=== PATIENT | male | born 1960 | race Caucasian/White ===

== ENCOUNTER → 2016-10-23 | Outpatient (CLI) | payer MEDICARE ==
[2016-10-23 16:04] LABS: EKG EKG PERFORMED
[2016-10-23 16:54] LABS: Basophils % (A) 0 %; CH 28.4; CHCM 33.3; Eosinophils # (A) 0.2 k/uL (0-0.7); Eosinophils % (A) 3 %; HDW 3.42; HGB 10.3 gm/dL (13.0-17.5); Luc % (Auto) 2; Lymphocytes # (A) 0.5 k/uL (1.0-4.8); Lymphocytes % (A) 8 %; MCH 27.5 pg (25.0-35.0); MCHC 32.2 g/dL (31.0-37.0); MCV 85.3 fL (80.0-100.0); Mean Platelet Volume 7.7; Monocytes # (A) 0.6 k/uL (0-1.0); Monocytes % (A) 9 %; Neutrophils # (A) 5.1 k/uL (1.3-7.7); Neutrophils % (A) 78 %; Poikilocytosis Slight; RBC 3.75 m/uL (4.30-5.90); RDW 15.7 % (11.5-15.5); WBC 6.5 k/uL (3.8-10.6); WBC (Perox) 7.18
[2016-10-23 17:06] LABS: Anion Gap 14 mmol/L; Blood Urea Nitrogen 31 mg/dL (9-20); Carbon Dioxide 27 mmol/L (22-30); Chloride 96 mmol/L (98-107); Glucose 277 mg/dL (74-99); Sodium 137 mmol/L (137-145)
--- NOTE | 2016-10-23 17:11 | XR ---
EXAMINATION TYPE: XR chest 2V DATE OF EXAM: 10/23/2016 4:48 PM COMPARISON: 04/29/2016 HISTORY: Short of breath TECHNIQUE: Frontal and lateral views of the chest are obtained. FINDINGS: Heart and mediastinum are normal. Lungs are clear. There is a dual-lumen right central jack ous catheter with the tip in the superior vena cava. There are sternal wires. There is no pleural eff usion. IMPRESSION: No active cardiopulmonary disease. No adverse change compared to old exam.
[2016-10-23 17:15] LABS: Non-African American GFR(MDRD) 13 (>60 ml/min/1.73 sqM)
== END | disposition home or self-care (01) ==
LOC: LABPAT 15:39
PROVIDERS: ATTEND Thoracic Surgery (Cardiothoracic Vascular Surgery)
DX: R06.02 Shortness of breath (principal); Z01.812 Encounter for preprocedural laboratory examination; Z01.811 Encounter for preprocedural respiratory examination; Z01.810 Encounter for preprocedural cardiovascular examination; I10 Essential (primary) hypertension; I73.9 Peripheral vascular disease, unspecified
CPT/HCPCS: 71020; 80051; 82565; 82947; 84520; 85025; 87086; 93005

== ENCOUNTER 2016-10-24 09:08 | Inpatient (IN) | payer MEDICARE ==
[2016-10-23 13:19] VITALS: BMI 25.1
[~2016-10-24 09:08] MED LIST: DEXAMETHASONE SOD PHOSPHATE 10 MG/ML 1 ML VIAL IV ONE; LACTATED RINGERS 1,000 ML IV SCH; LIDOCAINE 1% 20 ML VIAL (10MG/ML) FOR IV START INTRADERMA PRN; ONDANSETRON 4 MG/2 ML VIAL IVP ONE; SCOPOLAMINE 1.5MG/72HR PATCH TRANSDERM ONE; ceFAZolin 2 GM in SODIUM CHLORIDE 0.9% 100 ML IVPB ONE
[2016-10-24 10:20] LABS: Glucose,Whole Blood 228 mg/dL (75-99)
[2016-10-24 10:29] LABS: INR 1.1 (<1.1); Partial Thromboplastin Time 23.2 sec (22.0-30.0); Prothrombin Time 10.7 sec (9.0-12.0)
[2016-10-24] MEDS: INSULIN LISPRO (humaLOG) 300 UNIT/3 ML VIAL SQ ONE ×2 (10:30→14:05)
[2016-10-24] MEDS ORDERED: HYDROmorphone (PF) 1 MG/ML ONE (10:36)
[2016-10-24] MEDS ORDERED: MIDAZOLAM 2 MG/2 ML VIAL ONE (10:36)
[2016-10-24] MEDS ORDERED: PROPOFOL 10 MG/ML 20 ML VIAL IV ONE (10:36)
[2016-10-24] MEDS ORDERED: fentaNYL (PF) 50 MCG/ML 2 ML AMP ONE (10:36)
[2016-10-24] MEDS ORDERED: SUCCINYLCHOLINE CHLORIDE 100 MG/5 ML SYR IV ONE (10:36)
[2016-10-24] MEDS ORDERED: LIDOCAINE 1% INJ 10MG/ML (20 ML MDV) ONE (10:36)
[2016-10-24] MEDS ORDERED: NALOXONE 0.4 MG/ML 1 ML VIAL IV PRN (12:25)
[2016-10-24] MEDS ORDERED: CALCIUM CARBONATE 500 MG CHEWABLE PO PRN (12:38)
[2016-10-24] MEDS: HYDROmorphone 1 MG/ML 1 ML SYRINGE IVP PRN ×4 (12:50→13:50)
[2016-10-24 14:01] LABS: Glucose,Whole Blood 235 mg/dL (75-99)
[2016-10-24] MEDS: HYDROcodone/APAP 5-325MG 1 EACH TAB PO PRN ×2 (15:07→21:46)
[2016-10-24] MEDS: ceFAZolin 1,000 MG in DEXTROSE/WATER 1 50ML.BAG IVPB SCH ×2 (16:18→23:07)
[2016-10-24] MEDS: hydrALAZINE HCL 50 MG TAB PO SCH ×2 (16:18→21:47)
[2016-10-24] MEDS: MORPHINE SULFATE 4 MG/ML SYRINGE IV PRN (16:29)
[2016-10-24 17:29] LABS: Glucose,Whole Blood 246 mg/dL (75-99)
[2016-10-24] MEDS ORDERED: PANTOPRAZOLE 40 MG TABLET PO SCH (17:30)
[2016-10-24] MEDS: PANTOPRAZOLE 40 MG TABLET PO SCH (17:52)
[2016-10-24 20:49] LABS: Glucose,Whole Blood 358 mg/dL (75-99)
[2016-10-24] MEDS: METOPROLOL TARTRATE 50 MG TAB PO SCH (21:47)
[2016-10-24] MEDS: INSULIN LISPRO (humaLOG) 300 UNIT/3 ML VIAL SQ SCH (21:48)
--- NOTE | 2016-10-24 23:03 | CONS ---
REASON FOR CONSULTATION: Recommendations regarding diabetic medications, antihypertensive medications. Patient is admitted for elective left ( ). Patient is doing well. Patient denied any fever or chills. Patient denied any nausea, vomiting. Patient does have multiple other medical problems and patient denied any abdominal pain, nausea, vomiting. Patient is admitted basically for pain control. Patient's pain is under control at this point of time and is being managed by Primary Service and patient's antiplatelet therapy and DVT prophylaxis is being managed by Primary Service as well. REVIEW OF SYSTEMS: CONSTITUTIONAL: No fever, no malaise, no fatigue. HEENT: No recent visual problems or hearing problems. Denied any sore throat. CARDIOVASCULAR: No chest pain, orthopnea, PND, no palpitations, no syncope. PULMONARY: No shortness of breath, no cough, no hemoptysis. GASTROINTESTINAL: No diarrhea, no nausea, no vomiting, no abdominal pain. Normoactive bowel sounds. NEUROLOGICAL: No headaches, no weakness, no numbness. HEMATOLOGICAL: Denies any bleeding or petechiae. GENITOURINARY: Denies any burning micturition, frequency, or urgency. MUSCULOSKELETAL/RHEUMATOLOGICAL: Denies any joint pain, swelling, or any muscle pain. ENDOCRINE: Denies any polyuria or polydipsia. The rest of the 14 point review of systems is negative. PAST MEDICAL HISTORY: Significant for coronary artery disease, diabetes mellitus type 2, gastroesophageal reflux disease, hyperlipidemia, hearing problems, hypertension, osteoarthritis. Patient apparently appears to have had CKD and end-stage renal disease and history of peritoneal dialysis and now hemodialysis Saturday, Saturday, Saturday and diabetic peripheral neuropathy and presently left below-knee amputation, osteomyelitis with MRSA infection as well as diabetic gastroparesis. PAST SURGICAL HISTORY: Cardiac valve replacement surgery, cholecystectomy, hernia repair, orthopedic surgery and anxiety, depression. PAST FAMILY HISTORY: Significant for diabetes mellitus, osteoarthritis. SOCIAL HISTORY: Denied any present smoking, alcohol abuse. Patient occasional uses marijuana. Patient quit smoking. PHYSICAL EXAMINATION: VITAL SIGNS: Temperature 96.6, pulse of 62, respiratory rate of 20, blood pressure is 166/79, saturating at 100% on room air. GENERAL: The patient is alert and oriented x3, not in any acute distress. Well developed, well nourished. HEENT: Pupils are round and equally reacting to light. EOMI. No scleral icterus. No conjunctival pallor. Normocephalic, atraumatic. No pharyngeal erythema. No thyromegaly. CARDIOVASCULAR: S1 and S2 present. No murmurs, rubs, or gallops. PULMONARY: Chest is clear to auscultation, no wheezing or crackles. ABDOMEN: Soft, nontender, nondistended, normoactive bowel sounds. No palpable organomegaly. MUSCULOSKELETAL: No joint swelling or deformity. EXTREMITIES: No cyanosis, clubbing, or pedal edema. Left below-knee amputation. NEUROLOGICAL: Gross neurological examination did not reveal any focal deficits. SKIN: No rashes. LABORATORY DATA: Potassium is essentially within normal limits. No other lab data is available. FINAL DIAGNOSES: 1. Diabetes mellitus. Patient is on sliding scale insulin at home which will be continued here. 2. Hypertension. Patient ( ). Patient's blood pressure is elevated and his antihypertensives can be continued. 3. End-stage renal disease. The patient will continue his regular scheduled hemodialysis. 4. Gastroesophageal reflux disease. 5. Left below-knee amputation. Pain medication as per Primary Services. 6. Osteoarthritis. 7. Diabetic peripheral neuropathy. 8. Diabetic nephropathy. I did do the medication reconciliation. I did review the medication reconciliation. Continue with present medications and leave the addition of antiplatelet therapy to Primary Service. It can be started whenever they believe is appropriate. Will continue to follow the patient as long as patient is in the hospital. Thank you for letting me participate in this patient's care. Patient's primary care physician ( ).
[2016-10-25] MEDS: HYDROcodone/APAP 5-325MG 1 EACH TAB PO PRN ×3 (02:17→17:58)
[2016-10-25 07:38] LABS: Glucose,Whole Blood 344 mg/dL (75-99)
[2016-10-25] MEDS: SERTRALINE 100 MG TAB PO SCH (08:07)
[2016-10-25] MEDS: PANTOPRAZOLE 40 MG TABLET PO SCH ×2 (08:07→18:00)
[2016-10-25] MEDS: INSULIN LISPRO (humaLOG) 300 UNIT/3 ML VIAL SQ SCH ×6 (08:13→21:05)
[2016-10-25] MEDS: INSULIN GLARGINE 100 UNIT/ML 10 ML VIAL SQ SCH (08:16)
[2016-10-25] MEDS ORDERED: MAGNESIUM OXIDE 400 MG TAB PO SCH (09:00)
[2016-10-25] MEDS ORDERED: SERTRALINE 100 MG TAB PO SCH (09:00)
--- NOTE | 2016-10-25 09:17 | P.PN ---
Subjective Principal diagnosis: Vascular occlusive disease, POD #1 left below the knee amputation. Currently sitting up in the bed in no apparent distress, eating breakfast, at bedside, no new complaints. Objective - Vital Signs Vital signs: Vital Signs Temp 97.5 F L 10/25/16 07:00 Pulse 65 10/25/16 08:00 Resp 16 10/25/16 08:00 BP 142/77 10/25/16 07:00 Pulse Ox 96 10/25/16 07:00 Intake & Output 10/24/16 10/25/16 10/25/16 18:59 06:59 18:59 Intake Total 700 322 Output Total 100 Balance 600 322 Weight 77.111 kg 77.111 kg Intake: IV 700 Oral 322 Output: Estimated Blood Loss 100 - Constitutional General appearance: Present: cooperative, no acute distress - Respiratory Details: Lung sounds clear bilaterally, respirations even and unlabored, remains in room air. Able to achieve 2100 mL on incentive spirometry. - Cardiovascular Details: S1, S2 present. Regular rate and rhythm. No edema present. - Gastrointestinal Gastrointestinal Comment(s): Abdomen soft, nontender, nondistended. Active bowel sounds 4 quadrants. Tolerating diet. - Genitourinary Genitourinary Comment(s): Chronic hemodialysis patient. - Integumentary Integumentary Comment(s): Skin warm, dry. Left BKA dressing intact, no drainage present. - Psychiatric Psychiatric: Present: A&O x's 3 - Allied health notes Allied health notes reviewed: nursing - Labs CBC & Chem 7: 10/24/16 10:05 Labs: Abnormal Lab Results - Last 24 Hours (Table) 10/24/16 10/24/16 10/24/16 Range/Units 10:04 14:00 17:27 POC Glucose (mg/dL) 228 H 235 H 246 H (75-99) mg/dL 10/24/16 10/25/16 Range/Units 20:47 07:26 POC Glucose (mg/dL) 358 H 344 H (75-99) mg/dL Assessment and Plan (1) Diabetic ulcer of left foot associated with type 2 diabetes mellitus Status: Acute Plan: 1. Monitor left lower extremity dressing for drainage. 2. Monitor patient's signs and symptoms, including pain of left lower extremity. 3. Pain control. 4. PT/OT to work with patient. 5. Medical management per primary service for chronic medical conditions. 6. We'll discharge patient to rehab soon for therapy. Time with Patient: Greater than 30
[2016-10-25 09:51] LABS: Basophils % (A) 0 %; CHCM 32.3; Eosinophils # (A) 0.1 k/uL (0-0.7); Eosinophils % (A) 2 %; HCT 27.9 % (39.0-53.0); HDW 3.34; HGB 8.9 gm/dL (13.0-17.5); Hypochromasia Slight; Luc # (Auto) 0.09; Luc % (Auto) 1; Lymphocytes # (A) 0.8 k/uL (1.0-4.8); Lymphocytes % (A) 11 %; MCH 27.6 pg (25.0-35.0); MCHC 31.8 g/dL (31.0-37.0); MCV 86.8 fL (80.0-100.0); Mean Platelet Volume 7.9; Monocytes # (A) 0.6 k/uL (0-1.0); Monocytes % (A) 9 %; Neutrophils # (A) 5.5 k/uL (1.3-7.7); Neutrophils % (A) 77 %; RBC 3.22 m/uL (4.30-5.90); RDW 15.9 % (11.5-15.5); WBC 7.1 k/uL (3.8-10.6); WBC (Perox) 7.55
[2016-10-25 10:29] LABS: Calcium 8.8 mg/dL (8.4-10.2); Phosphorous 5.2 mg/dL (2.5-4.5); Potassium 5.1 mmol/L (3.5-5.1); Total Bilirubin 0.4 mg/dL (0.2-1.3); Total Protein 5.8 g/dL (6.3-8.2)
--- NOTE | 2016-10-25 10:44 | PN ---
The patient is admitted for elective left below knee amputation for peripheral vascular disease. Patient is clinically doing well. I believe patient is admitted for pain management. Patient is pain free today when I evaluated the patient. REVIEW OF SYSTEMS: CARDIOVASCULAR: No chest pain, no orthopnea, no PND, no palpitations. PULMONARY: Denied any shortness of breath. No cough or hemoptysis. GASTROINTESTINAL: No diarrhea, nausea or vomiting. No abdominal pain. Normoactive bowel sounds. NEUROLOGIC: No headaches, no weakness, no numbness. Medications were reviewed. PHYSICAL EXAMINATION: VITAL SIGNS: Temperature 97.5, pulse of 65, respiratory rate 16, blood pressure 142/77, saturating at 96% on room air. GENERAL: The patient is alert and oriented x3, not in any acute distress. Well developed, well nourished. HEENT: Pupils are round and equally reacting to light. EOMI. No scleral icterus. No conjunctival pallor. Normocephalic, atraumatic. No pharyngeal erythema. No thyromegaly. CARDIOVASCULAR: S1 and S2 present. No murmurs, rubs, or gallops. PULMONARY: Chest is clear to auscultation, no wheezing or crackles. ABDOMEN: Soft, nontender, nondistended, normoactive bowel sounds. No palpable organomegaly. MUSCULOSKELETAL: No joint swelling or deformity. EXTREMITIES: No significant change compared to yesterday. NEUROLOGICAL: Gross neurological examination did not reveal any focal deficits. SKIN: No rashes. LABORATORY DATA: None available from today. ASSESSMENT AND PLAN: 1. Diabetes mellitus. Patient's blood sugars appear to be a bit elevated and patient was given Lantus today morning. Will see how his blood sugars are. Depending on that, if patient is ( ) here otherwise I recommend to send him on 8 units of t.i.d. a.c. insulin along with his coverage scale. 2. Hypertension. Blood pressure is fairly controlled. Continue with present medication regimen. 3. End-stage renal disease, hemodialysis dependent. Patient will continue his hemodialysis as scheduled. 4. Gastroesophageal reflux disease. 5. Diabetic peripheral neuropathy. 6. Diabetic nephropathy. 7. Below-knee amputation and peripheral vascular disease. 8. Antiplatelet management as per primary services. Thank you for letting me participate in this patient's care. If patient is staying here, I will continue to follow to manage the blood sugars or else patient can be discharged on 8 units of premeal insulin along with his home regimen.
[2016-10-25 12:11] LABS: Glucose,Whole Blood 277 mg/dL (75-99)
--- NOTE | 2016-10-25 13:19 | P.PN ---
Subjective Patient is seen in follow-up for end-stage renal disease. He is maintained on hemodialysis on a Saturday schedule. Patient underwent a left [id number] amputation this admission. Currently doing well. Pain is well controlled. Vital signs are stable. General: The patient appeared well nourished and normally developed. HEENT: Head exam is unremarkable. Neck is without jugular venous distension. LUNGS: Lungs are clear to auscultation and percussion. Breath sounds decreased. HEART: Rate and Rhythm are regular. First and second heart sounds normal. No murmurs, rubs or gallops. ABDOMEN: Abdominal exam reveals normal bowel sounds. Non-tender and non- distended. No evidence of peritonitis. EXTREMITITES: No clubbing, cyanosis, or edema. Wound dressing clean and dry. Amputation noted. Objective - Vital Signs Vital signs: Vital Signs Temp 97.5 F L 10/25/16 07:00 Pulse 65 10/25/16 08:00 Resp 16 10/25/16 08:00 BP 142/77 10/25/16 07:00 Pulse Ox 96 10/25/16 07:00 Intake & Output 10/24/16 10/25/16 10/25/16 18:59 06:59 18:59 Intake Total 700 322 Output Total 100 Balance 600 322 Weight 77.111 kg 77.111 kg Intake: IV 700 Oral 322 Output: Estimated Blood Loss 100 - Labs CBC & Chem 7: 10/25/16 08:45 10/25/16 08:45 Labs: Abnormal Lab Results - Last 24 Hours (Table) 10/24/16 10/24/16 10/24/16 Range/Units 14:00 17:27 20:47 RBC (4.30-5.90) m/uL Hgb (13.0-17.5) gm/dL Hct (39.0-53.0) % RDW (11.5-15.5) % Lymphocytes # (1.0-4.8) k/uL BUN (9-20) mg/dL Creatinine (0.66-1.25) mg/dL Glucose (74-99) mg/dL POC Glucose (mg/dL) 235 H 246 H 358 H (75-99) mg/dL Phosphorus (2.5-4.5) mg/dL Alkaline Phosphatase (38-126) U/L Total Protein (6.3-8.2) g/dL Albumin (3.5-5.0) g/dL 10/25/16 10/25/16 10/25/16 Range/Units 07:26 08:45 08:45 RBC 3.22 L (4.30-5.90) m/uL Hgb 8.9 L (13.0-17.5) gm/dL Hct 27.9 L (39.0-53.0) % RDW 15.9 H (11.5-15.5) % Lymphocytes # 0.8 L (1.0-4.8) k/uL BUN 46 H (9-20) mg/dL Creatinine 6.08 H* (0.66-1.25) mg/dL Glucose 329 H (74-99) mg/dL POC Glucose (mg/dL) 344 H (75-99) mg/dL Phosphorus 5.2 H (2.5-4.5) mg/dL Alkaline Phosphatase 134 H (38-126) U/L Total Protein 5.8 L (6.3-8.2) g/dL Albumin 2.9 L (3.5-5.0) g/dL 10/25/16 Range/Units 12:09 RBC (4.30-5.90) m/uL Hgb (13.0-17.5) gm/dL Hct (39.0-53.0) % RDW (11.5-15.5) % Lymphocytes # (1.0-4.8) k/uL BUN (9-20) mg/dL Creatinine (0.66-1.25) mg/dL Glucose (74-99) mg/dL POC Glucose (mg/dL) 277 H (75-99) mg/dL Phosphorus (2.5-4.5) mg/dL Alkaline Phosphatase (38-126) U/L Total Protein (6.3-8.2) g/dL Albumin (3.5-5.0) g/dL Assessment and Plan Plan: Assessment: #1. End-stage renal disease maintained on hemodialysis on a Saturday schedule. #2. Status post left [id number] amputation. #3. Insulin-dependent diabetes mellitus. #4. Anemia of chronic kidney disease. #5. Chronic kidney disease mineral bone disease. Plan: Hemodialysis today and again tomorrow with goal 1 L ultrafiltration. Patient missed yesterday's treatment due to surgery. Stable to discharge to ECF from nephrology standpoint after dialysis today.
[2016-10-25] MEDS: hydrALAZINE HCL 50 MG TAB PO SCH ×3 (15:57→23:34)
[2016-10-25 17:32] LABS: Glucose,Whole Blood 82 mg/dL (75-99)
[2016-10-25] MEDS: CLOPIDOGREL 75 MG TAB PO SCH (17:59)
[2016-10-25] MEDS: ATORVASTATIN 10 MG TAB PO SCH (17:59)
[2016-10-25] MEDS: FOLIC ACID 1 MG TAB PO SCH (17:59)
[2016-10-25] MEDS: MAGNESIUM OXIDE 400 MG TAB PO SCH (17:59)
[2016-10-25] MEDS: METOPROLOL TARTRATE 50 MG TAB PO SCH ×2 (17:59→21:10)
[2016-10-25] MEDS ORDERED: HEPARIN SODIUM,PORCINE 5,000 UNIT/ML 1 ML VIAL ONE (18:00)
[2016-10-25] MEDS: MORPHINE SULFATE 4 MG/ML SYRINGE IV PRN (21:02)
[2016-10-25 21:40] LABS: Glucose,Whole Blood 119 mg/dL (75-99)
[2016-10-26 07:24] LABS: Glucose,Whole Blood 177 mg/dL (75-99)
[2016-10-26] MEDS: INSULIN LISPRO (humaLOG) 300 UNIT/3 ML VIAL SQ SCH ×7 (08:02→22:00)
--- NOTE | 2016-10-26 08:02 | P.PN ---
<Samra Junior - Last Filed: 10/26/16 07:57> Subjective Principal diagnosis: Vascular occlusive disease, POD #2 left below the knee amputation. Currently sitting up in the bed in no apparent distress, no new complaints. States he's been told he is awaiting final placement at rehab. Objective - Vital Signs Vital signs: Vital Signs Temp 98.4 F 10/25/16 22:59 Pulse 64 10/25/16 22:59 Resp 18 10/25/16 22:59 BP 145/75 10/25/16 23:50 Pulse Ox 96 10/25/16 22:59 Intake & Output 10/25/16 10/26/16 10/26/16 18:59 06:59 18:59 Intake Total 200 350 Balance 200 350 Weight 77.111 kg Intake: Oral 200 350 - Constitutional General appearance: Present: cooperative, no acute distress - Respiratory Details: Lung sounds clear to auscultation, respirations even and unlabored, remains on room air. Able to achieve 1750 mL on incentive spirometry. - Cardiovascular Details: S1, S2 present. Regular rate and rhythm. No edema present. - Gastrointestinal Gastrointestinal Comment(s): Abdomen soft, nontender, nondistended. Active bowel sounds 4 quadrants. Tolerating diet. - Genitourinary Genitourinary Comment(s): Voiding minimally per urinal. Chronic hemodialysis patient. - Integumentary Integumentary Comment(s): Right anterior chest wall Syed cath present. Left forearm AV fistula, positive bruit, positive thrill. Dressing on the left lower extremity BKA dry and intact. - Psychiatric Psychiatric: Present: A&O x's 3, appropriate affect, intact judgment & insight - Allied health notes Allied health notes reviewed: case management - Labs CBC & Chem 7: 10/25/16 08:45 10/25/16 08:45 Labs: Abnormal Lab Results - Last 24 Hours (Table) 10/25/16 10/25/16 10/25/16 Range/Units 08:45 08:45 12:09 RBC 3.22 L (4.30-5.90) m/uL Hgb 8.9 L (13.0-17.5) gm/dL Hct 27.9 L (39.0-53.0) % RDW 15.9 H (11.5-15.5) % Lymphocytes # 0.8 L (1.0-4.8) k/uL BUN 46 H (9-20) mg/dL Creatinine 6.08 H* (0.66-1.25) mg/dL Glucose 329 H (74-99) mg/dL POC Glucose (mg/dL) 277 H (75-99) mg/dL Phosphorus 5.2 H (2.5-4.5) mg/dL Alkaline Phosphatase 134 H (38-126) U/L Total Protein 5.8 L (6.3-8.2) g/dL Albumin 2.9 L (3.5-5.0) g/dL 10/25/16 10/26/16 Range/Units 21:04 07:22 RBC (4.30-5.90) m/uL Hgb (13.0-17.5) gm/dL Hct (39.0-53.0) % RDW (11.5-15.5) % Lymphocytes # (1.0-4.8) k/uL BUN (9-20) mg/dL Creatinine (0.66-1.25) mg/dL Glucose (74-99) mg/dL POC Glucose (mg/dL) 119 H 177 H (75-99) mg/dL Phosphorus (2.5-4.5) mg/dL Alkaline Phosphatase (38-126) U/L Total Protein (6.3-8.2) g/dL Albumin (3.5-5.0) g/dL Assessment and Plan (1) Diabetic ulcer of left foot associated with type 2 diabetes mellitus Status: Acute Plan: 1. Monitor left lower extremity dressing for drainage. 2. Monitor patient's signs and symptoms, including pain of left lower extremity. 3. Pain control. 4. PT/OT to work with patient. 5. Medical management per primary service for chronic medical conditions. 6. Awaiting placement for discharge to rehab. Time with Patient: Greater than 30 <Marcelo Wells - Last Filed: 10/26/16 11:24> Objective - Vital Signs Vital signs: Vital Signs Temp 97.8 F 10/26/16 07:00 Pulse 64 10/26/16 07:00 Resp 18 10/26/16 07:00 BP 154/82 10/26/16 07:00 Pulse Ox 96 10/26/16 07:00 Intake & Output 10/25/16 10/26/16 10/26/16 18:59 06:59 18:59 Intake Total 200 350 Balance 200 350 Weight 77.111 kg Intake: Oral 200 350 - Labs CBC & Chem 7: 10/25/16 08:45 10/25/16 08:45 Labs: Abnormal Lab Results - Last 24 Hours (Table) 10/25/16 10/25/16 10/26/16 Range/Units 12:09 21:04 07:22 POC Glucose (mg/dL) 277 H 119 H 177 H (75-99) mg/dL 10/26/16 Range/Units 11:03 POC Glucose (mg/dL) 244 H (75-99) mg/dL Assessment and Plan Plan: [employer] note reviewed and accepted. Good progress post left below-knee amputation. Work on rehab with physical therapy and discharge planning with ECF placement.
[2016-10-26] MEDS: PANTOPRAZOLE 40 MG TABLET PO SCH ×2 (08:03→18:04)
[2016-10-26] MEDS: CLOPIDOGREL 75 MG TAB PO SCH (08:05)
[2016-10-26] MEDS: ATORVASTATIN 10 MG TAB PO SCH (08:05)
[2016-10-26] MEDS: SERTRALINE 100 MG TAB PO SCH (08:05)
[2016-10-26] MEDS: METOPROLOL TARTRATE 50 MG TAB PO SCH ×2 (08:06→22:01)
[2016-10-26] MEDS: hydrALAZINE HCL 50 MG TAB PO SCH ×3 (08:06→22:01)
[2016-10-26] MEDS: INSULIN GLARGINE 100 UNIT/ML 10 ML VIAL SQ SCH (08:13)
[2016-10-26] MEDS: HYDROcodone/APAP 5-325MG 1 EACH TAB PO PRN ×3 (09:35→22:12)
[2016-10-26 11:05] LABS: Glucose,Whole Blood 244 mg/dL (75-99)
[2016-10-26] MEDS: FOLIC ACID 1 MG TAB PO SCH (11:46)
[2016-10-26] MEDS: MAGNESIUM OXIDE 400 MG TAB PO SCH (11:46)
[2016-10-26] MEDS ORDERED: DARBEPOETIN ALFA 40 MCG/0.4 ML SYRINGE SQ SCH (14:45)
--- NOTE | 2016-10-26 14:57 | PN ---
Patient is seen for followup for end-stage renal disease. He was admitted to the hospital for a diabetic ulcer of the left foot. He is currently status post left below-knee amputation, postoperative day number 2. He is normally maintained on a Saturday, Saturday, Saturday schedule for hemodialysis, and he is on the schedule for hemodialysis today. On examination, blood pressure is 154/82, heart rate 64 per minute. He is afebrile. EXAMINATION OF THE HEART: S1 and S2. EXAMINATION OF THE LUNGS: Bilateral breath sounds are heard. ABDOMEN: Soft, nontender. Examination of lower extremities shows left BKA dressing intact. Labs show sodium 138, potassium 5.1. Hemoglobin 8.9 g/dL. ASSESSMENT: 1. End-stage renal disease, on hemodialysis on a Saturday, Saturday, Saturday schedule via IJ Perm-A-Cath. Patient also has an AV fistula in his left arm which appears to be ready. 2. Status post left below-knee amputation. 3. Type 2 diabetes. 4. Generalized debility. 5. History of volume overload, currently improved. 6. Anemia of chronic disease. Will maintain patient on Aranesp. PLAN: Hemodialysis today. Start Aranesp, as hemoglobin was 8.9 yesterday. Repeat CBC in a.m.
[2016-10-26 17:04] LABS: Glucose,Whole Blood 105 mg/dL (75-99)
[2016-10-26 20:32] LABS: Glucose,Whole Blood 142 mg/dL (75-99)
[2016-10-27 07:13] LABS: Glucose,Whole Blood 138 mg/dL (75-99)
[2016-10-27] MEDS: METOPROLOL TARTRATE 50 MG TAB PO SCH ×2 (08:25→22:32)
[2016-10-27] MEDS: SERTRALINE 100 MG TAB PO SCH (08:25)
[2016-10-27] MEDS: ATORVASTATIN 10 MG TAB PO SCH (08:25)
[2016-10-27] MEDS: CLOPIDOGREL 75 MG TAB PO SCH (08:25)
[2016-10-27] MEDS: hydrALAZINE HCL 50 MG TAB PO SCH ×3 (08:25→22:32)
[2016-10-27] MEDS: PANTOPRAZOLE 40 MG TABLET PO SCH ×2 (08:25→18:02)
[2016-10-27] MEDS: INSULIN LISPRO (humaLOG) 300 UNIT/3 ML VIAL SQ SCH ×7 (08:26→22:34)
--- NOTE | 2016-10-27 08:48 | P.PN ---
Progress Note - Text Subjective: Patient has fairly minimal discomfort. He feels that he still a bit weak in his activities. Objective: He is afebrile. Dressings are stable and dry. Assessment: Stable progress post left below-knee amputation. Plan: We'll continue to progress strength training. Continue to work on discharge planning, probably for Saturday.
--- NOTE | 2016-10-27 08:56 | P.PN ---
Subjective doing well. Had HD on .. He is MWF, surgery was on Sat. Objective - Vital Signs Vital signs: Vital Signs Temp 97.8 F 10/27/16 07:00 Pulse 67 10/27/16 07:00 Resp 16 10/27/16 07:00 BP 155/83 10/27/16 07:00 Pulse Ox 95 10/27/16 07:00 Intake & Output 10/26/16 10/27/16 10/27/16 18:59 06:59 18:59 Intake Total 600 680 Output Total 300 600 Balance 300 80 Weight 77.111 kg Intake: Oral 600 680 Output: Urine 300 600 - Constitutional General appearance: Present: cooperative, no acute distress - Respiratory Respiratory: bilateral: CTA - Cardiovascular Rhythm: regular Heart sounds: normal: S1, S2 - Gastrointestinal General gastrointestinal: Present: normal bowel sounds, soft - Labs CBC & Chem 7: 10/25/16 08:45 10/25/16 08:45 Labs: Abnormal Lab Results - Last 24 Hours (Table) 10/26/16 10/26/16 10/26/16 Range/Units 11:03 17:02 20:23 POC Glucose (mg/dL) 244 H 105 H 142 H (75-99) mg/dL 10/27/16 Range/Units 07:10 POC Glucose (mg/dL) 138 H (75-99) mg/dL Assessment and Plan Plan: Assessment/Plan 1. ESRD MWF as an outpatient, last HD was on . --Will dialyze today for 2 hours and resume usual schedule on Saturday. 2. POD#2 L BKA --Pain controlled. 3. Anemia of ESRD --On aranesp 4. CKD-MBD- stable. 5. HTN- Controlled.
[2016-10-27] MEDS: INSULIN GLARGINE 100 UNIT/ML 10 ML VIAL SQ SCH (09:16)
[2016-10-27 12:19] LABS: Glucose,Whole Blood 109 mg/dL (75-99)
[2016-10-27] MEDS ORDERED: HEPARIN SODIUM,PORCINE 5,000 UNIT/ML 1 ML VIAL ONE (14:20)
[2016-10-27 17:32] LABS: Glucose,Whole Blood 122 mg/dL (75-99)
[2016-10-27] MEDS: FOLIC ACID 1 MG TAB PO SCH (18:02)
[2016-10-27] MEDS: MAGNESIUM OXIDE 400 MG TAB PO SCH (18:02)
[2016-10-27] MEDS: HYDROcodone/APAP 5-325MG 1 EACH TAB PO PRN (19:28)
[2016-10-27 20:27] LABS: Glucose,Whole Blood 129 mg/dL (75-99)
[2016-10-28 07:19] LABS: Glucose,Whole Blood 106 mg/dL (75-99)
[2016-10-28] MEDS: PANTOPRAZOLE 40 MG TABLET PO SCH ×2 (07:54→17:28)
[2016-10-28] MEDS: ATORVASTATIN 10 MG TAB PO SCH (07:54)
[2016-10-28] MEDS: CLOPIDOGREL 75 MG TAB PO SCH (07:54)
[2016-10-28] MEDS: hydrALAZINE HCL 50 MG TAB PO SCH ×3 (07:55→21:38)
[2016-10-28] MEDS: SERTRALINE 100 MG TAB PO SCH (07:55)
[2016-10-28] MEDS: INSULIN GLARGINE 100 UNIT/ML 10 ML VIAL SQ SCH (07:57)
[2016-10-28] MEDS: INSULIN LISPRO (humaLOG) 300 UNIT/3 ML VIAL SQ SCH ×7 (07:57→21:39)
[2016-10-28 09:14] LABS: Hepatitis B Surface Ag Index 0.05
[2016-10-28 09:33] LABS: Hepatitis B Surface Antibody POSITIVE (Negative)
[2016-10-28] MEDS: METOPROLOL TARTRATE 50 MG TAB PO SCH (09:53)
--- NOTE | 2016-10-28 10:16 | P.PN ---
Subjective No complaints. No cp/sob. Objective - Vital Signs Vital signs: Vital Signs Temp 97.7 F 10/28/16 07:00 Pulse 42 L 10/28/16 08:00 Resp 16 10/28/16 07:00 BP 172/77 10/28/16 07:00 Pulse Ox 97 10/28/16 07:00 Intake & Output 10/27/16 10/28/16 10/28/16 18:59 06:59 18:59 Intake Total 240 440 Output Total 200 Balance 240 240 Intake: Oral 240 440 Output: Urine 200 Other: # Voids 0 - Constitutional General appearance: Present: cooperative, no acute distress - Respiratory Respiratory: bilateral: CTA - Cardiovascular Rhythm: regular Heart sounds: normal: S1, S2 - Peripheral edema leg Peripheral Edema: right: None - Gastrointestinal General gastrointestinal: Present: normal bowel sounds, soft - Labs CBC & Chem 7: 10/25/16 08:45 10/25/16 08:45 Labs: Abnormal Lab Results - Last 24 Hours (Table) 10/27/16 10/27/16 10/27/16 Range/Units 12:17 17:31 20:19 POC Glucose (mg/dL) 109 H 122 H 129 H (75-99) mg/dL 10/28/16 Range/Units 07:15 POC Glucose (mg/dL) 106 H (75-99) mg/dL Assessment and Plan Plan: Assessment/Plan 1. ESRD MWF: --will have dialysis tomorrow. 2. POD#3 L BKA --Pain controlled. 3. Anemia of ESRD --On aranesp 4. CKD-MBD- stable. 5. HTN- Controlled.
--- NOTE | 2016-10-28 10:19 | P.PN ---
Progress Note - Text Subjective: Patient has no complaints. Pain is well-controlled. Objective: Afebrile. Vital signs stable. Some bradycardia with sleeping. Assessment: Doing well post-left below-knee amputation. Significant bradycardia. Plan: Bradyarrhythmia is being attended to by internal medicine. Tentative transferred to [facility] tomorrow. Office follow-up for stump management in a week.
[2016-10-28] MEDS: HYDROcodone/APAP 5-325MG 1 EACH TAB PO PRN (10:33)
[2016-10-28 11:43] LABS: Glucose,Whole Blood 115 mg/dL (75-99)
--- NOTE | 2016-10-28 12:40 | PN ---
Patient is admitted with elective left below-knee amputation and I was asked to see the patient again because of bradycardia. Patient has sinus bradycardia. Patient is on metoprolol and significant bradycardia happens when he is sleeping which is not abnormal, anyways patient is on 50 b.i.d. of metoprolol. I will cut it down to 37.5. REVIEW OF SYSTEMS: CARDIOVASCULAR: No chest pain, no orthopnea, no PND, no palpitations. PULMONARY: Denied any shortness of breath. No cough or hemoptysis. GASTROINTESTINAL: No diarrhea, nausea or vomiting. No abdominal pain. Normoactive bowel sounds. NEUROLOGIC: No headaches, no weakness, no numbness. Medications are reviewed. On physical examination, temperature 97.5, pulse of 42, respiratory rate of 16, blood pressure is 170/77, saturating at 97% on room air. PHYSICAL EXAMINATION: GENERAL: The patient is alert and oriented x3, not in any acute distress. Well developed, well nourished. HEENT: Pupils are round and equally reacting to light. EOMI. No scleral icterus. No conjunctival pallor. Normocephalic, atraumatic. No pharyngeal erythema. No thyromegaly. CARDIOVASCULAR: S1 and S2 present. No murmurs, rubs, or gallops. PULMONARY: Chest is clear to auscultation, no wheezing or crackles. ABDOMEN: Soft, nontender, nondistended, normoactive bowel sounds. No palpable organomegaly. EXTREMITIES: No cyanosis, clubbing, or pedal edema. NEUROLOGICAL: Gross neurological examination did not reveal any focal deficits. SKIN: No rashes. MUSCULOSKELETAL: No significant change compared to 2 to 3 days ago when I saw the patient. LABORATORY DATA: None available from today. ASSESSMENT AND PLAN: 1. Type 2 diabetes mellitus, patient's blood sugars are fairly doing well and continue with the same regimen. 2. Mild sinus bradycardia, which is not abnormal, not expected of when patient is sleeping although his metoprolol dose will be decreased to 37.5. 3. Endstage renal disease on hemodialysis. 4. Gastroesophageal reflux disease. 5. Diabetic peripheral neuropathy. 6. Diabetic nephropathy. 7. Below knee amputation and peripheral vascular disease. PLAN: Continue with present medications and medication changes as mentioned above. Will continue to follow the patient only on as-needed basis.
[2016-10-28] MEDS: MAGNESIUM OXIDE 400 MG TAB PO SCH (12:57)
[2016-10-28] MEDS: FOLIC ACID 1 MG TAB PO SCH (12:57)
[2016-10-28 16:58] LABS: Glucose,Whole Blood 149 mg/dL (75-99)
[2016-10-28 20:27] LABS: Glucose,Whole Blood 177 mg/dL (75-99)
[2016-10-28] MEDS: METOPROLOL TARTRATE 12.5 MG TAB PO SCH (21:38)
[2016-10-29 07:16] LABS: Glucose,Whole Blood 132 mg/dL (75-99)
[2016-10-29] MEDS: INSULIN LISPRO (humaLOG) 300 UNIT/3 ML VIAL SQ SCH ×7 (07:48→20:32)
[2016-10-29] MEDS: METOPROLOL TARTRATE 12.5 MG TAB PO SCH ×2 (07:53→20:31)
[2016-10-29] MEDS: CLOPIDOGREL 75 MG TAB PO SCH (07:54)
[2016-10-29] MEDS: SERTRALINE 100 MG TAB PO SCH (07:55)
[2016-10-29] MEDS: hydrALAZINE HCL 50 MG TAB PO SCH ×3 (07:55→20:31)
[2016-10-29] MEDS: PANTOPRAZOLE 40 MG TABLET PO SCH ×2 (07:55→18:39)
[2016-10-29] MEDS: ATORVASTATIN 10 MG TAB PO SCH (07:55)
[2016-10-29] MEDS: INSULIN GLARGINE 100 UNIT/ML 10 ML VIAL SQ SCH (08:01)
[2016-10-29 12:03] LABS: Glucose,Whole Blood 98 mg/dL (75-99)
[2016-10-29] MEDS: MAGNESIUM OXIDE 400 MG TAB PO SCH (12:31)
[2016-10-29] MEDS: FOLIC ACID 1 MG TAB PO SCH (12:32)
[2016-10-29] MEDS: HYDROcodone/APAP 5-325MG 1 EACH TAB PO PRN (14:53)
[2016-10-29 17:12] LABS: Glucose,Whole Blood 78 mg/dL (75-99)
[2016-10-29 17:26] LABS: Anisocytosis Slight; Basophils % (A) 1 %; CH 28.1; CHCM 33.1; Eosinophils # (A) 0.2 k/uL (0-0.7); Eosinophils % (A) 5 %; HCT 25.7 % (39.0-53.0); HDW 3.73; HGB 8.6 gm/dL (13.0-17.5); Hypochromasia Slight; Luc # (Auto) 0.11; Luc % (Auto) 3; Lymphocytes # (A) 0.6 k/uL (1.0-4.8); Lymphocytes % (A) 16 %; MCH 28.4 pg (25.0-35.0); MCHC 33.4 g/dL (31.0-37.0); MCV 85.2 fL (80.0-100.0); Mean Platelet Volume 7.1; Monocytes # (A) 0.3 k/uL (0-1.0); Monocytes % (A) 8 %; Neutrophils # (A) 2.7 k/uL (1.3-7.7); Neutrophils % (A) 67 %; Poikilocytosis Slight; RBC 3.02 m/uL (4.30-5.90); RDW 16.7 % (11.5-15.5); WBC 4.1 k/uL (3.8-10.6); WBC (Perox) 4.44
[2016-10-29 18:38] LABS: Calcium 8.5 mg/dL (8.4-10.2); Potassium 4.1 mmol/L (3.5-5.1)
[2016-10-29] MEDS ORDERED: HEPARIN SODIUM,PORCINE 5,000 UNIT/ML 1 ML VIAL ONE (20:00)
[2016-10-29 20:19] LABS: Glucose,Whole Blood 166 mg/dL (75-99)
[2016-10-30 07:22] LABS: Glucose,Whole Blood 140 mg/dL (75-99)
[2016-10-30 07:40] VITALS: BP 137/75; PULSE 64; RESP 16; TEMP 97.4
[2016-10-30] MEDS: INSULIN LISPRO (humaLOG) 300 UNIT/3 ML VIAL SQ SCH ×2 (08:19→08:20)
[2016-10-30] MEDS: METOPROLOL TARTRATE 12.5 MG TAB PO SCH (08:23)
[2016-10-30] MEDS: ATORVASTATIN 10 MG TAB PO SCH (08:24)
[2016-10-30] MEDS: CLOPIDOGREL 75 MG TAB PO SCH (08:24)
[2016-10-30] MEDS: hydrALAZINE HCL 50 MG TAB PO SCH (08:24)
[2016-10-30] MEDS: PANTOPRAZOLE 40 MG TABLET PO SCH (08:24)
[2016-10-30] MEDS: SERTRALINE 100 MG TAB PO SCH (08:24)
[2016-10-30] MEDS: INSULIN GLARGINE 100 UNIT/ML 10 ML VIAL SQ SCH (08:39)
--- NOTE | 2016-10-30 10:19 | P.DS ---
Providers Date of admission: 10/24/16 09:08 Attending physician: Palmer Cintron Consults: 10/24/16 12:28 Consult Physician Routine Consulting Provider: Genny Otero Consult Reason/Comments: medical management Do you want consulting provider notified?: Yes 10/24/16 12:29 Consult Physician Routine Consulting Provider: Kati Gomez Consult Reason/Comments: nephrology/dialysis Do you want consulting provider notified?: Yes Primary care physician: Shagufta Robin - Discharge Diagnosis(es) (1) Diabetic ulcer of left foot associated with type 2 diabetes mellitus Current Visit: No Status: Acute Hospital Course: FINAL DIAGNOSIS: 1.[Peripheral vascular disease] 2.[Gangrenous left foot] 3.[Chronic kidney disease with hemodialysis] PRINCIPAL PROCEDURE: [] 1.[Left below the knee amputation] HISTORY OF PRESENT ILLNESS: [This 56-year-old gentleman has been followed for peripheral vascular disease in the wound care clinic. He had developed an ulcerative wound on his left foot, and had continued to be seen in the wound care clinic to try and treat medically. However, the left foot ulcer became gangrenous, and amputation was discussed with the patient and his . All risks, benefits were explained, and patient consented to a below the knee amputation.] HOSPITAL COURSE:[This gentleman was brought in from an outpatient setting and taken to the pre-op area. He was prepared and brought to the operating room where he underwent below the knee amputation of his left extremity. Please see operative note for specifics. Following surgery he was admitted to the postanesthesia care unit, was recovered, and was admitted to the floor for postop care. He did receive dialysis while in the hospital, and had no complications post surgery. Caterina did change the patient's left stump dressing October 29. The patient is to be transferred to [facility] today for further amputation care and physical therapy. He will receive dialysis while there.] COMPLICATIONS: [None] CONSULTATIONS: 1.[Dr. Otero for medical management] 2.[Dr. Gomez for nephrology] DISCHARGE INSTRUCTIONS: 1. Geovani to change stump dressing or Saturday. Rigid dressing to come off only while working with PT. 2. PT to continue to work with patient. 3. Dialysis -- per patient's home schedule. 4. Continue pain control per as needed orders. 5. Continue with incentive spirometry until otherwise directed by the physician. Plan - Discharge Summary New Discharge Prescriptions: HYDROcodone/APAP 5-325MG [[place] 5-325] 1 - 2 tab PO Q4H PRN 30 Days PRN Reason: Pain Discharge Medication List Metoprolol Tartrate [Lopressor] 50 mg PO BID #60 tab 05/05/14 [Rx] Atorvastatin [Lipitor] 10 mg PO DAILY 08/10/15 [History] Magnesium Oxide [Mag-Ox] 400 mg PO DAILY 08/10/15 [History] Calcium Carbonate [Tums] 1,000 mg PO TID PRN 11/03/15 [History] Folic Acid 1 mg PO DAILY 11/03/15 [History] Clopidogrel [Plavix] 75 mg PO DAILY #90 tab 03/27/16 [Rx] Potassium Chloride ER [K-Dur 10] 10 meq PO DAILY 04/11/16 [History] Sertraline [Zoloft] 100 mg PO QAM 04/11/16 [History] Loperamide [Imodium] 2 mg PO TID PRN #20 cap 04/13/16 [Rx] Insulin Glargine [Lantus] 40 unit SQ QAM 05/09/16 [History] INSULIN LISPRO (humaLOG) [humaLOG (formulary)] See Protocol SQ AC-TID 10/23/16 [ History] Pantoprazole [Protonix] 20 mg PO AC-BID 10/23/16 [History] Pro Renal (Supplement) 1 tab PO BID 10/23/16 [History] hydrALAZINE HCL [Apresoline] 50 mg PO TID 10/23/16 [History] Darbepoetin Kenneth [Aranesp] 40 mcg SQ Q7D syringe 10/30/16 [Rx] HYDROcodone/APAP 5-325MG [[place] 5-325] 1 - 2 tab PO Q4H PRN 30 Days 10/30/16 [Rx ] Follow up Appointment(s)/Referral(s): Marcelo Wells DO [Doctor of Osteopathic Medicine] - 11/01/16 (.) Discharge Disposition: TRANSFER TO SNF/ECF
--- NOTE | 2016-10-30 15:42 | P.PN ---
Subjective Date of service 10/30/2016. Progress note being dictated for Dr. Cameron. Interval history: This a 56-year-old gentleman admitted with gangrenous left foot, peripheral vascular disease,status post left BKA , chronic kidney disease on hemodialysis and multiple other medical issues. Continues to do well. Pain controlled. Good diet intake with no nausea vomiting or diarrhea. Positive bowel movement. Scheduled for hemodialysis tomorrow. Blood sugars controlled. Yesterday bradycardic while sleeping, beta vicente dose decreased,VSS. Afebrile. Awaiting discharge to [facility] rehab. Objective - Vital Signs Vital signs: Vital Signs Temp 97.4 F L 10/30/16 07:00 Pulse 64 10/30/16 07:00 Resp 16 10/30/16 08:00 BP 137/75 10/30/16 07:00 Pulse Ox 97 10/30/16 07:00 Intake & Output 10/29/16 10/30/16 10/30/16 18:59 06:59 18:59 Intake Total 620 580 Output Total 800 Balance -180 580 Weight 77.111 kg 77.111 kg Intake: Oral 620 580 Output: Urine 800 Other: Voiding Method Urinal Urinal Urinal # Voids 0 - Exam PHYSICAL EXAM: VITAL SIGNS: [As above] GENERAL: [Sitting up in bed, no acute distress] HEENT: [Pupils equal conjunctiva normal.] NECK: [Supple, no JVD] RESPIRATORY EFFORT:[Normal] LUNGS: [Clear to auscultation, no wheezing crackles or rhonchi] CARDIOVASCULAR[regular S1 and S2, no edema] GI: [Abdomen soft, nontender, positive bowel sounds.] PSYCH: [Alert and oriented -3, mood and affect normal.] SKIN: Left BKA dressing clean dry and intact NEURO: Gross neurological examination did not reveal any focal deficits - Labs CBC & Chem 7: 10/29/16 17:15 10/29/16 17:33 Labs: Abnormal Lab Results - Last 24 Hours (Table) 10/29/16 10/29/16 10/29/16 Range/Units 17:15 17:33 20:17 RBC 3.02 L (4.30-5.90) m/uL Hgb 8.6 L (13.0-17.5) gm/dL Hct 25.7 L (39.0-53.0) % RDW 16.7 H (11.5-15.5) % Lymphocytes # 0.6 L (1.0-4.8) k/uL BUN 40 H (9-20) mg/dL Creatinine 4.85 H (0.66-1.25) mg/dL Glucose 112 H (74-99) mg/dL POC Glucose (mg/dL) 166 H (75-99) mg/dL 10/30/16 Range/Units 07:19 RBC (4.30-5.90) m/uL Hgb (13.0-17.5) gm/dL Hct (39.0-53.0) % RDW (11.5-15.5) % Lymphocytes # (1.0-4.8) k/uL BUN (9-20) mg/dL Creatinine (0.66-1.25) mg/dL Glucose (74-99) mg/dL POC Glucose (mg/dL) 140 H (75-99) mg/dL Assessment and Plan Plan: 1. Gangrenous left foot ulcer, peripheral vascular disease, status post left BKA 2. Diabetes mellitus type 2 3. Mild bradycardia during sleep, beta vicente dose decreased, bradycardia resolved.VSS 4. End-stage kidney disease on hemodialysis 5. Gastroesophageal reflux disease 6. Diabetic peripheral neuropathy 7. Diabetic nephropathy Plan: Continue on current medication regime ,monitoring and symptomatic treatment. Aggressive pulmonary toileting with incentive spirometer reinforced. Patient is being discharged as per vascular surgery to ECF rehab. Hemodialysis as per nephrology. Pain management/Wound Care as per surgery. The impression and plan of care has been dictated as directed. : I performed a H&P examination of this patient and discussed the same with the dictator. I agree with the dictator's note. Any additional findings/opinions/ etc. will be noted.
--- NOTE | 2016-11-02 07:44 | OP ---
DATE OF SERVICE: 10/24/2016 SURGEON: FORREST YOUNG MD DOVETAILER: PREOPERATIVE DIAGNOSIS: Gangrene and ulceration of the left foot. POSTOPERATIVE DIAGNOSIS: Gangrene and ulceration of the left foot OPERATION: Below the knee amputation. ANESTHESIA: ESTIMATED BLOOD LOSS: SPECIMENS REMOVED: COMPLICATIONS: OPERATIVE FINDINGS: DESCRIPTION OF PROCEDURE: The patient after informed consent was brought to the operating room, prepped and draped in usual sterile Betadine fashion. Timeout was obtained. We verified site location and operated and created an incision below the knee 15 cm below the tibial tuberosity and we created a posterior flap. We incised with a Gigli saw the tibial bone and then the fibula was incised with a power saw; approximately 1 inch shorted than the tibia. We fashioned the tibial bone anteriorly so that it would be beveled and smoothed and we washed the BK amputation site after the specimen was removed. All bleeding sites were doubly ligated with 0 Vicryl sutures. The vasculature ligated with 2-0 Prolene suture. The posterior flap was fashioned and it appropriately closed over the tibia. The fascia was closed all with Vicryl sutures and we fashioned the stump and the closure of the posterior flap so that it had no redundant tissue. Closure eventually was with skin closure and then a rigid dressing was applied by Rashid.
== END 2016-10-30 11:40 | DRG 239 ==
LOC: 2ORWHC 09:08 → EDSTATUS 10:30 → 5MS5E 12:32
PROVIDERS: ADMIT Thoracic Surgery (Cardiothoracic Vascular Surgery); ATTEND Thoracic Surgery (Cardiothoracic Vascular Surgery)
PROC: 5A1D60Z (ICD-10-PCS; principal; 2016-10-23)
PROC: 0Y6J0Z2 Detachment at Left Lower Leg, Mid, Open Approach (ICD-10-PCS; 2016-10-24)
DX: E11.52 Type 2 diabetes mellitus with diabetic peripheral angiopathy with gangrene (principal); N18.6 End stage renal disease; E11.21 Type 2 diabetes mellitus with diabetic nephropathy; I12.0 Hypertensive chronic kidney disease with stage 5 chronic kidney disease or end stage renal disease; K31.84 Gastroparesis; L97.529 Non-pressure chronic ulcer of other part of left foot with unspecified severity; E11.42 Type 2 diabetes mellitus with diabetic polyneuropathy; E11.43 Type 2 diabetes mellitus with diabetic autonomic (poly)neuropathy; E11.621 Type 2 diabetes mellitus with foot ulcer; E11.22 Type 2 diabetes mellitus with diabetic chronic kidney disease; Z95.2 Presence of prosthetic heart valve; I25.10 Atherosclerotic heart disease of native coronary artery without angina pectoris; K21.9 Gastro-esophageal reflux disease without esophagitis; E78.5 Hyperlipidemia, unspecified; M19.90 Unspecified osteoarthritis, unspecified site; F32.9 Major depressive disorder, single episode, unspecified; D63.1 Anemia in chronic kidney disease; I73.9 Peripheral vascular disease, unspecified; F12.90 Cannabis use, unspecified, uncomplicated; Z99.2 Dependence on renal dialysis; Z89.512 Acquired absence of left leg below knee; Z90.49 Acquired absence of other specified parts of digestive tract; Z79.4 Long term (current) use of insulin; Z86.14 Personal history of Methicillin resistant Staphylococcus aureus infection; Z87.891 Personal history of nicotine dependence; Z83.3 Family history of diabetes mellitus; Z79.02 Long term (current) use of antithrombotics/antiplatelets; Z79.899 Other long term (current) drug therapy
CPT/HCPCS: 71020; 80048; 80051; 80053; 82565; 82947; 83735; 84100; 84132; 84520; 85025; 85610; 85730; 86704; 86706; 86850; 86900; 86901; 87086; 87340; 88307; 88311; 90935; 93005

== ENCOUNTER 2017-02-20 06:57 | Inpatient (IN) | payer MEDICARE ==
[2017-02-20] MEDS ORDERED: NITROGLYCERIN OINT 1 INCH/GM PACKET TOPICAL STA (07:04)
--- NOTE | 2017-02-20 07:21 | ED ---
Chest Pain HPI - General Chief Complaint: Chest Pain Stated Complaint: chest pain Time Seen by Provider: 02/20/17 07:00 Source: patient, EMS, RN notes reviewed Mode of arrival: EMS Limitations: no limitations - History of Present Illness Initial Comments: This is a 57-year-old male with a history of renal failure who is been on dialysis for over a year also history diabetes and aortic valve replacement states he had the onset 2 days ago of intermittent episodes of left-sided chest pain. This morning he had more pain is somewhat EMS. He was given 324 mg of aspirin and a nitro the pain was low-grade he states it did help somewhat is down to about a 1/10 that started 2-11/23. Also he's had a cough mostly a dry cough no fevers chills or sweats. He is not behind and dialysis. He denies any other symptoms at this time the just dialysis on Saturday and Saturday. MD Complaint: chest pain - Related Data Home Medications Medication Instructions Recorded Confirmed Atorvastatin [Lipitor] 10 mg PO DAILY 08/10/15 02/20/17 Magnesium Oxide [Mag-Ox] 400 mg PO DAILY 08/10/15 02/20/17 Calcium Carbonate [Tums] 1,000 mg PO TID PRN 11/03/15 02/20/17 Folic Acid 1 mg PO DAILY 11/03/15 02/20/17 Potassium Chloride ER [K-Dur 10] 10 meq PO DAILY 04/11/16 02/20/17 Sertraline [Zoloft] 100 mg PO QAM 04/11/16 02/20/17 Insulin Glargine [Lantus] 40 unit SQ QAM 05/09/16 02/20/17 INSULIN LISPRO (humaLOG) [humaLOG See Protocol SQ AC-TID 10/23/16 02/20/17 (formulary)] Pantoprazole [Protonix] 20 mg PO AC-BID 10/23/16 02/20/17 Pro Renal (Supplement) 1 tab PO BID 10/23/16 02/20/17 hydrALAZINE HCL [Apresoline] 50 mg PO TID 10/23/16 02/20/17 Previous Rx's Medication Instructions Recorded Metoprolol Tartrate [Lopressor] 50 mg PO BID #60 tab 05/05/14 Clopidogrel [Plavix] 75 mg PO DAILY #90 tab 03/27/16 Loperamide [Imodium] 2 mg PO TID PRN #20 cap 04/13/16 HYDROcodone/APAP 5-325MG [[place] 1 - 2 tab PO Q4H PRN 30 Days 10/30/16 5-325] Allergies Allergy/AdvReac Type Severity Reaction Status Date / Time Iodinated Contrast Media - AdvReac shut down Verified 02/20/17 08:01 Oral and kidneys [Iodinated Contrast Media - IV Dye] Review of Systems ROS Statement: Those systems with pertinent positive or pertinent negative responses have been documented in the HPI. ROS Other: All systems not noted in ROS Statement are negative. EKG Findings - EKG Results: EKG: interpreted by ERMD, sinus rhythm (Sinus rhythm rate is 66. Interval 182 QRS of 140 daily since QTC of 470/501 right bundle-branch block no acute ST-T wave changes.) Past Medical History Past Medical History: Coronary Artery Disease (CAD), Diabetes Mellitus, Eye Disorder, GERD/Reflux, Hearing Disorder / Deafness, Hyperlipidemia, Hypertension , Hypertension, Osteoarthritis (OA), Renal Disease, Renal Disease, Skin Disorder , Vascular Disorder Additional Past Medical History / Comment(s): Aortic valve replacement - BOVINE ; Gout, end-stage renal disease. HX peritoneal dialysis, now Hemodialysis -- . Diabetic Peripheral Neuropathy, HX amputation 5TH toe lt foot, history of osteomyelitis, history of MRSA infection, diabetic gastroparesis. LT FOOT ULCER. PVD. History of Any Multi-Drug Resistant Organisms: MRSA Date of last positivie culture/infection: 2011 MDRO Source:: LEFT FOOT Past Surgical History: Cardiac Valve Replacement, Cholecystectomy, Hernia Repair , Orthopedic Surgery Additional Past Surgical History / Comment(s): DIALYIS port placement. RT foot I &D when a metal fragment was in his foot that was also infected, LT FOOT DEBRIDEMENT ,5TH TOE AMP. REMOVAL PD CATH. 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 No experience. No recent travels. No animals in the home. No significant alcohol use. No current tobacco use. No recreational drug use Smoking Status: Never smoker Past Alcohol Use History: None Reported Past Drug Use History: None Reported Additional Drug Use History / Comment(s): CANNA CUBES - MARIJUANA GUMMY, OCC USE FOR NAUSEA. - Past Family History Mother Family Medical History: Diabetes Mellitus, Osteoarthritis (OA) Additional Family Medical History / Comment(s): HIP REPLACMENTS Father Family Medical History: CVA/TIA, Diabetes Mellitus, Myocardial Infarction (NH) Additional Family Medical History / Comment(s): PARKINSON'S General Exam - General Exam Comments Initial Comments: This is a well-developed well-nourished awake alert oriented times 3 male Limitations: no limitations General appearance: alert, in no apparent distress Head exam: Present: atraumatic, normocephalic, normal inspection Eye exam: Present: normal appearance, PERRL, EOMI. Absent: scleral icterus, conjunctival injection, periorbital swelling ENT exam: Present: normal exam, mucous membranes moist Neck exam: Present: normal inspection. Absent: tenderness, meningismus, lymphadenopathy Respiratory exam: Present: decreased breath sounds, other (There is a right chest wall catheter in place no evidence of any infectious findings). Absent: respiratory distress, wheezes, rales, rhonchi, stridor, chest wall tenderness Cardiovascular Exam: Present: regular rate, normal rhythm, normal heart sounds. Absent: systolic murmur, diastolic murmur, rubs, gallop, clicks GI/Abdominal exam: Present: soft, normal bowel sounds. Absent: distended, tenderness, guarding, rebound, rigid Rectal exam: Present: deferred Extremities exam: Present: full ROM, normal capillary refill, other (Below the left leg amputation no evidence of any infection. Also there is a fistula in the left upper extremity which appears be functional). Absent: tenderness, pedal edema, joint swelling, calf tenderness Back exam: Present: normal inspection Neurological exam: Present: alert, oriented X3, CN II-XII intact Psychiatric exam: Present: normal affect, normal mood Skin exam: Present: warm, dry, intact, normal color. Absent: rash Course Vital Signs 02/20/17 02/20/17 07:00 08:28 Temperature 98.9 F Pulse Rate 67 62 Respiratory 18 17 Rate Blood Pressure 161/79 176/89 O2 Sat by Pulse 92 L 97 Oximetry - Reevaluation(s) Reevaluation #1: 02/20/17 09:37 Patient does have elevated troponin is unclear whether this is secondary to a cardiac manifestation or that in combination with the renal failure. Chest Pain MDM - MDM I did discuss findings with the patient family members. Patient be admitted to evaluate the chest pain. Also nephrology will be consulted for dialysis Critical Care Time Critical Care Time: Yes Critical Care Time: 31 minutes of critical care time which includes initial monitoring of the EMS call and discussed with paramedics. History physical lab and x-rays and the patient reevaluation patient response to therapy discuss with the patient family and with the attending physician. Admission orders and documentation of the above Disposition Clinical Impression: Acute non-ST segment elevation myocardial infarction (STEMI) following previous myocardial infarction, Unstable angina pectoris, Chronic renal failure syndrome Disposition: ADMITTED IP TO THIS HOSP Condition: Stable Referrals: Thor Robert MD [Primary Care Provider] - 1-2 days
[2017-02-20 07:39] LABS: Anisocytosis Slight; Basophils % (A) 0 %; CH 29.1; CHCM 34.2; Eosinophils # (A) 0.1 k/uL (0-0.7); Eosinophils % (A) 1 %; HCT 28.9 % (39.0-53.0); HDW 3.28; HGB 9.6 gm/dL (13.0-17.5); Luc # (Auto) 0.18; Luc % (Auto) 2; Lymphocytes # (A) 0.5 k/uL (1.0-4.8); Lymphocytes % (A) 5 %; MCH 28.4 pg (25.0-35.0); MCHC 33.3 g/dL (31.0-37.0); MCV 85.4 fL (80.0-100.0); Mean Platelet Volume 7.5; Monocytes # (A) 0.7 k/uL (0-1.0); Monocytes % (A) 8 %; Neutrophils # (A) 7.3 k/uL (1.3-7.7); Neutrophils % (A) 83 %; RBC 3.38 m/uL (4.30-5.90); RDW 17.1 % (11.5-15.5); WBC 8.8 k/uL (3.8-10.6); WBC (Perox) 9.12
--- NOTE | 2017-02-20 07:45 | XR ---
EXAMINATION TYPE: XR chest 2V DATE OF EXAM: 02/20/2017 COMPARISON: October 23, 2016 HISTORY: Shortness of breath TECHNIQUE: Frontal and lateral views of the chest are obtained. FINDINGS: Scattered senescent parenchymal changes noted. Hyperinflation compatible with COPD. Patchy density right infrahilar region may reflect developing infiltrate. Correlate clinically. Large bore central venous line in place. Heart size is stable. Mediastinal structures are stable and grossly unremarkable. No evidence for hilar prominence. Degenerative changes dorsal spine. IMPRESSION: 1. Patchy density right infrahilar region may reflect developing infiltrate.
[2017-02-20 07:50] LABS: Calcium 9.3 mg/dL (8.4-10.2); Magnesium 1.9 mg/dL (1.6-2.3); Potassium 4.5 mmol/L (3.5-5.1); Total Bilirubin 1.4 mg/dL (0.2-1.3)
[2017-02-20 07:54] LABS: INR 1.1 (<1.1)
[2017-02-20 07:56] LABS: Partial Thromboplastin Time 18.7 sec (22.0-30.0)
[2017-02-20 08:11] LABS: Creatine Kinase MB 1.4 ng/mL (0.0-2.4)
[2017-02-20 08:18] LABS: Troponin I 0.133 ng/mL (0.000-0.034)
[2017-02-20] MEDS ORDERED: NITROGLYCERIN SL TABS 0.4 MG TAB SUBLINGUAL PRN (09:38)
[2017-02-20] MEDS ORDERED: HEPARIN SODIUM,PORCINE 5,000 UNIT/ML 1 ML VIAL IV ONE (09:38)
[2017-02-20] MEDS ORDERED: HYDROcodone/APAP 5-325MG 1 EACH TAB PO PRN (09:43)
[2017-02-20] MEDS ORDERED: CALCIUM CARBONATE 500 MG CHEWABLE PO PRN (09:43)
[2017-02-20] MEDS ORDERED: LOPERAMIDE 2 MG CAP PO PRN (09:43)
[2017-02-20] MEDS ORDERED: SODIUM CHLORIDE 0.9% 1,000 ML IV SCH (09:45)
[2017-02-20] MEDS: HEPARIN SODIUM,PORCINE/D5W PMX 25,000 UNIT in DEXTROSE/WATER 1 500ML.BAG IV SCH (09:52)
[2017-02-20] MEDS: NITROGLYCERIN OINT 1 INCH/GM PACKET TOPICAL SCH ×3 (11:34→23:14)
[2017-02-20 11:44] LABS: Hemoglobin A1C 8.5 % (4.2-6.1)
[2017-02-20 11:45] LABS: Glucose,Whole Blood 106 mg/dL (75-99)
[2017-02-20] MEDS: INSULIN LISPRO (humaLOG) 300 UNIT/3 ML VIAL SQ SCH ×3 (13:09→21:31)
[2017-02-20 14:04] LABS: Creatine Kinase MB 1.8 ng/mL (0.0-2.4)
[2017-02-20 14:17] LABS: Troponin I 0.121 ng/mL (0.000-0.034)
--- NOTE | 2017-02-20 14:30 | CONS ---
DATE OF CONSULTATION: CHIEF COMPLAINT: Chest pain. Andi is a 57-year-old gentleman with history of end-stage renal disease on hemodialysis, peripheral vascular disease, status post left below-knee amputation, hypertension, insulin-requiring diabetes, dyslipidemia who presented to hospital complaining of left-sided chest discomfort. He describes it as a sharp, left-sided pain without definite radiation to neck, arm or back. Feels somewhat nauseous with it. There is no history of diaphoresis. He has known aortic stenosis, status post aortic valve replacement, has chronic renal failure. Patient underwent angioplasty of left popliteal artery in the past. Patient also complains of dry cough without any fever, chills, or sweats. Past medical history is significant for hypertension, diabetes, dyslipidemia, end-stage renal disease on hemodialysis, aortic stenosis, status post aortic valve replacement, and peripheral vascular disease. Current medications include Apresoline 50 t.i.d., Zoloft, K-Dur, Protonix, Lopressor 50 b.i.d., Imodium, insulin, Plavix, Lipitor. ALLERGIES: Allergic to IV DYE. FAMILY HISTORY: Negative for premature coronary artery disease. SOCIAL HISTORY: Negative for current smoking, EtOH abuse, or drug abuse. REVIEW OF SYSTEMS: HEENT is unremarkable. CARDIAC: As described above. First and second heart sounds are heart and there is an ejection systolic murmur in the aortic area. RESPIRATORY: As described above. GI: Negative. GENITOURINARY: Significant for end-stage renal disease on hemodialysis. PSYCHOSOCIAL: Negative. ENDOCRINE: Negative. HEMATOLOGICAL: Negative. DERMATOLOGICAL: Negative. CONSTITUTIONAL: Significant for symptoms of not feeling well and dry cough. DOCUMENTATION WRITER: Negative. Rest of the system review is not relevant. On exam, comfortable at rest. Vital signs are stable. Chest exam reveals diminished air entry at the bases. Heart exam reveals first and second heart sounds. No gallop. Has a systolic murmur at the left lower sternal border. Abdomen is soft. Exam of extremities reveals palpable foot pulses on the right side and left below-knee amputation on the left side. Labs show that his hemoglobin is 9.6. Troponin is at 0.1 and BNP is elevated at 21,200. ASSESSMENT: 1. Chest pain, rule out coronary artery disease. 2. Aortic stenosis, status post aortic valve replacement. 3. Peripheral vascular disease, status post angioplasty. 4. Hypertension. 5. Dyslipidemia. 6. Insulin-requiring diabetes. PLAN: Patient is on optimal medical therapy. Will follow his cardiac enzymes, obtain a 2-D echo to assess the prosthetic valve and decide on further course of action based on what happens to the cardiac enzymes. Clinically, does not seem like acute myocardial ischemia. EKG shows sinus rhythm with right bundle branch block.
[2017-02-20] MEDS: hydrALAZINE HCL 50 MG TAB PO SCH ×2 (16:19→21:35)
[2017-02-20] MEDS: PANTOPRAZOLE 40 MG TABLET PO SCH (16:19)
[2017-02-20 16:51] LABS: Glucose,Whole Blood 140 mg/dL (75-99)
--- NOTE | 2017-02-20 19:03 | HP ---
DATE OF ADMISSION: 02/20/2017 PRESENTING COMPLAINT: Chest pain. HISTORY OF PRESENTING COMPLAINT: [id number] patient of Dr. Robert with a rather extensive medical history. Patient's chronic stable medical conditions include diabetes mellitus, type 2, GERD, hyperlipidemia, hypertension, osteoarthritis, end-stage kidney disease, gout, peripheral neuropathy, left below-knee amputation, bilateral diabetic retinopathy, diabetic gastroparesis. Patient presents with 2 days of left-sided chest pain, sometimes described as sharp, other times described as if he could feel his heart in the back of the chest; some associated shortness of breath. No dizziness. Some perspiration, feeling tired more than usual. Patient admitted with diagnosis of unstable angina, rule out a cardiac cause. REVIEW OF SYSTEMS: CONSTITUTIONAL: Tired. HEENT: None. RESPIRATORY: None. CARDIOVASCULAR: As above. GASTROINTESTINAL: None. GENITOURINARY: None. MUSCULOSKELETAL: Pain in the joints. DERMATOLOGICAL: None. HEMATOLOGICAL: None. LYMPHATICS: None. PSYCHIATRY: None. NEUROLOGICAL: Numbness and tingling peripherally. PAST MEDICAL HISTORY: 1. Coronary artery disease. 2. Diabetes mellitus, type 2. 3. GERD. 4. Hyperlipidemia. 5. Hypertension. 6. Osteoarthritis. 7. Aortic valve replacement, bovine. 8. Gout. 9. Peripheral neuropathy. 10. Left below-knee amputation. 11. Vestibulitis. 12. Gastroparesis. 13. Peripheral artery disease. PAST SURGICAL HISTORY: 1. Aortic valve replacement, bovine type. 2. Cholecystectomy. 3. Hernia repair. 4. Left arm fistula for hemodialysis. 5. Right upper chest Cash catheter PAST PSYCHIATRIC HISTORY: Anxiety, depression. 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 Wheelchair-bound. No smoking or alcohol. FAMILY HISTORY: Diabetes, osteomyelitis. HOME MEDICATIONS: 1. Hydralazine 50 mg p.o. t.i.d. 2. Zoloft 100 mg p.o. daily. 3. Supplement 1 tablet p.o. b.i.d. 4. Potassium 10 mEq p.o. daily. 5. Protonix 20 mg b.i.d. 6. Lopressor 50 mg b.i.d. 7. Magnesium oxide 400 mg daily. 8. Imodium 2 mg p.o. t.i.d. p.r.n. 9. Lantus 40 units subcutaneously in the morning. 10. Humalog t.i.d. 11. Ulman 5 one to two tablets q.4 p.r.n. 12. Folic acid 1 mg daily. 13. Plavix 75 mg p.o. daily. 14. TUMS 1000 mg p.o. t.i.d. p.r.n. 15. Lipitor 10 mg p.o. daily. ALLERGIES: IV CONTRAST DYE. PHYSICAL EXAMINATION: Temperature 97.6, pulse 60, respiration 18, blood pressure 183/79, pulse ox ( )% on 2 L. GENERAL APPEARANCE: Lying in bed, tired-appearing. EYES: Pupils equal. Conjunctivae normal. HEENT: Oral cavity normal. NECK: JVD not raised. Mass not palpable. RESPIRATORY: Effort normal. LUNGS: Fair air entry. CARDIOVASCULAR: First and second sounds normal. No edema. ABDOMEN: Soft, nontender. Liver and spleen not palpable. LYMPHATIC: No lymph node palpable in neck or axillae. PSYCHIATRY: Alert and oriented x3. Mood and affect normal. CHEST WALL: Right chest wall Cash catheter. Left upper extremity fistula present. EXTREMITIES: Left below-knee amputation. INVESTIGATIONS: White count 8.8, hemoglobin 9.6, platelets 157. Potassium 4.5. BUN 37, creatinine 5.14. Troponin 0.133, 0.121. EKG shows right bundle branch block. ASSESSMENT: 1. Possible unstable angina with in a patient with multiple cardiac risk factors in a patient who is on hemodialysis. 2. Diabetes mellitus, type 2, chronically on insulin. 3. Gastroesophageal reflux disease. 4. Hyperlipidemia. 5. Essential hypertension. 6. Primary osteoarthritis in multiple joints. 7. End-stage kidney disease, on hemodialysis with left arm fistula. 8. Aortic valve replacement, bovine type, history of. 9. Diabetic peripheral neuropathy. 10. Left below-knee amputation. PLAN: Home medications are resumed. Accu-Cheks will be followed. Serial cardiac enzymes are in place. Cardiology was consulted. Patient was put on IV heparin. Care with discussed with the patient and his at the bedside.
[2017-02-20 19:54] LABS: Creatine Kinase MB 2.1 ng/mL (0.0-2.4)
[2017-02-20 19:57] LABS: Troponin I 0.102 ng/mL (0.000-0.034)
[2017-02-20] MEDS ORDERED: PRO RENAL PO SCH (21:00)
[2017-02-20] MEDS: METOPROLOL TARTRATE 50 MG TAB PO SCH (21:35)
[2017-02-20 21:42] LABS: Glucose,Whole Blood 118 mg/dL (75-99)
[2017-02-20] MEDS ORDERED: ONDANSETRON 4 MG/2 ML VIAL IVP PRN (22:37)
[2017-02-20] MEDS ORDERED: MELATONIN 5 MG TABLET PO SCH (22:45)
[2017-02-20] MEDS: guaiFENesin SYRUP 100MG/5ML 200 MG/10 ML CUP PO SCH (23:14)
[2017-02-20] MEDS ORDERED: HEPARIN SODIUM,PORCINE 5,000 UNIT/ML 1 ML VIAL IV STA (23:51)
[2017-02-21] MEDS: HEPARIN SODIUM,PORCINE/D5W PMX 25,000 UNIT in DEXTROSE/WATER 1 500ML.BAG IV SCH (03:55)
[2017-02-21 06:07] LABS: Glucose,Whole Blood 138 mg/dL (75-99)
[2017-02-21 06:20] LABS: Anisocytosis Slight; Basophils % (A) 0 %; CH 29.1; CHCM 33.5; Eosinophils # (A) 0.1 k/uL (0-0.7); Eosinophils % (A) 2 %; HCT 27.3 % (39.0-53.0); HDW 3.24; HGB 9.1 gm/dL (13.0-17.5); Luc % (Auto) 3; Lymphocytes # (A) 0.5 k/uL (1.0-4.8); Lymphocytes % (A) 7 %; MCH 28.9 pg (25.0-35.0); MCHC 33.2 g/dL (31.0-37.0); MCV 87.2 fL (80.0-100.0); Mean Platelet Volume 7.4; Monocytes # (A) 0.6 k/uL (0-1.0); Monocytes % (A) 8 %; Neutrophils # (A) 5.4 k/uL (1.3-7.7); Neutrophils % (A) 80 %; RBC 3.13 m/uL (4.30-5.90); RDW 17.1 % (11.5-15.5); WBC 6.8 k/uL (3.8-10.6); WBC (Perox) 7.17
[2017-02-21] MEDS: INSULIN LISPRO (humaLOG) 300 UNIT/3 ML VIAL SQ SCH ×3 (06:36→17:50)
[2017-02-21] MEDS: PANTOPRAZOLE 40 MG TABLET PO SCH ×2 (06:36→16:25)
[2017-02-21] MEDS: NITROGLYCERIN OINT 1 INCH/GM PACKET TOPICAL SCH (06:38)
[2017-02-21] MEDS ORDERED: SERTRALINE 100 MG TAB PO SCH (09:00)
[2017-02-21] MEDS ORDERED: CLOPIDOGREL 75 MG TAB PO SCH (09:00)
[2017-02-21] MEDS ORDERED: POTASSIUM CHLORIDE ER 10 MEQ TAB.ER.PRT PO SCH (09:00)
[2017-02-21] MEDS ORDERED: INSULIN GLARGINE 100 UNIT/ML 10 ML VIAL SQ SCH (09:00)
[2017-02-21] MEDS ORDERED: ATORVASTATIN 10 MG TAB PO SCH (09:00)
[2017-02-21] MEDS ORDERED: ASPIRIN 325 MG TAB PO SCH (09:00)
[2017-02-21] MEDS ORDERED: MAGNESIUM OXIDE 400 MG TAB PO SCH (09:00)
--- NOTE | 2017-02-21 11:14 | P.PN ---
Subjective Principal diagnosis: Atypical chest pain This 57-year-old gentleman with history of end-stage renal disease on hemodialysis, peripheral vascular disease status post left below the knee amputation, hypertension, diabetes, hyperlipidemia, who presented to the hospital with symptoms of atypical chest pain which the patient described as a sharp stabbing type of chest pain. Patient was seen in consultation yesterday by Dr. Felton. He was noted to have abnormal troponins, not consistent with acute coronary syndrome with no significant rise and fall. Abnormal troponins are likely secondary to abnormal renal function. EKG showed a normal sinus rhythm with a right bundle branch block pattern, no acute changes were noted. At the time of my examination this morning, patient is currently receiving dialysis, denies any chest pain, breathing is stable. We will discontinue the patient's IV heparin, decrease aspirin to 81 mg daily, continue Plavix. Discontinue Nitropaste and add a small dose of Imdur to his medication regime. We will also review the patient's echocardiogram with Doppler study. Objective - Vital Signs Vital signs: Vital Signs Temp 97 F L 02/21/17 08:00 Pulse 61 02/21/17 08:00 Resp 16 02/21/17 08:00 BP 157/67 02/21/17 08:00 Pulse Ox 98 02/21/17 08:00 Intake & Output 02/20/17 02/21/17 02/21/17 18:59 06:59 18:59 Intake Total 383.944 552.810 Output Total 100 Balance 283.944 552.810 Weight 79.832 kg 83 kg Intake: Intake, IV Titration 143.944 552.810 Amount Heparin Sodium,Porcine/ 143.944 352.810 D5w Pmx 25,000 unit In Dextrose/Water 1 500ml. bag @ 12 UNITS/KG/HR 19. 15 mls/hr IV .Q24H [facility] Rx #:[id number] Sodium Chloride 0.9% 1, 200 000 ml @ 20 mls/hr IV . Q24H [facility] Rx#:[id number] Oral 240 Output: Urine 100 Other: Voiding Method Urinal # Voids 0 - Exam PHYSICAL EXAMINATION: HEENT: Head is atraumatic, normocephalic. Pupils equal, round. Neck is supple. There is no elevated jugular venous pressure. HEART EXAMINATION: Heart S1 and S2 systolic murmur is heard. CHEST EXAMINATION: Lungs reveal diminished air entry to bilateral bases. ABDOMEN: Soft, nontender. Bowel sounds are heard. No organomegaly noted. EXTREMITIES:[ 1+ peripheral pulse to the right lower extremity, patient has a left below the knee amputation NEUROLOGIC patient is awake, alert and oriented -3. . - Labs CBC & Chem 7: 02/21/17 06:03 02/21/17 06:03 Labs: Abnormal Lab Results - Last 24 Hours (Table) 02/20/17 02/20/17 02/20/17 Range/Units 07:22 11:43 13:12 RBC (4.30-5.90) m/uL Hgb (13.0-17.5) gm/dL Hct (39.0-53.0) % RDW (11.5-15.5) % Plt Count (150-450) k/uL Lymphocytes # (1.0-4.8) k/uL APTT (22.0-30.0) sec Sodium (137-145) mmol/L BUN (9-20) mg/dL Creatinine (0.66-1.25) mg/dL Glucose (74-99) mg/dL POC Glucose (mg/dL) 106 H (75-99) mg/dL Hemoglobin A1c 8.5 H (4.2-6.1) % Troponin I 0.121 H* (0.000-0.034) ng/mL 02/20/17 02/20/17 02/20/17 Range/Units 16:25 16:49 19:08 RBC (4.30-5.90) m/uL Hgb (13.0-17.5) gm/dL Hct (39.0-53.0) % RDW (11.5-15.5) % Plt Count (150-450) k/uL Lymphocytes # (1.0-4.8) k/uL APTT 38.5 H (22.0-30.0) sec Sodium (137-145) mmol/L BUN (9-20) mg/dL Creatinine (0.66-1.25) mg/dL Glucose (74-99) mg/dL POC Glucose (mg/dL) 140 H (75-99) mg/dL Hemoglobin A1c (4.2-6.1) % Troponin I 0.102 H* (0.000-0.034) ng/mL 02/20/17 02/20/17 02/21/17 Range/Units 21:30 22:28 06:03 RBC (4.30-5.90) m/uL Hgb (13.0-17.5) gm/dL Hct (39.0-53.0) % RDW (11.5-15.5) % Plt Count (150-450) k/uL Lymphocytes # (1.0-4.8) k/uL APTT 34.7 H (22.0-30.0) sec Sodium 136 L (137-145) mmol/L BUN 50 H (9-20) mg/dL Creatinine 6.05 H* (0.66-1.25) mg/dL Glucose 134 H (74-99) mg/dL POC Glucose (mg/dL) 118 H (75-99) mg/dL Hemoglobin A1c (4.2-6.1) % Troponin I (0.000-0.034) ng/mL 02/21/17 02/21/17 02/21/17 Range/Units 06:03 06:03 06:06 RBC 3.13 L (4.30-5.90) m/uL Hgb 9.1 L (13.0-17.5) gm/dL Hct 27.3 L (39.0-53.0) % RDW 17.1 H (11.5-15.5) % Plt Count 127 L (150-450) k/uL Lymphocytes # 0.5 L (1.0-4.8) k/uL APTT 60.8 H (22.0-30.0) sec Sodium (137-145) mmol/L BUN (9-20) mg/dL Creatinine (0.66-1.25) mg/dL Glucose (74-99) mg/dL POC Glucose (mg/dL) 138 H (75-99) mg/dL Hemoglobin A1c (4.2-6.1) % Troponin I (0.000-0.034) ng/mL Assessment and Plan (1) Atypical chest pain Status: Acute (2) Diabetes Status: Acute (3) HTN (hypertension) Status: Acute (4) PVD (peripheral vascular disease) Status: Acute (5) PVD (peripheral vascular disease) Status: Acute (6) Anemia Status: Acute (7) End stage renal failure on dialysis Status: Acute (8) HTN (hypertension) Status: Acute (9) S/P AVR (aortic valve replacement) Status: Acute Plan: From cardiology's perspective, we will review the patient's echocardiogram with Doppler study and continue current medications. We will discontinue the patient 's IV heparin. And put the patient on a small dose of Imdur. DNP note has been reviewed, I agree with a documented findings and plan of care. Patient was seen and examined.
[2017-02-21 11:27] VITALS: BMI 26.2
--- NOTE | 2017-02-21 11:38 | ECHOF ---
Referral Reason:chest pain MEASUREMENTS -------- HEIGHT: 177.8 cm WEIGHT: 79.8 kg BP: 183/79 RVIDd: 3.0 cm (< 3.3) IVSd: 1.4 cm (0.6 - 1.1) LVIDd: 5.0 cm (3.9 - 5.3) LVPWd: 1.4 cm (0.6 - 1.1) IVSs: 1.8 cm LVIDs: 3.5 cm LVPWs: 1.8 cm LAESV Index (A-L): 30.64 ml/m Ao Diam: 3.9 cm (2.0 - 3.7) LA Diam: 3.0 cm (2.7 - 3.8) MV EXCURSION: 17.701 mm (> 18.000) MV EF SLOPE: 71 mm/s (70 - 150) EPSS: 1.8 cm MV E Darrion: 1.67 m/s MV DecT: 216 ms MV A Darrion: 0.88 m/s MV E/A Ratio: 1.91 AV maxP.20 mmHg AV meanP.70 mmHg RAP: 5.00 mmHg RVSP: 41.62 mmHg FINDINGS -------- Sinus rhythm. This was a technically adequate study. There is mild concentric left ventricular hypertrophy. Overall left ventricular systolic function is low-normal with, an EF between 50 - 55 %. The right ventricle is normal in size and function. LA is midly dilated 29-33ml/m2. The right atrium is normal in size. There is no evidence of aortic regurgitation. There is no evidence of aortic stenosis. Normally functioning bioprosthetic valve. The mitral valve leaflets are mildly thickened. There is trace to mild mitral regurgitation. Trace tricuspid regurgitation present. There is mild pulmonary hypertension. The right ventricular systolic pressure, as measured by Doppler, is 41.62mmHg. The pulmonic valve is normal. The aortic root size is normal. Normal inferior vena cava with normal inspiratory collapse consistent with estimated right atrial pressure of 5 mmHg. The pericardium is normal. There is no pericardial effusion. CONCLUSIONS -------- 1. Sinus rhythm. 2. Trace tricuspid regurgitation present. 3. There is mild pulmonary hypertension. 4. The right ventricular systolic pressure, as measured by Doppler, is 41.62mmHg. 5. The pulmonic valve is normal. 6. The aortic root size is normal. 7. The pericardium is normal. 8. There is no pericardial effusion. 9. There is mild concentric left ventricular hypertrophy. 10. Overall left ventricular systolic function is low-normal with, an EF between 50 - 55 %. 11. LA is midly dilated 29-33ml/m2. 12. There is no evidence of aortic regurgitation. 13. There is no evidence of aortic stenosis. 14. Normally functioning bioprosthetic valve. 15. The mitral valve leaflets are mildly thickened. 16. There is trace to mild mitral regurgitation. PLATFORM STAPLER: Ronnie Doran RDCS
[2017-02-21] MEDS ORDERED: FOLIC ACID 1 MG TAB PO SCH (12:00)
[2017-02-21] MEDS ORDERED: DARBEPOETIN ALFA 40 MCG/0.4 ML SYRINGE SQ SCH (12:00)
[2017-02-21 12:01] LABS: Glucose,Whole Blood 94 mg/dL (75-99)
--- NOTE | 2017-02-21 12:29 | P.NPCON ---
History of Present Illness - Reason for Consult end stage renal disease - History of Present Illness Reason for consultation: End-stage renal disease History of present illness: Patient is a 57-year-old male seen in initial consultation for end- stage renal disease. He is making on hemodialysis on a Saturday schedule via left upper extremity AV fistula. He still has a permacath in place as well. Patient presented to the hospital with left-sided chest pain that initially started on Saturday morning which was sharp in nature with radiation to his back. He took aspirin and the pain improved. However he came back yesterday and he presented to the hospital. He is currently off heparin drip and cardiology is following. He denies any active chest pain or shortness of breath. No vomiting or diarrhea. He did have dry heaves this morning. Hemodynamically he is stable. No fever or chills. No other complaints at this time. Vital signs are stable. General: The patient appeared well nourished and normally developed. HEENT: Head exam is unremarkable. Neck is without jugular venous distension. LUNGS: Lungs are clear to auscultation and percussion. Breath sounds decreased. HEART: Rate and Rhythm are regular. First and second heart sounds normal. No murmurs, rubs or gallops. ABDOMEN: Abdominal exam reveals normal bowel sounds. Non-tender and non- distended. No evidence of peritonitis. EXTREMITITES: Left BKA noted. No pitting edema. Past Medical History Past Medical History: Coronary Artery Disease (CAD), Diabetes Mellitus, Eye Disorder, GERD/Reflux, Hearing Disorder / Deafness, Hyperlipidemia, Hypertension , Hypertension, Osteoarthritis (OA), Renal Disease, Renal Disease, Vascular Disorder Additional Past Medical History / Comment(s): Aortic valve replacement - BOVINE , gout, IDDM type II, end-stage renal disease past peritoneal dialysis, now hemodialysis M-W-F, diabetic peripheral neuropathy, L foot ulcers, R foot infection, L AKA, bilateral diabetic retinopathy, bilateral cataracts, bleeds behind retina, history of osteomyelitis, history of MRSA infection, diabetic gastroparesis, PVD. History of Any Multi-Drug Resistant Organisms: MRSA Date of last positivie culture/infection: 2011 MDRO Source:: LEFT FOOT Past Surgical History: Cardiac Valve Replacement, Cholecystectomy, Hernia Repair , Orthopedic Surgery Additional Past Surgical History / Comment(s): R arm fistula being used for hemodialysis, R upper chest moura cath-needs to be removed per pt, RT foot I& D when a metal fragment was in his foot that was also infected, LT FOOT DEBRIDEMENT ,5TH TOE AMP, 10/2016 L AKS, insertion and REMOVAL PD CATH. 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 No experience. No recent travels. No animals in the home. No significant alcohol use. No current tobacco use. 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 - Past Family History Mother Family Medical History: Diabetes Mellitus, Osteoarthritis (OA) Additional Family Medical History / Comment(s): HIP REPLACMENTS Father Family Medical History: CVA/TIA, Diabetes Mellitus, Myocardial Infarction (CA), Musculoskeletal Disorder, Neurologic Disorder Additional Family Medical History / Comment(s): PARKINSON'S Medications and Allergies Home Medications Medication Instructions Recorded Confirmed Type Atorvastatin [Lipitor] 10 mg PO DAILY 08/10/15 02/20/17 History Magnesium Oxide [Mag-Ox] 400 mg PO DAILY 08/10/15 02/20/17 History Calcium Carbonate [Tums] 1,000 mg PO TID PRN 11/03/15 02/20/17 History Folic Acid 1 mg PO DAILY 11/03/15 02/20/17 History Potassium Chloride ER [K-Dur 10] 10 meq PO DAILY 04/11/16 02/20/17 History Sertraline [Zoloft] 100 mg PO QAM 04/11/16 02/20/17 History Insulin Glargine [Lantus] 40 unit SQ QAM 05/09/16 02/20/17 History INSULIN LISPRO (humaLOG) [humaLOG See Protocol SQ AC-TID 10/23/16 02/20/17 History (formulary)] Pantoprazole [Protonix] 20 mg PO AC-BID 10/23/16 02/20/17 History Pro Renal (Supplement) 1 tab PO BID 10/23/16 02/20/17 History hydrALAZINE HCL [Apresoline] 50 mg PO TID 10/23/16 02/20/17 History Allergies Allergy/AdvReac Type Severity Reaction Status Date / Time Iodinated Contrast Media - AdvReac shut down Verified 02/20/17 08:01 Oral and kidneys [Iodinated Contrast Media - IV Dye] Physical Exam Vitals: Vital Signs Temp Pulse Resp BP Pulse Ox 02/21/17 11:28 96.2 F L 52 L 20 134/70 97 02/21/17 08:00 97 F L 61 16 157/67 98 02/21/17 04:00 98 F 59 L 18 159/70 96 02/21/17 00:00 99.8 F H 68 18 154/70 95 02/20/17 20:00 99.5 F 76 18 190/85 95 02/20/17 16:00 97.6 F 62 18 172/75 97 Intake and Output 02/20/17 02/21/17 02/21/17 22:59 06:59 14:59 Intake Total 143.944 552.810 280 Output Total 100 2000 Balance 43.944 552.810 -1720 Intake: IV 280 Heparin Sodium,Porcine/ 160 D5w Pmx 25,000 unit In Dextrose/Water 1 500ml. bag @ 12 UNITS/KG/HR 19. 15 mls/hr IV .Q24H [facility] Rx #:[id number] Sodium Chloride 0.9% 1, 120 000 ml @ 20 mls/hr IV . Q24H [facility] Rx#:[id number] Intake, IV Titration 143.944 552.810 Amount Heparin Sodium,Porcine/ 143.944 352.810 D5w Pmx 25,000 unit In Dextrose/Water 1 500ml. bag @ 12 UNITS/KG/HR 19. 15 mls/hr IV .Q24H [facility] Rx #:[id number] Sodium Chloride 0.9% 1, 200 000 ml @ 20 mls/hr IV . Q24H [facility] Rx#:[id number] Output: Urine 100 Other 2000 Other: Voiding Method Urinal Urinal Urinal # Voids 0 # Bowel Movements 0 Weight 83 kg 83 kg Patient Weight 02/22/17 06:59 Weight 83 kg Results - Lab Results Most recent lab results Calcium 9.0 mg/dL (8.4-10.2) 02/21/17 06:03 Magnesium 1.9 mg/dL (1.6-2.3) 02/20/17 07:22 02/21/17 06:03 02/21/17 06:03 Assessment and Plan Plan: Assessment: #1. End-stage renal disease maintained on hemodialysis on a Saturday schedule via left upper extremity AV fistula. He still has a permacath in place. #2. Left-sided chest pain. Rule out cardiac etiology. Heparin drip has been discontinued. #3. Insulin-dependent diabetes mellitus. #4. Anemia of chronic kidney disease. Rule out iron deficiency. #5. Chronic kidney disease mineral bone disease. Plan: Hemodialysis tomorrow with goal 2 liters ultrafiltration. Follow-up echocardiogram results. Check iron studies. Start Aranesp. Maintain Tums. Cardiology following. Thank you for the consultation. I will continue to follow the patient with you during his hospital stay.
[2017-02-21] MEDS: hydrALAZINE HCL 50 MG TAB PO SCH ×2 (12:48→16:25)
[2017-02-21] MEDS: METOPROLOL TARTRATE 50 MG TAB PO SCH (12:48)
[2017-02-21] MEDS: guaiFENesin SYRUP 100MG/5ML 200 MG/10 ML CUP PO SCH ×2 (12:50→16:27)
[2017-02-21] MEDS ORDERED: ISOSORBIDE MONONITRATE ER 30 MG TAB.ER.24H PO SCH (13:00)
[2017-02-21] MEDS ORDERED: LIDOCAINE (PF) 10 MG/ML 2 ML VIAL ONE (13:13)
[2017-02-21 13:41] LABS: % Iron Saturation 10.2 % (20-50)
[2017-02-21 16:20] VITALS: RESP 16; TEMP 97.9
[2017-02-21 16:56] LABS: Glucose,Whole Blood 153 mg/dL (75-99)
[2017-02-21] MEDS: LIDOCAINE (PF) 10 MG/ML 2 ML VIAL ONE ×2 (16:59→17:00)
[2017-02-21 18:10] VITALS: BP 139/66; PULSE 60
--- NOTE | 2017-02-21 20:10 | P.DS ---
Providers Date of admission: 02/20/17 09:38 Attending physician: Duane Pedersen Consults: 02/20/17 09:38 Consult Physician Routine Consulting Provider: Kati Gomez Consult Reason/Comments: Dialysis Do you want consulting provider notified?: Yes Consult Physician Urgent Consulting Provider: Eli Sanderson Consult Reason/Comments: Chest pain, elevated troponin, history of chronic renal failure Do you want consulting provider notified?: Yes 02/21/17 12:17 Consult Physician Routine Consulting Provider: Carlos Enrique Rivera Consult Reason/Comments: remove permacath Do you want consulting provider notified?: Yes Primary care physician: Thor Robert Hospital Course: FINAL DIAGNOSES: 1. Possible unstable angina with patient and with multiple cardiac risk factors in a patient who is on hemodialysis. 2. Diabetes mellitus type 2, chronically on insulin. 3. Gastroesophageal reflux disease. 4. Hyperlipidemia. 5. Essential hypertension. 6. Primary osteoarthritis multiple joints. 7. End-stage kidney disease, on hemodialysis with left arm fistula. 8. Aortic valve replacement, bovine type, history of. 9. Diabetic peripheral neuropathy. 10. Left below the knee amputation. HOSPITAL COURSE: Patient presented with 2 days of left-sided chest pain admitted with diagnosis of unstable angina rule out cardiac cause. EKG, cardiac enzymes laboratory work , and a cardiology consult were initiated. Placed on IV heparin. 2-D echo showed wall motion abnormality, labs revealed a troponin leak. seen by Dr. Kevin Felton, nitrates added. Chest pain resolved, patient feels better, ambulatory with assistance as patient is left BKA. Patient tolerating his diet received hemodialysis. Patient's condition stable and is ready for discharge. PHYSICAL EXAM: RESPIRATORY: Effort normal, unlabored, breath sounds diminished bilaterally. CARDIOVASCULAR: First second sounds noted trace edema to right lower extremity Patient seen and examined by nurse practitioner Jigna Myers in all elements of the case discussed with attending Dr. Pedersen. Patient Condition at Discharge: Stable Plan - Discharge Summary New Discharge Prescriptions: New Aspirin 81 mg PO DAILY #1 chewable Darbepoetin Kenneth [Aranesp] 40 mcg SQ Q7D syr Isosorbide Mononitrate ER [Imdur] 30 mg PO DAILY #30 tab Melatonin 5 mg PO HS tab Continue Metoprolol Tartrate [Lopressor] 50 mg PO BID #60 tab Magnesium Oxide [Mag-Ox] 400 mg PO DAILY Atorvastatin [Lipitor] 10 mg PO DAILY Folic Acid 1 mg PO DAILY Calcium Carbonate [Tums] 1,000 mg PO TID PRN PRN Reason: Indigestion Clopidogrel [Plavix] 75 mg PO DAILY #90 tab Sertraline [Zoloft] 100 mg PO QAM Potassium Chloride ER [K-Dur 10] 10 meq PO DAILY Loperamide [Imodium] 2 mg PO TID PRN #20 cap PRN Reason: Diarrhea Insulin Glargine [Lantus] 40 unit SQ QAM hydrALAZINE HCL [Apresoline] 50 mg PO TID Pantoprazole [Protonix] 20 mg PO AC-BID Pro Renal (Supplement) 1 tab PO BID INSULIN LISPRO (humaLOG) [humaLOG (formulary)] See Protocol SQ AC-TID HYDROcodone/APAP 5-325MG [[place] 5-325] 1 - 2 tab PO Q4H PRN 30 Days PRN Reason: Pain Discharge Medication List Metoprolol Tartrate [Lopressor] 50 mg PO BID #60 tab 05/05/14 [Rx] Atorvastatin [Lipitor] 10 mg PO DAILY 08/10/15 [History] Magnesium Oxide [Mag-Ox] 400 mg PO DAILY 08/10/15 [History] Calcium Carbonate [Tums] 1,000 mg PO TID PRN 11/03/15 [History] Folic Acid 1 mg PO DAILY 11/03/15 [History] Clopidogrel [Plavix] 75 mg PO DAILY #90 tab 03/27/16 [Rx] Potassium Chloride ER [K-Dur 10] 10 meq PO DAILY 04/11/16 [History] Sertraline [Zoloft] 100 mg PO QAM 04/11/16 [History] Loperamide [Imodium] 2 mg PO TID PRN #20 cap 04/13/16 [Rx] Insulin Glargine [Lantus] 40 unit SQ QAM 05/09/16 [History] INSULIN LISPRO (humaLOG) [humaLOG (formulary)] See Protocol SQ AC-TID 10/23/16 [ History] Pantoprazole [Protonix] 20 mg PO AC-BID 10/23/16 [History] Pro Renal (Supplement) 1 tab PO BID 10/23/16 [History] hydrALAZINE HCL [Apresoline] 50 mg PO TID 10/23/16 [History] HYDROcodone/APAP 5-325MG [[place] 5-325] 1 - 2 tab PO Q4H PRN 30 Days 10/30/16 [Rx ] Aspirin 81 mg PO DAILY #1 chewable 02/21/17 [Rx] Darbepoetin Kenneth [Aranesp] 40 mcg SQ Q7D syr 02/21/17 [Rx] Isosorbide Mononitrate ER [Imdur] 30 mg PO DAILY #30 tab 02/21/17 [Rx] Melatonin 5 mg PO HS tab 02/21/17 [Rx] Follow up Appointment(s)/Referral(s): Thor Robert MD [Primary Care Provider] - 02/26/17 8:40 am Eli Sanderson MD [STAFF PHYSICIAN] - 03/04/17 4:15 pm ([facility] office by [place]) Discharge Disposition: HOME SELF-CARE
--- NOTE | 2017-02-22 15:03 | PCN ---
DATE OF PROCEDURE: PROCEDURE: Removal ( ) right internal jugular approach. This patient was seen in the room. Right side of the neck and chest was prepped and draped in the usual sterile manner. Lidocaine 1% was infiltrated. Small incision was made at the site of the catheter, went circumferentially around the catheter. Catheter was removed. Nylon 5-0 was used to close the incision. Dressing applied. Patient tolerated the procedure well.
--- NOTE | 2017-02-22 20:59 | DS ---
DATE OF ADMISSION: 02/20/2017 DATE OF DISCHARGE: 02/21/2017 FINAL DIAGNOSES: 1. Possible unstable angina in a patient with multiple cardiac risk factors. 2. Diabetes mellitus, type 2, chronically on insulin. 3. Gastroesophageal reflux disease. 4. Hyperlipidemia. 5. Essential hypertension. 6. Primary osteoarthrosis in multiple joints. 7. End-stage kidney disease, on hemodialysis via left arm fistula. 8. Aortic valve replacement history, bovine type. 9. Diabetic peripheral neuropathy. 10. Left below-knee amputation. HOSPITAL COURSE: This patient presented with chest pain; had a troponin leak. Patient's 2-D echocardiogram showed EF 50% to 55%. No wall motion abnormality was reported. He was seen by Dr. Kevin Felton from Cardiology. Nitrates were added. Patient had no further chest pain. Patient got hemodialysis today. On examination, lungs have decreased breath sounds. CARDIOVASCULAR: First and second seconds normal. DISCHARGE MEDICATIONS: 1. Lopressor 50 mg p.o. b.i.d. 2. Lipitor 10 mg p.o. daily. 3. Magnesium oxide 400 mg p.o. daily. 4. TUMS 1000 mg p.o. t.i.d. 5. Folic acid 1 mg p.o. daily. 6. Plavix 75 mg p.o. daily. 7. Potassium 10 mEq daily. 8. Zoloft 100 mg p.o. daily. 9. Imodium 2 mg p.o. t.i.d. p.r.n. 10. Lantus 40 units subcutaneously in the morning. 11. Humalog per scale. 12. Protonix 20 mg b.i.d. 13. Pro Renal Supplement tablet p.o. b.i.d. 14. Hydralazine 50 mg p.o. t.i.d. 15. [place] 5 one to two tablets q.4 p.r.n. 16. Aspirin 81 mg p.o. daily. 17. Aranesp 40 mcg subcutaneously q.7 days. 18. Imdur ER 30 mg p.o. daily. 19. Melatonin 5 mg p.o. at bedtime. Follow up with Dr. Robert on 02/26/2017. Follow up with Dr. Sanderson on 03/04/2017.
== END 2017-02-21 18:43 | disposition home or self-care (01) | DRG 302 ==
LOC: EC 06:57 → 6SEL 09:38
PROVIDERS: ADMIT Hospitalist; ATTEND Hospitalist
DX: I25.110 Atherosclerotic heart disease of native coronary artery with unstable angina pectoris (principal); N18.6 End stage renal disease; I12.0 Hypertensive chronic kidney disease with stage 5 chronic kidney disease or end stage renal disease; E11.22 Type 2 diabetes mellitus with diabetic chronic kidney disease; K31.84 Gastroparesis; E83.9 Disorder of mineral metabolism, unspecified; E11.42 Type 2 diabetes mellitus with diabetic polyneuropathy; D63.1 Anemia in chronic kidney disease; E11.319 Type 2 diabetes mellitus with unspecified diabetic retinopathy without macular edema; E11.43 Type 2 diabetes mellitus with diabetic autonomic (poly)neuropathy; E11.51 Type 2 diabetes mellitus with diabetic peripheral angiopathy without gangrene; E78.5 Hyperlipidemia, unspecified; F40.240 Claustrophobia; H91.90 Unspecified hearing loss, unspecified ear; I45.10 Unspecified right bundle-branch block; K21.9 Gastro-esophageal reflux disease without esophagitis; M10.9 Gout, unspecified; M15.9 Polyosteoarthritis, unspecified; F32.9 Major depressive disorder, single episode, unspecified; F41.9 Anxiety disorder, unspecified; Z79.02 Long term (current) use of antithrombotics/antiplatelets; Z79.4 Long term (current) use of insulin; Z79.899 Other long term (current) drug therapy; Z86.14 Personal history of Methicillin resistant Staphylococcus aureus infection; Z89.512 Acquired absence of left leg below knee; Z95.3 Presence of xenogenic heart valve; Z99.2 Dependence on renal dialysis; Z99.3 Dependence on wheelchair; Z91.041 Radiographic dye allergy status; Z82.49 Family history of ischemic heart disease and other diseases of the circulatory system
CPT/HCPCS: 36415; 71020; 80048; 80053; 80061; 82550; 82553; 82728; 83036; 83540; 83550; 83735; 83880; 84484; 85025; 85610; 85730; 90935; 93005; 93306; 96374; 96376; 99291

== ENCOUNTER 2017-02-28 21:49 | Inpatient (IN) | payer MEDICARE ==
[2017-02-28] MEDS ORDERED: hydrALAZINE HCL 20 MG/ML 1 ML VIAL IVP STA ×2 (22:12→23:39)
--- NOTE | 2017-02-28 22:15 | ED ---
General Adult HPI - General Chief complaint: Chest Pain Stated complaint: Palpations/HBP Time Seen by Provider: 02/28/17 21:57 Source: patient, family Mode of arrival: wheelchair Limitations: no limitations - History of Present Illness Initial comments: This is a 57-year-old male with a history of end-stage renal disease, CAD, diabetes, high blood pressure presents emergency department for back pain and shoulder pain. The patient states he was sitting down at home when suddenly he developed a pulse obtaining sensation in his lower back radiating up to his upper back and into bilateral shoulders and arms. He states that as of now it has resolved. The last time he had this occur he was diagnosed within an STEMI and observed in the hospital. Neck oh performed at that time that was unremarkable and he was sent home. He states that he has not missed any of his blood pressure medication today however is due for his nightly hydralazine. He denies any ripping sensation in the back. He states that nothing seems to bring the sensation on. Denies any recent injuries. No neck pain or lightheadedness. No chest pain or shortness of breath. The does state that he gets very diaphoretic when this occurs. He was instructed last time that if this occurred again he needs to return emergency Department. - Related Data Home Medications Medication Instructions Recorded Confirmed Atorvastatin [Lipitor] 10 mg PO DAILY 08/10/15 02/28/17 Magnesium Oxide [Mag-Ox] 400 mg PO DAILY 08/10/15 02/28/17 Calcium Carbonate [Tums] 1,000 mg PO TID PRN 11/03/15 02/28/17 Folic Acid 1 mg PO DAILY 11/03/15 02/28/17 Potassium Chloride ER [K-Dur 10] 10 meq PO DAILY 04/11/16 02/28/17 Sertraline [Zoloft] 100 mg PO QAM 04/11/16 02/28/17 Insulin Glargine [Lantus] 40 unit SQ QAM 05/09/16 02/28/17 INSULIN LISPRO (humaLOG) [humaLOG See Protocol SQ AC-TID 10/23/16 02/28/17 (formulary)] Pantoprazole [Protonix] 20 mg PO AC-BID 10/23/16 02/28/17 Pro Renal (Supplement) 1 tab PO BID 10/23/16 02/28/17 hydrALAZINE HCL [Apresoline] 50 mg PO TID 10/23/16 02/28/17 Previous Rx's Medication Instructions Recorded Metoprolol Tartrate [Lopressor] 50 mg PO BID #60 tab 05/05/14 Clopidogrel [Plavix] 75 mg PO DAILY #90 tab 03/27/16 Loperamide [Imodium] 2 mg PO TID PRN #20 cap 04/13/16 HYDROcodone/APAP 5-325MG [Hammond 1 - 2 tab PO Q4H PRN 30 Days 10/30/16 5-325] Aspirin 81 mg PO DAILY #1 chewable 02/21/17 Darbepoetin Kenneth [Aranesp] 40 mcg SQ Q7D syr 02/21/17 Isosorbide Mononitrate ER [Imdur] 30 mg PO DAILY #30 tab 02/21/17 Melatonin 5 mg PO HS tab 02/21/17 Allergies Allergy/AdvReac Type Severity Reaction Status Date / Time Iodinated Contrast Media - AdvReac shut down Verified 02/28/17 22:10 Oral and kidneys [Iodinated Contrast Media - IV Dye] Review of Systems ROS Statement: Those systems with pertinent positive or pertinent negative responses have been documented in the HPI. ROS Other: All systems not noted in ROS Statement are negative. Past Medical History Past Medical History: Coronary Artery Disease (CAD), Diabetes Mellitus, Eye Disorder, GERD/Reflux, Hearing Disorder / Deafness, Hyperlipidemia, Hypertension , Hypertension, Osteoarthritis (OA), Renal Disease, Renal Disease, Vascular Disorder Additional Past Medical History / Comment(s): Aortic valve replacement - BOVINE , gout, IDDM type II, end-stage renal disease past peritoneal dialysis, now hemodialysis M-W-F, diabetic peripheral neuropathy, L foot ulcers, R foot infection, L AKA, bilateral diabetic retinopathy, bilateral cataracts, bleeds behind retina, history of osteomyelitis, history of MRSA infection, diabetic gastroparesis, PVD. History of Any Multi-Drug Resistant Organisms: MRSA Date of last positivie culture/infection: 2011 MDRO Source:: LEFT FOOT Past Surgical History: Cardiac Valve Replacement, Cholecystectomy, Hernia Repair , Orthopedic Surgery Additional Past Surgical History / Comment(s): R arm fistula being used for hemodialysis, R upper chest moura cath-needs to be removed per pt, RT foot I& D when a metal fragment was in his foot that was also infected, LT FOOT DEBRIDEMENT ,5TH TOE AMP, 10/2016 L AKS, insertion and REMOVAL PD CATH. Past Anesthesia/Blood Transfusion Reactions: Motion Sickness Additional Past Anesthesia/Blood Transfusion Reaction / Comment(s): CLAUSTROPHOBIA Past Psychological History: Anxiety, Depression Smoking Status: Never smoker Past Alcohol Use History: None Reported Past Drug Use History: None Reported - Past Family History Mother Family Medical History: Diabetes Mellitus, Osteoarthritis (OA) Additional Family Medical History / Comment(s): HIP REPLACMENTS Father Family Medical History: CVA/TIA, Diabetes Mellitus, Myocardial Infarction ([place]), Musculoskeletal Disorder, Neurologic Disorder Additional Family Medical History / Comment(s): PARKINSON'S General Exam - General Exam Comments Initial Comments: Constitutional: Awake alert Appears comfortable Head: Normocephalic atraumatic Eyes: no conjunctival injection No scleral icterus EOMI Neck: No JVD Supple Heart: Regular rate rhythm normal S1-S2 no murmurs Lungs: Clear to auscultation bilaterally No wheezing No rales Abdomen: Soft nondistended nontender, no bruit Extremities: Non edematous DP pulses intact Radial pulses intact, left below knee amputation Neuro: A&Ox3 No focal neurologic deficits Psych: Appropriate mood and affect Limitations: no limitations Course Vital Signs 02/28/17 02/28/17 02/28/17 21:52 22:41 22:43 Temperature 98.5 F 98.9 F Pulse Rate 61 60 Respiratory 16 20 Rate Blood Pressure 204/91 195/97 O2 Sat by Pulse 97 95 96 Oximetry 02/28/17 02/28/17 22:46 23:41 Temperature 98.7 F Pulse Rate 60 62 Respiratory 20 20 Rate Blood Pressure 180/85 184/93 O2 Sat by Pulse 98 97 Oximetry EKG Findings - EKG Comments: EKG Findings:: EKG showing normal sinus rhythm with a rate of 63. No abnormal ST segment changes or T-wave inversions. QTC is 474. Other intervals are normal. No ectopy. Unchanged from previous EKG. Medical Decision Making - Medical Decision Making Is a 37-year-old male who presented for back pain radiating up into her shoulders and arms. Patient was recently admitted for similar symptoms and had a negative echo at that time. Troponin on this visit is elevated further than it was previously 2.3. Again this may be due to renal pathology however since the patient is having recurring symptoms I feel that he warrants reevaluation by pelt dropper. We'll start on heparin for tonight. We'll recheck troponins. EKGs when necessary. Patient will be admitted to Dr. Pedersen. Cardiology has been consulted. - Lab Data Result diagrams: 02/28/17 22:05 02/28/17 22:05 Lab Results 02/28/17 02/28/17 02/28/17 Range/Units 22:05 22:05 22:05 WBC 9.0 (3.8-10.6) k/uL RBC 3.39 L (4.30-5.90) m/uL Hgb 9.6 L (13.0-17.5) gm/dL Hct 29.7 L (39.0-53.0) % MCV 87.6 (80.0-100.0) fL MCH 28.3 (25.0-35.0) pg MCHC 32.3 (31.0-37.0) g/dL RDW 17.0 H (11.5-15.5) % Plt Count 261 D (150-450) k/uL Neutrophils % 80 % Lymphocytes % 8 % Monocytes % 7 % Eosinophils % 3 % Basophils % 1 % Neutrophils # 7.2 (1.3-7.7) k/uL Lymphocytes # 0.7 L (1.0-4.8) k/uL Monocytes # 0.6 (0-1.0) k/uL Eosinophils # 0.3 (0-0.7) k/uL Basophils # 0.1 (0-0.2) k/uL Hypochromasia Slight Poikilocytosis Slight Anisocytosis Slight PT 10.4 (9.0-12.0) sec INR 1.0 (<1.1) APTT 23.0 (22.0-30.0) sec Sodium (137-145) mmol/L Potassium (3.5-5.1) mmol/L Chloride (98-107) mmol/L Carbon Dioxide (22-30) mmol/L Anion Gap mmol/L BUN (9-20) mg/dL Creatinine (0.66-1.25) mg/dL Est GFR (MDRD) Af Amer (>60 ml/min/1.73 sqM) Est GFR (MDRD) Non-Af (>60 ml/min/1.73 sqM) Glucose (74-99) mg/dL Plasma Lactic Acid Venancio (0.7-2.0) mmol/L Calcium (8.4-10.2) mg/dL Total Bilirubin (0.2-1.3) mg/dL AST (17-59) U/L ALT (21-72) U/L Alkaline Phosphatase (38-126) U/L CK-MB (CK-2) 3.1 H* (0.0-2.4) ng/mL Troponin I 0.358 H* (0.000-0.034) ng/mL Total Protein (6.3-8.2) g/dL Albumin (3.5-5.0) g/dL Lipase (23-300) U/L 02/28/17 02/28/17 Range/Units 22:05 22:05 WBC (3.8-10.6) k/uL RBC (4.30-5.90) m/uL Hgb (13.0-17.5) gm/dL Hct (39.0-53.0) % MCV (80.0-100.0) fL MCH (25.0-35.0) pg MCHC (31.0-37.0) g/dL RDW (11.5-15.5) % Plt Count (150-450) k/uL Neutrophils % % Lymphocytes % % Monocytes % % Eosinophils % % Basophils % % Neutrophils # (1.3-7.7) k/uL Lymphocytes # (1.0-4.8) k/uL Monocytes # (0-1.0) k/uL Eosinophils # (0-0.7) k/uL Basophils # (0-0.2) k/uL Hypochromasia Poikilocytosis Anisocytosis PT (9.0-12.0) sec INR (<1.1) APTT (22.0-30.0) sec Sodium 139 (137-145) mmol/L Potassium 4.7 (3.5-5.1) mmol/L Chloride 98 (98-107) mmol/L Carbon Dioxide 26 (22-30) mmol/L Anion Gap 15 mmol/L BUN 30 H (9-20) mg/dL Creatinine 5.52 H* (0.66-1.25) mg/dL Est GFR (MDRD) Af Amer 13 (>60 ml/min/1.73 sqM) Est GFR (MDRD) Non-Af 11 (>60 ml/min/1.73 sqM) Glucose 264 H (74-99) mg/dL Plasma Lactic Acid Venancio 1.9 (0.7-2.0) mmol/L Calcium 9.1 (8.4-10.2) mg/dL Total Bilirubin 0.7 (0.2-1.3) mg/dL AST 18 (17-59) U/L ALT 29 (21-72) U/L Alkaline Phosphatase 142 H (38-126) U/L CK-MB (CK-2) (0.0-2.4) ng/mL Troponin I (0.000-0.034) ng/mL Total Protein 6.3 (6.3-8.2) g/dL Albumin 3.6 (3.5-5.0) g/dL Lipase 50 (23-300) U/L Disposition Clinical Impression: NSTEMI (non-ST elevated myocardial infarction) Disposition: ADMITTED IP TO THIS HOSP Condition: Stable Referrals: Thor Robert MD [Primary Care Provider] - 1-2 days
[2017-02-28 22:44] LABS: Anisocytosis Slight; Basophils # (A) 0.1 k/uL (0-0.2); Basophils % (A) 1 %; CH 28.7; CHCM 32.9; Eosinophils # (A) 0.3 k/uL (0-0.7); Eosinophils % (A) 3 %; HCT 29.7 % (39.0-53.0); HDW 3.75; HGB 9.6 gm/dL (13.0-17.5); Hypochromasia Slight; Luc # (Auto) 0.17; Luc % (Auto) 2; Lymphocytes # (A) 0.7 k/uL (1.0-4.8); Lymphocytes % (A) 8 %; MCH 28.3 pg (25.0-35.0); MCHC 32.3 g/dL (31.0-37.0); MCV 87.6 fL (80.0-100.0); Mean Platelet Volume 7.1; Monocytes # (A) 0.6 k/uL (0-1.0); Monocytes % (A) 7 %; Neutrophils # (A) 7.2 k/uL (1.3-7.7); Neutrophils % (A) 80 %; Poikilocytosis Slight; RBC 3.39 m/uL (4.30-5.90); WBC (Perox) 8.86
[2017-02-28 22:58] LABS: Prothrombin Time 10.4 sec (9.0-12.0)
[2017-02-28 22:59] LABS: Calcium 9.1 mg/dL (8.4-10.2); Potassium 4.7 mmol/L (3.5-5.1); Total Bilirubin 0.7 mg/dL (0.2-1.3); Total Protein 6.3 g/dL (6.3-8.2)
--- NOTE | 2017-02-28 23:05 | XR ---
INDICATION: Chest pain COMPARISON: CXR 02/20/17 FINDINGS: AP and lateral views of the chest are obtained. Right-sided tunneled hemodialysis catheter has been removed in the interval. There is stable cardiomegaly with evidence of prior cardiac surgery. There is stable flattening of the diaphragms compatible with chronic obstructive pulmonary disease. There has been slight interval clearing of patchy right infrahilar opacity. There is persistent mild pulmonary congestion and borderline interstitial edema with small bilateral pleural effusions suggested. There is no pneumothorax. There is no evidence of acute osseous abnormality. IMPRESSION: 1. Cardiomegaly, mild pulmonary congestion, and borderline interstitial edema. 2. Small bilateral pleural effusions. 3. Partial clearing of right infrahilar patchy opacity identified on prior exam. 4. Interval removal of right-sided tunneled hemodialysis catheter.
--- NOTE | 2017-02-28 23:27 | US ---
EXAMINATION TYPE: US duplex aorta DATE OF EXAM: 02/28/2017 COMPARISON: CT abdomen and pelvis, 07/17/16 HISTORY: Eval aorta, acute pulsatile back pain. FINDINGS: There is atherosclerosis of the abdominal aorta without evidence of aneurysm. EXAM MEASUREMENTS: Abdominal Aorta: Proximal: 1.7 x 1.7 cm Mid: 2.0 x 1.8 cm Distal: 1.7 x 1.7 cm Bifurcation: Right: 1.0 x 1.1 cm Left: 1.3 x 1.1 cm IMPRESSION: Abdominal aorta atherosclerosis without evidence of aneurysm.
[2017-02-28 23:34] LABS: Creatine Kinase MB 3.1 ng/mL (0.0-2.4)
[2017-02-28 23:35] LABS: Troponin I 0.358 ng/mL (0.000-0.034)
[2017-02-28] MEDS ORDERED: ASPIRIN 81 MG CHEW PO STA (23:39)
[2017-02-28] MEDS ORDERED: HEPARIN SODIUM,PORCINE 5,000 UNIT/ML 1 ML VIAL IV ONE (23:41)
[2017-02-28] MEDS ORDERED: NITROGLYCERIN SL TABS 0.4 MG TAB SUBLINGUAL PRN (23:41)
[2017-02-28] MEDS ORDERED: HEPARIN SODIUM,PORCINE/D5W PMX 25,000 UNIT in DEXTROSE/WATER 1 500ML.BAG IV SCH (23:45)
[2017-02-28] MEDS ORDERED: hydrALAZINE HCL 20 MG/ML 1 ML VIAL IVP PRN (23:48)
[2017-03-01 06:10] LABS: Glucose,Whole Blood 226 mg/dL (75-99)
[2017-03-01 07:12] LABS: Creatine Kinase MB 2.4 ng/mL (0.0-2.4)
[2017-03-01 07:13] LABS: Cholesterol 64 mg/dL (<200); HDL Cholesterol 30 mg/dL (40-60); Triglycerides 192 mg/dL (<150)
[2017-03-01 07:15] LABS: Troponin I 0.358 ng/mL (0.000-0.034)
--- NOTE | 2017-03-01 08:41 | P.CRDCN ---
History of Present Illness Consult date: 03/01/17 Reason for Consult (text): NSTEMI Chief complaint: back pain radiating to shoulder and arms History of present illness: This is a pleasant 57-year-old gentleman with a history of end-stage renal disease on hemodialysis, diabetes, hypertension, hyperlipidemia, aortic valve replacement and left [id number] amputation. Presented to the emergency department with elevated blood pressure with a systolic in the 200s, low back pain that, per his description, would radiate to his upper back, shoulders and arms in a pulsating fashion with each heartbeat. He denied nausea or vomiting but did have some diaphoresis with this. The patient was admitted earlier this month with similar symptoms. EKG on presentation showed sinus rhythm with nonspecific ST-T wave abnormalities. Chest x-ray showed cardiomegaly, mild pulmonary congestion and borderline interstitial edema with small bilateral pleural effusions. Aortic ultrasound showed abdominal aorta atherosclerosis without evidence of aneurysm. Laboratory evaluation a BUN of 30 and creatinine 5.5 to. Troponin levels have been 0.3582 with no variation. Echocardiogram from February 20, 2017 showed an EF of 50-55% and normally functioning bioprosthetic valve. Systolic blood pressure has been in the 180s, patient has been receiving hydralazine 10 mg IV push every 8 hours as needed with last dose given at 6 AM. He is currently on a heparin drip. Upon examination, patient is resting comfortably in bed. He denies any further complaints of back discomfort or diaphoresis. He complains of some dizziness when his blood pressure is elevated. Past Medical History Past Medical History: Coronary Artery Disease (CAD), Diabetes Mellitus, Eye Disorder, GERD/Reflux, Hearing Disorder / Deafness, Hyperlipidemia, Hypertension , Hypertension, Osteoarthritis (OA), Renal Disease, Renal Disease, Vascular Disorder Additional Past Medical History / Comment(s): Aortic valve replacement - BOVINE , gout, IDDM type II, end-stage renal disease past peritoneal dialysis, now hemodialysis M-W-F, diabetic peripheral neuropathy, L foot ulcers, R foot infection, L AKA, bilateral diabetic retinopathy, bilateral cataracts, bleeds behind retina, history of osteomyelitis, history of MRSA infection, diabetic gastroparesis, PVD. History of Any Multi-Drug Resistant Organisms: MRSA Date of last positivie culture/infection: 2011 MDRO Source:: LEFT FOOT Past Surgical History: Cardiac Valve Replacement, Cholecystectomy, Hernia Repair , Orthopedic Surgery Additional Past Surgical History / Comment(s): L arm fistula being used for hemodialysis, R upper chest moura cath-needs to be removed per pt, RT foot I& D when a metal fragment was in his foot that was also infected, LT FOOT DEBRIDEMENT ,5TH TOE AMP, 10/2016 L AKS, insertion and REMOVAL PD CATH. Past Anesthesia/Blood Transfusion Reactions: Motion Sickness Additional Past Anesthesia/Blood Transfusion Reaction / Comment(s): CLAUSTROPHOBIA Past Psychological History: Anxiety, Depression Additional Psychological History / Comment(s): RETIRED,WORKED IN [employer] WITH [employer] FOR 37 YEARS.PT IS WHEELCHAIR BOUND AT THIS TIME. No experience. No recent travels. No animals in the home. No significant alcohol use. No current tobacco use. No recreational drug use Smoking Status: Never smoker Past Alcohol Use History: None Reported Past Drug Use History: None Reported - Past Family History Mother Family Medical History: Diabetes Mellitus, Osteoarthritis (OA) Additional Family Medical History / Comment(s): HIP REPLACMENTS Father Family Medical History: CVA/TIA, Diabetes Mellitus, Myocardial Infarction ([place]), Musculoskeletal Disorder, Neurologic Disorder Additional Family Medical History / Comment(s): PARKINSON'S Medications and Allergies Home Medications Medication Instructions Recorded Confirmed Type Atorvastatin [Lipitor] 10 mg PO DAILY 08/10/15 02/28/17 History Magnesium Oxide [Mag-Ox] 400 mg PO DAILY 08/10/15 02/28/17 History Calcium Carbonate [Tums] 1,000 mg PO TID PRN 11/03/15 02/28/17 History Folic Acid 1 mg PO DAILY 11/03/15 02/28/17 History Potassium Chloride ER [K-Dur 10] 10 meq PO DAILY 04/11/16 02/28/17 History Sertraline [Zoloft] 100 mg PO QAM 04/11/16 02/28/17 History Insulin Glargine [Lantus] 40 unit SQ QAM 05/09/16 02/28/17 History INSULIN LISPRO (humaLOG) [humaLOG See Protocol SQ AC-TID 10/23/16 02/28/17 History (formulary)] Pantoprazole [Protonix] 20 mg PO AC-BID 10/23/16 02/28/17 History Pro Renal (Supplement) 1 tab PO BID 10/23/16 02/28/17 History hydrALAZINE HCL [Apresoline] 50 mg PO TID 10/23/16 02/28/17 History Allergies Allergy/AdvReac Type Severity Reaction Status Date / Time Iodinated Contrast Media - AdvReac shut down Verified 02/28/17 22:10 Oral and kidneys [Iodinated Contrast Media - IV Dye] Physical Exam Vitals: Vital Signs Temp Pulse Pulse Resp BP BP Pulse Ox 03/01/17 04:00 97.0 F L 63 16 184/82 93 L 03/01/17 00:31 96.7 F L 64 16 173/80 94 L 02/28/17 23:41 98.7 F 62 20 184/93 97 02/28/17 22:46 60 20 180/85 98 02/28/17 22:43 96 02/28/17 22:41 98.9 F 60 20 195/97 95 02/28/17 21:52 98.5 F 61 16 204/91 97 Intake and Output 02/28/17 03/01/17 03/01/17 22:59 06:59 14:59 Intake Total 100 Balance 100 Intake: IV 100 Heparin Sodium,Porcine/ 100 D5w Pmx 25,000 unit In Dextrose/Water 1 500ml. bag @ 12 UNITS/KG/HR 18. 72 mls/hr IV .Q24H [facility] Rx #:[id number] Other: Voiding Method Urinal Weight 78.018 kg 72.5 kg PHYSICAL EXAMINATION: HEENT: Head is atraumatic, normocephalic. Pupils equal, round. Neck is supple. There is no elevated jugular venous pressure. HEART EXAMINATION: Heart sounds regular, S1 and S2, with a systolic murmur. CHEST EXAMINATION: Lungs are clear with faint crackles the bilateral bases. No chest wall tenderness is noted on palpation or with deep breathing. ABDOMEN: Soft, nontender. Bowel sounds are heard. No organomegaly noted. EXTREMITIES: 1+ right pedal pulse with no evidence of peripheral edema and no calf tenderness noted, left BKA. NEUROLOGIC patient is awake, alert and oriented x3. . Results 02/28/17 22:05 02/28/17 22:05 Cardiac Enzymes 02/28/17 02/28/17 03/01/17 Range/Units 22:05 22:05 05:29 AST 18 (17-59) U/L CK-MB (CK-2) 3.1 H* 2.4 (0.0-2.4) ng/mL Troponin I 0.358 H* 0.358 H* (0.000-0.034) ng/mL Coagulation 02/28/17 03/01/17 Range/Units 22:05 05:23 PT 10.4 (9.0-12.0) sec APTT 23.0 30.8 H (22.0-30.0) sec Lipids 03/01/17 Range/Units 05:29 Triglycerides 192 H (<150) mg/dL Cholesterol 64 (<200) mg/dL HDL Cholesterol 30 L (40-60) mg/dL CBC 02/28/17 Range/Units 22:05 WBC 9.0 (3.8-10.6) k/uL RBC 3.39 L (4.30-5.90) m/uL Hgb 9.6 L (13.0-17.5) gm/dL Hct 29.7 L (39.0-53.0) % Plt Count 261 D (150-450) k/uL Comprehensive Metabolic Panel 02/28/17 Range/Units 22:05 Sodium 139 (137-145) mmol/L Potassium 4.7 (3.5-5.1) mmol/L Chloride 98 (98-107) mmol/L Carbon Dioxide 26 (22-30) mmol/L BUN 30 H (9-20) mg/dL Creatinine 5.52 H* (0.66-1.25) mg/dL Glucose 264 H (74-99) mg/dL Calcium 9.1 (8.4-10.2) mg/dL AST 18 (17-59) U/L ALT 29 (21-72) U/L Alkaline Phosphatase 142 H (38-126) U/L Total Protein 6.3 (6.3-8.2) g/dL Albumin 3.6 (3.5-5.0) g/dL Current Medications Generic Name Dose Route Start Last Admin Trade Name Freq PRN Reason Stop Dose Admin Aspirin 325 mg 03/01/17 09:00 Aspirin PO DAILY [facility] Atorvastatin Calcium 10 mg 03/01/17 09:00 Lipitor PO DAILY [facility] Clopidogrel Bisulfate 75 mg 03/01/17 09:00 Plavix PO DAILY [facility] Hydralazine HCl 50 mg 03/01/17 09:00 Apresoline PO TID [facility] Hydralazine HCl 10 mg 02/28/17 23:48 03/01/17 05:54 Apresoline IVP 03/01/17 22:00 10 mg Q8HR PRN Administration Blood Pressure - High Heparin Sodium/Dextrose 25,000 500 mls @ 18.72 mls/hr 02/28/17 23:45 23:53 unit/ IV Solution IV 12 units/kg/hr .Q24H [facility] 18.72 mls/hr Protocol Administration 12 UNITS/KG/HR Insulin Glargine 40 unit 03/01/17 09:00 Lantus SQ QAM [facility] Isosorbide Mononitrate 30 mg 03/01/17 09:00 Imdur PO DAILY [facility] Metoprolol Tartrate 50 mg 03/01/17 09:00 Lopressor PO BID [facility] Nitroglycerin 0.4 mg 02/28/17 23:41 Nitrostat SUBLINGUAL Q5M PRN Chest Pain Intake and Output 02/28/17 03/01/17 03/01/17 22:59 06:59 14:59 Intake Total 100 Balance 100 Intake: IV 100 Heparin Sodium,Porcine/ 100 D5w Pmx 25,000 unit In Dextrose/Water 1 500ml. bag @ 12 UNITS/KG/HR 18. 72 mls/hr IV .Q24H [facility] Rx #:[id number] Other: Voiding Method Urinal Weight 78.018 kg 72.5 kg 02/28/17 22:05 02/28/17 22:05 Assessment and Plan Plan: Assessment and plan #1 atypical chest pain #2 elevated troponins, pattern not consistent with myocardial ischemia #3 history of aortic valve replacement #4 end-stage renal disease, on hemodialysis #5 diabetes #6 hypertension, uncontrolled From cardiology's perspective, we will await third troponin level. Will increase scheduled hydralazine and nitrate and discontinue PRN hydralazine. Discontinue IV heparin. Further recommendations to follow. DIRECTOR OF [employer] note has been reviewed, I agree with a documented findings and plan of care. Patient was seen and examined.
[2017-03-01] MEDS ORDERED: CALCIUM CARBONATE 500 MG CHEWABLE PO PRN (08:52)
[2017-03-01] MEDS ORDERED: HYDROcodone/APAP 5-325MG 1 EACH TAB PO PRN (08:52)
[2017-03-01] MEDS ORDERED: hydrALAZINE HCL 50 MG TAB PO SCH (09:00)
[2017-03-01] MEDS ORDERED: ISOSORBIDE MONONITRATE ER 30 MG TAB.ER.24H PO SCH (09:00)
[2017-03-01] MEDS ORDERED: ASPIRIN 325 MG TAB PO SCH (09:00)
[2017-03-01] MEDS ORDERED: DARBEPOETIN ALFA 40 MCG/0.4 ML SYRINGE SQ SCH (09:00)
[2017-03-01] MEDS ORDERED: ATORVASTATIN 10 MG TAB PO SCH (09:00)
[2017-03-01 10:25] LABS: Anisocytosis Slight; Basophils # (A) 0.1 k/uL (0-0.2); Basophils % (A) 1 %; CH 28.9; CHCM 32.4; Eosinophils # (A) 0.3 k/uL (0-0.7); Eosinophils % (A) 3 %; HCT 29.5 % (39.0-53.0); HDW 3.68; HGB 9.2 gm/dL (13.0-17.5); Hypochromasia Slight; Immature Gran Flag Slight; Luc # (Auto) 0.13; Luc % (Auto) 2; Lymphocytes # (A) 0.7 k/uL (1.0-4.8); Lymphocytes % (A) 8 %; MCH 28.1 pg (25.0-35.0); MCHC 31.3 g/dL (31.0-37.0); MCV 89.7 fL (80.0-100.0); Mean Platelet Volume 6.9; Monocytes # (A) 0.6 k/uL (0-1.0); Monocytes % (A) 7 %; Neutrophils # (A) 6.8 k/uL (1.3-7.7); Neutrophils % (A) 80 %; Poikilocytosis Slight; RBC 3.29 m/uL (4.30-5.90); WBC 8.5 k/uL (3.8-10.6); WBC (Perox) 8.63
--- NOTE | 2017-03-01 10:25 | P.PN ---
Progress Note - Text This is an addendum to the dictated cardiology consultation. The patient has a known history of aortic valve replacement for bicuspid aortic valve, chronic kidney disease, hypertension who presented with feeling of pulsation in the lower back radiating upwards into his arms. His blood pressure was elevated and he felt mildly dyspneic. He has no clear evidence of chest discomfort. He has a long-standing history of hypertension but it has not been as elevated in the past. He has no prior history of obstructive coronary artery disease. He has underwent left BKA in October because of a nonhealing gangrene. He denies any arrhythmia, PND or orthopnea. His EKG shows no evidence of acute changes and his troponin are mildly elevated but with no evidence of the trend to suggest an acute ischemic event. The elevation of his troponin most likely are worsened by his renal function abnormalities. In regard to his blood pressure I would increase the dose of his hydralazine and nitrate, I will stop his heparin and increase his level of activity and depending on his blood pressure further recommendations will be made. He had an echocardiogram performed recently showed a preserved systolic function with a normal functioning bioprosthetic valve. Thank you for this consult we will follow with you.
[2017-03-01] MEDS: SERTRALINE 100 MG TAB PO SCH (10:30)
[2017-03-01] MEDS: MAGNESIUM OXIDE 400 MG TAB PO SCH (10:30)
[2017-03-01] MEDS: CLOPIDOGREL 75 MG TAB PO SCH (10:30)
[2017-03-01] MEDS: METOPROLOL TARTRATE 50 MG TAB PO SCH ×2 (10:30→21:27)
[2017-03-01] MEDS: ASPIRIN 81 MG CHEW PO SCH (10:36)
[2017-03-01] MEDS: INSULIN GLARGINE 100 UNIT/ML 10 ML VIAL SQ SCH (10:36)
[2017-03-01 10:43] LABS: Potassium 4.6 mmol/L (3.5-5.1)
[2017-03-01 11:19] LABS: Creatine Kinase MB 2.8 ng/mL (0.0-2.4); Troponin I 0.321 ng/mL (0.000-0.034)
[2017-03-01] MEDS: ISOSORBIDE MONONITRATE ER 60 MG TAB.ER.24H PO SCH (11:31)
[2017-03-01] MEDS: FOLIC ACID 1 MG TAB PO SCH (11:31)
[2017-03-01] MEDS: B COMPLEX-VIT C-VIT E-ZINC 1 EACH TAB PO SCH (11:31)
[2017-03-01] MEDS: ATORVASTATIN 40 MG TAB PO SCH (11:31)
[2017-03-01] MEDS: hydrALAZINE HCL 25 MG TAB PO SCH ×3 (11:32→22:22)
[2017-03-01 11:50] LABS: Glucose,Whole Blood 167 mg/dL (75-99)
[2017-03-01 13:19] VITALS: BMI 23.6
--- NOTE | 2017-03-01 14:16 | XR ---
EXAMINATION TYPE: XR lumbosacral spine min 4V DATE OF EXAM: 03/01/2017 COMPARISON: NONE HISTORY: Back pain x2 weeks TECHNIQUE: 5 view cervical spine FINDINGS: Facet degenerative changes are present L4-5 L5-S1. There is mild loss of disc height throug hout the lumbar spine. Spondylosis is present L3-4. IMPRESSION: 1. Degenerative disc changes throughout the lumbar spine. 2. Facet degenerative changes lower lumbar spine.
[2017-03-01 16:35] LABS: Glucose,Whole Blood 164 mg/dL (75-99)
--- NOTE | 2017-03-01 17:56 | HP ---
DATE OF ADMISSION: 02/28/2017 PRESENTING COMPLAINT: Upper back pain. HISTORY OF PRESENTING COMPLAINT: This is a 57-year-old patient who was here recently in the hospital. At that time he was presented with chest pain. Two-D echo was done. There was no further intervention per Cardiology. Patient went home. Patient now presents with pain that started in the lower back going to the upper back. He said every time his heart was beating he was having pain in the back of the chest while watching television. Patient's blood pressure started running over 200 systolic, and patient was admitted. His chronic stable medical conditions include diabetes mellitus, type 2, GERD, hyperlipidemia, hypertension, osteoarthritis, end-stage kidney disease, gout, peripheral neuropathy, left below-knee amputation, diabetic retinopathy, diabetic gastroparesis, some dizziness, shortness of breath. REVIEW OF SYSTEMS: CONSTITUTIONAL: Tired. HEENT: None. RESPIRATORY: None. CARDIOVASCULAR: As above. GASTROINTESTINAL: None. GENITOURINARY: None. MUSCULOSKELETAL: Pain in the joints. DERMATOLOGIC: None. HEMATOLOGIC: None. LYMPHATICS: None. PSYCHIATRY: None. NEUROLOGICAL: Numbness and tingling in the feet. PAST MEDICAL HISTORY: 1. Diabetes mellitus, type 2. 2. GERD. 3. Hyperlipidemia. 4. Hypertension. 5. Osteoarthritis. 6. Aortic valve replacement; bovine. 7. Peripheral neuropathy. 8. Left below-knee amputation. 9. Vestibulitis. 10. Gastroparesis. 11. Peripheral artery disease. PAST SURGICAL HISTORY: 1. Aortic valve replacement, bovine type. 2. Cholecystectomy. 3. Hernia repair. 4. Left arm fistula for hemodialysis. 5. Right upper chest Cash catheter. PAST PSYCH HISTORY: Anxiety, depression. 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 Wheelchair-bound. No smoking or alcohol. FAMILY HISTORY: Diabetes and osteomyelitis. HOME MEDICATION: 1. Hydralazine 50 mg p.o. t.i.d. 2. Zoloft 100 mg p.o. daily. 3. Pro Renal 1 tablet p.o. b.i.d. 4. Potassium 10 mEq p.o. daily. 5. Protonix 20 mg p.o. b.i.d. 6. Lopressor 50 mg p.o. b.i.d. 7. Melatonin 5 mg at bedtime. 8. Magnesium oxide 400 mg p.o. daily. 9. Imodium 2 mg daily p.r.n. 10. Imdur ER 30 mg p.o. daily. 11. Lantus 48 units subcutaneously in the morning. 12. Humalog per scale. 13. [place] 5 one to two tablets q.4 p.r.n. 14. Folic acid 1 mg p.o. daily. 15. Aranesp 40 mcg subcutaneously q.7 days. 16. Plavix 75 mg p.o. daily. 17. TUMS 1000 mg p.o. daily p.r.n. 18. Lipitor 10 mg p.o. daily. 19. Aspirin 81 mg p.o. daily. ALLERGIES: IV CONTRAST DYE. PHYSICAL EXAMINATION: VITAL SIGNS ON PRESENTATION: Temperature 98.5, pulse 64, respiration 16, blood pressure 204/91, pulse ox 97% on room air. GENERAL APPEARANCE: Sitting up on the edge of the bed. Not in distress. EYES: Pupils equal. Conjunctivae normal. HEENT: Oral cavity normal. NECK: JVD not raised. Mass not palpable. RESPIRATORY: Effort normal. LUNGS: Fair air entry. CARDIOVASCULAR: First and second sounds normal. No edema. ABDOMEN: Soft, nontender. Liver and spleen not palpable. LYMPHATIC: No lymph node palpable in neck or axillae. PSYCHIATRY: Alert and oriented x3. Mood and affect normal. NEUROLOGICAL: Pupils equal. Cranial nerves grossly intact. Power and sensation grossly intact. CHEST WALL: Right chest wall Cash catheter. EXTREMITIES: Left upper extremity fistula is present. Left below-knee amputation. INVESTIGATIONS: White count 9, hemoglobin 9.6. Potassium 4.7. BUN 30, creatinine 5.52. Troponin 0.3, 0.3, 0.3. EKG shows nonspecific T-wave changes. ASSESSMENT: 1. Possible unstable angina in a patient with multiple cardiac risk factors with a presentation that is atypical. 2. Diabetes mellitus, type 2, chronically on insulin. 3. Gastroesophageal reflux disease. 4. Hyperlipidemia. 5. Essential hypertension. 6. Primary osteoarthritis in multiple joints. 7. End-stage kidney disease, on hemodialysis with a left arm fistula. 8. Aortic valve replacement history, bovine type. 9. Diabetic peripheral neuropathy. 10. Left below-knee amputation. 11. Malignant/uncontrolled hypertension, probably secondary to underlying kidney disease. PLAN: Home medications are resumed. Cardiology was consulted, Dr. Dang. Will do a lumbosacral x-ray. Patient's blood pressure is definitely uncontrolled. Will adjust medications.
[2017-03-01 21:00] LABS: Glucose,Whole Blood 145 mg/dL (75-99)
[2017-03-01] MEDS ORDERED: MELATONIN 5 MG TABLET PO SCH (21:00)
[2017-03-01] MEDS ORDERED: GELATIN SPONGE,ABSORB (SMALL) 1 EACH SPONGE ONE (22:15)
[2017-03-02 05:52] LABS: Anisocytosis Slight; Basophils % (A) 0 %; CH 28.9; Eosinophils # (A) 0.3 k/uL (0-0.7); Eosinophils % (A) 4 %; HCT 28.2 % (39.0-53.0); HDW 3.98; HGB 9.4 gm/dL (13.0-17.5); Hypochromasia Slight; Luc # (Auto) 0.12; Luc % (Auto) 1; Lymphocytes # (A) 0.6 k/uL (1.0-4.8); Lymphocytes % (A) 7 %; MCH 28.5 pg (25.0-35.0); MCHC 33.3 g/dL (31.0-37.0); MCV 85.5 fL (80.0-100.0); Mean Platelet Volume 6.6; Monocytes # (A) 0.6 k/uL (0-1.0); Monocytes % (A) 7 %; Neutrophils # (A) 6.9 k/uL (1.3-7.7); Neutrophils % (A) 81 %; Poikilocytosis Slight; RBC 3.29 m/uL (4.30-5.90); RDW 17.3 % (11.5-15.5); WBC 8.5 k/uL (3.8-10.6); WBC (Perox) 9.23
[2017-03-02 06:06] LABS: Anion Gap 10 mmol/L; Blood Urea Nitrogen 20 mg/dL (9-20); Carbon Dioxide 31 mmol/L (22-30); Chloride 101 mmol/L (98-107); Glucose 94 mg/dL (74-99); Non-African American GFR(MDRD) 17 (>60 ml/min/1.73 sqM); Potassium 4.4 mmol/L (3.5-5.1); Sodium 142 mmol/L (137-145)
[2017-03-02 06:14] LABS: Glucose,Whole Blood 96 mg/dL (75-99)
[2017-03-02 06:37] LABS: Hepatitis B Surface Ag Index 0.04
[2017-03-02 06:54] LABS: Hepatitis B Surface Antibody POSITIVE (Negative)
[2017-03-02] MEDS ORDERED: PANTOPRAZOLE 40 MG TABLET PO SCH (07:30)
[2017-03-02] MEDS: ASPIRIN 81 MG CHEW PO SCH (08:51)
[2017-03-02] MEDS: ATORVASTATIN 40 MG TAB PO SCH (08:51)
[2017-03-02] MEDS: hydrALAZINE HCL 25 MG TAB PO SCH ×2 (08:52→16:00)
[2017-03-02] MEDS: ISOSORBIDE MONONITRATE ER 60 MG TAB.ER.24H PO SCH (08:52)
[2017-03-02] MEDS: INSULIN GLARGINE 100 UNIT/ML 10 ML VIAL SQ SCH (08:52)
[2017-03-02] MEDS: CLOPIDOGREL 75 MG TAB PO SCH (08:52)
[2017-03-02] MEDS: MAGNESIUM OXIDE 400 MG TAB PO SCH (08:53)
[2017-03-02] MEDS: SERTRALINE 100 MG TAB PO SCH (08:53)
[2017-03-02] MEDS: METOPROLOL TARTRATE 50 MG TAB PO SCH (08:53)
[2017-03-02 09:18] VITALS: RESP 18
--- NOTE | 2017-03-02 09:59 | CONS ---
DATE OF CONSULTATION: REASON FOR CONSULTATION: End-stage renal disease. HISTORY OF PRESENT ILLNESS: Patient is a 57-year-old male with a history of end-stage renal disease on hemodialysis on a Saturday, Saturday, Saturday schedule. He was admitted to the hospital with chest pain and back pain. He has been evaluated by Cardiology. His Troponin was at 0.3 nanograms. Patient's blood pressure was significantly uncontrolled with systolic above 200. This is much better now and patient states that he is not having any further pain, back pain or chest pains. He was dialyzed yesterday and he tolerated his treatment fairly well. PAST MEDICAL HISTORY: End-stage renal disease on hemodialysis on a Saturday, Saturday, Saturday schedule, type 2 diabetes, peripheral vascular disease, coronary artery disease, hyperlipidemia, hypertension, valvular heart disease, gout, history of MRSA infection in the left foot. PAST SURGICAL HISTORY: Left AKA, multiple wound debridement, right arm AV fistula, cardiac catheterization, PD catheter insertion and removal. SOCIAL HISTORY: The patient is negative for smoking, drug abuse or alcohol abuse. Medications prior to admission included Lipitor, Mag-Ox, Tums, potassium, folic acid, insulin, Zoloft, Protonix, hydralazine, Plavix, Lopressor, Imodium, Aranesp, Imdur, aspirin, [place]. Allergies include IV DYE. REVIEW OF SYSTEMS: As per HPI. Other systems negative. On examination, the patient is comfortable, awake, alert, oriented x3, not in any acute distress. Blood pressure is 161/71, heart rate 66 per minute. He is afebrile. EXAMINATION OF THE HEART: S1 and S2. EXAMINATION OF THE LUNGS: Bilateral breath sounds are heard. ABDOMEN: Soft, nontender. Examination of the lower extremities shows no evidence of edema. Patient had left AKA. Labs show sodium 141, potassium 4.6. Hemoglobin 9.2 g/dL. ASSESSMENT: 1. End-stage renal disease on hemodialysis on a Saturday, Saturday, Saturday schedule. Patient was dialyzed yesterday. He tolerated his treatment well. He will be dialyzed again on Saturday. He could be discharged from nephrology standpoint. 2. Hypertension, uncontrolled, currently much better controlled. Will continue current medications as outpatient as well. Patient should be on LUI inhibitors too. I do not see that on his med list currently. 3. Chest pain and back pain, currently resolved. 4. Coronary artery disease. No plans for intervention from cardiology standpoint. at this time. 5. Peripheral vascular disease, status post left AKA. PLAN: Patient can be discharged from nephrology standpoint and follow up as outpatient for dialysis on Saturday. Thank you for the consultation.
[2017-03-02] MEDS: FOLIC ACID 1 MG TAB PO SCH (11:55)
[2017-03-02] MEDS: B COMPLEX-VIT C-VIT E-ZINC 1 EACH TAB PO SCH (11:55)
[2017-03-02 12:09] LABS: Glucose,Whole Blood 122 mg/dL (75-99)
--- NOTE | 2017-03-02 13:38 | P.PN ---
Subjective Principal diagnosis: back pain, hypertension Is a pleasant 57-year-old gentleman with history of end-stage renal disease on hemodialysis, diabetes, hypertension, hyperlipidemia, aortic valve replacement and recent left below the knee amputation. Presented to the hospital with complaints of pulsating back pain and hypertension patient's hydralazine and nitrate were increased yesterday, blood pressure is better controlled with systolic blood pressure 120-160. He did receive dialysis yesterday. Upon examination patient is resting comfortably in bed. He denies complaints of back pain, chest discomfort, dizziness, shortness of breath or edema. Objective - Vital Signs Vital signs: Vital Signs Temp 97.1 F L 03/02/17 08:00 Pulse 66 03/02/17 08:00 Resp 18 03/02/17 08:00 BP 161/71 03/02/17 08:00 Pulse Ox 94 L 03/02/17 08:00 Intake & Output 03/01/17 03/02/17 03/02/17 18:59 06:59 18:59 Intake Total 629.6 200 Balance 629.6 200 Weight 72.5 kg 77 kg Intake: IV 149.6 Heparin Sodium,Porcine/ 149.6 D5w Pmx 25,000 unit In Dextrose/Water 1 500ml. bag @ 12 UNITS/KG/HR 18. 72 mls/hr IV .Q24H COUNTS INCLUDE 234 BEDS AT THE [facility] Rx #:[id number] Oral 480 200 Other: Voiding Method Urinal Urinal - Exam PHYSICAL EXAMINATION: HEENT: Head is atraumatic, normocephalic. Pupils equal, round. Neck is supple. There is no elevated jugular venous pressure. HEART EXAMINATION: Heart sounds regular, S1 and S2 with a systolic murmur. CHEST EXAMINATION: Lungs are clear to auscultation and precussion. No chest wall tenderness is noted on palpation or with deep breathing. ABDOMEN: Soft, nontender. Bowel sounds are heard. No organomegaly noted. EXTREMITIES: 1+ right pedal pulse with no evidence of peripheral edema and no calf tenderness noted. left BKA. NEUROLOGIC patient is awake, alert and oriented x3. . - Labs CBC & Chem 7: 03/02/17 05:29 03/02/17 05:29 Labs: Abnormal Lab Results - Last 24 Hours (Table) 03/01/17 03/01/17 03/02/17 Range/Units 16:33 20:58 05:29 RBC 3.29 L (4.30-5.90) m/uL Hgb 9.4 L (13.0-17.5) gm/dL Hct 28.2 L (39.0-53.0) % RDW 17.3 H (11.5-15.5) % Lymphocytes # 0.6 L (1.0-4.8) k/uL Carbon Dioxide (22-30) mmol/L Creatinine (0.66-1.25) mg/dL POC Glucose (mg/dL) 164 H 145 H (75-99) mg/dL 03/02/17 03/02/17 Range/Units 05:29 11:44 RBC (4.30-5.90) m/uL Hgb (13.0-17.5) gm/dL Hct (39.0-53.0) % RDW (11.5-15.5) % Lymphocytes # (1.0-4.8) k/uL Carbon Dioxide 31 H (22-30) mmol/L Creatinine 3.77 H (0.66-1.25) mg/dL POC Glucose (mg/dL) 122 H (75-99) mg/dL Assessment and Plan Plan: Assessment and plan #1 atypical chest pain #2 elevated troponins, pattern not consistent with myocardial ischemia #3 history of aortic valve replacement #4 end-stage renal disease, on hemodialysis #5 diabetes #6 hypertension, uncontrolled From cardiology's perspective, patient is stable for discharge home today. Continue aspirin 81 mg daily, atorvastatin 40 mg by mouth daily, Plavix 75 mg by mouth daily, hydralazine 75 mg by mouth 3 times a day, Imdur 60 mg daily and metoprolol 50 mg by mouth twice a day. He will keep his already scheduled appointment with Dr. Sanderson on Saturday. [employer] note has been reviewed, I agree with a documented findings and plan of care. Patient was seen and examined.
[2017-03-02 16:05] VITALS: BP 154/75; PULSE 58; TEMP 96.9
[2017-03-02 17:35] LABS: Glucose,Whole Blood 147 mg/dL (75-99)
--- NOTE | 2017-03-02 17:36 | P.PN ---
Progress Note - Text DATE OF SERVICE: 03/02/2017 PRESENTING COMPLAINT: Upper back pain INTERVAL HISTORY: This is a 57-year-old male who presented with upper back pain, possible unstable angina. Today patient is lying in bed, appears comfortable no complaints of chest pain or discomfort. Tolerating his diet, moved his bowels. Up with assistance. REVIEW OF SYSTEMS: Done for constitutional ,cardiovascular, GI, pulmonary with relevant findings as above. CURRENT MEDICATIONS Aspirin, Lipitor, Plavix, Aranesp, folic acid, Apresoline, Imdur, Lopressor. PHYSICAL EXAM: VITAL SIGNS: Temperature 97.1, pulse 66, respirations 18, blood pressure 161/71, oxygen saturation 94% on room air. GENERAL APPEARANCE:. Lying in bed, not in distress. EYES: Pupils equal. Conjunctiva normal. NECK: JVD not raised. Mass not palpable. RESPIRATORY: Respiratory effort normal. Lungs clear to auscultation. CARDIOVASCULAR: First and second sounds normal. No edema. ABDOMEN: Soft. Liver and spleen not palpable. No tenderness. No mass palpable. PSYCHIATRY: Alert and oriented x3. Mood and affect normal. INVESTIGATIONS: Hemoglobin 9.4, platelet count 269, sodium 142, potassium 4.4, BUN 20, creatinine 3.77. Lumbar spine x-ray: Due to degenerative disc changes throughout the lumbar spine , facet degenerative changes lower spine. ASSESSMENT: Possible unstable angina in a patient with multiple cardiac risk factors with a presentation that is atypical Diabetes mellitus, type II, chronically on insulin. Gastroesophageal reflux disease. Hyperlipidemia. Essential hypertension. Primary osteoarthritis in multiple joints. End-stage kidney disease on hemodialysis with left arm fistula. Aortic valve replacement history, bovine type. Diabetic peripheral neuropathy. Left below the knee amputation. Malignant/uncontrolled hypertension probably secondary to underlying kidney disease. PLAN: No further episodes chest pain, awaiting cardiology input regarding any additional testing or medication changes. Nephrology no changes to the plan of care, from their standpoint patient may be discharged. We'll follow closely . BLACK LEATHER TRIMMER statement: Patient was seen and examined by nurse practitioner Jigna Myers in all elements of the case discussed with attending is Dr. Pedersen
--- NOTE | 2017-03-04 22:59 | DS ---
DATE OF ADMISSION: 02/28/2017 DATE OF DISCHARGE: 03/02/2017 FINAL DIAGNOSES: 1. Atypical chest pain, not felt to be cardiac cause per Cardiology. 2. Diabetes mellitus, type 2, chronically on insulin. 3. Gastroesophageal reflux disease. 4. Hyperlipidemia. 5. Essential hypertension. 6. Primary osteoarthritis in multiple joints. 7. End-stage kidney disease, on hemodialysis with left arm fistula. 8. Aortic valve replacement history with bovine type valve. 9. Diabetic peripheral neuropathy. 10. Left below-knee amputation. 11. Malignant/uncontrolled hypertension, probably secondary to underlying kidney disease, present on admission. 12. Back pain, probably from lumbar degenerative joint disease. HOSPITAL COURSE: This patient presented with chest pain, felt by Cardiology not to be cardiac. No further workup was recommended. Patient gets dialyzed. CONSULTATIONS: 1. Dr. Dang from Cardiology. 2. Dr. Gomez from Nephrology. On exam, lungs have fair air entry. CARDIOVASCULAR: First and second sounds normal. PSYCH: Alert and oriented x3. Left upper extremity fistula is present. DISCHARGE MEDICATIONS: 1. Lopressor 50 mg p.o. b.i.d. 2. Magnesium oxide 400 mg p.o. daily. 3. TUMS 1000 mg p.o. daily p.r.n. 4. Folic acid 1 mg p.o. daily. 5. Plavix 75 mg p.o. daily. 6. Zoloft 100 mg p.o. daily. 7. Imodium 2 mg p.o. t.i.d. p.r.n. 8. Lantus 40 units subcutaneously daily. 9. Humalog before meals t.i.d. 10. Protonix 20 mg before meals t.i.d. 11. Pro Renal 1 tablet p.o. b.i.d. 12. [place] 5 one to two tablets q.4 p.r.n. 13. Aspirin 81 mg p.o. daily. 14. Aranesp 40 mcg subcutaneously every 7 days. 15. Melatonin 5 mg at bedtime. 16. Lipitor 40 mg p.o. daily. 17. Imdur ER 60 mg p.o. daily. 18. Hydralazine 75 mg p.o. t.i.d. Follow up with Dr. Robert in one week. Follow up with Dr. Sanderson on 03/04/2017.
== END 2017-03-02 17:54 | disposition home or self-care (01) | DRG 313 ==
LOC: EC 21:49 → 6SEL 23:41
PROVIDERS: ADMIT Hospitalist; ATTEND Hospitalist
PROC: 5A1D00Z (ICD-10-PCS; principal; 2017-03-01)
DX: R07.89 Other chest pain (principal); I25.10 Atherosclerotic heart disease of native coronary artery without angina pectoris; N18.6 End stage renal disease; E11.22 Type 2 diabetes mellitus with diabetic chronic kidney disease; E11.42 Type 2 diabetes mellitus with diabetic polyneuropathy; Q23.1 Congenital insufficiency of aortic valve; I12.9 Hypertensive chronic kidney disease with stage 1 through stage 4 chronic kidney disease, or unspecified chronic kidney disease; M47.816 Spondylosis without myelopathy or radiculopathy, lumbar region; E11.319 Type 2 diabetes mellitus with unspecified diabetic retinopathy without macular edema; I70.0 Atherosclerosis of aorta; R74.8 Abnormal levels of other serum enzymes; M10.9 Gout, unspecified; E78.5 Hyperlipidemia, unspecified; H26.9 Unspecified cataract; M51.36 Other intervertebral disc degeneration, lumbar region; K21.9 Gastro-esophageal reflux disease without esophagitis; H83.09 Labyrinthitis, unspecified ear; F32.9 Major depressive disorder, single episode, unspecified; F41.9 Anxiety disorder, unspecified; H91.90 Unspecified hearing loss, unspecified ear; E11.51 Type 2 diabetes mellitus with diabetic peripheral angiopathy without gangrene; K31.84 Gastroparesis; E11.43 Type 2 diabetes mellitus with diabetic autonomic (poly)neuropathy; M19.91 Primary osteoarthritis, unspecified site; Z86.19 Personal history of other infectious and parasitic diseases; Z83.3 Family history of diabetes mellitus; Z79.899 Other long term (current) drug therapy; Z79.82 Long term (current) use of aspirin; Z79.4 Long term (current) use of insulin; Z82.0 Family history of epilepsy and other diseases of the nervous system; Z95.3 Presence of xenogenic heart valve; Z82.49 Family history of ischemic heart disease and other diseases of the circulatory system; Z99.3 Dependence on wheelchair; Z99.2 Dependence on renal dialysis; Z86.14 Personal history of Methicillin resistant Staphylococcus aureus infection; Z91.041 Radiographic dye allergy status; Z79.02 Long term (current) use of antithrombotics/antiplatelets; Z79.891 Long term (current) use of opiate analgesic; Z71.3 Dietary counseling and surveillance; Z82.3 Family history of stroke; Z90.49 Acquired absence of other specified parts of digestive tract; Z89.429 Acquired absence of other toe(s), unspecified side; Z89.512 Acquired absence of left leg below knee
CPT/HCPCS: 36415; 71020; 72110; 80048; 80053; 80061; 82550; 82553; 83605; 83690; 84484; 85025; 85610; 85730; 86704; 86706; 87340; 90935; 93005; 93979

== ENCOUNTER 2017-05-08 22:32 | Observation (INO) | payer MEDICARE ==
[2017-05-08] MEDS ORDERED: MAG HYDROX/AL HYDROX/SIMETH 30 ML, HYOSCYAMINE ELIXIR 10 ML, CIMETIDINE HCL 300 MG, LID... PO STA ×4 (22:56)
[2017-05-08] MEDS ORDERED: IPRATROPIUM-ALBUTEROL 3 ML NEB INHALATION STA (22:57)
[2017-05-08] MEDS ORDERED: NITROGLYCERIN OINT 1 INCH/GM PACKET TOPICAL STA (22:58)
--- NOTE | 2017-05-08 23:01 | ED ---
General Adult HPI - General Chief complaint: Shortness of Breath Stated complaint: SOB Time Seen by Provider: 05/08/17 22:51 Source: patient, family, EMS, RN notes reviewed Mode of arrival: EMS Limitations: no limitations - History of Present Illness Initial comments: Patient is a pleasant 57-year-old male presenting to the emergency Department with shortness of breath. Patient awoke from sleep prior to arrival. Patient had dry heaves and is throat was burning. Patient felt short of breath. Symptoms do continue however not as severe. Nausea has resolved. No chest pain. - Related Data Home Medications Medication Instructions Recorded Confirmed Magnesium Oxide [Mag-Ox] 400 mg PO DAILY 08/10/15 05/08/17 Calcium Carbonate [Tums] 1,000 mg PO TID PRN 11/03/15 05/08/17 Folic Acid 1 mg PO DAILY 11/03/15 05/08/17 Sertraline [Zoloft] 100 mg PO QAM 04/11/16 05/08/17 Insulin Glargine [Lantus] 40 unit SQ QAM 05/09/16 05/08/17 INSULIN LISPRO (humaLOG) [humaLOG See Protocol SQ AC-TID 10/23/16 05/08/17 (formulary)] Pantoprazole [Protonix] 20 mg PO AC-BID 10/23/16 05/08/17 Pro Renal (Supplement) 1 tab PO BID 10/23/16 05/08/17 Previous Rx's Medication Instructions Recorded Metoprolol Tartrate [Lopressor] 50 mg PO BID #60 tab 05/05/14 Clopidogrel [Plavix] 75 mg PO DAILY #90 tab 03/27/16 Loperamide [Imodium] 2 mg PO TID PRN #20 cap 04/13/16 HYDROcodone/APAP 5-325MG [[place]enn[place] 1 - 2 tab PO Q4H PRN 30 Days 10/30/16 5-325] Aspirin 81 mg PO DAILY #1 chewable 02/21/17 Darbepoetin Kenneth [Aranesp] 40 mcg SQ Q7D syr 02/21/17 Melatonin 5 mg PO HS tab 02/21/17 Atorvastatin [Lipitor] 40 mg PO DAILY #30 tab 03/02/17 Isosorbide Mononitrate ER [Imdur] 60 mg PO DAILY #30 tab 03/02/17 hydrALAZINE HCL [Apresoline] 75 mg PO TID #90 tab 03/02/17 Allergies Allergy/AdvReac Type Severity Reaction Status Date / Time Iodinated Contrast- Oral and AdvReac shut down Verified 05/08/17 23:01 IV Dye kidneys [Iodinated Contrast Media - IV Dye] Review of Systems ROS Statement: Those systems with pertinent positive or pertinent negative responses have been documented in the HPI. ROS Other: All systems not noted in ROS Statement are negative. Constitutional: Denies: fever Eyes: Denies: eye pain ENT: Denies: ear pain Respiratory: Reports: dyspnea Cardiovascular: Denies: chest pain Endocrine: Denies: fatigue Gastrointestinal: Reports: nausea. Denies: abdominal pain Genitourinary: Denies: dysuria Musculoskeletal: Denies: back pain Skin: Denies: rash Neurological: Denies: weakness Past Medical History Past Medical History: Coronary Artery Disease (CAD), Diabetes Mellitus, Eye Disorder, GERD/Reflux, Hearing Disorder / Deafness, Hyperlipidemia, Hypertension , Hypertension, Osteoarthritis (OA), Renal Disease, Renal Disease, Vascular Disorder Additional Past Medical History / Comment(s): Aortic valve replacement - BOVINE , gout, IDDM type II, end-stage renal disease past peritoneal dialysis, now hemodialysis -W-, diabetic peripheral neuropathy, L foot ulcers, R foot infection, L AKA, bilateral diabetic retinopathy, bilateral cataracts, bleeds behind retina, history of osteomyelitis, history of MRSA infection, diabetic gastroparesis, PVD. History of Any Multi-Drug Resistant Organisms: MRSA Date of last positivie culture/infection: 2011 MDRO Source:: LEFT FOOT Past Surgical History: Cardiac Valve Replacement, Cholecystectomy, Hernia Repair , Orthopedic Surgery Additional Past Surgical History / Comment(s): L arm fistula being used for hemodialysis, R upper chest moura cath-needs to be removed per pt, RT foot I& D when a metal fragment was in his foot that was also infected, LT FOOT DEBRIDEMENT ,5TH TOE AMP, 10/2016 L AKS, insertion and REMOVAL PD CATH. Past Anesthesia/Blood Transfusion Reactions: Motion Sickness Additional Past Anesthesia/Blood Transfusion Reaction / Comment(s): CLAUSTROPHOBIA Past Psychological History: Anxiety, Depression Smoking Status: Never smoker Past Alcohol Use History: None Reported Past Drug Use History: None Reported - Past Family History Mother Family Medical History: Diabetes Mellitus, Osteoarthritis (OA) Additional Family Medical History / Comment(s): HIP REPLACMENTS Father Family Medical History: CVA/TIA, Diabetes Mellitus, Myocardial Infarction (OR), Musculoskeletal Disorder, Neurologic Disorder Additional Family Medical History / Comment(s): PARKINSON'S General Exam Limitations: no limitations General appearance: alert, in no apparent distress Head exam: Present: atraumatic Eye exam: Present: normal appearance, PERRL ENT exam: Present: normal oropharynx Neck exam: Present: normal inspection Respiratory exam: Present: decreased breath sounds Cardiovascular Exam: Present: regular rate, normal rhythm GI/Abdominal exam: Present: soft. Absent: tenderness Extremities exam: Present: other (Left leg amputation) Back exam: Present: normal inspection Neurological exam: Present: alert Psychiatric exam: Present: normal affect, normal mood Skin exam: Present: normal color Course Vital Signs 05/08/17 05/08/17 05/08/17 22:34 22:54 23:17 Temperature 98.2 F Pulse Rate 79 72 70 Respiratory 22 20 18 Rate Blood Pressure 233/101 218/83 210/95 O2 Sat by Pulse 99 99 98 Oximetry 05/08/17 05/08/17 05/09/17 23:19 23:46 00:05 Temperature Pulse Rate 70 76 80 Respiratory 18 Rate Blood Pressure 160/75 O2 Sat by Pulse 97 Oximetry 05/09/17 00:30 Temperature Pulse Rate 83 Respiratory 18 Rate Blood Pressure 153/50 O2 Sat by Pulse 98 Oximetry EKG Findings - EKG Comments: EKG Findings:: Normal sinus rhythm 75. CO 192. QRS 140. QTc 442. QTC 493. Left axis. Right bundle branch block. Left anterior fascicular block. T-wave inversion in V6. Medical Decision Making - Medical Decision Making Patient reevaluated and is improved following GI cocktail and nebulizer treatment. Case discussed with practitioner Jigna, who will admit for Dr. jimenez, covering for Dr. Robert. Patient and family updated. - Lab Data Result diagrams: 05/08/17 22:45 05/08/17 22:45 Lab Results 05/08/17 05/08/17 05/08/17 Range/Units 22:45 22:45 22:45 WBC 4.5 (3.8-10.6) k/uL RBC 4.22 L (4.30-5.90) m/uL Hgb 12.7 L (13.0-17.5) gm/dL Hct 38.7 L (39.0-53.0) % MCV 91.7 (80.0-100.0) fL MCH 30.2 (25.0-35.0) pg MCHC 32.9 (31.0-37.0) g/dL RDW 15.6 H (11.5-15.5) % Plt Count 128 L (150-450) k/uL Neutrophils % 65 % Lymphocytes % 14 % Monocytes % 12 % Eosinophils % 5 % Basophils % 1 % Neutrophils # 2.9 (1.3-7.7) k/uL Lymphocytes # 0.6 L (1.0-4.8) k/uL Monocytes # 0.5 (0-1.0) k/uL Eosinophils # 0.2 (0-0.7) k/uL Basophils # 0.0 (0-0.2) k/uL PT (9.0-12.0) sec INR (<1.2) APTT (22.0-30.0) sec Sodium 135 L (137-145) mmol/L Potassium 4.8 (3.5-5.1) mmol/L Chloride 98 (98-107) mmol/L Carbon Dioxide 25 (22-30) mmol/L Anion Gap 12 mmol/L BUN 24 H (9-20) mg/dL Creatinine 4.70 H (0.66-1.25) mg/dL Est GFR (MDRD) Af Amer 16 (>60 ml/min/1.73 sqM) Est GFR (MDRD) Non-Af 13 (>60 ml/min/1.73 sqM) Glucose 358 H (74-99) mg/dL Calcium 9.5 (8.4-10.2) mg/dL Total Bilirubin 0.9 (0.2-1.3) mg/dL AST 18 (17-59) U/L ALT 27 (21-72) U/L Alkaline Phosphatase 107 (38-126) U/L Total Creatine Kinase 67 (55-170) U/L CK-MB (CK-2) 2.3 (0.0-2.4) ng/mL CK-MB (CK-2) Rel Index 3.4 Troponin I 0.029 (0.000-0.034) ng/mL Total Protein 6.0 L (6.3-8.2) g/dL Albumin 3.7 (3.5-5.0) g/dL 05/08/17 Range/Units 22:45 WBC (3.8-10.6) k/uL RBC (4.30-5.90) m/uL Hgb (13.0-17.5) gm/dL Hct (39.0-53.0) % MCV (80.0-100.0) fL MCH (25.0-35.0) pg MCHC (31.0-37.0) g/dL RDW (11.5-15.5) % Plt Count (150-450) k/uL Neutrophils % % Lymphocytes % % Monocytes % % Eosinophils % % Basophils % % Neutrophils # (1.3-7.7) k/uL Lymphocytes # (1.0-4.8) k/uL Monocytes # (0-1.0) k/uL Eosinophils # (0-0.7) k/uL Basophils # (0-0.2) k/uL PT 10.0 (9.0-12.0) sec INR 1.0 (<1.2) APTT 22.1 (22.0-30.0) sec Sodium (137-145) mmol/L Potassium (3.5-5.1) mmol/L Chloride (98-107) mmol/L Carbon Dioxide (22-30) mmol/L Anion Gap mmol/L BUN (9-20) mg/dL Creatinine (0.66-1.25) mg/dL Est GFR (MDRD) Af Amer (>60 ml/min/1.73 sqM) Est GFR (MDRD) Non-Af (>60 ml/min/1.73 sqM) Glucose (74-99) mg/dL Calcium (8.4-10.2) mg/dL Total Bilirubin (0.2-1.3) mg/dL AST (17-59) U/L ALT (21-72) U/L Alkaline Phosphatase (38-126) U/L Total Creatine Kinase (55-170) U/L CK-MB (CK-2) (0.0-2.4) ng/mL CK-MB (CK-2) Rel Index Troponin I (0.000-0.034) ng/mL Total Protein (6.3-8.2) g/dL Albumin (3.5-5.0) g/dL - Radiology Data Radiology results: image reviewed (Chest x-ray shows no acute process.) Disposition Clinical Impression: Dyspnea Disposition: ADMITTED IP TO THIS [facility] Referrals: Thor Robert MD [Primary Care Provider] - 1-2 days Decision Time: 00:47
[2017-05-08 23:07] LABS: Basophils % (A) 1 %; CH 31.4; CHCM 34.3; Eosinophils # (A) 0.2 k/uL (0-0.7); Eosinophils % (A) 5 %; HCT 38.7 % (39.0-53.0); HDW 2.89; HGB 12.7 gm/dL (13.0-17.5); Luc # (Auto) 0.15; Luc % (Auto) 4; Lymphocytes # (A) 0.6 k/uL (1.0-4.8); Lymphocytes % (A) 14 %; MCH 30.2 pg (25.0-35.0); MCHC 32.9 g/dL (31.0-37.0); MCV 91.7 fL (80.0-100.0); Mean Platelet Volume 7.7; Monocytes # (A) 0.5 k/uL (0-1.0); Monocytes % (A) 12 %; Neutrophils # (A) 2.9 k/uL (1.3-7.7); Neutrophils % (A) 65 %; RBC 4.22 m/uL (4.30-5.90); RDW 15.6 % (11.5-15.5); WBC 4.5 k/uL (3.8-10.6); WBC (Perox) 4.59
[2017-05-08 23:18] LABS: Partial Thromboplastin Time 22.1 sec (22.0-30.0)
--- NOTE | 2017-05-08 23:39 | XR ---
History: Reason: difficulty breathing Exam: XR CXR 2 VIEWS Comparison: 02/28/2017 FINDINGS: The lungs are clear. The cardiac and mediastinal contours are within limits. Status post median sternotomy and valve replacement. Status post cholecystectomy. IMPRESSION: No evidence of acute disease. Status post median sternotomy and valve replacement. Status post cholecystectomy.
[2017-05-08] MEDS ORDERED: METOPROLOL TARTRATE 50 MG TAB PO STA (23:42)
[2017-05-08] MEDS ORDERED: hydrALAZINE HCL 20 MG/ML 1 ML VIAL IVP STA (23:42)
[2017-05-08 23:43] LABS: Calcium 9.5 mg/dL (8.4-10.2); Potassium 4.8 mmol/L (3.5-5.1); Total Bilirubin 0.9 mg/dL (0.2-1.3)
[2017-05-08 23:50] LABS: Creatine Kinase MB 2.3 ng/mL (0.0-2.4); Troponin I 0.029 ng/mL (0.000-0.034)
[2017-05-09] MEDS ORDERED: IPRATROPIUM-ALBUTEROL 3 ML NEB INHALATION PRN (00:47)
[2017-05-09] MEDS ORDERED: ASPIRIN 81 MG PO STA (00:49)
[2017-05-09] MEDS ORDERED: NALOXONE 0.4 MG/ML 1 ML VIAL IV PRN (00:49)
[2017-05-09 02:03] LABS: Glucose,Whole Blood 309 mg/dL (75-99)
[2017-05-09 06:32] LABS: Glucose,Whole Blood 208 mg/dL (75-99)
[2017-05-09] MEDS: IPRATROPIUM-ALBUTEROL 3 ML NEB INHALATION SCH ×2 (07:32→11:39)
[2017-05-09] MEDS ORDERED: CALCIUM CARBONATE 500 MG CHEWABLE PO PRN (08:26)
[2017-05-09] MEDS ORDERED: LOPERAMIDE 2 MG CAP PO PRN (08:26)
[2017-05-09] MEDS ORDERED: DARBEPOETIN ALFA 40 MCG/0.4 ML SYRINGE SQ SCH (08:30)
[2017-05-09] MEDS ORDERED: ISOSORBIDE MONONITRATE ER 60 MG TAB.ER.24H PO SCH (09:00)
[2017-05-09] MEDS ORDERED: ATORVASTATIN 40 MG TAB PO SCH (09:00)
[2017-05-09] MEDS ORDERED: METOPROLOL TARTRATE 50 MG TAB PO SCH (09:00)
[2017-05-09] MEDS ORDERED: ASPIRIN 81 MG PO SCH (09:00)
[2017-05-09] MEDS ORDERED: INSULIN GLARGINE 100 UNIT/ML 10 ML VIAL SQ SCH (09:00)
[2017-05-09] MEDS ORDERED: ENOXAPARIN 30 MG/0.3 ML SYRINGE SQ SCH (09:00)
[2017-05-09] MEDS ORDERED: MAGNESIUM OXIDE 400 MG TAB PO SCH (09:00)
[2017-05-09] MEDS ORDERED: SERTRALINE 100 MG TAB PO SCH (09:00)
[2017-05-09] MEDS ORDERED: FOLIC ACID-VIT B COMPLEX-VIT C 1 CAP PO SCH (09:00)
[2017-05-09] MEDS ORDERED: CLOPIDOGREL 75 MG TAB PO SCH (09:00)
[2017-05-09] MEDS: INSULIN LISPRO (humaLOG) 300 UNIT/3 ML VIAL SQ SCH ×2 (10:10→12:34)
[2017-05-09] MEDS: hydrALAZINE HCL 25 MG TAB PO SCH ×2 (10:12→16:37)
[2017-05-09 11:43] VITALS: RESP 16
[2017-05-09] MEDS ORDERED: FOLIC ACID 1 MG TAB PO SCH (12:00)
[2017-05-09 12:07] LABS: Glucose,Whole Blood 205 mg/dL (75-99)
--- NOTE | 2017-05-09 12:29 | P.CRDCN ---
History of Present Illness Consult date: 05/09/17 History of present illness: This is a 57-year-old male. He is a patient of Dr. Sanderson in the office. He has significant medical history for hypertension, aortic valve replacement, dyslipidemia, diabetes mellitus, chronic renal failure on hemodialysis. He last saw Dr. Sanderson in the office 03/04/2017. Patient states last night at approximately 9:00 she was laying in bed had an acute onset of extreme shortness of breath and coughing. He states he got up to get a glass of water because he started to feel like his throat was burning. He denies any chest pain or radiation of the pain into the shoulders or arms or jaw or back. He states the burning in his throat subsided after drinking glass of water. He denies any shortness of breath at this current time. He had dialysis yesterday and he states was a typical course. He also stated he recently lost his father on Saturday and he wasn't sure if this was an associated anxiety reaction. EKG indicates normal sinus mechanism with right bundle branch block and nonspecific T-wave abnormalities. Recent echocardiogram performed on 02/20/2017 indicates trace tricuspid regurgitation, mild pulmonary hypertension with RVSP of 41.62 mmHg, mild concentric left ventricular hypertrophy, maintained left ventricular systolic function with an ejection fraction of 50-55%, mildly dilated left atrium, normally functioning by bioprosthetic valve and mildly thickened mitral valve. Review of Systems REVIEW OF SYSTEMS: Patient denies any chest discomfort. No shortness of breath. No diaphoresis. Denies headache, dizziness, blurred vision, double vision. No dyspnea on exertion. Patient denies any stomach discomfort. No nausea, vomiting. No hematochezia. No hematemesis. Denies any black stools or blood in his stools. No syncope. No palpitations. No cough. No recent fever or chills. No muscle weakness or numbness. Past Medical History Past Medical History: Coronary Artery Disease (CAD), Diabetes Mellitus, Eye Disorder, GERD/Reflux, Hearing Disorder / Deafness, Hyperlipidemia, Hypertension , Hypertension, Osteoarthritis (OA), Renal Disease, Renal Disease, Vascular Disorder Additional Past Medical History / Comment(s): Aortic valve replacement - BOVINE , gout, IDDM type II, end-stage renal disease past peritoneal dialysis, now hemodialysis M-W-F, diabetic peripheral neuropathy, L foot ulcers, R foot infection, L AKA, bilateral diabetic retinopathy, bilateral cataracts, bleeds behind retina, history of osteomyelitis, history of MRSA infection, diabetic gastroparesis, PVD. History of Any Multi-Drug Resistant Organisms: MRSA Date of last positivie culture/infection: 2011 MDRO Source:: LEFT FOOT Past Surgical History: Cardiac Valve Replacement, Cholecystectomy, Hernia Repair , Orthopedic Surgery Additional Past Surgical History / Comment(s): L arm fistula being used for hemodialysis, R upper chest moura cath-needs to be removed per pt, RT foot I& D when a metal fragment was in his foot that was also infected, LT FOOT DEBRIDEMENT ,5TH TOE AMP, 10/2016 L AKS, insertion and REMOVAL PD CATH. 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 No experience. No recent travels. No animals in the home. No significant alcohol use. No current tobacco use. 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 - Past Family History Mother Family Medical History: Diabetes Mellitus, Osteoarthritis (OA) Additional Family Medical History / Comment(s): HIP REPLACMENTS Father Family Medical History: CVA/TIA, Diabetes Mellitus, Myocardial Infarction ([place]), Musculoskeletal Disorder, Neurologic Disorder Additional Family Medical History / Comment(s): PARKINSON'S Medications and Allergies Home Medications Medication Instructions Recorded Confirmed Type Magnesium Oxide [Mag-Ox] 400 mg PO DAILY 08/10/15 05/08/17 History Calcium Carbonate [Tums] 1,000 mg PO TID PRN 11/03/15 05/08/17 History Folic Acid 1 mg PO DAILY 11/03/15 05/08/17 History Sertraline [Zoloft] 100 mg PO QAM 04/11/16 05/08/17 History Insulin Glargine [Lantus] 40 unit SQ QAM 05/09/16 05/08/17 History INSULIN LISPRO (humaLOG) [humaLOG See Protocol SQ AC-TID 10/23/16 05/08/17 History (formulary)] Pantoprazole [Protonix] 20 mg PO AC-BID 10/23/16 05/08/17 History Pro Renal (Supplement) 1 tab PO BID 10/23/16 05/08/17 History Allergies Allergy/AdvReac Type Severity Reaction Status Date / Time Iodinated Contrast- Oral and AdvReac shut down Verified 05/08/17 23:01 IV Dye kidneys [Iodinated Contrast Media - IV Dye] Physical Exam Vitals: Vital Signs Temp Pulse Pulse Resp BP BP Pulse Ox 05/09/17 07:56 98.1 F 69 18 197/89 97 05/09/17 07:43 72 05/09/17 07:32 71 99 05/09/17 03:52 77 18 05/09/17 02:05 98.2 F 75 18 155/74 97 05/09/17 01:06 98.0 F 76 18 153/70 98 05/09/17 00:30 83 18 153/50 98 05/09/17 00:05 80 18 160/75 97 05/08/17 23:46 76 05/08/17 23:19 70 05/08/17 23:17 70 18 210/95 98 05/08/17 22:54 72 20 218/83 99 05/08/17 22:34 98.2 F 79 22 233/101 99 Intake and Output 05/08/17 05/09/17 05/09/17 22:59 06:59 14:59 Other: Voiding Method Toilet # Voids 1 Weight 77.111 kg GENERAL: This is a 57-year-old -year-old male in no apparent distress at the time of my examination. HEENT: Head is atraumatic, normocephalic. Pupils are equal, round. Sclerae anicteric. Conjunctivae are clear. Mucous membranes of the mouth are moist. Neck is supple. There is no jugular venous distention. No carotid bruit is heard. LUNGS: Clear to auscultation no wheezes, rales or rhonchi. No chest wall tenderness is noted on palpation or with deep breathing. HEART: Regular rate and rhythm with systolic click, no rubs or gallops. S1 and S2 heard. ABDOMEN: Soft, nontender. Bowel sounds are heard. No organomegaly noted. EXTREMITIES: 2+ peripheral pulses with no evidence of peripheral edema and no calf tenderness noted. NEUROLOGIC: Patient is awake, alert and oriented x3. Results 05/08/17 22:45 05/08/17 22:45 Cardiac Enzymes 05/08/17 05/08/17 05/09/17 Range/Units 22:45 22:45 04:43 AST 18 (17-59) U/L CK-MB (CK-2) 2.3 (0.0-2.4) ng/mL Troponin I 0.029 0.030 (0.000-0.034) ng/mL Coagulation 05/08/17 Range/Units 22:45 PT 10.0 (9.0-12.0) sec APTT 22.1 (22.0-30.0) sec CBC 05/08/17 Range/Units 22:45 WBC 4.5 (3.8-10.6) k/uL RBC 4.22 L (4.30-5.90) m/uL Hgb 12.7 L (13.0-17.5) gm/dL Hct 38.7 L (39.0-53.0) % Plt Count 128 L (150-450) k/uL Comprehensive Metabolic Panel 05/08/17 Range/Units 22:45 Sodium 135 L (137-145) mmol/L Potassium 4.8 (3.5-5.1) mmol/L Chloride 98 (98-107) mmol/L Carbon Dioxide 25 (22-30) mmol/L BUN 24 H (9-20) mg/dL Creatinine 4.70 H (0.66-1.25) mg/dL Glucose 358 H (74-99) mg/dL Calcium 9.5 (8.4-10.2) mg/dL AST 18 (17-59) U/L ALT 27 (21-72) U/L Alkaline Phosphatase 107 (38-126) U/L Total Protein 6.0 L (6.3-8.2) g/dL Albumin 3.7 (3.5-5.0) g/dL Current Medications Generic Name Dose Route Start Last Admin Trade Name Freq PRN Reason Stop Dose Admin Albuterol/Ipratropium 3 ml 05/09/17 08:00 05/09/17 07:32 Duoneb 0.5 Mg-3 Mg/3 Ml Soln INHALATION 3 ml RT-QID [place] Administration Albuterol/Ipratropium 3 ml 05/09/17 00:47 Duoneb 0.5 Mg-3 Mg/3 Ml Soln INHALATION RT-Q4H PRN Shortness Of Breath Or Wheezing Aspirin 81 mg 05/09/17 09:00 Aspirin PO DAILY [facility] Atorvastatin Calcium 40 mg 05/09/17 09:00 Lipitor PO DAILY [facility] Calcium Carbonate/Glycine 1,000 mg 05/09/17 08:26 Tums PO TID PRN Indigestion Clopidogrel Bisulfate 75 mg 05/09/17 09:00 Plavix PO DAILY [facility] Darbepoetin Kenneth 40 mcg 05/09/17 08:30 Aranesp SQ Q7D [facility] Enoxaparin Sodium 30 mg 05/09/17 09:00 Lovenox SQ DAILY [facility] Folic Acid 1 mg 05/09/17 12:00 Folic Acid PO DAILY@1200 [facility] Hydralazine HCl 75 mg 05/09/17 09:00 Apresoline PO TID [facility] Insulin Glargine 40 unit 05/09/17 09:00 Lantus SQ QAM [facility] Insulin Human Lispro 0 unit 05/09/17 07:30 Humalog SQ ACHS [facility] Protocol Isosorbide Mononitrate 60 mg 05/09/17 09:00 Imdur PO DAILY [facility] Loperamide HCl 2 mg 05/09/17 08:26 Imodium PO TID PRN Diarrhea Magnesium Oxide 400 mg 05/09/17 09:00 Mag-Ox PO DAILY [facility] Melatonin 5 mg 05/09/17 21:00 Melatonin PO HS [facility] Metoprolol Tartrate 50 mg 05/09/17 09:00 Lopressor PO BID [facility] Multivit/Ca Carb/B Cmplx/FA/Prenat 1 each 05/09/17 09:00 Nephrocaps PO BID [facility] Naloxone HCl 0.2 mg 05/09/17 00:49 Narcan IV Q2M PRN Opioid Reversal Pantoprazole Sodium 40 mg 05/09/17 17:30 Protonix PO AC-BID [facility] Sertraline HCl 100 mg 05/09/17 09:00 Zoloft PO QAM [facility] Intake and Output 05/08/17 05/09/17 05/09/17 22:59 06:59 14:59 Other: Voiding Method Toilet # Voids 1 Weight 77.111 kg 05/08/17 22:45 05/08/17 22:45 Assessment and Plan Plan: ASSESSMENT 1. Acute onset of dyspnea associated with throat burning 2. History of aortic valve replacement 3. Essential hypertension 4. Chronic renal failure on hemodialysis 5. Hyperlipidemia 6. Coronary artery disease PLAN This patient's clinical presentation is not indicative of an acute coronary syndrome. He most recently had a full cardiac workup. Recent echo was performed in February 2017 indicated a mildly dilated left atrium, preserved left ventricular function with a low-normal ejection fraction of 50-55%, with mild pulmonary hypertension with an RVSP of 41.62 mmHg. From a cardiac standpoint we would do no further workup at this time. The patient is stable for discharge home from a cardiac standpoint he should be seen by pulmonology regarding the possibility of an aspiration. He can follow-up Dr. Sanderson in the office in 2 weeks. Nurse Practitioner note has been reviewed, I agree with a documented findings and plan of care. Patient was seen and examined.
[2017-05-09] MEDS ORDERED: amLODIPine 5 MG TAB PO SCH (12:30)
--- NOTE | 2017-05-09 13:28 | P.CNPUL ---
History of Present Illness Consult date: 05/09/17 Reason for consult: dyspnea, cough, chest pain Chief complaint: Shortness of breath,throat pain, acid reflux disease History of present illness: Consult dated 05/09/2017 Very pleasant 57-year-old male who presents to the emergency department with complaints of burning in his throat some shortness of breath. He apparently had a bad taste in his mouth. Has some dry heaves. He felt like his throat was burning. The patient felt some shortness of breath. He had some nausea which has gotten better. He really describes acid reflux disease with acid aspiration. The patient's feeling back to baseline now. He sees a family doctor out in community. His home medications are reviewed and include magnesium calcium folic acid Zoloft insulin Protonix per renal supplement metoprolol Plavix Imodium [place] aspirin Aranesp melatonin Lipitor him door and a progressively. ALLERGIES IVP dye. Past medical history includes CAD diabetes GERD deafness hyperlipidemia hypertension peripheral vascular occlusive disease aortic valve replacement galloped neuropathy left foot ulcer left AKA diabetic retinopathy cataracts and osteomyelitis. Review of Systems A 12 point review of system is positive for shortness of breath throat burning nausea chest discomfort. All these complaints seem to go away when he received a GI cocktail in the emergency room. His shortness breath primarily rates relates to acid aspiration. He feels certainly back to baseline currently. Past Medical History Past Medical History: Coronary Artery Disease (CAD), Diabetes Mellitus, Eye Disorder, GERD/Reflux, Hearing Disorder / Deafness, Hyperlipidemia, Hypertension , Hypertension, Osteoarthritis (OA), Renal Disease, Renal Disease, Vascular Disorder Additional Past Medical History / Comment(s): Aortic valve replacement - BOVINE , gout, IDDM type II, end-stage renal disease past peritoneal dialysis, now hemodialysis M-W-F, diabetic peripheral neuropathy, L foot ulcers, R foot infection, L AKA, bilateral diabetic retinopathy, bilateral cataracts, bleeds behind retina, history of osteomyelitis, history of MRSA infection, diabetic gastroparesis, PVD. History of Any Multi-Drug Resistant Organisms: MRSA Date of last positivie culture/infection: 2011 MDRO Source:: LEFT FOOT Past Surgical History: Cardiac Valve Replacement, Cholecystectomy, Hernia Repair , Orthopedic Surgery Additional Past Surgical History / Comment(s): L arm fistula being used for hemodialysis, R upper chest moura cath-needs to be removed per pt, RT foot I& D when a metal fragment was in his foot that was also infected, LT FOOT DEBRIDEMENT ,5TH TOE AMP, 10/2016 L AKS, insertion and REMOVAL PD CATH. 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 No experience. No recent travels. No animals in the home. No significant alcohol use. No current tobacco use. 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 - Past Family History Mother Family Medical History: Diabetes Mellitus, Osteoarthritis (OA) Additional Family Medical History / Comment(s): HIP REPLACMENTS Father Family Medical History: CVA/TIA, Diabetes Mellitus, Myocardial Infarction ([place]), Musculoskeletal Disorder, Neurologic Disorder Additional Family Medical History / Comment(s): PARKINSON'S Medications and Allergies Home Medications Medication Instructions Recorded Confirmed Type Magnesium Oxide [Mag-Ox] 400 mg PO DAILY 08/10/15 05/08/17 History Calcium Carbonate [Tums] 1,000 mg PO TID PRN 11/03/15 05/08/17 History Folic Acid 1 mg PO DAILY 11/03/15 05/08/17 History Sertraline [Zoloft] 100 mg PO QAM 04/11/16 05/08/17 History Insulin Glargine [Lantus] 40 unit SQ QAM 05/09/16 05/08/17 History INSULIN LISPRO (humaLOG) [humaLOG See Protocol SQ AC-TID 10/23/16 05/08/17 History (formulary)] Pantoprazole [Protonix] 20 mg PO AC-BID 10/23/16 05/08/17 History Pro Renal (Supplement) 1 tab PO BID 10/23/16 05/08/17 History Allergies Allergy/AdvReac Type Severity Reaction Status Date / Time Iodinated Contrast- Oral and AdvReac shut down Verified 05/08/17 23:01 IV Dye kidneys [Iodinated Contrast Media - IV Dye] Physical Exam Osteopathic Statement: *. No significant issues noted on an osteopathic structural exam other than those noted in the History and Physical/Consult. Vitals: Vital Signs Temp Pulse Pulse Resp BP BP Pulse Ox 05/09/17 12:32 162/78 05/09/17 12:00 70 16 05/09/17 11:50 75 05/09/17 11:41 97.8 F 70 16 186/87 96 05/09/17 11:39 77 05/09/17 08:00 69 18 05/09/17 07:56 98.1 F 69 18 197/89 97 05/09/17 07:43 72 05/09/17 07:32 71 99 05/09/17 03:52 77 18 05/09/17 02:05 98.2 F 75 18 155/74 97 05/09/17 01:06 98.0 F 76 18 153/70 98 05/09/17 00:30 83 18 153/50 98 05/09/17 00:05 80 18 160/75 97 05/08/17 23:46 76 05/08/17 23:19 70 05/08/17 23:17 70 18 210/95 98 05/08/17 22:54 72 20 218/83 99 05/08/17 22:34 98.2 F 79 22 233/101 99 Intake and Output 05/08/17 05/09/17 05/09/17 22:59 06:59 14:59 Other: Voiding Method Toilet Urinal # Voids 1 Weight 77.111 kg No acute distress, oriented 3. HEENT examination is grossly unremarkable. Mucous membranes are moist. No oral lesions. Neck supple. Full range of motion. No adenopathy or thyromegaly. Cardiovascular examination reveals regular rhythm rate. S1-S2 normal. No S3- S4 or murmur. Lungs are clear breath sounds are equal. No wheezes or rhonchi. No crackles. Abdomen soft bowel sounds are heard. No masses or tenderness. Extremities are intact. He does have a left [id number] amputation. No rash. No edema. Skin without lesion. Neurologic examination is nonfocal. Results - Laboratory Findings CBC and BMP: 05/08/17 22:45 05/08/17 22:45 PT/INR, D-dimer PT 10.0 sec (9.0-12.0) 05/08/17 22:45 INR 1.0 (<1.2) 05/08/17 22:45 Abnormal lab findings: Abnormal Labs 05/08/17 05/08/17 05/09/17 22:45 22:45 01:59 RBC 4.22 L Hgb 12.7 L Hct 38.7 L RDW 15.6 H Plt Count 128 L Lymphocytes # 0.6 L Sodium 135 L BUN 24 H Creatinine 4.70 H Glucose 358 H POC Glucose (mg/dL) 309 H Total Protein 6.0 L 05/09/17 05/09/17 06:30 11:51 RBC Hgb Hct RDW Plt Count Lymphocytes # Sodium BUN Creatinine Glucose POC Glucose (mg/dL) 208 H 205 H Total Protein - Diagnostic Findings Chest x-ray: image reviewed (Labs x-rays a medications are all reviewed.) Assessment and Plan (1) GERD (gastroesophageal reflux disease) Status: Acute (2) Dyspnea Status: Acute (3) Aortic stenosis Status: Acute (4) Atypical chest pain Status: Acute (5) Diabetic foot ulcer Status: Acute (6) Diabetic gastroparesis associated with type 2 diabetes mellitus Status: Acute (7) Diabetic ulcer of left foot associated with type 2 diabetes mellitus Status: Acute (8) HTN (hypertension) Status: Acute (9) Intractable nausea and vomiting Status: Acute (10) PVD (peripheral vascular disease) Status: Acute (11) S/P AVR (aortic valve replacement) Status: Acute Plan: Plan dated 05/09/2017 The patient's clinical syndrome was consistent with an acid aspiration phenomena. It appears to have diabetic gastroparesis as well as gastroesophageal reflux disease. He likely aspirated stomach acid into the lung. He's feeling better now. His throat burning has gone away. He is not complaining of any shortness of breath or cough. Feels well. Probably could be discharged home. Time with Patient: Greater than 30
[2017-05-09 13:59] LABS: Hemoglobin A1C 8.6 % (4.2-6.1)
[2017-05-09 15:58] VITALS: BP 184/76; PULSE 67; TEMP 97.5
[2017-05-09] MEDS ORDERED: PANTOPRAZOLE 40 MG TABLET PO SCH (17:30)
[2017-05-09] MEDS ORDERED: MELATONIN 5 MG TABLET PO SCH (21:00)
--- NOTE | 2017-05-10 09:01 | HP ---
DATE OF ADMISSION: 05/09/2017 PRESENTING COMPLAINT: Throat burn. HISTORY OF PRESENTING COMPLAINT: This is a 57-year-old patient of Dr. Robert with rather extensive medical history. Patients chronic stable medical conditions include diabetes mellitus type 2 on insulin, GERD, hyperlipidemia, hypertension, primary osteoarthritis, endstage kidney disease on hemodialysis, left arm fistula, diabetic peripheral neuropathy, and lumbar DJD. Patient just lost his father two days ago. Patient had gone to eat at [facility] and had large 12 inch cheese based sub. Later in the night the patient got a bout of burning sensation in the throat with choking. Prior to that he had a bout of coughing and felt burning sensation in throat. He really could not breathe and decided to come in. There was concern over cardiac presentation; hence, he was admitted for the same. Denied any precordial pain. No shortness of breath. REVIEW OF SYSTEMS: CONSTITUTIONAL: Tired. HEENT: None. RESPIRATORY: As above. CARDIOVASCULAR: No precordial pain. GASTROINTESTINAL: None. GENITOURINARY: None. MUSCULOSKELETAL: Pain in the joints. DERMATOLOGICAL: Bruising in the left arm at the fistula site, not getting any worse. HEMATOLOGICAL: As above. LYMPHATIC: None. PSYCHIATRY: Some anxiety. NEUROLOGICAL: Numbness and tingling in the feet. PAST MEDICAL HISTORY: Diabetes mellitus type 2, GERD, hyperlipidemia, hypertension, osteoarthritis, aortic valve replacement bovine, peripheral neuropathy, left below knee amputation, vestibulitis, gastroparesis, peripheral arterial disease. PAST SURGICAL HISTORY: Aortic valve replacement bovine type, cholecystectomy, hernia repair, left arm fistula for hemodialysis. PAST PSYCHIATRIC HISTORY: Anxiety and depression. 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 . Wheelchair bound. No smoking or alcohol. FAMILY HISTORY: Diabetes, osteomyelitis. HOME MEDICATIONS: Hydralazine 75 mg p.o. t.i.d., Zoloft 100 mg p.o. daily, ( ) 1 tablet p.o. b.i.d., Protonix 40 mg p.o. b.i.d., Lopressor 50 mg p.o. b.i.d. , melatonin 5 mg p.o. q.h.s., magnesium oxide 400 mg p.o. daily, Imdur ER 60 mg p.o. daily, Lantus 4 units subcu in the morning, Humalog t.i.d., [place] 5 one to two tablets q.4 p.r.n., folic acid 1 mg p.o. daily, ( ) 14 mcg subcu 7 days, Plavix 75 mg p.o. daily, TUMS 1000 mg p.o. t.i.d. p.r.n., Lipitor 40 mg p.o. daily, aspirin 81 mg p.o. daily. ALLERGIES: IV CONTRAST DYE. On examination, vital signs on presentation: Temperature 98.2, pulse 79, respirations 22, blood pressure 233/101, pulse ox 99% on 2-L. GENERAL APPEARANCE: Sitting up in bed tired appearing, anxious appearing. EYES: Pupils equal, conjunctivae normal. HEENT: Oral cavity normal. NECK: JVD not raised. Mass not palpable. RESPIRATORY: Effort normal. LUNGS: Fair entry. CARDIOVASCULAR: Fist and second sounds are normal. No edema. ABDOMEN: Soft, nontender. Liver and spleen not palpable. LYMPHATIC: No lymph node in neck or axillae. PSYCHIATRIC: Alert, oriented x3. Mood and affect anxious appearing. NEUROLOGICAL: Pupils equal. Cranial nerves grossly intact. Power and sensation grossly intact. EXTREMITIES: Left upper extremity has fistula and is bruising in the inside of the left upper extremity. Also left below-knee amputation. INVESTIGATIONS: White count 4.5, hemoglobin 12.7, potassium 4.8, BUN 24, creatinine 4.7. EKG, right bundle branch block. ASSESSMENT: 1. Episode of severe burning sensation in throat in patient who has uncontrolled gastroesophageal reflux disease, possibly precipitated by eating a heavy sub including cheese. Doubt cardiac presentation. Will get opinion from Cardiology for the same. 2. Diabetes mellitus type 2 chronically on insulin. 3. Gastroesophageal reflux disease. 4. Hyperlipidemia. 5. Essential hypertension. 6. Primary osteoarthritis in multiple joints. 7. Endstage kidney disease on hemodialysis with left arm fistula. 8. Aortic valve replacement with bovine type valve. 9. Diabetic peripheral neuropathy. 10. Left knee below knee amputation. 11. Essential hypertension uncontrolled secondary to underlying kidney disease. 12. Bruising from the left arm probably leak from the fistula with no evidence of ischemia in the limb on examination. PLAN: Cardiology and Pulmonology are consulted. Home medications are resumed. Will adjust blood pressure medications. Will add proton pump inhibitor. Care was discussed with the patient. at the bedside. ALIZA
--- NOTE | 2017-05-13 05:49 | DS ---
DATE OF ADMISSION: 05/09/2017 DATE OF DISCHARGE: 05/09/2017 FINAL DIAGNOSES: 1. Acute anterior chest wall pain from severe gastroesophageal reflux disease exacerbation. 2. Diabetes mellitus type 2, chronically on insulin. 3. Gastroesophageal reflux disease, severe. 4. Hyperlipidemia. 5. Essential hypertension, accelerated. 6. Primary osteoarthritis of multiple joints. 7. End-stage kidney disease on hemodialysis with left arm fistula. 8. History of aortic valve replacement with bovine type valve. 9. Diabetic peripheral neuropathy. 10. Left below knee amputation, chronic. 11. Lumbar degenerative joint disease. HOSPITAL COURSE: This patient presented with burning in the neck, felt to be severe GERD exacerbation. Seen by [facility]iology [facility]. Blood pressure was uncontrolled. Patient's beta vicente dose was doubled. ON EXAMINATION: Lungs are clear. CARDIOVASCULAR: First and second sounds normal. The patient also had some bruising on the left arm at the fistula site. Care was discussed in detail with the patient and at the bedside. Questions were answered. CONSULTATION: Dr. Gomez from [facility]. DISCHARGE MEDICATIONS: 1. Magnesium oxide 400 mg p.o. daily. 2. Tums 1000 mg p.o. t.i.d. p.r.n. 3. Folic acid 1 mg p.o. daily. 4. Plavix 75 mg p.o. daily. 5. Zoloft 100 mg p.o. daily. 6. Imodium 2 mg p.o. t.i.d. p.r.n. 7. Lantus 40 units subcu daily. 8. Humalog a.c. t.i.d. 9. Protonix 20 mg p.o. b.i.d. 10. Pro Renal 1 tablet p.o. b.i.d. 11. [place] 5 one to two tablets q.4 p.r.n. 12. Aspirin 81 mg p.o. daily. 13. Aranesp 40 mcg subcu q.7 days. 14. Melatonin 5 mg p.o. q.h.s. 15. Lipitor 40 mg p.o. daily. 16. Imdur ER 60 mg p.o. daily. 17. Hydralazine 75 mg t.i.d. 18. Lopressor 100 mg p.o. b.i.d., new dose. Follow up with Dr. Robert in 3 days. Follow up with Dr. Sanderson in 2 weeks. MTDD
== END 2017-05-09 16:35 | disposition home or self-care (01) ==
LOC: EC 22:32 → 3OBS 05-09 00:47
PROVIDERS: ADMIT Hospitalist; ATTEND Hospitalist
DX: K21.9 Gastro-esophageal reflux disease without esophagitis (principal); E78.5 Hyperlipidemia, unspecified; E11.42 Type 2 diabetes mellitus with diabetic polyneuropathy; N18.6 End stage renal disease; E11.22 Type 2 diabetes mellitus with diabetic chronic kidney disease; I12.0 Hypertensive chronic kidney disease with stage 5 chronic kidney disease or end stage renal disease; M15.9 Polyosteoarthritis, unspecified; M47.816 Spondylosis without myelopathy or radiculopathy, lumbar region; I25.10 Atherosclerotic heart disease of native coronary artery without angina pectoris; H91.90 Unspecified hearing loss, unspecified ear; E11.43 Type 2 diabetes mellitus with diabetic autonomic (poly)neuropathy; H26.9 Unspecified cataract; M10.9 Gout, unspecified; E11.51 Type 2 diabetes mellitus with diabetic peripheral angiopathy without gangrene; K31.84 Gastroparesis; E11.319 Type 2 diabetes mellitus with unspecified diabetic retinopathy without macular edema; I73.9 Peripheral vascular disease, unspecified; F41.9 Anxiety disorder, unspecified; F32.9 Major depressive disorder, single episode, unspecified; I45.2 Bifascicular block; F40.240 Claustrophobia; E11.621 Type 2 diabetes mellitus with foot ulcer; E11.69 Type 2 diabetes mellitus with other specified complication; L97.529 Non-pressure chronic ulcer of other part of left foot with unspecified severity; Z99.3 Dependence on wheelchair; Z99.2 Dependence on renal dialysis; Z79.899 Other long term (current) drug therapy; Z79.02 Long term (current) use of antithrombotics/antiplatelets; Z91.041 Radiographic dye allergy status; Z79.82 Long term (current) use of aspirin; Z79.4 Long term (current) use of insulin; Z89.612 Acquired absence of left leg above knee; Z86.14 Personal history of Methicillin resistant Staphylococcus aureus infection; Z95.3 Presence of xenogenic heart valve; Z82.49 Family history of ischemic heart disease and other diseases of the circulatory system; Z83.3 Family history of diabetes mellitus; Z90.49 Acquired absence of other specified parts of digestive tract
CPT/HCPCS: 96372; 99285; 36415; 94640 ×3; 94760; 93005; 83880; 80053; 83036; 82550; 82553; 84484 ×2; 85025; 85610; 85730; 71020; G0378; J1650

== ENCOUNTER 2017-11-25 06:29 | Emergency (ER) | payer MEDICARE ==
[2017-11-25] MEDS ORDERED: ACETAMINOPHEN TAB 325 MG TAB PO STA (06:49)
[2017-11-25] MEDS ORDERED: PROMETHAZ-COD 6.25-10 MG/5 ML 5 ML CUP PO STA (07:09)
--- NOTE | 2017-11-25 07:10 | ED ---
URI HPI - General Chief Complaint: Upper Respiratory Infection Stated Complaint: cough Time Seen by Provider: 11/25/17 07:02 Source: patient, RN notes reviewed Mode of arrival: ambulatory Limitations: no limitations - History of Present Illness Initial Comments: This a 57-year-old male presents emergency Department chief complaint cough congestion last 2 days. Patient states that his cough is nonproductive dry states his cough and started that he is dry heaving at times. Patient denies knowing that he had a fever at home though he is febrile here. Patient does admit it has a slight sore throat and mild congestion. Denies ear pain, headache or dizziness. Denies any chest pain or scrotal shortness of breath. She has had no sick contacts. - Related Data Home Medications Medication Instructions Recorded Confirmed Insulin Glargine [Lantus] 45 unit SQ QAM 05/09/16 11/25/17 Pantoprazole [Protonix] 20 mg PO AC-BID 10/23/16 11/25/17 Atorvastatin [Lipitor] 10 mg PO HS 11/25/17 11/25/17 Calcium Acetate [Phoslo] 667 mg PO AC-BID 11/25/17 11/25/17 Folic Acid 0.8 mg PO DAILY 11/25/17 11/25/17 Insulin Aspart [NovoLOG See Protocol SQ AC-TID PRN 11/25/17 11/25/17 (formulary)] Metoprolol Tartrate [Lopressor] 100 mg PO BID 11/25/17 11/25/17 Jannie-Bruna 1 tab PO DAILY 11/25/17 11/25/17 Sertraline [Zoloft] 25 mg PO DAILY 11/25/17 11/25/17 hydrALAZINE HCL [Apresoline] 50 mg PO TID 11/25/17 11/25/17 Previous Rx's Medication Instructions Recorded Clopidogrel [Plavix] 75 mg PO DAILY #90 tab 03/27/16 Aspirin 81 mg PO DAILY #1 chewable 02/21/17 Melatonin 5 mg PO HS tab 02/21/17 Oseltamivir [Tamiflu] 75 mg PO Q12HR #10 cap 11/25/17 Allergies Allergy/AdvReac Type Severity Reaction Status Date / Time Iodinated Contrast- Oral and AdvReac shut down Verified 11/25/17 07:29 IV Dye kidneys [Iodinated Contrast Media - IV Dye] Review of Systems ROS Statement: Those systems with pertinent positive or pertinent negative responses have been documented in the HPI. ROS Other: All systems not noted in ROS Statement are negative. Past Medical History Past Medical History: Coronary Artery Disease (CAD), Diabetes Mellitus, Eye Disorder, GERD/Reflux, Hearing Disorder / Deafness, Hyperlipidemia, Hypertension , Hypertension, Osteoarthritis (OA), Renal Disease, Renal Disease, Vascular Disorder Additional Past Medical History / Comment(s): Aortic valve replacement - BOVINE , gout, IDDM type II, end-stage renal disease past peritoneal dialysis, now hemodialysis M-W-F, diabetic peripheral neuropathy, L foot ulcers, R foot infection, L AKA, bilateral diabetic retinopathy, bilateral cataracts, bleeds behind retina, history of osteomyelitis, history of MRSA infection, diabetic gastroparesis, PVD. History of Any Multi-Drug Resistant Organisms: MRSA Date of last positivie culture/infection: 2011 MDRO Source:: LEFT FOOT Past Surgical History: Cardiac Valve Replacement, Cholecystectomy, Hernia Repair , Orthopedic Surgery Additional Past Surgical History / Comment(s): L arm fistula being used for hemodialysis, R upper chest moura cath-needs to be removed per pt, RT foot I& D when a metal fragment was in his foot that was also infected, LT FOOT DEBRIDEMENT ,5TH TOE AMP, 10/2016 L AKS, insertion and REMOVAL PD CATH. Past Anesthesia/Blood Transfusion Reactions: Motion Sickness Additional Past Anesthesia/Blood Transfusion Reaction / Comment(s): CLAUSTROPHOBIA Past Psychological History: Anxiety, Depression Smoking Status: Never smoker Past Alcohol Use History: None Reported Past Drug Use History: None Reported - Past Family History Mother Family Medical History: Diabetes Mellitus, Osteoarthritis (OA) Additional Family Medical History / Comment(s): HIP REPLACMENTS Father Family Medical History: CVA/TIA, Diabetes Mellitus, Myocardial Infarction ([place]), Musculoskeletal Disorder, Neurologic Disorder Additional Family Medical History / Comment(s): PARKINSON'S General Exam Limitations: no limitations General appearance: alert, in no apparent distress Head exam: Present: atraumatic, normocephalic, normal inspection Eye exam: Present: normal appearance, PERRL, EOMI. Absent: scleral icterus, conjunctival injection, periorbital swelling ENT exam: Present: normal exam, normal oropharynx, mucous membranes moist, TM's normal bilaterally, normal external ear exam Neck exam: Present: normal inspection, full ROM. Absent: tenderness, meningismus, lymphadenopathy Respiratory exam: Present: normal lung sounds bilaterally. Absent: respiratory distress, wheezes, rales, rhonchi, stridor Cardiovascular Exam: Present: regular rate, normal rhythm, normal heart sounds. Absent: systolic murmur, diastolic murmur, rubs, gallop, clicks GI/Abdominal exam: Present: soft, normal bowel sounds. Absent: distended, tenderness, guarding, rebound, rigid Neurological exam: Present: alert, oriented X3, CN II-XII intact Skin exam: Present: warm, dry, intact, normal color. Absent: rash Course Vital Signs 11/25/17 06:39 Temperature 100.0 F H Pulse Rate 69 Respiratory 20 Rate Blood Pressure 149/66 O2 Sat by Pulse 92 L Oximetry Medical Decision Making - Medical Decision Making This a 57-year-old male presents emergency Department chief complaint cough congestion. Patient is informed to be positive. Patient was started on Tamiflu. Patient chest x-ray reviewed no acute abnormality no evidence of pneumonia. Patient is advised to follow-up with PCP in 2 days for recheck and return for any worsening symptoms. - Lab Data Lab Results 11/25/17 Range/Units 06:45 Influenza Type A RNA Not Detected (Not Detectd) Influenza Type B (PCR) Detected H (Not Detectd) Disposition Clinical Impression: Influenza B Disposition: HOME SELF-CARE Condition: Stable Instructions: Influenza (ED) Additional Instructions: Please return to the Emergency Department if symptoms worsen or any other concerns. Prescriptions: Oseltamivir [Tamiflu] 75 mg PO Q12HR #10 cap Referrals: Thor Robert MD [Primary Care Provider] - 1-2 days Time of Disposition: 07:43
--- NOTE | 2017-11-25 07:27 | XR ---
EXAMINATION TYPE: XR chest 2V DATE OF EXAM: 11/25/2017 COMPARISON: 05/08/2017 HISTORY: Cough, fever, influenza B. TECHNIQUE: Frontal and lateral views of the chest are obtained. FINDINGS: There is no focal air space opacity, pleural effusion, or pneumothorax seen. Post cardiac surgery of the chest are seen with cardiac valvular replacement and mild cardiomegaly. The osseous st ructures are intact. The central pulmonary vasculature is unchanged from the prior exam and could rel ate to underlying pulmonary arterial hypertension. Minimal multilevel degenerative changes of the tho racic spine are noted. IMPRESSION: No acute cardiopulmonary process.
[2017-11-25 08:05] VITALS: BP 180/80; PULSE 66; RESP 16; TEMP 97.7
== END 2017-11-25 08:04 | disposition home or self-care (01) ==
LOC: EC 06:29
DX: J10.1 Influenza due to other identified influenza virus with other respiratory manifestations (principal); I25.10 Atherosclerotic heart disease of native coronary artery without angina pectoris; K21.9 Gastro-esophageal reflux disease without esophagitis; H91.90 Unspecified hearing loss, unspecified ear; E78.5 Hyperlipidemia, unspecified; I12.0 Hypertensive chronic kidney disease with stage 5 chronic kidney disease or end stage renal disease; N18.6 End stage renal disease; E11.22 Type 2 diabetes mellitus with diabetic chronic kidney disease; F41.9 Anxiety disorder, unspecified; F32.9 Major depressive disorder, single episode, unspecified; Z99.2 Dependence on renal dialysis; Z86.14 Personal history of Methicillin resistant Staphylococcus aureus infection; Z79.4 Long term (current) use of insulin; Z79.899 Other long term (current) drug therapy; Z91.041 Radiographic dye allergy status
CPT/HCPCS: 71046; 87502; 99283

== ENCOUNTER 2018-06-08 08:53 | Emergency (ER) | payer MEDICARE ==
[2018-06-08 08:59] VITALS: TEMP 98.1
[2018-06-08] MEDS ORDERED: GELATIN SPONGE,ABSORB (LARGE) 1 EACH SPONGE TOPICAL STA (09:18)
[2018-06-08] MEDS ORDERED: hydrALAZINE HCL 50 MG TAB PO STA (09:19)
[2018-06-08] MEDS ORDERED: METOPROLOL TARTRATE 50 MG TAB PO STA (09:19)
--- NOTE | 2018-06-08 10:03 | XR ---
EXAMINATION TYPE: XR foot limited RT , 2 VIEWS DATE OF EXAM ORDERED: 06/08/2018 HISTORY: Pain. COMPARISON: None. FINDINGS: No fracture or dislocation is seen. There is extensive vascular calcification. There is a prominent plantar calcaneal spur. IMPRESSION: NO ACUTE OSSEOUS LESION.
--- NOTE | 2018-06-08 10:15 | ED ---
General Adult HPI - General Chief complaint: Extremity Injury, Lower Stated complaint: diabetic foot injury Time Seen by Provider: 06/08/18 09:09 Source: patient, RN notes reviewed Mode of arrival: ambulatory Limitations: no limitations - History of Present Illness Initial comments: Patient 58-year-old male presents emergency room today with chief complaint of injury to the second digit of the right foot. Patient does admit that he was walking outside barefoot and he stubbed his toe. He does admit that causes a abrasion. States he is on a blood thinner sensible time stopping bleeding. He states he finished up last night but still oozing this morning. Patient's tetanus is up-to-date. Patient denies any other complaints or symptoms. Patient denies any recent fever, chills, shortness of breath, chest pain, back pain, abdominal pain, nausea or vomiting, headaches or visual changes, or any other complaints. - Related Data Home Medications Medication Instructions Recorded Confirmed Insulin Glargine [Lantus] 45 unit SQ QAM 05/09/16 06/08/18 Atorvastatin [Lipitor] 10 mg PO HS 11/25/17 06/08/18 Calcium Acetate [Phoslo] 667 mg PO AC-BID 11/25/17 06/08/18 Insulin Aspart [NovoLOG See Protocol SQ AC-TID PRN 11/25/17 06/08/18 (formulary)] Metoprolol Tartrate [Lopressor] 50 mg PO BID 11/25/17 06/08/18 Jannie-Bruna 1 tab PO DAILY 11/25/17 06/08/18 Sertraline [Zoloft] 25 mg PO DAILY 11/25/17 06/08/18 hydrALAZINE HCL [Apresoline] 50 mg PO TID 11/25/17 06/08/18 Previous Rx's Medication Instructions Recorded Clopidogrel [Plavix] 75 mg PO DAILY #90 tab 03/27/16 Aspirin 81 mg PO DAILY #1 chewable 02/21/17 Cephalexin [Keflex] 500 mg PO Q12HR 7 Days cap 06/08/18 Allergies Allergy/AdvReac Type Severity Reaction Status Date / Time Iodinated Contrast- Oral and AdvReac shut down Verified 06/08/18 08:59 IV Dye kidneys [Iodinated Contrast Media - IV Dye] Review of Systems ROS Statement: Those systems with pertinent positive or pertinent negative responses have been documented in the HPI. ROS Other: All systems not noted in ROS Statement are negative. Past Medical History Past Medical History: Coronary Artery Disease (CAD), Diabetes Mellitus, Eye Disorder, GERD/Reflux, Hearing Disorder / Deafness, Hyperlipidemia, Hypertension , Hypertension, Osteoarthritis (OA), Renal Disease, Renal Disease, Vascular Disorder Additional Past Medical History / Comment(s): Aortic valve replacement - BOVINE , gout, IDDM type II, end-stage renal disease past peritoneal dialysis, now hemodialysis M-W-F, diabetic peripheral neuropathy, L foot ulcers, R foot infection, L AKA, bilateral diabetic retinopathy, bilateral cataracts, bleeds behind retina, history of osteomyelitis, history of MRSA infection, diabetic gastroparesis, PVD. History of Any Multi-Drug Resistant Organisms: MRSA Date of last positivie culture/infection: 2011 MDRO Source:: LEFT FOOT Past Surgical History: Cardiac Valve Replacement, Cholecystectomy, Hernia Repair , Orthopedic Surgery Additional Past Surgical History / Comment(s): L arm fistula being used for hemodialysis, R upper chest moura cath-needs to be removed per pt, RT foot I& D when a metal fragment was in his foot that was also infected, LT FOOT DEBRIDEMENT ,5TH TOE AMP, 10/2016 L AKS, insertion and REMOVAL PD CATH. Past Anesthesia/Blood Transfusion Reactions: Motion Sickness Additional Past Anesthesia/Blood Transfusion Reaction / Comment(s): CLAUSTROPHOBIA Past Psychological History: Anxiety, Depression Smoking Status: Never smoker Past Alcohol Use History: None Reported Past Drug Use History: None Reported - Past Family History Mother Family Medical History: Diabetes Mellitus, Osteoarthritis (OA) Additional Family Medical History / Comment(s): HIP REPLACMENTS Father Family Medical History: CVA/TIA, Diabetes Mellitus, Myocardial Infarction ([place]), Musculoskeletal Disorder, Neurologic Disorder Additional Family Medical History / Comment(s): PARKINSON'S General Exam - General Exam Comments Initial Comments: General: The patient is awake and alert, in no distress, and does not appear acutely ill. Neck: The neck is supple, there is no tenderness or JVD. Musculoskeletal: Patient does have superficial abrasion to the tip of the second digit of the right foot. No active bleeding at this time. Patient shows good range of motion. No bony tenderness. Pupils 2+. Neurological: A&O x 3. CN II-XII intact, There are no obvious motor or sensory deficits. Coordination appears grossly intact. Speech is normal. Skin: Skin is warm and dry and no rashes or lesions are noted. Psychiatric: Normal mood and affect. Limitations: no limitations Course Vital Signs 06/08/18 06/08/18 08:57 09:21 Temperature 98.1 F Pulse Rate 59 L 60 Respiratory 18 18 Rate Blood Pressure 211/78 220/93 O2 Sat by Pulse 97 96 Oximetry Medical Decision Making - Medical Decision Making Patient's second digit was cleaned by nursing staff small piece of Gelfoam was placed at the tip where the abrasion is. Toe was then wrapped. They shouldn't advised follow family physician much presenting signs of infection. Patient has diabetic give him a prescription of Keflex advised return for any other concerns. Disposition Clinical Impression: Toe abrasion Disposition: HOME SELF-CARE Condition: Good Instructions: Abrasion (ED) Additional Instructions: Please change dressing twice daily. Please follow-up family doctor marked for any signs of infection. Return here to the emergency room for symptoms increase or worsen or for any other concerns. Prescriptions: Cephalexin [Keflex] 500 mg PO Q12HR 7 Days cap Is patient prescribed a controlled substance at d/c from ED?: No Referrals: Marcelo Wells DO [Primary Care Provider] - 1-2 days Time of Disposition: 10:14
[2018-06-08 11:02] VITALS: BP 195/84; PULSE 621; RESP 8
== END 2018-06-08 11:13 | disposition home or self-care (01) ==
LOC: EC 08:53
DX: S90.414A Abrasion, right lesser toe(s), initial encounter (principal); I12.0 Hypertensive chronic kidney disease with stage 5 chronic kidney disease or end stage renal disease; N18.6 End stage renal disease; E11.22 Type 2 diabetes mellitus with diabetic chronic kidney disease; I25.10 Atherosclerotic heart disease of native coronary artery without angina pectoris; E78.5 Hyperlipidemia, unspecified; M19.90 Unspecified osteoarthritis, unspecified site; E11.43 Type 2 diabetes mellitus with diabetic autonomic (poly)neuropathy; E11.319 Type 2 diabetes mellitus with unspecified diabetic retinopathy without macular edema; I73.9 Peripheral vascular disease, unspecified; F41.9 Anxiety disorder, unspecified; F32.9 Major depressive disorder, single episode, unspecified; Z95.2 Presence of prosthetic heart valve; Z99.2 Dependence on renal dialysis; Z86.14 Personal history of Methicillin resistant Staphylococcus aureus infection; Z98.890 Other specified postprocedural states; Z89.612 Acquired absence of left leg above knee; Z79.4 Long term (current) use of insulin; Z79.899 Other long term (current) drug therapy; Z91.041 Radiographic dye allergy status; W22.8XXA Striking against or struck by other objects, initial encounter; Y93.01 Activity, walking, marching and hiking; Y92.89 Other specified places as the place of occurrence of the external cause
CPT/HCPCS: 99283

== ENCOUNTER 2018-08-14 09:54 | Inpatient (IN) | payer MEDICARE ==
--- NOTE | 2018-08-14 10:24 | ED ---
General Adult HPI - General Chief complaint: Shortness of Breath Stated complaint: SOB Source: patient, family Mode of arrival: ambulatory - History of Present Illness Initial comments: Dictation was produced using [employer] dictation software. please excuse any grammatical, word or spelling errors. Chief Complaint: 58-year-old male past medical history diabetes, dyslipidemia, end-stage renal disease presents with elevated blood pressure shortness of breath. History of Present Illness: Patient is a 58-year-old male who gets dialysis Saturday. Presents today with elevated blood pressure and shortness of breath. Patient has been having difficulty managing his blood pressure for approximately one week. States he has exertional shortness of breath. Patient has been lower extremity edema that is worse usual. He states his shortness of breath is worse with exertion and with lying supine. Patient gets dialysis Saturday wasn't Saturday. He did not go to dialysis yesterday because he did not feel well. His automation tender is Dr. Elizondo. Denies any cough. No constitutional symptoms. He does have a history of aortic valve replacement. Has not had echocardiogram in several years. The ROS documented in this emergency department record has been reviewed and confirmed by me. Those systems with pertinent positive or negative responses have been documented in the HPI. All other systems are other negative and/or noncontributory. - Related Data Home Medications Medication Instructions Recorded Confirmed Insulin Glargine [Lantus] 45 unit SQ QAM 05/09/16 08/14/18 Atorvastatin [Lipitor] 10 mg PO HS 11/25/17 08/14/18 Calcium Acetate [Phoslo] 667 mg PO AC-BID 11/25/17 08/14/18 Insulin Aspart [NovoLOG See Protocol SQ AC-TID PRN 11/25/17 08/14/18 (formulary)] Metoprolol Tartrate [Lopressor] 50 mg PO BID 11/25/17 08/14/18 Jannie-Bruna 1 tab PO DAILY 11/25/17 08/14/18 hydrALAZINE HCL [Apresoline] 50 mg PO TID 11/25/17 08/14/18 Previous Rx's Medication Instructions Recorded Aspirin 81 mg PO DAILY #1 chewable 02/21/17 Allergies Allergy/AdvReac Type Severity Reaction Status Date / Time Iodinated Contrast- Oral and AdvReac shut down Verified 08/14/18 10:27 IV Dye kidneys [Iodinated Contrast Media - IV Dye] Review of Systems ROS Statement: Those systems with pertinent positive or pertinent negative responses have been documented in the HPI. ROS Other: All systems not noted in ROS Statement are negative. Past Medical History Past Medical History: Coronary Artery Disease (CAD), Diabetes Mellitus, Eye Disorder, GERD/Reflux, Hearing Disorder / Deafness, Hyperlipidemia, Hypertension , Hypertension, Osteoarthritis (OA), Renal Disease, Renal Disease, Vascular Disorder Additional Past Medical History / Comment(s): Aortic valve replacement - BOVINE , gout, IDDM type II, end-stage renal disease past peritoneal dialysis, now hemodialysis M-W-F, diabetic peripheral neuropathy, L foot ulcers, R foot infection, L AKA, bilateral diabetic retinopathy, bilateral cataracts, bleeds behind retina, history of osteomyelitis, history of MRSA infection, diabetic gastroparesis, PVD. History of Any Multi-Drug Resistant Organisms: MRSA Date of last positivie culture/infection: 2011 MDRO Source:: LEFT FOOT Past Surgical History: Cardiac Valve Replacement, Cholecystectomy, Hernia Repair , Orthopedic Surgery Additional Past Surgical History / Comment(s): L arm fistula being used for hemodialysis, R upper chest moura cath-needs to be removed per pt, RT foot I& D when a metal fragment was in his foot that was also infected, LT FOOT DEBRIDEMENT ,5TH TOE AMP, 10/2016 L AKS, insertion and REMOVAL PD CATH. Past Anesthesia/Blood Transfusion Reactions: Motion Sickness Additional Past Anesthesia/Blood Transfusion Reaction / Comment(s): CLAUSTROPHOBIA Past Psychological History: Anxiety, Depression Smoking Status: Never smoker Past Alcohol Use History: None Reported Past Drug Use History: None Reported - Past Family History Mother Family Medical History: Diabetes Mellitus, Osteoarthritis (OA) Additional Family Medical History / Comment(s): HIP REPLACMENTS Father Family Medical History: CVA/TIA, Diabetes Mellitus, Myocardial Infarction ([place]), Musculoskeletal Disorder, Neurologic Disorder Additional Family Medical History / Comment(s): PARKINSON'S General Exam - General Exam Comments Initial Comments: PHYSICAL EXAM: General Impression: Alert and oriented x3, not in acute distress HEENT: Normocephalic atraumatic, extra-ocular movements intact, pupils equal and reactive to light bilaterally, mucous membranes moist. Cardiovascular: Heart regular rate and rhythm, S1&S2 audible, no murmurs, rubs or gallops Chest: Diffuse lung crackles Abdomen: Bowel sounds present, abdomen soft, non-tender, non-distended, no organomegaly Musculoskeletal: [id number] amputation of the left lower extremity, pitting edema to the right lower extremity Motor: Power 5/5 bilaterally, no focal deficits noted Neurological: CN II-XII grossly intact, no focal motor or sensory deficits noted Skin: Intact with no visualized rashes Psych: Normal affect and mood Course Vital Signs 08/14/18 08/14/18 09:55 11:28 Temperature 98.4 F Pulse Rate 60 Respiratory 30 H 22 Rate Blood Pressure 189/71 O2 Sat by Pulse 99 Oximetry Medical Decision Making - Medical Decision Making ED course: 58-year-old male presents with chief complaint of shortness of breath. As upon arrival shows blood pressure 189/71. Respiratory rate of 30. He is an 9% on room air. Patient states he is also hasn't been compliant with his renal diet. He missed dialysis yesterday.Laboratory evaluation obtained. Potassium 5.7. Creatinine 8.50 and BUN of 61. Renal markers are slightly elevated above baseline. No EKG changes noted. Patient given one sublingual nitroglycerin. Discussed patient case with automation tender who will arrange dialysis. Chest x-ray shows signs of fluid overload with pleural effusion. Patient be admitted to general medicine. EKG interpretation: Ventricular rate 61, normal sinus rhythm, RI interval 200, care is 108, QTC 473. No RI prolongation, no QTC prolongation, no ST or T-wave changes noted. Overall, this EKG is unremarkable - Lab Data Result diagrams: 08/14/18 10:50 Lab Results 08/14/18 Range/Units 10:50 Sodium 140 (137-145) mmol/L Potassium 5.7 H (3.5-5.1) mmol/L Chloride 103 (98-107) mmol/L Carbon Dioxide 26 (22-30) mmol/L Anion Gap 11 mmol/L BUN 61 H (9-20) mg/dL Creatinine 8.50 H* (0.66-1.25) mg/dL Est GFR (CKD-EPI)AfAm 7 (>60 ml/min/1.73 sqM) Est GFR (CKD-EPI)NonAf 6 (>60 ml/min/1.73 sqM) Glucose 135 H (74-99) mg/dL Calcium 9.1 (8.4-10.2) mg/dL Disposition Clinical Impression: Fluid overload Disposition: ADMITTED IP TO THIS HOSP Referrals: Thor Robert MD [Primary Care Provider] - 1-2 days Decision Time: 11:39
--- NOTE | 2018-08-14 10:35 | XR ---
EXAMINATION TYPE: XR chest 2V DATE OF EXAM: 08/14/2018 COMPARISON: Chest x-ray November 25, 2017. HISTORY: Chest pain and shortness of breath TECHNIQUE: Frontal and lateral views of the chest are obtained. FINDINGS: Overlying sternal wires and mediastinal clips as well as metallic aortic valve are all rede monstrated. The cardiac silhouette size remains enlarged. There is new small to moderate-sized righ t pleural effusion and associated right basilar atelectasis and/or infiltrate. Left lung remains pred ominantly clear. The osseous structures are intact. IMPRESSION: Cardiomegaly with new small to moderate-sized right pleural effusion and associated righ t basilar compressive atelectasis.
[2018-08-14 11:13] LABS: Calcium 9.1 mg/dL (8.4-10.2); Potassium 5.7 mmol/L (3.5-5.1)
[2018-08-14] MEDS ORDERED: NITROGLYCERIN SL TABS 0.4 MG TAB SUBLINGUAL STA (11:18)
[2018-08-14] MEDS ORDERED: NALOXONE 0.4 MG/ML 1 ML VIAL IV PRN (11:37)
[2018-08-14] MEDS ORDERED: INSULIN ASPART 100 UNIT/ML 1 ML 10 ML VIAL SQ SCH (12:31)
[2018-08-14 12:44] LABS: Basophils % (A) 0 %; Eosinophils # (A) 0.2 k/uL (0-0.7); Eosinophils % (A) 3 %; HCT 29.5 % (39.0-53.0); HGB 10.2 gm/dL (13.0-17.5); Lymphocytes # (A) 0.5 k/uL (1.0-4.8); Lymphocytes % (A) 9 %; MCH 31.5 pg (25.0-35.0); MCHC 34.6 g/dL (31.0-37.0); MCV 90.8 fL (80.0-100.0); Mean Platelet Volume 8.2; Monocytes # (A) 0.5 k/uL (0-1.0); Monocytes % (A) 8 %; Neutrophils # (A) 4.2 k/uL (1.3-7.7); Neutrophils % (A) 77 %; Platelet Count 139 k/uL (150-450); RBC 3.25 m/uL (4.30-5.90); RDW 15.4 % (11.5-15.5); WBC 5.5 k/uL (3.8-10.6)
[2018-08-14] MEDS ORDERED: RENA VIT PO SCH (12:45)
[2018-08-14] MEDS ORDERED: INSULIN DETEMIR 100 UNIT/ML 10 ML VIAL SQ SCH (12:45)
[2018-08-14] MEDS: ASPIRIN 81 MG PO SCH (17:25)
[2018-08-14] MEDS: hydrALAZINE HCL 50 MG TAB PO SCH ×2 (17:25→21:15)
[2018-08-14] MEDS: CALCIUM ACETATE 667 MG CAP PO SCH (17:25)
[2018-08-14 18:13] LABS: Glucose,Whole Blood 72 mg/dL (75-99)
--- NOTE | 2018-08-14 18:16 | HP ---
HISTORY AND PHYSICAL DATE OF ADMISSION: August 14, 2018. DATE OF SERVICE: August 14, 2018. PRESENTING COMPLAINT: Short of breath. HISTORY OF PRESENTING COMPLAINT: This is a pleasant 58-year-old patient who follows with Dr. Robert. The patient's chronic stable medical conditions include diabetes, GERD, hyperlipidemia, hypertension, osteoarthritis, bovine aortic valve replacement, gout, diabetic peripheral neuropathy, left AKA, primary retinopathy. The patient gets hemodialysis Saturday, Saturday and Saturday. The patient's appetite fluctuates some days. He is good other days. He may have nausea, not able to eat. The patient was not feeling well yesterday, a lot of nausea, not able to eat at all and patient missed his dialysis. The patient became short of breath, fluid overloaded, and presented to the ER earlier today and hemodialysis was ordered. The patient is currently getting hemodialyzed. The patient feels weak, tired and run down. No fever. No chills. REVIEW OF SYSTEMS: CONSTITUTIONAL: None. CONSTITUTIONAL: Tired. HEENT decreased vision. RESPIRATORY: Shortness of breath. CARDIOVASCULAR: None. GASTROINTESTINAL: Nausea, vomiting sometimes. GENITOURINARY: Makes some urine. MUSCULOSKELETAL: Pain in the joints. DERMATOLOGICAL, HEMATOLOGIC, LYMPHATICS: None. PSYCHIATRY: Some anxiety, depression. NEUROLOGICAL: Peripheral neuropathy especially in the right foot and the hands. PAST MEDICAL HISTORY: Diabetes, GERD, hearing disorder, hyperlipidemia, hypertension, osteoarthritis, end- stage kidney disease, aortic valve replacement, bovine; gout, previously peritoneal dialysis now, hemodialysis Saturday, Saturday and Saturday, peripheral neuropathy, left below-knee amputation, diabetic retinopathy, bilateral cataract, retina bleeding, osteomyelitis, diabetic gastroparesis, peripheral artery disease. PAST SURGICAL HISTORY: Aortic valve replacement, bovine type, cholecystectomy, left arm fistula for hemodialysis, right upper chest Cash catheter, left foot debridement, now with left below-knee amputation. PSYCH HISTORY: Anxiety, depression. SOCIAL HISTORY: Retired. 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 Wheelchair-bound at this time. , did try marijuana gummies. FAMILY HISTORY: Of diabetes, osteoarthritis. HOME MEDICATIONS: 1. Hydralazine 100 mg b.i.d. 2. Jannie Bruna 1 tablet p.o. daily. 3. Lopressor 50 mg b.i.d. 4. Lantus 45 units subcu in the morning. 5. NovoLog per scale. 6. PhosLo 1 tablet with meals t.i.d. 7. Lipitor 10 mg q.h.s. 8. Aspirin 81 mg a day. ALLERGIES: IV CONTRAST DYE. PHYSICAL EXAMINATION: VITAL SIGNS ON PRESENTATION: Temperature 98.4, pulse 60, respiration 30, blood pressure 189/71, pulse ox 99% on room air. GENERAL APPEARANCE: Average build, lying in bed, tired-appearing. EYES: Pupils equal. Conjunctivae normal. HEENT: External appearance of nose and ears normal. Oral cavity normal. NECK: JVD not raised. Mass not palpable. RESPIRATORY: Effort normal. LUNGS: Decreased breath sounds and crackles. CARDIOVASCULAR: First and second sounds. No edema. ABDOMEN: Soft, nontender. Liver and spleen not palpable. LYMPHATICS: No lymph nodes palpable in the neck and axilla. PSYCHIATRY: Alert and oriented times three. Mood and affect normal. EXTREMITIES: Left upper extremity has fistula in place. Left below-knee amputation. INVESTIGATIONS: White count 5.5, hemoglobin 10.2, potassium 5.7, BUN 61, creatinine 8.5. EKG shows normal sinus rhythm. Prolonged QT interval. Chest x-ray shows some cardiomegaly and pulmonary edema. The patient's 2D echocardiogram from over a year ago showed EF of 50- 55 percent. ASSESSMENT: 1. Acute pulmonary edema from missed hemodialysis. 2. Diabetes mellitus type 2, chronically on insulin. 3. Gastroesophageal reflux disease. 4. Hyperlipidemia. 5. Essential hypertension. 6. Primary osteoarthritis multiple joints. 7. End-stage kidney disease on hemodialysis. The left arm fistula Saturday, Saturday and Saturday. 8. Aortic valve replacement, bovine type valve. 9. Diabetic peripheral neuropathy. 10.Left below-knee amputation. 11.Essential hypertension along with chronic kidney disease. 12.Diabetic gastroparesis. 13.Peripheral arterial disease. 14.Diabetic retinopathy. 15.Hyperlipidemia. PLAN: Patient's home medications are resumed. The patient is going to get dialyzed today. Patient has a scheduled dialysis tomorrow. Accu-Cheks will be closely followed. We will give Lovenox for DVT prophylaxis. Care was discussed with the patient. Questions were answered. Nephrology was consulted. Copy to Dr. Robert. MMODL / JORDYN: [id number] /
[2018-08-14] MEDS: INSULIN ASPART 100 UNIT/ML 1 ML 10 ML VIAL SQ SCH ×2 (18:20→22:15)
[2018-08-14 20:47] LABS: Glucose,Whole Blood 135 mg/dL (75-99)
[2018-08-14] MEDS: ATORVASTATIN 10 MG TAB PO SCH (21:14)
[2018-08-14] MEDS: METOPROLOL TARTRATE 50 MG TAB PO SCH (21:15)
[2018-08-14] MEDS: FOLIC ACID-VIT B COMPLEX-VIT C 1 CAP PO SCH (22:15)
[2018-08-15 07:52] LABS: Glucose,Whole Blood 100 mg/dL (75-99)
[2018-08-15] MEDS: INSULIN ASPART 100 UNIT/ML 1 ML 10 ML VIAL SQ SCH ×4 (07:53→20:22)
[2018-08-15] MEDS: CALCIUM ACETATE 667 MG CAP PO SCH ×2 (08:03→17:30)
[2018-08-15] MEDS: ASPIRIN 81 MG PO SCH (08:03)
[2018-08-15] MEDS: METOPROLOL TARTRATE 50 MG TAB PO SCH ×2 (08:03→20:32)
[2018-08-15] MEDS: hydrALAZINE HCL 50 MG TAB PO SCH ×2 (08:04→20:32)
[2018-08-15] MEDS: INSULIN DETEMIR 100 UNIT/ML 10 ML VIAL SQ SCH (09:44)
[2018-08-15] MEDS: FOLIC ACID-VIT B COMPLEX-VIT C 1 CAP PO SCH (09:44)
--- NOTE | 2018-08-15 09:55 | P.NPCON ---
History of Present Illness - Reason for Consult end stage renal disease - History of Present Illness Reason for consultation: End-stage renal disease History of present illness: Patient is a 58-year-old male seen in renal consultation for end-stage renal disease. He is maintained on hemodialysis on a Saturday schedule. Patient missed hemodialysis on Saturday as he wasn't feeling well. Patient became progressively short of breath and came to the hospital. Chest x- ray revealed right-sided pleural effusion. Potassium was 5.7. He did receive hemodialysis yesterday with 3 L ultrafiltration. Patient states he still had intermittent episodes of shortness of breath last night. He does have history of aortic valve replacement. Denies fever or chills. No cough. Denies history of COPD. Echocardiogram from February 2017 revealed preserved ejection fraction with no significant valvular disease. No vomiting or diarrhea. Currently sitting up in chair. Vital signs are stable. General: The patient appeared well nourished and normally developed. HEENT: Head exam is unremarkable. Neck is without jugular venous distension. LUNGS: Lungs are clear to auscultation and percussion. Breath sounds decreased. HEART: Rate and Rhythm are regular. First and second heart sounds normal. No murmurs, rubs or gallops. ABDOMEN: Abdominal exam reveals normal bowel sounds. Non-tender and non- distended. No evidence of peritonitis. EXTREMITITES: No clubbing, cyanosis, or edema. Left abudt-uzf-uvan amputation noted. Past Medical History Past Medical History: Coronary Artery Disease (CAD), Diabetes Mellitus, Eye Disorder, GERD/Reflux, Hearing Disorder / Deafness, Hyperlipidemia, Hypertension , Hypertension, Osteoarthritis (OA), Renal Disease, Renal Disease, Vascular Disorder Additional Past Medical History / Comment(s): Aortic valve replacement - BOVINE , gout, IDDM type II, end-stage renal disease past peritoneal dialysis, now hemodialysis M-W-F, diabetic peripheral neuropathy, L foot ulcers, R foot infection, L BKA, bilateral diabetic retinopathy, bilateral cataracts, bleeds behind retina, history of osteomyelitis, history of MRSA infection, diabetic gastroparesis, PVD. History of Any Multi-Drug Resistant Organisms: MRSA Date of last positivie culture/infection: 2011 MDRO Source:: LEFT FOOT Past Surgical History: Cardiac Valve Replacement, Cholecystectomy, Hernia Repair , Orthopedic Surgery Additional Past Surgical History / Comment(s): L arm fistula being used for hemodialysis, R upper chest moura cath- removed . RT foot I&D when a metal fragment was in his foot that was also infected, LT FOOT DEBRIDEMENT ,5TH TOE AMP, 10/2016 L BKA, insertion and REMOVAL PD CATH.LT ARM FISTUAL, CATARACATS REMOVED-LENS IMPLANTS, YAMILKA EYE LASER EYE SX, LT INDEX FINGER PARTIAL AMP Past Anesthesia/Blood Transfusion Reactions: Motion Sickness Additional Past Anesthesia/Blood Transfusion Reaction / Comment(s): CLAUSTROPHOBIA Smoking Status: Never smoker - Past Family History Mother Family Medical History: Diabetes Mellitus, Osteoarthritis (OA) Additional Family Medical History / Comment(s): HIP REPLACMENTS Father Family Medical History: CVA/TIA, Diabetes Mellitus, Myocardial Infarction ([place]), Musculoskeletal Disorder, Neurologic Disorder Additional Family Medical History / Comment(s): PARKINSON'S Medications and Allergies Home Medications Medication Instructions Recorded Confirmed Type Insulin Glargine [Lantus] 45 unit SQ QAM 05/09/16 08/14/18 History Aspirin 81 mg PO DAILY #1 chewable 02/21/17 08/14/18 Rx Atorvastatin [Lipitor] 10 mg PO HS 11/25/17 08/14/18 History Calcium Acetate [Phoslo] 667 mg PO AC-BID 11/25/17 08/14/18 History Insulin Aspart [NovoLOG See Protocol SQ AC-TID PRN 11/25/17 08/14/18 History (formulary)] Metoprolol Tartrate [Lopressor] 50 mg PO BID 11/25/17 08/14/18 History Jannie-Bruna 1 tab PO DAILY 11/25/17 08/14/18 History hydrALAZINE HCL [Apresoline] 100 mg PO BID 08/14/18 08/14/18 History Allergies Allergy/AdvReac Type Severity Reaction Status Date / Time Iodinated Contrast- Oral and AdvReac shut down Verified 08/14/18 10:27 IV Dye kidneys [Iodinated Contrast Media - IV Dye] Physical Exam Vitals: Vital Signs Temp Pulse Pulse Resp BP BP BP 08/15/18 07:00 98.0 F 58 L 16 148/71 08/15/18 00:27 98.7 F 62 16 161/70 08/14/18 19:55 97.8 F 60 18 155/72 11/29/18 14:00 98.2 F 59 L 16 170/76 08/14/18 12:59 97.9 F 59 L 20 168/79 08/14/18 12:00 58 L 18 172/82 08/14/18 11:30 58 L 18 175/87 08/14/18 11:28 22 08/14/18 11:00 61 18 183/91 08/14/18 10:30 178/72 08/14/18 09:55 98.4 F 60 30 H 189/71 Pulse Ox 08/15/18 07:00 96 08/15/18 00:27 94 L 08/14/18 19:55 94 L 08/14/18 14:00 91 L 08/14/18 12:59 97 08/14/18 12:00 92 L 08/14/18 11:30 93 L 08/14/18 11:28 08/14/18 11:00 95 08/14/18 10:30 08/14/18 09:55 99 Intake and Output 08/14/18 08/15/18 08/15/18 22:59 06:59 14:59 Intake Total 300 Balance 300 Intake: Oral 300 Other: # Voids 1 Results - Lab Results Most recent lab results Calcium 9.1 mg/dL (8.4-10.2) 08/14/18 10:50 08/14/18 11:46 08/14/18 10:50 Assessment and Plan Plan: Assessment: 1. End-stage renal disease maintained on hemodialysis on a Saturday schedule. 2. Dyspnea related to fluid overload. Patient noted to have a new right-sided pleural effusion. 3. Hyperkalemia secondary to chronic kidney disease and missed dialysis. 4. Insulin-dependent diabetes mellitus. 5. Anemia of chronic kidney disease. Hemoglobin at goal. 6. Hypertension with chronic kidney disease. Controlled. 7. Chronic kidney disease mineral bone disease maintained on PhosLo. 8. History of aortic valve for placement. 9. Status post left below the knee amputation. Plan: Hemodialysis today with goal 2-3 L ultrafiltration. Check phosphorus level. Stressed compliance with dialysis treatments. Thank you for the consultation. I will continue to follow the patient with you during his hospital stay.
[2018-08-15 11:21] LABS: Glucose,Whole Blood 220 mg/dL (75-99)
[2018-08-15 13:15] VITALS: BMI 24.5
--- NOTE | 2018-08-15 13:33 | P.CRDCN ---
History of Present Illness History of present illness: This is a pleasant 58-year-old male past medical history significant for prosthetic valve replacement 2013, hypertension, dyslipidemia, diabetes mellitus, chronic kidney disease on hemodialysis Saturday, peripheral vascular disease and left leg BKA. He follows with Dr. Sanderson in the office. We have been asked to see him in consultation secondary to exertional shortness of breath. He states yesterday morning he woke up feeling increasingly short of breath. He missed dialysis on Saturday. He underwent dialysis this morning. He continues to feel increasingly short of breath even after dialysis. He denies chest pain, shortness of breath, dizziness or palpitations. He denies PND or orthopnea. He denies cough, fever or chills. He states this is how he felt prior to having his valve replaced in 2013. He has been seen in consultation by nephrology as well. EKG reveals sinus mechanism T-wave inversions noted in the lateral leads. Chest x-ray reveals cardiomegaly with new small to moderate-sized right pleural effusion as well as right basilar compressive atelectasis. Laboratory data reviewed, WBC 5.5, hemoglobin 10.2, platelets 139, cardiac enzymes negative 1, proBNP 20,200, sodium 140, potassium 5.7, creatinine 8.5. Current cardiac medications include aspirin 81 mg daily, atorvastatin 10 mg daily, Lopressor 50 mg twice a day and hydralazine 100 mg twice a day. He underwent cardiac catheterization in 2013 which revealed normal coronary arteries with moderate aortic stenosis and moderate aortic regurgitation. This was performed prior to his aortic valve replacement. Most recent echocardiogram performed February 2017 reveals preserved left ventricular systolic function with ejection fraction 50-55% and mild pulmonary hypertension with an RVSP of 41 mmHg, mildly dilated left atrium, no evidence of aortic regurgitation or stenosis with a normally functioning bioprosthetic valve. At the time of my exam: CONSTITUTIONAL: Denies fever. Denies chills. EYES: Denies blurred vision. Denies vision changes. Denies eye pain. EARS, NOSE, MOUTH & THROAT: Denies headache. Denies sore throat. Denies ear pain. CARDIOVASCULAR: Denies chest pain. Complains of exertional shortness of breath. Denies orthopnea. Denies PND. Denies palpitations. RESPIRATORY: Denies cough. GASTROINTESTINAL: Denies abdominal pain. Denies diarrhea. Denies constipation. Denies nausea. Denies vomiting. MUSCULOSKELETAL: Denies myalgias. INTEGUMENTARY: Denies pruitis. Denies rash. NEUROLOGIC: Denies numbness. Denies tingling. Denies weakness. PSYCHIATRIC: Denies anxiety. Denies depression. ENDOCRINE: Denies fatigue. Denies weight change. Denies polydipsia. Denies polyurina. GENITOURINARY: Denies burning, hematuria or urgency with micturation. HEMATOLOGIC: Denies history of anemia. Denies bleeding. Blood pressure 148/71 heart rate 58 afebrile maintaining oxygen saturation on room air GENERAL: This is a 58-year-old male in no apparent distress at the time of my examination. HEENT: Head is atraumatic, normocephalic. Pupils are equal, round. Sclerae anicteric. Conjunctivae are clear. Mucous membranes of the mouth are moist. Neck is supple. There is no jugular venous distention. No carotid bruit is heard. LUNGS: Clear to auscultation no wheezes, rales or rhonchi. No chest wall tenderness is noted on palpation or with deep breathing. HEART: Regular rate and rhythm with systolic and diastolic murmur at the base, no rubs or gallops. S1 and S2 heard. ABDOMEN: Soft, nontender. Bowel sounds are heard. No organomegaly noted. EXTREMITIES: Trace edema to the right lower extremity, nonpitting. Left BKA. VASCULAR: Peripheral pulses palpated, no evidence of clubbing. NEUROLOGIC: Patient is awake, alert and oriented x3. ASSESSMENT Shortness of breath with evidence of diastolic murmur possibly suggestive of aortic insufficiency History of aortic valve replacement 2014 Hypertension Chronic kidney disease on hemodialysis Diabetes mellitus Dyslipidemia PLAN Obtain 2-D echocardiogram and Doppler study to assess cardiac structure and function. Continue aspirin, atorvastatin, hydralazine and Lopressor as previously ordered. Further recommendations to follow based upon echocardiogram findings. Thank you kindly for this consultation. Nurse Practitioner note has been reviewed, I agree with a documented findings and plan of care. Patient was seen and examined. Past Medical History Past Medical History: Coronary Artery Disease (CAD), Diabetes Mellitus, Eye Disorder, GERD/Reflux, Hearing Disorder / Deafness, Hyperlipidemia, Hypertension , Hypertension, Osteoarthritis (OA), Renal Disease, Renal Disease, Vascular Disorder Additional Past Medical History / Comment(s): Aortic valve replacement - BOVINE , gout, IDDM type II, end-stage renal disease past peritoneal dialysis, now hemodialysis M-W-F, diabetic peripheral neuropathy, L foot ulcers, R foot infection, L BKA, bilateral diabetic retinopathy, bilateral cataracts, bleeds behind retina, history of osteomyelitis, history of MRSA infection, diabetic gastroparesis, PVD. History of Any Multi-Drug Resistant Organisms: MRSA Date of last positivie culture/infection: 2011 MDRO Source:: LEFT FOOT Past Surgical History: Cardiac Valve Replacement, Cholecystectomy, Hernia Repair , Orthopedic Surgery Additional Past Surgical History / Comment(s): L arm fistula being used for hemodialysis, R upper chest moura cath- removed . RT foot I&D when a metal fragment was in his foot that was also infected, LT FOOT DEBRIDEMENT ,5TH TOE AMP, 10/2016 L BKA, insertion and REMOVAL PD CATH.LT ARM FISTUAL, CATARACATS REMOVED-LENS IMPLANTS, YAMILKA EYE LASER EYE SX, LT INDEX FINGER PARTIAL AMP Past Anesthesia/Blood Transfusion Reactions: Motion Sickness Additional Past Anesthesia/Blood Transfusion Reaction / Comment(s): CLAUSTROPHOBIA Smoking Status: Never smoker - Past Family History Mother Family Medical History: Diabetes Mellitus, Osteoarthritis (OA) Additional Family Medical History / Comment(s): HIP REPLACMENTS Father Family Medical History: CVA/TIA, Diabetes Mellitus, Myocardial Infarction ([place]), Musculoskeletal Disorder, Neurologic Disorder Additional Family Medical History / Comment(s): PARKINSON'S Medications and Allergies Home Medications Medication Instructions Recorded Confirmed Type Insulin Glargine [Lantus] 45 unit SQ QAM 05/09/16 08/14/18 History Aspirin 81 mg PO DAILY #1 chewable 02/21/17 08/14/18 Rx Atorvastatin [Lipitor] 10 mg PO HS 11/25/17 08/14/18 History Calcium Acetate [Phoslo] 667 mg PO AC-BID 11/25/17 08/14/18 History Insulin Aspart [NovoLOG See Protocol SQ AC-TID PRN 11/25/17 08/14/18 History (formulary)] Metoprolol Tartrate [Lopressor] 50 mg PO BID 11/25/17 08/14/18 History Jannie-Bruna 1 tab PO DAILY 11/25/17 08/14/18 History hydrALAZINE HCL [Apresoline] 100 mg PO BID 08/14/18 08/14/18 History Allergies Allergy/AdvReac Type Severity Reaction Status Date / Time Iodinated Contrast- Oral and AdvReac shut down Verified 08/14/18 10:27 IV Dye kidneys [Iodinated Contrast Media - IV Dye] Physical Exam Vitals: Vital Signs Temp Pulse Resp BP BP Pulse Ox 08/15/18 07:00 98.0 F 58 L 16 148/71 96 08/15/18 00:27 98.7 F 62 16 161/70 94 L 08/14/18 19:55 97.8 F 60 18 155/72 94 L 08/14/18 14:00 98.2 F 59 L 16 170/76 91 L Intake and Output 08/14/18 08/15/18 08/15/18 22:59 06:59 14:59 Intake Total 300 Balance 300 Intake: Oral 300 Other: # Voids 1 Weight 77.564 kg Results 08/14/18 11:46 08/14/18 10:50 Cardiac Enzymes 08/14/18 Range/Units 11:46 Troponin I <0.012 (0.000-0.034) ng/mL Current Medications Generic Name Dose Route Start Last Admin Trade Name Freq PRN Reason Stop Dose Admin Aspirin 81 mg 08/14/18 12:45 08/15/18 08:03 Aspirin PO 81 mg DAILY MILADIS Administration Atorvastatin Calcium 10 mg 08/14/18 21:00 08/14/18 21:14 Lipitor PO 10 mg HS MILADIS Administration Calcium Acetate 667 mg 08/14/18 17:30 08/15/18 08:03 Phoslo PO 667 mg AC-BID MILADIS Administration Hydralazine HCl 100 mg 08/14/18 12:45 08/15/18 08:04 Apresoline PO Not Given BID MILADIS Insulin Aspart 0 unit 08/14/18 17:30 08/15/18 13:06 Novolog SQ 3 unit ACHS MILADIS Administration Protocol Insulin Detemir 45 unit 08/15/18 09:00 08/15/18 09:44 Levemir SQ 45 unit QAM MILADIS Administration Metoprolol Tartrate 50 mg 08/14/18 21:00 08/15/18 08:03 Lopressor PO Not Given BID MILADIS Multivit/Ca Carb/B Cmplx/FA/Prenat 1 each 08/14/18 18:00 08/15/18 09:44 Nephrocaps PO 1 each DAILY MILADIS Administration Naloxone HCl 0.2 mg 08/14/18 11:37 Narcan IV Q2M PRN Opioid Reversal Intake and Output 08/14/18 08/15/18 08/15/18 22:59 06:59 14:59 Intake Total 300 Balance 300 Intake: Oral 300 Other: # Voids 1 Weight 77.564 kg Patient Weight 08/16/18 06:59 Weight 77.564 kg 08/14/18 11:46 08/14/18 10:50
[2018-08-15 16:37] LABS: Glucose,Whole Blood 84 mg/dL (75-99)
--- NOTE | 2018-08-15 17:40 | ECHOF ---
Referral Reason:sob MEASUREMENTS -------- HEIGHT: 152.4 cm WEIGHT: 77.6 kg BP: RVIDd: 3.1 cm (< 3.3) IVSd: 1.4 cm (0.6 - 1.1) LVIDd: 5.5 cm (3.9 - 5.3) LVPWd: 1.6 cm (0.6 - 1.1) IVSs: 1.9 cm LVIDs: 3.9 cm LVPWs: 1.8 cm LA Diam: 4.4 cm (2.7 - 3.8) LAESV Index (A-L): 34.82 ml/m Ao Diam: 3.7 cm (2.0 - 3.7) AV Cusp: 1.9 cm (1.5 - 2.6) LA Diam: 3.9 cm (2.7 - 3.8) MV EXCURSION: 20.130 mm (> 18.000) MV EF SLOPE: 55 mm/s (70 - 150) EPSS: 1.1 cm MV E Darrion: 1.15 m/s MV DecT: 325 ms MV A Darrion: 0.89 m/s MV E/A Ratio: 1.29 AV maxP.36 mmHg AV meanP.61 mmHg RAP: 5.00 mmHg RVSP: 14.41 mmHg FINDINGS -------- Sinus rhythm. This was a technically adequate study. The left ventricular size is normal. There is moderate concentric left ventricular hypertrophy. O verall left ventricular systolic function is low-normal with, an EF between 50 - 55 %. The right ventricle is normal in size. LA is moderately dilated 34-39 ml/m2 The right atrial size is normal. Peak/mean gradient across the Aortic Valve is 22.36mmHg / 10.61mmHg. Normally functioning bioprosth etic valve. The mitral valve leaflets are mildly thickened. Mild mitral regurgitation is present. Mild tricuspid regurgitation present. There is no evidence of pulmonary hypertension. The right v entricular systolic pressure, as measured by Doppler, is 14.41mmHg. Trace/mild (physiologic) pulmonic regurgitation. The aortic root size is normal. There is a trivial pericardial effusion present. CONCLUSIONS -------- 1. Sinus rhythm. 2. This was a technically adequate study. 3. The left ventricular size is normal. 4. There is moderate concentric left ventricular hypertrophy. 5. Overall left ventricular systolic function is low-normal with, an EF between 50 - 55 %. 6. LA is moderately dilated 34-39 ml/m2 7. Peak/mean gradient across the Aortic Valve is 22.36mmHg / 10.61mmHg. 8. Normally functioning bioprosthetic valve. 9. Mild mitral regurgitation is present. 10. Mild tricuspid regurgitation present. 11. There is no evidence of pulmonary hypertension. 12. Trace/mild (physiologic) pulmonic regurgitation. 13. The aortic root size is normal. 14. There is a trivial pericardial effusion present. MISSILE TECHNICIAN: Carlotta Grossman RDCS
[2018-08-15 20:15] LABS: Glucose,Whole Blood 104 mg/dL (75-99)
[2018-08-15] MEDS: ATORVASTATIN 10 MG TAB PO SCH (20:32)
--- NOTE | 2018-08-16 01:20 | PN ---
PROGRESS NOTE DATE OF SERVICE: August 15, 2018. PRESENTING COMPLAINT: Tired. INTERVAL HISTORY: Patient presented with shortness of breath, fluid overload, got dialyzed yesterday. Also getting dialyzed today. Doing somewhat better. Did tolerate some diet. Feeling somewhat better. REVIEW OF SYSTEMS: Done for constitutional, cardiovascular, GI, pulmonary and relevant findings as above. CURRENT MEDICATIONS: Reviewed. PHYSICAL EXAMINATION: VITAL SIGNS: Temperature 97.3, pulse 50, respirations 16, blood pressure 165/78, pulse ox 94% on room air. GENERAL APPEARANCE: Lying in bed, more perky. EYES: Pupils equal. Conjunctivae normal. NECK: JVD not raised. Mass not palpable. RESPIRATORY: Effort normal. LUNGS: Decreased breath sounds. CARDIOVASCULAR: 1st and 2nd sounds normal. No edema. ABDOMEN: Soft, nontender. Liver and spleen not palpable. PSYCHIATRY: Alert and oriented x3. Mood and affect normal. EXTREMITIES: Left below- knee amputation. INVESTIGATIONS: Accu-Cheks are noted. ASSESSMENT: 1. Acute pulmonary edema from missed hemodialysis responded to consecutive dialysis better. 2. Diabetes mellitus type 2, chronically on insulin. 3. Gastroesophageal reflux disease. 4. Hyperlipidemia. 5. Essential hypertension. 6. Primary osteoarthritis multiple joints. 7. End-stage kidney disease on hemodialysis with the left arm fistula on Saturday, Saturday and Saturday. 8. Aortic valve replacement, bovine type valve. 9. Diabetic peripheral neuropathy. 10.Left below-knee amputation. 11.Essential hypertension with chronic kidney disease. 12.Diabetic gastroparesis. 13.Peripheral artery disease. 14.Diabetic retinopathy. 15.Hyperlipidemia. PLAN: Continue current medication and treatment plan. The patient getting dialyzed today. Overall, patient is feeling better. The patient did have a 2-D echocardiogram, EF is 50-55 percent and LVH. Care was discussed with the patient. MMODL / IJN: [id number] /
[2018-08-16 07:41] VITALS: BP 170/81; PULSE 60; RESP 18; TEMP 98.5
[2018-08-16 07:46] LABS: Glucose,Whole Blood 150 mg/dL (75-99)
[2018-08-16] MEDS: hydrALAZINE HCL 50 MG TAB PO SCH (08:32)
[2018-08-16] MEDS: METOPROLOL TARTRATE 50 MG TAB PO SCH (08:32)
[2018-08-16] MEDS: ASPIRIN 81 MG PO SCH (08:32)
[2018-08-16] MEDS: CALCIUM ACETATE 667 MG CAP PO SCH (08:32)
[2018-08-16] MEDS: INSULIN ASPART 100 UNIT/ML 1 ML 10 ML VIAL SQ SCH ×2 (08:34→12:24)
[2018-08-16] MEDS: FOLIC ACID-VIT B COMPLEX-VIT C 1 CAP PO SCH (09:48)
[2018-08-16] MEDS: INSULIN DETEMIR 100 UNIT/ML 10 ML VIAL SQ SCH (09:48)
[2018-08-16 11:45] LABS: Glucose,Whole Blood 144 mg/dL (75-99)
--- NOTE | 2018-08-16 12:23 | P.PN ---
Subjective Progress Note Date: 08/16/18 Principal diagnosis: This is a 58-year-old male with ESRD on dialysis Saturday. He came in because of shortness of breath after he missed a treatment. He was dialyzed yesterday and is feeling back to normal. He has a left BKA remote, coronary artery disease diabetes. In the past she's had aortic valve replacement, cholecystectomy and hernia repair Currently he is feeling well and wants to go home. Supposedly his is admitted to the hospital with chest pain a few hours ago.. Objective - Vital Signs Vital signs: Vital Signs Temp 98.5 F 08/16/18 07:00 Pulse 60 08/16/18 07:00 Resp 18 08/16/18 07:00 BP 170/81 08/16/18 07:00 Pulse Ox 98 08/16/18 07:00 Intake & Output 08/15/18 08/16/18 08/16/18 18:59 06:59 18:59 Intake Total 400 Balance 400 Weight 77.564 kg Intake: Oral 400 Other: # Voids 3 On examination awake alert oriented comfortable HEENT exam no JVP neck is supple no facial asymmetry Lungs are clear to auscultation good air entry bilaterally Heart sounds are unremarkable for any murmur rub gallop Abdomen soft nontender no masses felt no organomegaly Extremity exam reveals left BKA stump is clean right leg no edema Neurologically awake alert oriented and supposedly can walk with his prosthesis - Labs CBC & Chem 7: 08/14/18 11:46 08/14/18 10:50 Labs: Abnormal Lab Results - Last 24 Hours (Table) 08/15/18 08/16/18 08/16/18 Range/Units 20:03 07:35 11:33 POC Glucose (mg/dL) 104 H 150 H 144 H (75-99) mg/dL Assessment and Plan Assessment: Impression 1. ESRD on dialysis Saturday. 2. Admitted with treatment and shortness of breath and right pleural effusion subjectively much improved. 3. Diabetes mellitus, with multiple complications. 4. Remote left BKA. 5. Remote aortic valve replacement. Recommendation. Patient can be discharged followed up as an outpatient
[2018-08-16 21:00] LABS: Hemoglobin A1C 7.5 % (4.0-6.0)
--- NOTE | 2018-08-18 06:59 | DS ---
DISCHARGE SUMMARY DATE OF ADMISSION: 08/14/2018 DATE OF DISCHARGE: 08/16/2018 FINAL DIAGNOSES: 1. Acute pulmonary edema from missed hemodialysis. 2. Diabetes mellitus type 2, chronically on insulin. 3. Gastroesophageal reflux disease. 4. Hyperlipidemia. 5. Essential hypertension. 6. Primary osteoarthritis multiple joints. 7. End-stage kidney disease on hemodialysis with left arm fistula on Saturday, Saturday and Saturday. 8. Aortic valve replacement, bovine type. 9. Diabetic peripheral neuropathy. 10.Left below-knee amputation. 11.Essential hypertension with chronic kidney disease. 12.Diabetic gastroparesis. 13.Peripheral arterial disease. 14.Diabetic retinopathy. 15.Hyperlipidemia. HOSPITAL COURSE: This patient does get episodes of nausea, vomiting, was feeling unwell, missed his hemodialysis, went into fluid overload. Did get 2 consecutive days of hemodialysis to which she responded rather well. The patient did get a 2-D echocardiogram that showed the EF of 50% to 55% and moderate concentric left ventricular hypertrophy. back to his baseline. CONSULTATIONS: Dr. Dang from Cardiology; Dr. Wilkinson from Nephrology. PHYSICAL EXAMINATION: On examination, temperature 98.5, pulse 60, respirations 18, blood pressure 170/81, pulse ox 98% on room air. LUNGS: Fair entry. ABDOMEN: Soft. Minimal edema. DISCHARGE MEDICATIONS: 1. Lantus 45 units subcutaneous in the morning. 2. Aspirin 81 mg a day. 3. Lipitor 10 mg q.h.s. 4. PhosLo 667 mg p.o. a.c. b.i.d. 5. NovoLog a.c. t.i.d. p.r.n. 6. Lopressor 50 mg b.i.d. 7. Jannie-Bruna one tablet p.o. daily. 8. Hydralazine 100 mg p.o. b.i.d. Follow up with Dr. Robert in 1 week. Patient to maintain his hemodialysis schedule. Follow up with Nephrology and Cardiology as per the instructions. MMODL / IJN: [id number] /
--- NOTE | 2018-08-18 08:22 | CDI ---
Last Revision, August 2017 Documentation Clarification Form Date: 08/18/2018 8:06:22 AM From: Yajaira Vazquez Phone: If you have a question about this query, please contact Rosie Montiel Lock Plater at [phone] between 8am and 5pm. Admit Date: 08/14/2018 11:37:00 AM Patient Name: Andi Parker Visit Number: [id number] Discharge Date:08/16/18 ATTENTION: The Clinical Documentation Specialists (CDI) and [facility] Coding Staff appreciate your assistance in clarifying documentation. Please respond to the clarification below the line at the bottom and electronically sign. The CDI & [facility] Coding staff will review the response and follow-up if needed. Please note: Queries are made part of the Legal Health Record. If you have any questions, please contact the author of this message via ITS. Duane Casey MD Please clarify the clinical significance of the echo results. Patient's proBNP 20,200. EF 50-55% and moderate left ventricular hypertrophy and cause of fluid overload. Patient history/risk factors: missed dialysis, ESRD, HTN, Aortic valve replacement, DM, acute pulmonary edema Clinical Indicators: BNP 20,200 Radiology: Cardiomegaly, pleural effusion, atelectasis Vital Signs:98.4F, 60 bpm, 30, 189/71, 99%RA Treatment: 2 consecutive days of hemodia Medication: Consults:Nephrology and cardia Please document confirmation clinical signficance of ECHO and cause of fluid overload. Missed dialysis only Other specified condition Cannot determine ____missed dialysis only MTDD
== END 2018-08-16 15:51 | disposition home or self-care (01) | DRG 640 ==
LOC: EC 09:54 → 3NMEDONC 11:37 → 4SSUR 12:45
PROVIDERS: ADMIT Hospitalist; ATTEND Hospitalist
PROC: 5A1D70Z Performance of Urinary Filtration, Intermittent, Less than 6 Hours Per Day (ICD-10-PCS; principal; 2018-08-14)
DX: E87.70 Fluid overload, unspecified (principal); J81.0 Acute pulmonary edema; N18.6 End stage renal disease; J90 Pleural effusion, not elsewhere classified; J98.11 Atelectasis; I13.11 Hypertensive heart and chronic kidney disease without heart failure, with stage 5 chronic kidney disease, or end stage renal disease; D63.1 Anemia in chronic kidney disease; E11.22 Type 2 diabetes mellitus with diabetic chronic kidney disease; E11.319 Type 2 diabetes mellitus with unspecified diabetic retinopathy without macular edema; E11.42 Type 2 diabetes mellitus with diabetic polyneuropathy; E11.43 Type 2 diabetes mellitus with diabetic autonomic (poly)neuropathy; E11.51 Type 2 diabetes mellitus with diabetic peripheral angiopathy without gangrene; E78.5 Hyperlipidemia, unspecified; E87.5 Hyperkalemia; F40.240 Claustrophobia; H91.90 Unspecified hearing loss, unspecified ear; I25.10 Atherosclerotic heart disease of native coronary artery without angina pectoris; I27.20 Pulmonary hypertension, unspecified; I35.2 Nonrheumatic aortic (valve) stenosis with insufficiency; K21.9 Gastro-esophageal reflux disease without esophagitis; K31.84 Gastroparesis; M10.9 Gout, unspecified; M15.9 Polyosteoarthritis, unspecified; Z79.4 Long term (current) use of insulin; Z79.82 Long term (current) use of aspirin; Z79.899 Other long term (current) drug therapy; Z82.0 Family history of epilepsy and other diseases of the nervous system; Z82.49 Family history of ischemic heart disease and other diseases of the circulatory system; Z83.3 Family history of diabetes mellitus; Z86.14 Personal history of Methicillin resistant Staphylococcus aureus infection; Z89.512 Acquired absence of left leg below knee; Z89.022 Acquired absence of left finger(s); Z98.42 Cataract extraction status, left eye; Z98.41 Cataract extraction status, right eye; Z96.1 Presence of intraocular lens; Z95.3 Presence of xenogenic heart valve; Z99.2 Dependence on renal dialysis; Z99.3 Dependence on wheelchair; E83.9 Disorder of mineral metabolism, unspecified; Z91.041 Radiographic dye allergy status; Z91.15 Patient's noncompliance with renal dialysis; F41.9 Anxiety disorder, unspecified; F32.9 Major depressive disorder, single episode, unspecified; Z90.49 Acquired absence of other specified parts of digestive tract
CPT/HCPCS: 36415; 71046; 80048; 83036; 83880; 84100; 84484; 85025; 90935; 93005; 93306; 99285

== ENCOUNTER 2019-01-04 14:48 | Inpatient (IN) | payer MEDICARE ==
[2019-01-04] MEDS ORDERED: IPRATROPIUM-ALBUTEROL 3 ML NEB INHALATION STA (15:09)
--- NOTE | 2019-01-04 15:14 | ED ---
Chest Pain HPI - General Chief Complaint: Chest Pain Stated Complaint: chest pressure/SOB Time Seen by Provider: 01/04/19 14:50 Source: patient, RN notes reviewed Mode of arrival: wheelchair Limitations: no limitations - History of Present Illness Initial Comments: This is a 58-year-old male with a history of aortic valve surgery history of dialysis who states he's had about one week of intermittent episodes of chest pressure with shortness of breath moderate sensation in severity midsternal nonradiating the cough productive of phlegm but is not sure what color it is in spite of out. He has some nausea vomiting diarrhea also. Some sweats no overt fever. He states the sensation pain does not change with dialysis does get worse with exertion. He denies any other modifying factors no rhinorrhea earaches sore throat. MD Complaint: chest pain - Related Data Home Medications Medication Instructions Recorded Confirmed Insulin Glargine [Lantus] 40 unit SQ QAM 05/09/16 01/04/19 Atorvastatin [Lipitor] 10 mg PO HS 11/25/17 01/04/19 Calcium Acetate [PhosLo] 667 mg PO AC-BID 11/25/17 01/04/19 Jannie-Bruna 1 tab PO DAILY 11/25/17 01/04/19 hydrALAZINE HCL [Apresoline] 100 mg PO BID 08/14/18 01/04/19 Metoprolol Tartrate [Lopressor] 25 mg PO BID 01/04/19 01/04/19 Previous Rx's Medication Instructions Recorded Aspirin 81 mg PO DAILY #1 chewable 02/21/17 Allergies Allergy/AdvReac Type Severity Reaction Status Date / Time Iodinated Contrast- Oral and AdvReac shut down Verified 01/04/19 16:26 IV Dye kidneys [Iodinated Contrast Media - IV Dye] Review of Systems ROS Statement: Those systems with pertinent positive or pertinent negative responses have been documented in the HPI. ROS Other: All systems not noted in ROS Statement are negative. EKG Findings - EKG Results: EKG: interpreted by ERIC, sinus rhythm (Sinus rhythm rate 68. Interval 184 QRS duration 106 QT since QTC 460/49 incomplete right bundle-branch block nonspecific T-wave configuration prolonged QT. This is compared with an EKG dated 08/14/18 showing similar configuration.) Past Medical History Past Medical History: Coronary Artery Disease (CAD), Diabetes Mellitus, Eye Disorder, GERD/Reflux, Hearing Disorder / Deafness, Hyperlipidemia, Hype rtension, Hypertension, Osteoarthritis (OA), Renal Disease, Renal Disease, Vascular Disorder Additional Past Medical History / Comment(s): Aortic valve replacement - BOVINE, gout, IDDM type II, end-stage renal disease past peritoneal dialysis, now hemodialysis M-W-F, diabetic peripheral neuropathy, L foot ulcers, R foot infection, L BKA, bilateral diabetic retinopathy, bilateral cataracts, bleeds behind retina, history of osteomyelitis, history of MRSA infection, diabetic gastroparesis, PVD. History of Any Multi-Drug Resistant Organisms: MRSA Date of last positivie culture/infection: 2011 MDRO Source:: LEFT FOOT Past Surgical History: Cardiac Valve Replacement, Cholecystectomy, Hernia Repair, Orthopedic Surgery Additional Past Surgical History / Comment(s): L arm fistula being used for hemodialysis, R upper chest moura cath- removed . RT foot I&D when a metal fragment was in his foot that was also infected, LT FOOT DEBRIDEMENT ,5TH TOE AMP, 10/2016 L BKA, insertion and REMOVAL PD CATH.LT ARM FISTUAL, CATARACATS REMOVED-LENS IMPLANTS, YAMILKA EYE LASER EYE SX, LT INDEX FINGER PARTIAL AMP Past Anesthesia/Blood Transfusion Reactions: Motion Sickness Additional Past Anesthesia/Blood Transfusion Reaction / Comment(s): CLAUSTROPHOBIA Past Psychological History: Anxiety, Depression Smoking Status: Never smoker Past Alcohol Use History: None Reported Past Drug Use History: None Reported - Past Family History Mother Family Medical History: Diabetes Mellitus, Osteoarthritis (OA) Additional Family Medical History / Comment(s): HIP REPLACMENTS Father Family Medical History: CVA/TIA, Diabetes Mellitus, Myocardial Infarction ([place]), Musculoskeletal Disorder, Neurologic Disorder Additional Family Medical History / Comment(s): PARKINSON'S General Exam - General Exam Comments Initial Comments: This is a well-developed well-nourished awake alert oriented 3 male Limitations: no limitations General appearance: alert, in no apparent distress Head exam: Present: atraumatic, normocephalic, normal inspection Eye exam: Present: normal appearance, PERRL, EOMI. Absent: scleral icterus, conjunctival injection, periorbital swelling ENT exam: Present: normal exam, mucous membranes moist Neck exam: Present: normal inspection, full ROM, other (No stridor JVD or bruits). Absent: tenderness, meningismus, lymphadenopathy Respiratory exam: Present: decreased breath sounds, other (decreased breath sounds especially on the right versus left). Absent: respiratory distress, wheezes, rales, rhonchi, stridor Cardiovascular Exam: Present: regular rate, normal rhythm, normal heart sounds. Absent: systolic murmur, diastolic murmur, rubs, gallop, clicks GI/Abdominal exam: Present: soft, normal bowel sounds. Absent: distended, tenderness, guarding, rebound, rigid Extremities exam: Present: full ROM, normal capillary refill, other (Patient does have a left tciat-nep-gwxm amputation does demonstrate +1 edema in the right.). Absent: tenderness, pedal edema, joint swelling, calf tenderness Back exam: Present: normal inspection Neurological exam: Present: alert, oriented X3, CN II-XII intact Psychiatric exam: Present: normal affect, normal mood Skin exam: Present: warm, dry, intact, normal color. 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 Chest Pain MDM - MDM Patient states he felt better after oxygen updraft. Patient x-ray showed evidence of CHF and right pleural effusion. Cardiac enzymes. With normal limits patient is ever creatinine 9.4. Patient will be admitted for evaluation chest pain in for dialysis evaluation. I did discuss case with Dr. Pedersen and Dr. Ruff. Disposition Clinical Impression: Chest pain, Chronic renal failure syndrome, Congestive heart failure, Chronic anemia Disposition: ADMITTED IP TO THIS HOSP Condition: Fair Referrals: Thor Robert MD [Primary Care Provider] - 1-2 days
[2019-01-04 15:32] LABS: Anisocytosis Slight; Basophils % (A) 1 %; Eosinophils # (A) 0.2 k/uL (0-0.7); Eosinophils % (A) 4 %; HCT 27.8 % (39.0-53.0); HGB 9.2 gm/dL (13.0-17.5); Lymphocytes # (A) 0.5 k/uL (1.0-4.8); Lymphocytes % (A) 11 %; MCH 30.4 pg (25.0-35.0); MCHC 33.1 g/dL (31.0-37.0); MCV 91.9 fL (80.0-100.0); Mean Platelet Volume 7.6; Monocytes # (A) 0.4 k/uL (0-1.0); Monocytes % (A) 9 %; Neutrophils # (A) 3.1 k/uL (1.3-7.7); Neutrophils % (A) 73 %; Platelet Count 165 k/uL (150-450); RBC 3.02 m/uL (4.30-5.90); RDW 16.6 % (11.5-15.5); WBC 4.3 k/uL (3.8-10.6)
[2019-01-04 15:47] LABS: INR 0.9 (<1.2); Partial Thromboplastin Time 20.8 sec (22.0-30.0); Prothrombin Time 9.8 sec (9.0-12.0)
[2019-01-04 15:52] LABS: Albumin 4.2 g/dL (3.5-5.0); Calcium 9.9 mg/dL (8.4-10.2); Magnesium 2.3 mg/dL (1.6-2.3); Potassium 5.8 mmol/L (3.5-5.1); Total Bilirubin 0.7 mg/dL (0.2-1.3); Total Protein 6.7 g/dL (6.3-8.2)
--- NOTE | 2019-01-04 16:05 | XR ---
EXAMINATION TYPE: XR chest 2V DATE OF EXAM: 01/04/2019 COMPARISON: 08/14/2018 HISTORY: Chest pain TECHNIQUE: Frontal and lateral views of the chest are obtained. FINDINGS: There is blunting of right costophrenic angle. There is some pulmonary vascular mild conge stion. There are sternal wires. There are chest leads. IMPRESSION: Right pleural effusion. Mild heart failure is improved slightly compared to last exam. R ight lower lobe pneumonia is possible.
[2019-01-04] MEDS ORDERED: NALOXONE 0.4 MG/ML 1 ML VIAL IV PRN (16:32)
[2019-01-04] MEDS ORDERED: hydrALAZINE HCL 50 MG TAB PO STA (16:44)
[2019-01-04 17:35] LABS: Glucose,Whole Blood 259 mg/dL (75-99)
[2019-01-04] MEDS: CALCIUM ACETATE 667 MG CAP PO SCH (17:58)
[2019-01-04] MEDS: INSULIN ASPART (NovoLOG) 100 UNIT/ML VIAL SQ SCH ×2 (17:59→21:32)
[2019-01-04] MEDS: IPRATROPIUM-ALBUTEROL 3 ML NEB INHALATION SCH ×2 (19:50→23:54)
[2019-01-04] MEDS: ATORVASTATIN 10 MG TAB PO SCH (20:29)
[2019-01-04] MEDS ORDERED: METOPROLOL TARTRATE 25 MG TAB PO SCH (21:00)
[2019-01-04] MEDS ORDERED: hydrALAZINE HCL 50 MG TAB PO SCH (21:00)
[2019-01-04 21:30] LABS: Glucose,Whole Blood 200 mg/dL (75-99)
[2019-01-04] MEDS: hydrALAZINE HCL 50 MG TAB PO SCH (21:52)
[2019-01-05] MEDS: cloNIDine HCL 0.2 MG TAB PO SCH ×3 (00:23→21:18)
[2019-01-05] MEDS: IPRATROPIUM-ALBUTEROL 3 ML NEB INHALATION SCH ×6 (02:49→23:42)
[2019-01-05 06:16] LABS: Glucose,Whole Blood 125 mg/dL (75-99)
[2019-01-05] MEDS: INSULIN ASPART (NovoLOG) 100 UNIT/ML VIAL SQ SCH ×5 (06:45→21:19)
[2019-01-05] MEDS: CALCIUM ACETATE 667 MG CAP PO SCH ×2 (06:46→17:42)
--- NOTE | 2019-01-05 08:52 | P.NPCON ---
History of Present Illness - Reason for Consult end stage renal disease - History of Present Illness Reason for consultation: End-stage renal disease History of present illness: Patient is a 58-year-old male seen in renal consultation for end-stage renal disease. He is maintained on hemodialysis on a Saturday schedule via left upper extremity AV fistula. Etiology is diabetic kidney disease. Patient presented to the hospital with dyspnea. Patient states symptoms have been going on for the last 4-5 days. He has been compliant with hemodialysis treatments. He did not miss any treatments. He denies fever or chills. He has a nonproductive cough. Does admit to sinus drainage. Oral intake has been fair. He did have diarrhea yesterday morning but none since then. No vomiting. Chest x-ray was suggestive of right pleural effusion. Hemodynamically stable. Echocardiogram from July 2018 revealed preserved ejection fraction. Vital signs are stable. General: The patient appeared well nourished and normally developed. HEENT: Head exam is unremarkable. Neck is without jugular venous distension. LUNGS: Breath sounds decreased. HEART: Rate and Rhythm are regular. First and second heart sounds normal. No murmurs, rubs or gallops. ABDOMEN: Abdominal exam reveals normal bowel sounds. Non-tender and non- distended. No evidence of peritonitis. EXTREMITITES: No clubbing, cyanosis, or edema. Left BKA noted. Past Medical History Past Medical History: Coronary Artery Disease (CAD), Diabetes Mellitus, Eye Disorder, GERD/Reflux, Hearing Disorder / Deafness, Hyperlipidemia, Hypertension, Hypertension, Osteoarthritis (OA), Renal Disease, Renal Disease, Vascular Disorder Additional Past Medical History / Comment(s): Aortic valve replacement - BOVINE, gout, IDDM type II, end-stage renal disease past peritoneal dialysis, now hemodialysis --, diabetic peripheral neuropathy, L foot ulcers, R foot infection, L BKA, bilateral diabetic retinopathy, bilateral cataracts, bleeds behind retina, history of osteomyelitis, history of MRSA infection, diabetic gastroparesis, PVD. History of Any Multi-Drug Resistant Organisms: MRSA Date of last positivie culture/infection: 2011 MDRO Source:: LEFT FOOT Past Surgical History: Cardiac Valve Replacement, Cholecystectomy, Hernia Repair, Orthopedic Surgery Additional Past Surgical History / Comment(s): L arm fistula being used for hem odialysis, R upper chest moura cath- removed . 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 No experience. No recent travels. No animals in the home. No significant alcohol use. No current tobacco use. 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 - Past Family History Mother Family Medical History: Diabetes Mellitus, Osteoarthritis (OA) Additional Family Medical History / Comment(s): HIP REPLACMENTS Father Family Medical History: CVA/TIA, Diabetes Mellitus, Myocardial Infarction ([place]), Musculoskeletal Disorder, Neurologic Disorder Additional Family Medical History / Comment(s): PARKINSON'S Medications and Allergies Home Medications Medication Instructions Recorded Confirmed Type Insulin Glargine [Lantus] 40 unit SQ QAM 05/09/16 01/04/19 History Aspirin 81 mg PO DAILY #1 chewable 02/21/17 01/04/19 Rx Atorvastatin [Lipitor] 10 mg PO HS 11/25/17 01/04/19 History Calcium Acetate [PhosLo] 667 mg PO AC-BID 11/25/17 01/04/19 History Jannie-Bruna 1 tab PO DAILY 11/25/17 01/04/19 History hydrALAZINE HCL [Apresoline] 100 mg PO BID 08/14/18 01/04/19 History INSULIN ASPART (NovoLOG) [NovoLOG See Protocol SQ AC-TID 01/04/19 01/04/19 History (formulary)] Metoprolol Tartrate [Lopressor] 25 mg PO BID 01/04/19 01/04/19 History Allergies Allergy/AdvReac Type Severity Reaction Status Date / Time Iodinated Contrast- Oral and AdvReac shut down Verified 01/04/19 16:26 IV Dye kidneys [Iodinated Contrast Media - IV Dye] Physical Exam Vitals: Vital Signs Temp Pulse Pulse Pulse Resp BP BP 01/05/19 08:16 68 01/05/19 08:04 68 01/05/19 04:37 97 F L 67 67 18 170/79 01/05/19 00:21 66 01/05/19 00:19 97.9 F 66 18 132/65 01/04/19 20:03 70 01/04/19 20:00 97.5 F L 72 72 18 144/65 01/04/19 19:47 68 01/04/19 16:54 98.1 F 67 18 209/91 01/04/19 16:40 98.4 F 66 20 198/78 01/04/19 16:10 66 18 195/85 01/04/19 15:39 60 01/04/19 15:29 62 01/04/19 15:07 68 68 20 01/04/19 14:51 98.3 F 68 18 188/78 Pulse Ox 01/05/19 08:16 01/05/19 08:04 01/05/19 04:37 92 L 01/05/19 00:21 01/05/19 00:19 97 01/04/19 20:03 01/04/19 20:00 97 01/04/19 19:47 01/04/19 16:54 95 01/04/19 16:40 98 01/04/19 16:10 98 01/04/19 15:39 01/04/19 15:29 01/04/19 15:07 98 01/04/19 14:51 98 Intake and Output 01/04/19 01/05/19 01/05/19 22:59 06:59 14:59 Other: Voiding Method Toilet # Voids 0 0 # Bowel Movements 0 Weight 74.5 kg Results - Lab Results Most recent lab results Calcium 9.9 mg/dL (8.4-10.2) 01/04/19 15:20 Magnesium 2.3 mg/dL (1.6-2.3) 01/04/19 15:20 01/04/19 15:20 01/04/19 15:20 Assessment and Plan Plan: Assessment: 1. End-stage renal disease maintained on hemodialysis on a Saturday schedule via left upper extremity AV fistula. 2. Dyspnea secondary to volume overload. BNP noted to be elevated. 3. Hypertension with chronic kidney disease. 4. Chronic kidney disease mineral bone disease maintained on PhosLo. 5. Insulin-dependent diabetes mellitus. 6. Status post left gmins-tvo-tsqd habitation. 7. Hyperkalemia secondary to chronic kidney disease. Expect improvement after dialysis. Plan: Hemodialysis today with goal 2-1/2 L ultrafiltration. Follow-up echocardiogram. Renal diet. Thank you for the consultation. I will continue to follow patient with you during his hospital stay.
--- NOTE | 2019-01-05 11:22 | CONS ---
CONSULTATION CHIEF COMPLAINT: Shortness of breath. Andi is a 58-year-old gentleman with history of end-stage renal disease on hemodialysis, history of aortic valve replacement, insulin-requiring diabetes, hypertension, dyslipidemia, who presented to hospital complaining of shortness of breath of 3 days duration. He has been getting progressively short of breath over the last 3 days and that has gotten particularly worse yesterday; hence, he comes in. He also has mild edema involving the right leg. He had left below-knee amputation in the past. The patient has dialysis 3 times a week, but had missed his dialysis last Saturday. At the time of my evaluation, patient is waiting for his dialysis. Blood pressure is elevated, but usually does not take antihypertensive prior to dialysis, says his blood pressure drops during dialysis. He denies chest pain, palpitations, dizziness or syncope. There is no history of focal neurological deficits. PAST MEDICAL HISTORY: Past medical history is significant for aortic valve replacement, peripheral vascular disease, left below-knee amputation, hypertension, dyslipidemia, diabetes. MEDICATIONS: Medications at home included hydralazine, Lopressor 25 b.i.d., insulin, PhosLo, Lipitor and aspirin. ALLERGIES: The patient is allergic to IV DYE. FAMILY HISTORY: Family history is negative for premature coronary artery disease. SOCIAL HISTORY: Social history is negative for current smoking, EtOH abuse, or drug abuse. REVIEW OF SYSTEMS: HEENT is unremarkable. CARDIAC: As described above. RESPIRATORY: As described above. GI: Negative. GENITOURINARY: Significant for end-stage renal disease. PSYCHOSOCIAL: Negative. ENDOCRINE: Negative. HEMATOLOGICAL: Negative. DERM: Negative. CONSTITUTIONAL: Negative. ONCOLOGICAL: Negative. Rest of the system review is not relevant. PHYSICAL EXAMINATION: On exam, patient is comfortable at rest. Afebrile. Heart rate is 68 beats and blood pressure is 170/80, respiratory rate is 18. JVD is elevated. Chest exam reveals diminished air entry at the bases. Heart exam reveals first and second heart sounds. Ejection systolic murmur in the aortic area. Abdomen is soft. Examination of extremities revealed 1+ edema over the right leg. Peripheral pulses diminished. LABS: Labs show that the hemoglobin is 9.2. BUN is 57, creatinine is 9.4. Tropes are negative. BNP is elevated at 22,800. ASSESSMENT: 1. Shortness of breath secondary to fluid overload related to underlying end-stage renal disease. 2. History of aortic valve replacement. 3. End-stage renal disease on hemodialysis. 4. Peripheral vascular disease. 5. Hypertension. 6. Diabetes. PLAN: Will obtain a 2-D echo on him to assess his LV function of the prosthetic valve. He needs hemodialysis. STONE / HORTENCIA: [id number] /
[2019-01-05 12:18] LABS: Glucose,Whole Blood 156 mg/dL (75-99)
--- NOTE | 2019-01-05 13:02 | ECHOF ---
Referral Reason:chest pain MEASUREMENTS -------- HEIGHT: 175.3 cm WEIGHT: 74.4 kg BP: IVSd: 1.6 cm (0.6 - 1.1) LVIDd: 5.0 cm (3.9 - 5.3) LVPWd: 1.3 cm (0.6 - 1.1) IVSs: 1.8 cm LVIDs: 4.0 cm LVPWs: 1.5 cm LA Diam: 4.7 cm (2.7 - 3.8) LAESV Index (A-L): 41.11 ml/m Ao Diam: 3.7 cm (2.0 - 3.7) AV Cusp: 1.8 cm (1.5 - 2.6) LA Diam: 3.9 cm (2.7 - 3.8) MV EXCURSION: 23.254 mm (> 18.000) MV EF SLOPE: 58 mm/s (70 - 150) EPSS: 1.2 cm MV E Darrion: 1.23 m/s MV DecT: 174 ms MV A Darrion: 1.01 m/s MV E/A Ratio: 1.22 AV maxP.86 mmHg AV meanP.65 mmHg RAP: 5.00 mmHg RVSP: 31.05 mmHg FINDINGS -------- Sinus rhythm. This was a technically good study. The left ventricular size is normal. There is moderate concentric left ventricular hypertrophy. O verall left ventricular systolic function is low-normal with, an EF between 50 - 55 %. The right ventricle is normal in size. The left atrial size is normal. The right atrial size is normal. Interatrial and interventricular septum intact. Peak/mean gradient across the Aortic Valve is 24.86mmHg / 11.65mmHg. Normally functioning bioprosth etic valve. Mild mitral annular calcification present. Mild mitral regurgitation is present. Mild tricuspid regurgitation present. There is no evidence of pulmonary hypertension. The right v entricular systolic pressure, as measured by Doppler, is 31.05mmHg. There is no pulmonic regurgitation present. The aortic root size is normal. Normal inferior vena cava with normal inspiratory collapse consistent with estimated right atrial pre ssure of 5 mmHg. There is no pericardial effusion. CONCLUSIONS -------- 1. The left ventricular size is normal. 2. There is moderate concentric left ventricular hypertrophy. 3. Overall left ventricular systolic function is low-normal with, an EF between 50 - 55 %. 4. The right ventricle is normal in size. 5. The left atrial size is normal. 6. The right atrial size is normal. 7. Interatrial and interventricular septum intact. 8. Peak/mean gradient across the Aortic Valve is 24.86mmHg / 11.65mmHg. 9. Normally functioning bioprosthetic valve. 10. Mild mitral annular calcification present. 11. Mild mitral regurgitation is present. 12. Mild tricuspid regurgitation present. 13. There is no evidence of pulmonary hypertension. 14. The right ventricular systolic pressure, as measured by Doppler, is 31.05mmHg. 15. There is no pulmonic regurgitation present. 16. The aortic root size is normal. 17. Normal inferior vena cava with normal inspiratory collapse consistent with estimated right atrial pressure of 5 mmHg. 18. There is no pericardial effusion. PIG BREEDER: Carlotta Grossman RDCS
[2019-01-05 13:39] VITALS: BMI 24.2
[2019-01-05] MEDS: guaiFENesin 600 MG TABLET.ER PO SCH ×2 (14:14→21:18)
[2019-01-05] MEDS: LORATADINE-PSEUDOEPH 5-120 MG 1 EACH TAB.ER.12H PO SCH ×2 (15:48→21:18)
[2019-01-05 17:23] LABS: Glucose,Whole Blood 126 mg/dL (75-99)
[2019-01-05] MEDS: ASPIRIN 81 MG PO SCH (17:42)
[2019-01-05] MEDS: hydrALAZINE HCL 50 MG TAB PO SCH ×3 (17:42→21:18)
[2019-01-05] MEDS: FOLIC ACID-VIT B COMPLEX-VIT C 1 CAP PO SCH (17:42)
[2019-01-05] MEDS: INSULIN DETEMIR (LEVEMIR) 100 UNIT/ML SYR SQ SCH (17:44)
[2019-01-05] MEDS ORDERED: GELATIN SPONGE,ABSORB (LARGE) 1 EACH SPONGE ONE (18:00)
--- NOTE | 2019-01-05 18:29 | P.HPIM ---
History of Present Illness H&P Date: 01/05/19 Chief Complaint: Short of breath History of presenting complaint: This is a pleasant 58 O patient who follows with Dr. Robert. Chronic stable medical conditions include diabetes, GERD, hyperlipidemia, hypertension, osteoporosis, bovine articular replacement, gout, diabetic peripheral neuropathy, left AKA, retinopathy. Patient scheduled for hemodialysis on Saturday and Saturday. Patient's been having increasing shortness of breath for about 4 days. Patient is troubled with the sinus drainage that is also coughing. Patient will oftentimes and Mucinex. Patient is having dry heaves and patient missed his hemodialysis on Saturday. Patient yesterday developed ches t pressure for a few hours across the chest. No radiation of the neck or arm. No dizziness, lightheadedness. Patient presented to ER was found to be in pulmonary edema with right pleural effusion. Cardiology and nephrology consultation was ordered. This afternoon and was getting hemodialyzed. No fever no chills. Patient seems to be quite a bit bothered by his postnasal drip. Review of systems: GEN.: Tired EYES: Some decrease in vision] HEENT: None NECK: None RESPIRATORY: As above] CARDIOVASCULAR: As above GASTROINTESTINAL: None GENITOURINARY: None MUSCULOSKELETAL: None LYMPHATICS: None HEMATOLOGICAL: None PSYCHIATRY: None NEUROLOGICAL: None Social history: . 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 Very much uses a wheelchair. Has a left leg prosthesis. Family history: Diabetes osteoarthritis Physical examination: VITAL SIGNS: 98.3, 68, 18, 188/78, 98% room air GENERAL: Average built, sitting up, tired. EYES: Pupils equal. Conjunctiva normal. HEENT: External appearance of nose and ears normal, oral cavity grossly normal. NECK: JVD possibly raised; masses not palpable. HEART: First and second heart sounds are normal; no edema. LUNGS: Respiratory rate decreased breath sounds and some basal crackles. ABDOMEN: Soft, nontender, liver spleen not palpable, no masses palpable. LYMPHATICS: No lymph nodes palpable in the axilla and neck. PSYCH: Alert and oriented x3; mood and affect normal. NEUROLOGICAL: Cranial nerves grossly intact; no facial asymmetry, power and sensation grossly intact EXTREMITIES: Left above-knee amputation. Investigations: Reviewed in the clinical context EKG tracing personally reviewed by me shows nonspecific T-wave changes Chest [id number] reviewed by me shows cardiomegaly and pulmonary edema and right pleural effusion 2-D echo shows EF of 50-55 % Assessment: -Acute pulmonary edema secondary to incomplete hemodialysis -Diabetes mellitus type 2 chronically on insulin -GERD -Hyperlipidemia -Essential hypertension -Primary osteoarthritis of multiple joints -End-stage kidney disease on hemodialysis with left arm fistula on Saturday and Saturday -aortic replacement bovine type -Diabetic peripheral neuropathy -Left below-knee amputation -Essential hypertension with chronic kidney disease -Diabetic gastroparesis -Peripheral artery disease -Diabetic retinopathy -Hyperlipidemia Plan: Cardiology and nephrology was consulted. Patient is getting hemodialysis today. Home medications are resumed. Close eyes be kept on the blood pressure. Accu- Cheks and be closely followed. Care was discussed with the patient. Questions were answered Past Medical History Past Medical History: Coronary Artery Disease (CAD), Diabetes Mellitus, Eye Disorder, GERD/Reflux, Hearing Disorder / Deafness, Hyperlipidemia, Hypertension, Hypertension, Osteoarthritis (OA), Renal Disease, Renal Disease, Vascular Disorder Additional Past Medical History / Comment(s): Aortic valve replacement - BOVINE, gout, IDDM type II, end-stage renal disease past peritoneal dialysis, now hemodialysis M-W-F, diabetic peripheral neuropathy, L foot ulcers, R foot infection, L BKA, bilateral diabetic retinopathy, bilateral cataracts, bleeds behind retina, history of osteomyelitis, history of MRSA infection, diabetic gastroparesis, PVD. History of Any Multi-Drug Resistant Organisms: MRSA Date of last positivie culture/infection: 2011 MDRO Source:: LEFT FOOT Past Surgical History: Cardiac Valve Replacement, Cholecystectomy, Hernia Repair, Orthopedic Surgery Additional Past Surgical History / Comment(s): L arm fistula being used for hemodialysis, R upper chest moura cath- removed . 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 No experience. No recent travels. No animals in the home. No significant alcohol use. No current tobacco use. 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 - Past Family History Mother Family Medical History: Diabetes Mellitus, Osteoarthritis (OA) Additional Family Medical History / Comment(s): HIP REPLACMENTS Father Family Medical History: CVA/TIA, Diabetes Mellitus, Myocardial Infarction ([place]), Musculoskeletal Disorder, Neurologic Disorder Additional Family Medical History / Comment(s): PARKINSON'S Medications and Allergies Home Medications Medication Instructions Recorded Confirmed Type Insulin Glargine [Lantus] 40 unit SQ QAM 05/09/16 01/04/19 History Aspirin 81 mg PO DAILY #1 chewable 02/21/17 01/04/19 Rx Atorvastatin [Lipitor] 10 mg PO HS 11/25/17 01/04/19 History Calcium Acetate [PhosLo] 667 mg PO AC-BID 11/25/17 01/04/19 History Jannie-Bruna 1 tab PO DAILY 11/25/17 01/04/19 History hydrALAZINE HCL [Apresoline] 100 mg PO BID 08/14/18 01/04/19 History INSULIN ASPART (NovoLOG) [NovoLOG See Protocol SQ AC-TID 01/04/19 01/04/19 History (formulary)] Metoprolol Tartrate [Lopressor] 25 mg PO BID 01/04/19 01/04/19 History Allergies Allergy/AdvReac Type Severity Reaction Status Date / Time Iodinated Contrast- Oral and AdvReac shut down Verified 01/04/19 16:26 IV Dye kidneys [Iodinated Contrast Media - IV Dye] Physical Exam Vitals: Vital Signs Temp Pulse Pulse Pulse Resp BP BP 01/05/19 08:16 68 01/05/19 08:04 68 01/05/19 04:37 97 F L 67 67 18 170/79 01/05/19 00:21 66 01/05/19 00:19 97.9 F 66 18 132/65 01/04/19 20:03 70 01/04/19 20:00 97.5 F L 72 72 18 144/65 01/04/19 19:47 68 01/04/19 16:54 98.1 F 67 18 209/91 01/04/19 16:40 98.4 F 66 20 198/78 01/04/19 16:10 66 18 195/85 Pulse Ox 01/05/19 08:16 01/05/19 08:04 01/05/19 04:37 92 L 01/05/19 00:21 01/05/19 00:19 97 01/04/19 20:03 01/04/19 20:00 97 01/04/19 19:47 01/04/19 16:54 95 01/04/19 16:40 98 01/04/19 16:10 98 Intake and Output 01/05/19 01/05/19 01/05/19 06:59 14:59 22:59 Other: Voiding Method Toilet # Voids 0 Weight 74.5 kg 74.5 kg Results CBC & Chem 7: 01/04/19 15:20 01/04/19 15:20 Labs: Abnormal Lab Results - Last 24 Hours (Table) 01/04/19 01/04/19 01/04/19 Range/Units 15:20 15:20 17:32 APTT 20.8 L (22.0-30.0) sec Potassium 5.8 H (3.5-5.1) mmol/L BUN 57 H (9-20) mg/dL Creatinine 9.40 H* (0.66-1.25) mg/dL Glucose 206 H (74-99) mg/dL POC Glucose (mg/dL) 259 H (75-99) mg/dL Creatine Kinase 196 H (55-170) U/L 01/04/19 01/05/19 01/05/19 Range/Units 21:18 06:15 12:13 APTT (22.0-30.0) sec Potassium (3.5-5.1) mmol/L BUN (9-20) mg/dL Creatinine (0.66-1.25) mg/dL Glucose (74-99) mg/dL POC Glucose (mg/dL) 200 H 125 H 156 H (75-99) mg/dL Creatine Kinase (55-170) U/L Thrombosis Risk Factor Assmnt - Choose All That Apply Each Factor Represents 1 point: Age 41-60 years, Obesity (BMI >25) Thrombosis Risk Factor Assessment Total Risk Factor Score: 2 Thrombosis Risk Factor Assessment Level: Low Risk
[2019-01-05 20:44] LABS: Glucose,Whole Blood 209 mg/dL (75-99)
[2019-01-05 21:03] LABS: Hepatitis B Surface AB- Quant 120.9 mIU/mL
[2019-01-05] MEDS: ATORVASTATIN 10 MG TAB PO SCH (21:18)
[2019-01-05] MEDS ORDERED: BACLOFEN 10 MG TAB PO STA (21:59)
[2019-01-05] MEDS ORDERED: ACETAMINOPHEN TAB 500 MG TAB PO STA (22:00)
[2019-01-05] MEDS ORDERED: DIAZEPAM 2 MG TAB PO STA (22:00)
[2019-01-05] MEDS ORDERED: NAPROXEN 250 MG TAB PO STA (22:01)
[2019-01-06] MEDS: IPRATROPIUM-ALBUTEROL 3 ML NEB INHALATION SCH ×5 (03:18→19:28)
[2019-01-06 05:56] LABS: Glucose,Whole Blood 134 mg/dL (75-99)
[2019-01-06] MEDS: INSULIN ASPART (NovoLOG) 100 UNIT/ML VIAL SQ SCH ×5 (06:53→21:33)
[2019-01-06] MEDS: CALCIUM ACETATE 667 MG CAP PO SCH ×2 (07:05→17:05)
[2019-01-06] MEDS: cloNIDine HCL 0.2 MG TAB PO SCH (08:54)
[2019-01-06] MEDS: guaiFENesin 600 MG TABLET.ER PO SCH ×2 (08:54→20:20)
[2019-01-06] MEDS: FOLIC ACID-VIT B COMPLEX-VIT C 1 CAP PO SCH (08:54)
[2019-01-06] MEDS: ASPIRIN 81 MG PO SCH (08:54)
[2019-01-06] MEDS: hydrALAZINE HCL 50 MG TAB PO SCH ×3 (08:55→20:21)
[2019-01-06] MEDS: LORATADINE-PSEUDOEPH 5-120 MG 1 EACH TAB.ER.12H PO SCH ×2 (08:55→20:22)
[2019-01-06] MEDS: INSULIN DETEMIR (LEVEMIR) 100 UNIT/ML SYR SQ SCH (08:56)
--- NOTE | 2019-01-06 10:57 | P.PN ---
Subjective Patient is seen in follow-up for end-stage renal disease. He is maintained on hemodialysis on a Saturday schedule. Still has a cough. Tolerated hemodialysis yesterday with 2 L ultrafiltration. Echocardiogram revealed ejection fraction of 50-55%. Denies chest pain. Vital signs are stable. General: The patient appeared well nourished and normally developed. HEENT: Head exam is unremarkable. Neck is without jugular venous distension. LUNGS: Lungs are clear to auscultation and percussion. Breath sounds decreased. HEART: Rate and Rhythm are regular. First and second heart sounds normal. No murmurs, rubs or gallops. ABDOMEN: Abdominal exam reveals normal bowel sounds. Non-tender and non- distended. No evidence of peritonitis. EXTREMITITES: No clubbing, cyanosis, or edema. Objective - Vital Signs Vital signs: Vital Signs Temp 97.7 F 01/06/19 08:00 Pulse 90 01/06/19 08:00 Resp 16 01/06/19 08:00 BP 130/71 01/06/19 08:00 Pulse Ox 93 L 01/06/19 08:00 Intake & Output 01/05/19 01/06/19 01/06/19 18:59 06:59 18:59 Intake Total 500 250 480 Output Total 2500 300 Balance -2000 250 180 Weight 74.5 kg 77.4 kg Intake: Oral 500 250 480 Output: Urine 300 Other 2500 Other: Voiding Method Toilet Toilet # Voids 0 1 # Bowel Movements 1 - Labs CBC & Chem 7: 01/04/19 15:20 01/04/19 15:20 Labs: Abnormal Lab Results - Last 24 Hours (Table) 01/05/19 01/05/19 01/05/19 Range/Units 02:47 12:13 16:55 POC Glucose (mg/dL) 156 H 126 H (75-99) mg/dL Hep Bs Antibody Reactive H (Non-Reactive) 01/05/19 01/06/19 Range/Units 20:43 05:55 POC Glucose (mg/dL) 209 H 134 H (75-99) mg/dL Hep Bs Antibody (Non-Reactive) Assessment and Plan Plan: Assessment: 1. End-stage renal disease maintained on hemodialysis on a Saturday schedule via left upper extremity AV fistula. 2. Dyspnea secondary to volume overload. BNP noted to be elevated. 3. Hypertension with chronic kidney disease. Controlled. 4. Chronic kidney disease mineral bone disease maintained on PhosLo. 5. Insulin-dependent diabetes mellitus. 6. Status post left qbrru-jwo-[id number] habitation. 7. Hyperkalemia secondary to chronic kidney disease. Expect improvement after dialysis. Plan: Ultrafiltration only today with goal 1-2 L. Hemodialysis tomorrow. Renal diet.
[2019-01-06 11:03] LABS: Glucose,Whole Blood 141 mg/dL (75-99)
--- NOTE | 2019-01-06 11:16 | P.PN ---
Subjective Progress Note Date: 01/06/19 This is a 58-year-old gentleman with history of end-stage renal disease on hemodialysis, history of aortic valve replacement, diabetes, hypertension, hyperlipidemia, who presented to the hospital with symptoms of progressively worsening shortness of breath and mild edema involving the right leg. He has a left below the knee amputation. He usually gets dialysis 3 times a week but he did this is dialysis on Saturday. The patient was seen in consultation yesterday by Dr. Castillo. He did undergo dialysis yesterday and will be scheduled again today to undergo dialysis. Today overall his breathing is significantly improved, the edema in his right lower extremity is also improved. Blood pressure 130/70 with a heart rate in the 90s, 93% on room air. Objective - Vital Signs Vital signs: Vital Signs Temp 97.7 F 01/06/19 08:00 Pulse 90 01/06/19 08:00 Resp 16 01/06/19 08:00 BP 130/71 01/06/19 08:00 Pulse Ox 93 L 01/06/19 08:00 Intake & Output 01/05/19 01/06/19 01/06/19 18:59 06:59 18:59 Intake Total 500 250 480 Output Total 2500 300 Balance -2000 250 180 Weight 74.5 kg 77.4 kg Intake: Oral 500 250 480 Output: Urine 300 Other 2500 Other: Voiding Method Toilet Toilet # Voids 0 1 # Bowel Movements 1 - Exam PHYSICAL EXAMINATION: GENERAL: 58-year-old gentleman in no acute distress at the time of my examination HEENT: Head is atraumatic, normocephalic. Pupils equal, round. Sclera anicteric. Conjunctiva are clear. Mucous membranes of the mouth are moist. Neck is supple. There is no elevated jugular venous pressure.] bruit is heard. HEART EXAMINATION: Are S1 S2 1 systolic ejection murmur is heard. CHEST EXAMINATION: Jugular diminished air entry to bilateral bases. ABDOMEN: Soft, nontender. Bowel sounds are heard. No organomegaly noted. EXTREMITIES: Trace edema to the right lower extremity, patient has a left [id number]-fwu-[id number] amputation Neurologically patient is alert and oriented 3. - Labs CBC & Chem 7: 01/04/19 15:20 01/04/19 15:20 Labs: Abnormal Lab Results - Last 24 Hours (Table) 01/05/19 01/05/19 01/05/19 Range/Units 02:47 12:13 16:55 POC Glucose (mg/dL) 156 H 126 H (75-99) mg/dL Hep Bs Antibody Reactive H (Non-Reactive) 01/05/19 01/06/19 01/06/19 Range/Units 20:43 05:55 10:52 POC Glucose (mg/dL) 209 H 134 H 141 H (75-99) mg/dL Hep Bs Antibody (Non-Reactive) Assessment and Plan Plan: Assessment and plan #1 symptoms of shortness of breath likely secondary to fluid overload, and missed dialysis. #2 history of aortic valve replacement #3 end-stage renal disease on hemodialysis #4 diabetes #5 hypertension #6 hyperlipidemia Plan Echocardiogram with Doppler study has been performed which revealed an ejection fraction of 50-55%, normally functioning bioprosthetic valve. From cardiology's perspective, patient may be able to be discharged home after his dialysis this afternoon if okay with primary. Follow-up appointment post discharge. DNP note has been reviewed, I agree with a documented findings and plan of care. Patient was seen and examined.
[2019-01-06 11:25] LABS: Glucose,Whole Blood 140 mg/dL (75-99)
--- NOTE | 2019-01-06 13:47 | CDI ---
Documentation Clarification Form Date: 01/06/2019 1:30:27 PM From: Genie Peace CCS, CCDS Admit Date: 01/04/2019 4:32:00 PM Patient Name: Andi Parker Visit Number: [id number] Discharge Date: ATTENTION: The Clinical Documentation Specialists (CDI) and [facility] Coding Staff appreciate your assistance in clarifying documentation. Please respond to the clarification below the line at the bottom and electronically sign. The CDI & [facility] Coding staff will review the response and follow-up if needed. Please note: Queries are made part of the Legal Health Record. If you have any questions, please contact the author of this message via ITS. Dr. Alex Felton: Patient presented to ED with chest pain & pressure & SOB. Hx aortic valve surgery & on dialysis for ESRD with IDDM II. Also nausea, vomiting & diarrhea, productive cough w/phlegm. Per ED note: admitted with chest pain, chronic renal failure & CHF. 1+ edema right leg. History/Risk Factors: AVR, ESRD with IDDM II, PVD, Hypertension & CAD, Left AKA. Clinical Indicators: Patient is ESRD with hemodialysis dependent, missed dialysis Saturday prior to admission and presented with SOB secondary to fluid overload related to underlying end stage renal disease. VS: P 68, R 18-20 (SOB, cough), BP 188/78, PO 98 ra BNP: 22,800 Echocardiogram Results 01/05: Moderate concentric LVH, left ventricular systolic function low normal w/EF 50-55%, Mild MR, Mild TR, no evidence of pulmonary hypertension. Chest X Ray 01/04: Right pleural effusion. Mild heart failure improved slightly compared to last exam. Right LL pneumonia is possible. Treatment: Hemodialysis, Albuterol INH, Insulin sq. Home meds: Apresoline, Lopressor, Insulin sq, PhosLo, Lipitor, ASA, Daily weights, O2 2Lnc In your professional opinion, can you please clarify the acuity and type of CHF if known or specify if CHF is ruled out: Systolic Heart Failure: o Acute o Chronic o Acute on Chronic Diastolic Heart Failure: o Acute o Chronic o Acute on Chronic Systolic & Diastolic Heart Failure: o Acute o Chronic o Acute on Chronic Heart Failure Unable to Determine Other, please specify (Last Revision: December 2017) MTDD
[2019-01-06 16:42] LABS: Glucose,Whole Blood 164 mg/dL (75-99)
[2019-01-06] MEDS: ATORVASTATIN 10 MG TAB PO SCH (20:21)
[2019-01-06] MEDS: cloNIDine HCL 0.1 MG TAB PO SCH (20:21)
[2019-01-06 20:57] LABS: Glucose,Whole Blood 69 mg/dL (75-99)
[2019-01-06 21:13] LABS: Glucose,Whole Blood 73 mg/dL (75-99)
--- NOTE | 2019-01-06 22:07 | PN ---
PROGRESS NOTE DATE OF SERVICE: 01/06/2019 PRESENTING COMPLAINT: Short of breath. INTERVAL HISTORY: This patient was admitted with acute pulmonary edema. Did well after ultrafiltration yesterday. Also had postnasal drip, responding to Claritin-D. Doing somewhat better. Did have breakfast. Not much of an appetite for lunch. REVIEW OF SYSTEMS: Done for constitutional, cardiovascular, GI, pulmonary; relevant findings as above. CURRENT MEDICATIONS: Reviewed. PHYSICAL EXAMINATION: Afebrile. Pulse 80, respirations 18, blood pressure 138/76, pulse ox 99% on room air. GENERAL APPEARANCE: Sitting up. Awake. EYES: Pupils equal. Conjunctivae normal. NECK: JVD not raised. Mass not palpable. RESPIRATORY: Effort normal. LUNGS: Slightly decreased breath sounds. CARDIOVASCULAR: First and second sounds normal. No edema. ABDOMEN: Soft, non-tender. Liver and spleen not palpable. PSYCHIATRY: Alert and oriented x3. Mood and affect normal. INVESTIGATIONS: Accu-Cheks are noted. ASSESSMENT: 1. Acute pulmonary edema secondary to incomplete hemodialysis, improving after ultrafiltration today. 2. Diabetes mellitus, type 2, chronically on insulin. 3. Gastroesophageal reflux disease. 4. Hyperlipidemia. 5. Essential hypertension. 6. Primary osteoarthritis in multiple joints. 7. End-stage kidney disease, on hemodialysis with a left arm fistula Saturday, Saturday and Saturday. 8. Aortic valve replacement, bovine type. 9. Diabetic peripheral neuropathy. 10.Left below-knee amputation. 11.Essential hypertension from chronic kidney disease. 12.Diabetic gastroparesis. 13.Peripheral artery disease. 14.Diabetic retinopathy. 15.Hyperlipidemia. PLAN: Doing better. The patient should be able to get discharged after hemodialysis. Care was discussed with the patient and with Dr. Wilkinson. MMODL / IJN: [id number] /
[2019-01-07] MEDS: IPRATROPIUM-ALBUTEROL 3 ML NEB INHALATION SCH ×5 (00:52→15:40)
[2019-01-07 06:34] LABS: Glucose,Whole Blood 117 mg/dL (75-99)
[2019-01-07 06:57] LABS: Anisocytosis Slight; Basophils % (A) 0 %; Eosinophils # (A) 0.2 k/uL (0-0.7); Eosinophils % (A) 5 %; HCT 26.2 % (39.0-53.0); HGB 8.6 gm/dL (13.0-17.5); Lymphocytes # (A) 0.4 k/uL (1.0-4.8); Lymphocytes % (A) 8 %; MCH 30.5 pg (25.0-35.0); MCHC 32.9 g/dL (31.0-37.0); MCV 92.6 fL (80.0-100.0); Mean Platelet Volume 7.7; Monocytes # (A) 0.5 k/uL (0-1.0); Monocytes % (A) 11 %; Neutrophils # (A) 3.3 k/uL (1.3-7.7); Neutrophils % (A) 73 %; Platelet Count 168 k/uL (150-450); RBC 2.83 m/uL (4.30-5.90); RDW 17.2 % (11.5-15.5); WBC 4.5 k/uL (3.8-10.6)
[2019-01-07] MEDS: INSULIN ASPART (NovoLOG) 100 UNIT/ML VIAL SQ SCH ×2 (07:03→12:04)
[2019-01-07] MEDS: CALCIUM ACETATE 667 MG CAP PO SCH (07:04)
[2019-01-07 07:12] LABS: Calcium 9.4 mg/dL (8.4-10.2); Potassium 5.5 mmol/L (3.5-5.1)
[2019-01-07] MEDS: INSULIN DETEMIR (LEVEMIR) 100 UNIT/ML SYR SQ SCH (09:08)
--- NOTE | 2019-01-07 09:28 | P.PN ---
Subjective Patient is seen in follow-up for end-stage renal disease. He is maintained on hemodialysis on a Saturday schedule. Still has a cough. Tolerated 1 L ultrafiltration only treatment yesterday. Echocardiogram revealed ejection fraction of 50-55%. Denies chest pain. Vital signs are stable. General: The patient appeared well nourished and normally developed. HEENT: Head exam is unremarkable. Neck is without jugular venous distension. LUNGS: Lungs are clear to auscultation and percussion. Breath sounds decreased. HEART: Rate and Rhythm are regular. First and second heart sounds normal. No murmurs, rubs or gallops. ABDOMEN: Abdominal exam reveals normal bowel sounds. Non-tender and non- distended. No evidence of peritonitis. EXTREMITITES: No clubbing, cyanosis, or edema. Objective - Vital Signs Vital signs: Vital Signs Temp 98.1 F 01/07/19 07:35 Pulse 76 01/07/19 08:02 Resp 16 01/07/19 07:40 BP 146/69 01/07/19 07:35 Pulse Ox 98 01/07/19 07:35 Intake & Output 01/06/19 01/07/19 01/07/19 18:59 06:59 18:59 Intake Total 600 240 Output Total 500 200 Balance 100 -200 240 Weight 75.4 kg Intake: Oral 600 240 Output: Urine 500 200 Other: Voiding Method Toilet Toilet Toilet # Voids 1 - Labs CBC & Chem 7: 01/07/19 06:31 01/07/19 06:31 Labs: Abnormal Lab Results - Last 24 Hours (Table) 01/06/19 01/06/19 01/06/19 Range/Units 10:52 11:24 16:40 RBC (4.30-5.90) m/uL Hgb (13.0-17.5) gm/dL Hct (39.0-53.0) % RDW (11.5-15.5) % Lymphocytes # (1.0-4.8) k/uL Potassium (3.5-5.1) mmol/L Chloride (98-107) mmol/L BUN (9-20) mg/dL Creatinine (0.66-1.25) mg/dL Glucose (74-99) mg/dL POC Glucose (mg/dL) 141 H 140 H 164 H (75-99) mg/dL 01/06/19 01/06/19 01/07/19 Range/Units 20:55 21:11 06:31 RBC 2.83 L (4.30-5.90) m/uL Hgb 8.6 L (13.0-17.5) gm/dL Hct 26.2 L (39.0-53.0) % RDW 17.2 H (11.5-15.5) % Lymphocytes # 0.4 L (1.0-4.8) k/uL Potassium (3.5-5.1) mmol/L Chloride (98-107) mmol/L BUN (9-20) mg/dL Creatinine (0.66-1.25) mg/dL Glucose (74-99) mg/dL POC Glucose (mg/dL) 69 L 73 L (75-99) mg/dL 01/07/19 01/07/19 Range/Units 06:31 06:33 RBC (4.30-5.90) m/uL Hgb (13.0-17.5) gm/dL Hct (39.0-53.0) % RDW (11.5-15.5) % Lymphocytes # (1.0-4.8) k/uL Potassium 5.5 H (3.5-5.1) mmol/L Chloride 97 L (98-107) mmol/L BUN 43 H (9-20) mg/dL Creatinine 9.69 H* (0.66-1.25) mg/dL Glucose 107 H (74-99) mg/dL POC Glucose (mg/dL) 117 H (75-99) mg/dL Assessment and Plan Plan: Assessment: 1. End-stage renal disease maintained on hemodialysis on a Saturday schedule via left upper extremity AV fistula. 2. Dyspnea secondary to volume overload. BNP noted to be elevated. 3. Hypertension with chronic kidney disease. Controlled. 4. Chronic kidney disease mineral bone disease maintained on PhosLo. 5. Insulin-dependent diabetes mellitus. 6. Status post left ldxky-qal-ekhf habitation. 7. Hyperkalemia secondary to chronic kidney disease. Expect improvement after dialysis. Plan: Hemodialysis today. Renal diet. Potential discharge after dialysis today.
--- NOTE | 2019-01-07 11:43 | P.PN ---
Subjective Progress Note Date: 01/07/19 This is a 58-year-old gentleman with history of end-stage renal disease on hemodialysis, history of aortic valve replacement, diabetes, hypertension, hyperlipidemia, who presented to the hospital with symptoms of progressively worsening shortness of breath and mild edema involving the right leg. He has a left below the knee amputation. He usually gets dialysis 3 times a week but he did this is dialysis on Saturday. The patient was seen in consultation yesterday by Dr. Felton. He did undergo dialysis yesterday and will be scheduled again today to undergo dialysis. Today overall his breathing is significantly improved, the edema in his right lower extremity is also improved. Blood pressure 130/70 with a heart rate in the 90s, 93% on room air. 2018 Patient was seen and examined this morning, feeling overall much better, denies any further shortness of breath, anticipating discharge home today. Echocardiogram with Doppler study revealed a normal left ventricular systolic function with normally functioning bioprosthetic valve. Objective - Vital Signs Vital signs: Vital Signs Temp 97.4 F L 01/07/19 10:55 Pulse 76 01/07/19 11:30 Resp 18 01/07/19 11:20 BP 144/76 01/07/19 11:19 Pulse Ox 96 01/07/19 11:19 Intake & Output 01/06/19 01/07/19 01/07/19 18:59 06:59 18:59 Intake Total 600 240 Output Total 500 200 Balance 100 -200 240 Weight 75.4 kg Intake: Oral 600 240 Output: Urine 500 200 Other: Voiding Method Toilet Toilet Toilet # Voids 1 - Exam PHYSICAL EXAMINATION: GENERAL: 58-year-old gentleman in no acute distress at the time of my examination HEENT: Head is atraumatic, normocephalic. Pupils equal, round. Sclera anicteric. Conjunctiva are clear. Mucous membranes of the mouth are moist. Neck is supple. There is no elevated jugular venous pressure.] bruit is heard. HEART EXAMINATION: Heart S1 S2 1 systolic ejection murmur is heard. CHEST EXAMINATION: Lungs are clear to auscultation. ABDOMEN: Soft, nontender. Bowel sounds are heard. No organomegaly noted. EXTREMITIES: Trace edema to the right lower extremity, patient has a left [id number] amputation Neurologically patient is alert and oriented 3. - Labs CBC & Chem 7: 01/07/19 06:31 01/07/19 06:31 Labs: Abnormal Lab Results - Last 24 Hours (Table) 01/06/19 01/06/19 01/06/19 Range/Units 16:40 20:55 21:11 RBC (4.30-5.90) m/uL Hgb (13.0-17.5) gm/dL Hct (39.0-53.0) % RDW (11.5-15.5) % Lymphocytes # (1.0-4.8) k/uL Potassium (3.5-5.1) mmol/L Chloride (98-107) mmol/L BUN (9-20) mg/dL Creatinine (0.66-1.25) mg/dL Glucose (74-99) mg/dL POC Glucose (mg/dL) 164 H 69 L 73 L (75-99) mg/dL 01/07/19 01/07/19 01/07/19 Range/Units 06:31 06:31 06:33 RBC 2.83 L (4.30-5.90) m/uL Hgb 8.6 L (13.0-17.5) gm/dL Hct 26.2 L (39.0-53.0) % RDW 17.2 H (11.5-15.5) % Lymphocytes # 0.4 L (1.0-4.8) k/uL Potassium 5.5 H (3.5-5.1) mmol/L Chloride 97 L (98-107) mmol/L BUN 43 H (9-20) mg/dL Creatinine 9.69 H* (0.66-1.25) mg/dL Glucose 107 H (74-99) mg/dL POC Glucose (mg/dL) 117 H (75-99) mg/dL Assessment and Plan Plan: Assessment and plan #1 symptoms of shortness of breath likely secondary to fluid overload, and missed dialysis. #2 history of aortic valve replacement #3 end-stage renal disease on hemodialysis #4 diabetes #5 hypertension #6 hyperlipidemia Plan Echocardiogram with Doppler study has been performed which revealed an ejection fraction of 50-55%, normally functioning bioprosthetic valve. From cardiology's perspective, patient may be able to be discharged home once cleared by primary. We will make him a follow-up appointment in the office post discharge. DNP note has been reviewed, I agree with a documented findings and plan of care. Patient was seen and examined.
[2019-01-07 11:47] LABS: Glucose,Whole Blood 177 mg/dL (75-99)
[2019-01-07 14:42] VITALS: BP 137/71; PULSE 92; RESP 12; TEMP 97.6
[2019-01-07] MEDS: cloNIDine HCL 0.1 MG TAB PO SCH (14:48)
[2019-01-07] MEDS: guaiFENesin 600 MG TABLET.ER PO SCH (14:48)
[2019-01-07] MEDS: LORATADINE-PSEUDOEPH 5-120 MG 1 EACH TAB.ER.12H PO SCH (14:48)
[2019-01-07] MEDS: ASPIRIN 81 MG PO SCH (14:48)
[2019-01-07] MEDS: FOLIC ACID-VIT B COMPLEX-VIT C 1 CAP PO SCH (14:48)
[2019-01-07] MEDS: hydrALAZINE HCL 50 MG TAB PO SCH ×2 (14:48→14:50)
--- NOTE | 2019-01-08 01:10 | DS ---
DISCHARGE SUMMARY DATE OF ADMISSION: 01/04/2019 DATE OF DISCHARGE: 01/07/2019. FINAL DIAGNOSES: 1. Acute pulmonary edema secondary to incomplete hemodialysis, improved after ultrafiltration hemodialysis. 2. Diabetes mellitus type 2, chronically on insulin. 3. Gastroesophageal reflux disease. 4. Hyperlipidemia. 5. Essential hypertension. 6. Primary osteoarthritis of multiple joints. 7. End-stage kidney disease on hemodialysis. The left arm fistula Saturday, Saturday, Saturday. 8. Aortic valve replacement, bovine type. 9. Diabetic peripheral neuropathy. 10.Left below-knee amputation. 11.Essential hypertension and chronic kidney disease. 12.Diabetic gastroparesis. 13.Peripheral artery disease. 14.Diabetic retinopathy. 15.Hyperlipidemia. HOSPITAL COURSE: This patient presented with shortness of breath. Did actually miss his hemodialysis because of dry heaving, was found to be in pulmonary edema, had to have ultrafiltration followed next day by hemodialysis and that is why he got better. Patient also having a postnasal drip to which he responded well to Claritin-D. Discussed with the patient and today. Overall doing better. Was hemodialysis today. CONSULTATION: Dr. Kevin Felton from Cardiology, Dr. Wilkinson from Nephrology. The patient did have a 2-D echocardiogram that showed EF of 50-55 percent. PHYSICAL EXAMINATION: Temperature 97.6, pulse 92, respiration 15, blood pressure 137/71, pulse ox 96% on 2 L. Lungs fair entry. Cardiovascular: First and second sounds normal. LABS: Hemoglobin 8.6, potassium 5.5, BUN 43, creatinine 9.69. DISCHARGE MEDICATIONS: 1. Lantus 40 units subcu daily. 2. Aspirin 81 mg a day. 3. Lipitor 10 mg q.h.s. 4. PhosLo 1 tablet a.c. b.i.d. 5. Jannie Bruna 1 tablet p.o. daily. 6. Hydralazine 100 mg p.o. b.i.d. 7. NovoLog a.c. t.i.d. per scale. 8. Claritin 1 tab q.12h 14 tablets. 9. Catapres 0.1 mg p.o. b.i.d. 10.Mucinex 200 mg p.o. q.12, 14 tablets. The patient to maintain hemodialysis schedule. Follow up with Dr. Robert on 01/19/2019. Copy Dr. Robert. STONE / IJN: [id number] /
--- NOTE | 2019-01-08 08:47 | CDI ---
Documentation Clarification Form Date: 01/06/2019 1:30:00 PM From: Genie Peace CCS, CCDS Admit Date: 01/04/2019 4:32:00 PM Patient Name: Andi Parker Visit Number: [id number] Discharge Date: 01/07/2019 3:35:00 PM ATTENTION: The Clinical Documentation Specialists (CDI) and [facility] Coding Staff appreciate your assistance in clarifying documentation. Please respond to the clarification below the line at the bottom and electronically sign. The CDI & [facility] Coding staff will review the response and follow-up if needed. Please note: Queries are made part of the Legal Health Record. If you have any questions, please contact the author of this message via ITS. Dr. Alex Felton: Patient presented to ED with chest pain & pressure & SOB. Hx aortic valve surgery & on dialysis for ESRD with IDDM II. Also nausea, vomiting & diarrhea, productive cough w/phlegm. Per ED note: admitted with chest pain, chronic renal failure & CHF. 1+ edema right leg. History/Risk Factors: AVR, ESRD with IDDM II, PVD, Hypertension & CAD, Left AKA. Clinical Indicators: Patient is ESRD with hemodialysis dependent, missed dialysis Saturday prior to admission and presented with SOB secondary to fluid overload related to underlying end stage renal disease. VS: P 68, R 18-20 (SOB, cough), BP 188/78, PO 98 ra BNP: 22,800 Echocardiogram Results 01/05: Moderate concentric LVH, left ventricular systolic function low normal w/EF 50-55%, Mild MR, Mild TR, no evidence of pulmonary hypertension. Chest X Ray 01/04: Right pleural effusion. Mild heart failure improved slightly compared to last exam. Right LL pneumonia is possible. Treatment: Hemodialysis, Albuterol INH, Insulin sq. Home meds: Apresoline, Lopressor, Insulin sq, PhosLo, Lipitor, ASA, Daily weights, O2 2Lnc In your professional opinion, can you please clarify the acuity and type of CHF if known or specify if CHF is ruled out: Systolic Heart Failure: o Acute o Chronic o Acute on Chronic Diastolic Heart Failure: o Acute o Chronic o Acute on Chronic Systolic & Diastolic Heart Failure: o Acute o Chronic o Acute on Chronic Heart Failure Congestive Heart Failure Ruled Out Unable to Determine Other, please specify (Last Revision: December 2017) ___acute on chronic diastolic chf MTDD
== END 2019-01-07 15:35 | disposition home health service (06) | DRG 291 ==
LOC: EC 14:48 → 3SCARD 16:32
PROVIDERS: ADMIT Hospitalist; ATTEND Hospitalist
PROC: 5A1D70Z Performance of Urinary Filtration, Intermittent, Less than 6 Hours Per Day (ICD-10-PCS; principal; 2019-01-05)
PROC: 5A1D70Z Performance of Urinary Filtration, Intermittent, Less than 6 Hours Per Day (ICD-10-PCS; 2019-01-06)
PROC: 5A1D70Z Performance of Urinary Filtration, Intermittent, Less than 6 Hours Per Day (ICD-10-PCS; 2019-01-07)
DX: I13.2 Hypertensive heart and chronic kidney disease with heart failure and with stage 5 chronic kidney disease, or end stage renal disease (principal); N18.6 End stage renal disease; I50.33 Acute on chronic diastolic (congestive) heart failure; E11.22 Type 2 diabetes mellitus with diabetic chronic kidney disease; E11.42 Type 2 diabetes mellitus with diabetic polyneuropathy; E11.319 Type 2 diabetes mellitus with unspecified diabetic retinopathy without macular edema; K31.84 Gastroparesis; E83.9 Disorder of mineral metabolism, unspecified; E87.5 Hyperkalemia; E11.51 Type 2 diabetes mellitus with diabetic peripheral angiopathy without gangrene; E11.43 Type 2 diabetes mellitus with diabetic autonomic (poly)neuropathy; I45.81 Long QT syndrome; D64.9 Anemia, unspecified; M81.0 Age-related osteoporosis without current pathological fracture; R09.82 Postnasal drip; I45.10 Unspecified right bundle-branch block; I25.10 Atherosclerotic heart disease of native coronary artery without angina pectoris; K21.9 Gastro-esophageal reflux disease without esophagitis; H91.90 Unspecified hearing loss, unspecified ear; E78.5 Hyperlipidemia, unspecified; M19.91 Primary osteoarthritis, unspecified site; Z99.2 Dependence on renal dialysis; Z79.82 Long term (current) use of aspirin; Z79.4 Long term (current) use of insulin; Z79.899 Other long term (current) drug therapy; Z95.3 Presence of xenogenic heart valve; Z87.39 Personal history of other diseases of the musculoskeletal system and connective tissue; Z90.49 Acquired absence of other specified parts of digestive tract; Z86.14 Personal history of Methicillin resistant Staphylococcus aureus infection; Z89.512 Acquired absence of left leg below knee; Z97.14 Presence of artificial left leg (complete) (partial); Z98.42 Cataract extraction status, left eye; Z98.41 Cataract extraction status, right eye; Z96.1 Presence of intraocular lens; Z91.041 Radiographic dye allergy status; Z82.61 Family history of arthritis; Z83.3 Family history of diabetes mellitus; Z82.49 Family history of ischemic heart disease and other diseases of the circulatory system; Z82.0 Family history of epilepsy and other diseases of the nervous system; Z82.3 Family history of stroke; Z99.3 Dependence on wheelchair; Z86.59 Personal history of other mental and behavioral disorders
CPT/HCPCS: 36415; 71046; 80048; 80053; 82550; 83735; 83880; 84484; 85025; 85610; 85730; 86704; 86706; 87340; 90935; 93005; 93306; 94640; 99285

== ENCOUNTER 2019-01-08 20:14 | Inpatient (IN) | payer MEDICARE ==
[2019-01-08] MEDS ORDERED: ONDANSETRON 4 MG/2 ML VIAL IVP STA ×2 (20:54→22:24)
[2019-01-08 21:31] LABS: Albumin 4.5 g/dL (3.5-5.0); Calcium 10.3 mg/dL (8.4-10.2); Total Bilirubin 1.4 mg/dL (0.2-1.3); Total Protein 7.1 g/dL (6.3-8.2)
[2019-01-08 21:51] LABS: Anisocytosis Slight; Basophils % (A) 0 %; Eosinophils # (A) 0.1 k/uL (0-0.7); Eosinophils % (A) 1 %; HCT 29.3 % (39.0-53.0); HGB 9.8 gm/dL (13.0-17.5); Lymphocytes # (A) 0.3 k/uL (1.0-4.8); Lymphocytes % (A) 3 %; MCH 30.8 pg (25.0-35.0); MCHC 33.4 g/dL (31.0-37.0); Mean Platelet Volume 7.5; Monocytes # (A) 0.4 k/uL (0-1.0); Monocytes % (A) 4 %; Neutrophils # (A) 9.9 k/uL (1.3-7.7); Neutrophils % (A) 91 %; Platelet Count 228 k/uL (150-450); RBC 3.19 m/uL (4.30-5.90); WBC 10.8 k/uL (3.8-10.6)
[2019-01-08] MEDS ORDERED: CALCIUM GLUCONATE 1 GM in SODIUM CHLORIDE 0.9% 100 ML IVPB ONE (22:01)
[2019-01-08] MEDS ORDERED: DEXTROSE 50% SYRINGE 50 ML IVP STA (22:01)
[2019-01-08] MEDS ORDERED: SODIUM BICARB 8.4% 50 ML SYR (1 MEQ/ML) IV STA (22:01)
[2019-01-08] MEDS ORDERED: INSULIN REGULAR 100 UNIT/ML VIAL IV STA (22:01)
[2019-01-08] MEDS ORDERED: NITROGLYCERIN OINT 1 INCH/GM PACKET TOPICAL STA (22:17)
[2019-01-08] MEDS ORDERED: NITROGLYCERIN SL TABS 0.4 MG TAB SUBLINGUAL STA (22:17)
[2019-01-08] MEDS ORDERED: SODIUM POLYSTYRENE SULFONATE 15 GM/60 ML BOTTLE PO STA (23:18)
[2019-01-08] MEDS ORDERED: PROMETHAZINE INJ 25 MG in SODIUM CHLORIDE 0.9% 50 ML IVPB STA (23:39)
[2019-01-09 02:40] LABS: Calcium 10.4 mg/dL (8.4-10.2)
[2019-01-09] MEDS ORDERED: ONDANSETRON 4 MG/2 ML VIAL IVP STA (02:50)
[2019-01-09] MEDS ORDERED: cloNIDine HCL 0.2 MG TAB PO STA (02:50)
[2019-01-09 02:52] LABS: Potassium 6.7 mmol/L (3.5-5.1)
[2019-01-09] MEDS ORDERED: DEXTROSE 50% SYRINGE 50 ML IVP STA (02:59)
[2019-01-09] MEDS ORDERED: CALCIUM GLUCONATE 1 GM in SODIUM CHLORIDE 0.9% 100 ML IVPB ONE (02:59)
[2019-01-09] MEDS ORDERED: INSULIN REGULAR 100 UNIT/ML VIAL IV STA (02:59)
[2019-01-09 06:54] LABS: Glucose,Whole Blood 123 mg/dL (75-99)
[2019-01-09] MEDS ORDERED: PROMETHAZINE 25 MG TAB PO PRN (08:08)
[2019-01-09] MEDS ORDERED: NALOXONE 0.4 MG/ML 1 ML VIAL IV PRN (08:08)
[2019-01-09] MEDS ORDERED: ONDANSETRON 4 MG/2 ML VIAL IVP PRN (08:08)
[2019-01-09] MEDS ORDERED: PROCHLORPERAZINE SUPPOSITORY 25 MG SUPP RECTAL PRN (08:08)
--- NOTE | 2019-01-09 08:19 | ED ---
Nausea/Vomiting/Diarrhea HPI - General Chief complaint: Nausea/Vomiting/Diarrhea Stated complaint: Nausea, Vomiting Time Seen by Provider: 01/08/19 20:54 Source: patient, EMS Mode of arrival: EMS Limitations: no limitations - History of Present Illness Initial comments: This patient is 58-year-old man who presents with complaint of nausea and vomiting. The patient had been admitted in the hospital here for pneumonia. He states that he had been discharged yesterday in the afternoon. A few hours after that he noticed that he was feeling nauseated and then started having vomiting. He states that he has continued to have vomiting and is not tolera ting any oral intake now. The patient states he is a dialysis patient and did have a normal dialysis yesterday. MD complaint: nausea, vomiting -: hour(s) Description of Vomiting: food contents, watery Location: diffuse Severity: mild Quality: cramping Consistency: intermittent Improves with: none Worsens with: none Associated Symptoms: nausea/vomiting - Related Data Home Medications Medication Instructions Recorded Confirmed Atorvastatin [Lipitor] 10 mg PO HS 11/25/17 01/08/19 Calcium Acetate [PhosLo] 667 mg PO AC-BID 11/25/17 01/08/19 Jannei-Bruna 1 tab PO DAILY 11/25/17 01/08/19 hydrALAZINE HCL [Apresoline] 100 mg PO BID 08/14/18 01/08/19 INSULIN ASPART (NovoLOG) [NovoLOG See Protocol SQ AC-TID 01/04/19 01/08/19 (formulary)] Previous Rx's Medication Instructions Recorded Aspirin 81 mg PO DAILY #1 chewable 02/21/17 cloNIDine HCL [Catapres] 0.1 mg PO BID #60 tab 01/07/19 guaiFENesin [Mucinex] 1,200 mg PO Q12HR #14 tablet.er 01/07/19 Insulin Glargine [Lantus] 20 unit SQ QAM #0 01/12/19 Omeprazole [PriLOSEC] 40 mg PO BID #60 capsule.dr 01/12/19 Promethazine [Phenergan] 12.5 mg PO Q6HR PRN #20 tab 01/12/19 Allergies Allergy/AdvReac Type Severity Reaction Status Date / Time Iodinated Contrast- Oral and AdvReac shut down Verified 01/08/19 20:32 IV Dye kidneys [Iodinated Contrast Media - IV Dye] Review of Systems ROS Statement: Those systems with pertinent positive or pertinent negative responses have been documented in the HPI. ROS Other: All systems not noted in ROS Statement are negative. Constitutional: Denies: fever, chills, weakness Respiratory: Reports: cough. Denies: dyspnea Cardiovascular: Denies: chest pain, palpitations, edema, syncope Gastrointestinal: Reports: nausea, vomiting. Denies: abdominal pain, diarrhea, constipation, melena, hematochezia Musculoskeletal: Denies: back pain Skin: Denies: rash Neurological: Denies: headache, weakness, numbness Past Medical History Past Medical History: Coronary Artery Disease (CAD), Diabetes Mellitus, Eye Disorder, GERD/Reflux, Hearing Disorder / Deafness, Hyperlipidemia, Hypertension, Hypertension, Osteoarthritis (OA), Renal Disease, Renal Disease, Vascular Disorder Additional Past Medical History / Comment(s): Aortic valve replacement - BOVINE, gout, IDDM type II, end-stage renal disease past peritoneal dialysis, now hemodialysis -W-, diabetic peripheral neuropathy, L foot ulcers, R foot infection, L BKA, bilateral diabetic retinopathy, bilateral cataracts, bleeds behind retina, history of osteomyelitis, history of MRSA infection, diabetic gastroparesis, PVD. History of Any Multi-Drug Resistant Organisms: MRSA Date of last positivie culture/infection: 2011 MDRO Source:: LEFT FOOT Past Surgical History: Cardiac Valve Replacement, Cholecystectomy, Hernia Repair, Orthopedic Surgery Additional Past Surgical History / Comment(s): L arm fistula being used for hemodialysis, R upper chest moura cath- removed . RT foot I&D when a metal fragment was in his foot that was also infected, LT FOOT DEBRIDEMENT ,5TH TOE AMP, 10/2016 L BKA, insertion and REMOVAL PD CATH.LT ARM FISTUAL, CATARACATS REMOVED-LENS IMPLANTS, YAMILKA EYE LASER EYE SX, LT INDEX FINGER PARTIAL AMP Past Anesthesia/Blood Transfusion Reactions: Motion Sickness Additional Past Anesthesia/Blood Transfusion Reaction / Comment(s): CLAUSTROPHOBIA Past Psychological History: Anxiety, Depression Smoking Status: Never smoker Past Alcohol Use History: None Reported Past Drug Use History: None Reported - Past Family History Mother Family Medical History: Diabetes Mellitus, Osteoarthritis (OA) Additional Family Medical History / Comment(s): HIP REPLACMENTS Father Family Medical History: CVA/TIA, Diabetes Mellitus, Myocardial Infarction ([place]), Musculoskeletal Disorder, Neurologic Disorder Additional Family Medical History / Comment(s): PARKINSON'S General Exam Limitations: no limitations General appearance: alert, in no apparent distress Head exam: Present: atraumatic, normocephalic Eye exam: Present: normal appearance. Absent: scleral icterus, conjunctival injection ENT exam: Present: normal oropharynx Respiratory exam: Present: normal lung sounds bilaterally. Absent: respiratory distress, wheezes, rales, rhonchi, stridor Cardiovascular Exam: Present: regular rate, normal rhythm, normal heart sounds. Absent: systolic murmur, diastolic murmur, rubs, gallop GI/Abdominal exam: Present: soft. Absent: distended, tenderness, guarding, rebound, rigid, mass Extremities exam: Present: normal capillary refill, other (Left below knee amputation). Absent: tenderness, pedal edema Back exam: Present: normal inspection. Absent: CVA tenderness (R), CVA tenderness (L) Neurological exam: Present: alert Skin exam: Present: warm, dry, intact, normal color. Absent: rash Course Vital Signs 01/08/19 01/09/19 01/09/19 20:19 02:08 03:37 Temperature 98 F Pulse Rate 84 80 83 Respiratory 16 16 16 Rate Blood Pressure 210/95 208/92 215/93 O2 Sat by Pulse 95 99 99 Oximetry 01/09/19 01/09/19 01/09/19 06:00 06:51 07:00 Temperature 98.5 F Pulse Rate 80 80 86 Respiratory 20 18 20 Rate Blood Pressure 143/82 99/66 104/66 O2 Sat by Pulse 98 98 97 Oximetry 01/09/19 08:48 Temperature Pulse Rate 75 Respiratory 18 Rate Blood Pressure 121/64 O2 Sat by Pulse 100 Oximetry Medical Decision Making - Medical Decision Making Patient is 58-year-old man with history of end-stage renal disease taking dialysis. The patient has been having some intractable vomiting since yesterday. We did attempt to manage his symptoms with a number of rounds of medication but he does continue to have intractable vomiting, and therefore will stay to have further symptomatic control. In addition the patient's labs reveal hyperkalemia with potassium of 7. The patient has not manifesting ECG evidence of hyperkalemia at this point. He does receive treatment for hyperkalemia, and I discussed case with Dr. Wilkinson, his bull driver. The treatment recommendations are incorporated. When the repeat potassium was still elevated despite medication, dialysis is arranged. - Lab Data Result diagrams: 01/10/19 07:15 01/11/19 06:42 Lab Results 01/08/19 01/08/19 01/09/19 Range/Units 20:25 20:25 02:19 WBC 10.8 H (3.8-10.6) k/uL RBC 3.19 L (4.30-5.90) m/uL Hgb 9.8 L (13.0-17.5) gm/dL Hct 29.3 L (39.0-53.0) % MCV 92.0 (80.0-100.0) fL MCH 30.8 (25.0-35.0) pg MCHC 33.4 (31.0-37.0) g/dL RDW 18.0 H (11.5-15.5) % Plt Count 228 (150-450) k/uL Neutrophils % 91 % Lymphocytes % 3 % Monocytes % 4 % Eosinophils % 1 % Basophils % 0 % Neutrophils # 9.9 H (1.3-7.7) k/uL Lymphocytes # 0.3 L (1.0-4.8) k/uL Monocytes # 0.4 (0-1.0) k/uL Eosinophils # 0.1 (0-0.7) k/uL Basophils # 0.0 (0-0.2) k/uL Anisocytosis Slight Sodium 139 141 (137-145) mmol/L Potassium 7.0 H* 6.7 H* (3.5-5.1) mmol/L Chloride 97 L 96 L (98-107) mmol/L Carbon Dioxide 28 28 (22-30) mmol/L Anion Gap 14 17 mmol/L BUN 31 H 34 H (9-20) mg/dL Creatinine 7.13 H* 7.72 H* (0.66-1.25) mg/dL Est GFR (CKD-EPI)AfAm 9 8 (>60 ml/min/1.73 sqM) Est GFR (CKD-EPI)NonAf 8 7 (>60 ml/min/1.73 sqM) Glucose 158 H 149 H (74-99) mg/dL POC Glucose (mg/dL) (75-99) mg/dL POC Glu Lap Regulator ID Calcium 10.3 H 10.4 H (8.4-10.2) mg/dL Total Bilirubin 1.4 H (0.2-1.3) mg/dL AST 47 (17-59) U/L ALT 39 (21-72) U/L Alkaline Phosphatase 87 (38-126) U/L Total Protein 7.1 (6.3-8.2) g/dL Albumin 4.5 (3.5-5.0) g/dL Amylase 49 (30-110) U/L Lipase 43 (23-300) U/L 01/09/19 Range/Units 06:51 WBC (3.8-10.6) k/uL RBC (4.30-5.90) m/uL Hgb (13.0-17.5) gm/dL Hct (39.0-53.0) % MCV (80.0-100.0) fL MCH (25.0-35.0) pg MCHC (31.0-37.0) g/dL RDW (11.5-15.5) % Plt Count (150-450) k/uL Neutrophils % % Lymphocytes % % Monocytes % % Eosinophils % % Basophils % % Neutrophils # (1.3-7.7) k/uL Lymphocytes # (1.0-4.8) k/uL Monocytes # (0-1.0) k/uL Eosinophils # (0-0.7) k/uL Basophils # (0-0.2) k/uL Anisocytosis Sodium (137-145) mmol/L Potassium (3.5-5.1) mmol/L Chloride (98-107) mmol/L Carbon Dioxide (22-30) mmol/L Anion Gap mmol/L BUN (9-20) mg/dL Creatinine (0.66-1.25) mg/dL Est GFR (CKD-EPI)AfAm (>60 ml/min/1.73 sqM) Est GFR (CKD-EPI)NonAf (>60 ml/min/1.73 sqM) Glucose (74-99) mg/dL POC Glucose (mg/dL) 123 H (75-99) mg/dL POC Glu Lap Regulator ID Yael Blue Calcium (8.4-10.2) mg/dL Total Bilirubin (0.2-1.3) mg/dL AST (17-59) U/L ALT (21-72) U/L Alkaline Phosphatase (38-126) U/L Total Protein (6.3-8.2) g/dL Albumin (3.5-5.0) g/dL Amylase (30-110) U/L Lipase (23-300) U/L Critical Care Time Critical Care Time: Yes (40 minutes) Disposition Clinical Impression: Intractable nausea and vomiting, Hyperkalemia Disposition: ADMITTED IP TO THIS [facility] Condition: Good
[2019-01-09] MEDS ORDERED: IBUPROFEN 800 MG TAB PO PRN (08:49)
[2019-01-09] MEDS ORDERED: LORATADINE-PSEUDOEPH 5-120 MG 1 EACH TAB.ER.12H PO PRN (09:09)
[2019-01-09] MEDS ORDERED: CALCIUM ACETATE 667 MG CAP PO SCH (09:15)
--- NOTE | 2019-01-09 09:21 | P.NPCON ---
History of Present Illness - Reason for Consult end stage renal disease - History of Present Illness Reason for consultation: End-stage renal disease History of present illness: Patient is a 58-year-old male seen in renal consultation for end-stage renal disease. He is maintained on hemodialysis on a Saturday schedule. Patient was just discharged from the hospital 1 day ago and at that time was admitted for dyspnea and volume overload. His symptoms improved with dialysis and ultrafiltration. Once the patient went home he developed intractable nausea and vomiting and came back to the hospital last night. On admission his potassium level was 7. This was medically treated and repeat potassium level was 6.7. He was arranged to undergo emergent hemodialysis and is currently seen in the emergency room receiving hemodialysis. He denies chest pain. He does have a cough. No fever. No diarrhea. Patient has history of insulin-dependent diabetes mellitus. Vital signs are stable. General: The patient appeared well nourished and normally developed. HEENT: Head exam is unremarkable. Neck is without jugular venous distension. LUNGS: Breath sounds decreased. HEART: Rate and Rhythm are regular. First and second heart sounds normal. No murmurs, rubs or gallops. ABDOMEN: Abdominal exam reveals normal bowel sounds. Non-tender and non- distended. No evidence of peritonitis. EXTREMITITES: No clubbing, cyanosis, or edema. Past Medical History Past Medical History: Coronary Artery Disease (CAD), Diabetes Mellitus, Eye Disorder, GERD/Reflux, Hearing Disorder / Deafness, Hyperlipidemia, Hypertension, Hypertension, Osteoarthritis (OA), Renal Disease, Renal Disease, Vascular Disorder Additional Past Medical History / Comment(s): Aortic valve replacement - BOVINE, gout, IDDM type II, end-stage renal disease past peritoneal dialysis, now hemodialysis M-W-F, diabetic peripheral neuropathy, L foot ulcers, R foot infection, L BKA, bilateral diabetic retinopathy, bilateral cataracts, bleeds behind retina, history of osteomyelitis, history of MRSA infection, diabetic gastroparesis, PVD. History of Any Multi-Drug Resistant Organisms: MRSA Date of last positivie culture/infection: 2011 MDRO Source:: LEFT FOOT Past Surgical History: Cardiac Valve Replacement, Cholecystectomy, Hernia Repair, Orthopedic Surgery Additional Past Surgical History / Comment(s): L arm fistula being used for hemodialysis, R upper chest moura cath- removed . RT foot I&D when a metal fragment was in his foot that was also infected, LT FOOT DEBRIDEMENT ,5TH TOE AMP, 10/2016 L BKA, insertion and REMOVAL PD CATH.LT ARM FISTUAL, CATARACATS REMOVED-LENS IMPLANTS, YAMILKA EYE LASER EYE SX, LT INDEX FINGER PARTIAL AMP Past Anesthesia/Blood Transfusion Reactions: Motion Sickness Additional Past Anesthesia/Blood Transfusion Reaction / Comment(s): CLAUSTROP HOBIA Past Psychological History: Anxiety, Depression Smoking Status: Never smoker Past Alcohol Use History: None Reported Past Drug Use History: None Reported - Past Family History Mother Family Medical History: Diabetes Mellitus, Osteoarthritis (OA) Additional Family Medical History / Comment(s): HIP REPLACMENTS Father Family Medical History: CVA/TIA, Diabetes Mellitus, Myocardial Infarction ([place]), Musculoskeletal Disorder, Neurologic Disorder Additional Family Medical History / Comment(s): PARKINSON'S Medications and Allergies Home Medications Medication Instructions Recorded Confirmed Type Insulin Glargine [Lantus] 40 unit SQ QAM 05/09/16 01/08/19 History Aspirin 81 mg PO DAILY #1 chewable 02/21/17 01/08/19 Rx Atorvastatin [Lipitor] 10 mg PO HS 11/25/17 01/08/19 History Calcium Acetate [PhosLo] 667 mg PO AC-BID 11/25/17 01/08/19 History Jannie-Bruna 1 tab PO DAILY 11/25/17 01/08/19 History hydrALAZINE HCL [Apresoline] 100 mg PO BID 08/14/18 01/08/19 History INSULIN ASPART (NovoLOG) [NovoLOG See Protocol SQ AC-TID 01/04/19 01/08/19 History (formulary)] cloNIDine HCL [Catapres] 0.1 mg PO BID #60 tab 01/07/19 01/08/19 Rx guaiFENesin [Mucinex] 1,200 mg PO Q12HR #14 tablet.er 01/07/19 01/08/19 Rx Loratadine-Pseudoeph 5-120 mg 1 tab PO Q12HR 01/08/19 01/08/19 History [Claritin-D 12 Hour] Allergies Allergy/AdvReac Type Severity Reaction Status Date / Time Iodinated Contrast- Oral and AdvReac shut down Verified 01/08/19 20:32 IV Dye kidneys [Iodinated Contrast Media - IV Dye] Physical Exam Vitals: Vital Signs Temp Pulse Resp BP Pulse Ox 01/09/19 08:48 75 18 121/64 100 01/09/19 07:00 86 20 104/66 97 01/09/19 06:51 80 18 99/66 98 01/09/19 06:00 98.5 F 80 20 143/82 98 01/09/19 03:37 83 16 215/93 99 01/09/19 02:08 80 16 208/92 99 01/08/19 20:19 98 F 84 16 210/95 95 Intake and Output 01/08/19 01/09/19 01/09/19 22:59 06:59 14:59 Other: Weight 80.739 kg Results - Lab Results Most recent lab results Calcium 10.4 mg/dL (8.4-10.2) H 01/09/19 02:19 01/08/19 20:25 01/09/19 02:19 Assessment and Plan Plan: Assessment: 1. End-stage renal disease maintained on hemodialysis on a Saturday schedule. 2. Hyperkalemia secondary to chronic kidney disease. No evidence of metabolic acidosis. Blood sugars relatively well controlled. Patient is not on ACEi/ARB outpatient. 3. Nausea and vomiting. Possible gastroparesis. 4. Chronic kidney disease mineral bone disease. 5. Hypercalcemia secondary to PhosLo as well as volume contraction. 6. Anemia of chronic kidney disease. 7. Diastolic CHF. Plan: Currently seen while undergoing hemodialysis. Discontinue PhosLo. Start Renvela with meals. Check iron studies. Add Aranesp. Check chest x-ray. Thank you for the consultation. I will continue to follow the patient with you during his hospital stay.
[2019-01-09] MEDS ORDERED: DARBEPOETIN ALFA 40 MCG/0.4 ML SYRINGE SQ SCH (10:00)
[2019-01-09] MEDS: hydrALAZINE HCL 50 MG TAB PO SCH ×2 (10:59→21:18)
[2019-01-09] MEDS: guaiFENesin 600 MG TABLET.ER PO SCH ×2 (10:59→21:18)
[2019-01-09] MEDS: ASPIRIN 81 MG PO SCH (10:59)
[2019-01-09] MEDS: cloNIDine HCL 0.1 MG TAB PO SCH ×2 (10:59→21:18)
[2019-01-09] MEDS: INSULIN DETEMIR (LEVEMIR) 100 UNIT/ML SYR SQ SCH (10:59)
[2019-01-09 11:16] LABS: Albumin 4.1 g/dL (3.5-5.0); Calcium 9.6 mg/dL (8.4-10.2); Potassium 5.5 mmol/L (3.5-5.1); Total Bilirubin 1.1 mg/dL (0.2-1.3); Total Protein 6.4 g/dL (6.3-8.2)
[2019-01-09 11:20] LABS: Glucose,Whole Blood 140 mg/dL (75-99)
[2019-01-09] MEDS: SEVELAMER 800 MG TAB PO SCH ×2 (12:52→17:15)
[2019-01-09] MEDS: INSULIN ASPART (NovoLOG) 100 UNIT/ML VIAL SQ SCH ×3 (12:52→21:13)
[2019-01-09 13:24] VITALS: BMI 25.5
--- NOTE | 2019-01-09 15:34 | XR ---
EXAMINATION TYPE: XR chest 1V portable DATE OF EXAM: 01/09/2019 COMPARISON: 01/04/2019 INDICATION: Short of breath, nausea TECHNIQUE: Single frontal view of the chest is obtained. FINDINGS: The heart size is enlarged. The pulmonary vasculature is normal. There is a right lower lobe infiltrate and small to moderate right pleural effusion IMPRESSION: 1. Small to moderate right pleural effusion with adjacent infiltrate may be atelectasis. Follow-up is recommended. 2. Exam stable from comparison.
[2019-01-09 17:13] LABS: Glucose,Whole Blood 78 mg/dL (75-99)
[2019-01-09 18:24] LABS: Iron Saturation 14.65 (15.00-50.00)
[2019-01-09 20:57] LABS: Glucose,Whole Blood 76 mg/dL (75-99)
[2019-01-09] MEDS: ATORVASTATIN 10 MG TAB PO SCH (21:18)
[2019-01-10] MEDS: INSULIN DETEMIR (LEVEMIR) 100 UNIT/ML SYR SQ SCH (07:07)
[2019-01-10] MEDS: INSULIN ASPART (NovoLOG) 100 UNIT/ML VIAL SQ SCH ×4 (07:11→20:32)
[2019-01-10 07:17] LABS: Glucose,Whole Blood 49 mg/dL (75-99)
[2019-01-10 07:44] LABS: Glucose,Whole Blood 56 mg/dL (75-99)
[2019-01-10 07:46] LABS: Glucose,Whole Blood 72 mg/dL (75-99)
[2019-01-10 07:47] LABS: Anisocytosis Slight; HCT 30.6 % (39.0-53.0); HGB 9.9 gm/dL (13.0-17.5); Hypochromasia Slight; MCH 30.4 pg (25.0-35.0); MCHC 32.4 g/dL (31.0-37.0); Macrocytosis Slight; Mean Platelet Volume 7.2; Platelet Count 233 k/uL (150-450); RBC 3.25 m/uL (4.30-5.90); RDW 18.3 % (11.5-15.5); WBC 12.1 k/uL (3.8-10.6)
[2019-01-10] MEDS: ASPIRIN 81 MG PO SCH (07:47)
[2019-01-10] MEDS: SEVELAMER 800 MG TAB PO SCH ×3 (07:47→17:35)
[2019-01-10] MEDS: guaiFENesin 600 MG TABLET.ER PO SCH ×2 (07:47→20:28)
[2019-01-10] MEDS: cloNIDine HCL 0.1 MG TAB PO SCH ×2 (07:47→20:27)
[2019-01-10] MEDS: hydrALAZINE HCL 50 MG TAB PO SCH ×2 (07:47→20:27)
--- NOTE | 2019-01-10 07:55 | HP ---
HISTORY AND PHYSICAL DATE OF SERVICE: 01/09/19. PRESENTING COMPLAINT: Nausea, vomiting. HISTORY OF PRESENTING COMPLAINT: This is a pleasant 58-year-old patient who was just discharged 2 days ago. At that time, was admitted with acute fluid overload. The patient does follow with Dr. Robert. Chronic stable medical conditions include diabetes, GERD, hyperlipidemia, hypertension, osteoporosis, bovine aortic valve replacement, gout, diabetic peripheral neuropathy, left AKA, retinopathy. The patient's last admission was having fluid overload and pleural effusion. Responded well to dialysis. Also had postnasal drip that responded well to Claritin-D. The patient had done well, was discharged home. The patient returned with this morning. Last night he started having some nausea, vomiting, and kept throwing up till this morning. There was no abdominal pain. No fever, no chills, felt feeling tired and run down. REVIEW OF SYSTEMS: CONSTITUTIONAL: Tired. HEENT: Some decrease in vision. RESPIRATORY: None. CARDIOVASCULAR. None. GASTROINTESTINAL as above. GENITOURINARY: None. MUSCULOSKELETAL: None. DERMATOLOGICAL, HEMATOLOGIC, LYMPHATIC: None. PSYCHIATRY: None. NEUROLOGIC: None. PAST MEDICAL HISTORY: Diabetes mellitus type 2, GERD, hyperlipidemia, essential hypertension, primary osteoarthritis, multiple joints, end-stage kidney disease on hemodialysis. Left arm fistula. Aortic valve replacement, bovine type, diabetic peripheral neuropathy. Left below-knee amputation, essential hypertension with chronic kidney disease. Diabetic gastroparesis, peripheral artery disease, diabetic retinopathy, hyperlipidemia. PAST SURGICAL HISTORY: Cardiac valve replacement, cholecystectomy, left arm fistula hemodialysis, right upper chest Cash catheter that was removed, right foot I and D when a metal fragment was in his foot that was also infected, left foot debridement, 5th toe amputation, left below-knee amputation, insertion and removal of PD catheter, left arm fistula, cataracts removed, lens implant, bilateral eye and laser eye surgery. PSYCH HISTORY: Anxiety and depression. 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 No smoking. No alcohol. Has tried some marijuana gummy. FAMILY HISTORY: Diabetes and osteoarthritis. HOME MEDICATIONS: 1. Hydralazine 100 mg b.i.d. 2. Mucinex 1200 mg q.12. 3. Catapres 0.1 mg b.i.d. 4. Claritin-D 5/120 1 tab p.o. q.12. 5. Lantus 40 units subcu in the morning. 6. NovoLog per protocol. 7. PhosLo 667 mg a.c. b.i.d. 8. Lipitor 10 mg q.h.s. 9. Aspirin 81 mg p.o. daily. ALLERGIES: IV CONTRAST DYE. PHYSICAL EXAMINATION: VITAL SIGNS: Temperature 98.5, pulse 80, respirations 20, blood pressure 143/82, pulse 98% on 2 L. GENERAL APPEARANCE: Sitting up awake, a bit tired-appearing. EYES: Pupils equal. Conjunctivae normal. HEENT: External appearance of nose and ears normal. Oral cavity normal. NECK: JVD not raised. Mass not palpable. RESPIRATORY: Effort normal. LUNGS: Decreased breath sounds. CARDIOVASCULAR: First and second sounds normal. No edema. ABDOMEN: Soft, nontender. Liver and spleen not palpable. PSYCHIATRY: Alert and oriented x3. Mood and affect normal. NEUROLOGICAL: Power and sensation grossly intact. EXTREMITIES: Left below-knee amputation. INVESTIGATIONS: Potassium 5.5, BUN 16, creatinine 4.07. ASSESSMENT: 1. Persistent nausea, vomiting, then went through this morning, possibly flare up of patient's acute gastroenteritis, could be viral infection too. By this afternoon, symptoms were settling down. 2. Diabetes mellitus type 2, chronically on insulin. 3. Gastroesophageal reflux disease. 4. Hyperlipidemia. 5. Essential hypertension. 6. Primary osteoarthritis of multiple joints. 7. End-stage kidney disease on hemodialysis Saturday, Saturday and Saturday. 8. Aortic valve bovine replaced. 9. Diabetic peripheral neuropathy. 10.Left below-knee amputation. 11.Essential hypertension with chronic kidney disease. 12.Diabetic gastroparesis. 13.Peripheral artery disease. 14.Diabetic retinopathy. PLAN: Home medications are continued. Care was discussed with the patient. Hemodialysis will be coordinated by Nephrology. See this patient's nausea and vomiting is settling down. Follow closely. MMODL / IJN: [id number] /
[2019-01-10 08:07] LABS: Calcium 9.9 mg/dL (8.4-10.2); Potassium 5.5 mmol/L (3.5-5.1)
[2019-01-10 11:57] LABS: Glucose,Whole Blood 134 mg/dL (75-99)
--- NOTE | 2019-01-10 14:01 | P.PN ---
Subjective Progress Note Date: 01/10/19 Seen and examined for the follow-up of ESRD. Tolerating liquid diet. No nausea vomiting diarrhea. Hemodialysis 2 hours today. Objective - Vital Signs Vital signs: Vital Signs Temp 98.1 F 01/10/19 10:12 Pulse 74 01/10/19 10:12 Resp 18 01/10/19 10:12 BP 110/69 01/10/19 10:12 Pulse Ox 95 01/10/19 04:59 Intake & Output 01/09/19 01/10/19 01/10/19 18:59 06:59 18:59 Intake Total 1010 Output Total 1248 1300 Balance -1248 -290 Weight 80.739 kg Intake: Oral 710 Hemodialysis 300 Output: Hemodialysis 1248 1300 Other: Voiding Method Urinal Urinal Urinal # Voids 0 0 1 - Exam No acute distress S1-S2 heard Lungs clear Left upper arm aVF Trace edema - Labs CBC & Chem 7: 01/10/19 07:15 01/10/19 07:15 Labs: Abnormal Lab Results - Last 24 Hours (Table) 01/09/19 01/10/19 01/10/19 Range/Units 10:44 07:04 07:15 WBC 12.1 H (3.8-10.6) k/uL RBC 3.25 L (4.30-5.90) m/uL Hgb 9.9 L (13.0-17.5) gm/dL Hct 30.6 L (39.0-53.0) % RDW 18.3 H (11.5-15.5) % Potassium (3.5-5.1) mmol/L Chloride (98-107) mmol/L BUN (9-20) mg/dL Creatinine (0.66-1.25) mg/dL Glucose (74-99) mg/dL POC Glucose (mg/dL) 49 L (75-99) mg/dL Iron 29 L (65-175) ug/dL TIBC 198 L (228-460) ug/dL Iron Saturation 14.65 L (15.00-50.00) Ferritin 1503.4 H (22.0-322.0) ng/mL 01/10/19 01/10/19 01/10/19 Range/Units 07:15 07:23 07:44 WBC (3.8-10.6) k/uL RBC (4.30-5.90) m/uL Hgb (13.0-17.5) gm/dL Hct (39.0-53.0) % RDW (11.5-15.5) % Potassium 5.5 H (3.5-5.1) mmol/L Chloride 97 L (98-107) mmol/L BUN 30 H (9-20) mg/dL Creatinine 6.24 H (0.66-1.25) mg/dL Glucose 44 L* (74-99) mg/dL POC Glucose (mg/dL) 56 L 72 L (75-99) mg/dL Iron (65-175) ug/dL TIBC (228-460) ug/dL Iron Saturation (15.00-50.00) Ferritin (22.0-322.0) ng/mL 01/10/19 Range/Units 11:51 WBC (3.8-10.6) k/uL RBC (4.30-5.90) m/uL Hgb (13.0-17.5) gm/dL Hct (39.0-53.0) % RDW (11.5-15.5) % Potassium (3.5-5.1) mmol/L Chloride (98-107) mmol/L BUN (9-20) mg/dL Creatinine (0.66-1.25) mg/dL Glucose (74-99) mg/dL POC Glucose (mg/dL) 134 H (75-99) mg/dL Iron (65-175) ug/dL TIBC (228-460) ug/dL Iron Saturation (15.00-50.00) Ferritin (22.0-322.0) ng/mL Assessment and Plan Assessment: #1 ESRD, MWF well left upper arm aVF. #2 hyperkalemia secondary to missed dialysis. #3 nausea vomiting possible gastroparesis #4 metabolic bone disease with ESRD #5 hypercalcemia secondary to PhosLo and volume contraction. Improved with dialysis #6 diastolic CHF #7 anemia with ESRD Plan: #1 hemodialysis today 2 hours for hyperkalemia area did plan again on Saturday. #2 ESRD medications #3 supportive care
[2019-01-10 16:59] LABS: Glucose,Whole Blood 198 mg/dL (75-99)
--- NOTE | 2019-01-10 20:16 | PN ---
PROGRESS NOTE DATE OF SERVICE: January 10, 2019. PRESENTING COMPLAINT: Nausea, vomiting. INTERVAL HISTORY: Patient admitted with a flare-up of what appears to be diabetic gastroparesis. Doing somewhat better. Tolerated clear liquids this morning. The patient is scheduled for hemodialysis today. Feeling better. Sitting up. No new issues. REVIEW OF SYSTEMS: Done for constitutional, cardiovascular, GI, pulmonary; relevant findings as above. CURRENT MEDICATIONS: Reviewed. PHYSICAL EXAMINATION: VITAL SIGNS: Temperature 98.1, pulse 94, respirations 18, blood pressure 110/69, pulse ox 94 percent on room air. GENERAL APPEARANCE: Sitting up awake, a bit tired. EYES: Pupils equal. Conjunctivae normal. NECK: JVD not raised. Mass not palpable. RESPIRATORY: Effort normal. LUNGS: Decreased breath sounds. CARDIOVASCULAR: First and second sounds normal. No edema. ABDOMEN: Soft, nontender. Liver and spleen not palpable. PSYCHIATRY: Alert and oriented x3. Mood and affect normal. EXTREMITIES: Left below-knee amputation. INVESTIGATIONS: White count 12.1, hemoglobin 9.9, potassium 5.5, BUN 30, creatinine 6.24, blood glucose was 44. ASSESSMENT: 1. Acute flare-up of diabetic gastroparesis. Feeling somewhat better. 2. Diabetes mellitus type 2, chronically on insulin uncontrolled with hypoglycemia. 3. Gastroesophageal reflux disease. 4. Hyperlipidemia. 5. Essential hypertension. 6. Primary osteoarthritis multiple joints. 7. End-stage kidney disease on hemodialysis Saturday, Saturday and Saturday. 8. Aortic valve bovine valve. 9. Diabetic peripheral neuropathy. 10.Left below-knee amputation. 11.Essential hypertension with chronic kidney disease. 12.Diabetic gastroparesis. 13.Peripheral artery disease. 14.Diabetic retinopathy. PLAN: Diet is slowly being advanced. We will cut back on patient's Levemir. We will also put the patient on a short burst of Reglan. We will also cut back the dose of hydralazine as blood pressure is running on the lower side. MMODL / IJN: [id number] /
[2019-01-10] MEDS: ATORVASTATIN 10 MG TAB PO SCH (20:27)
[2019-01-10 20:32] LABS: Glucose,Whole Blood 119 mg/dL (75-99)
[2019-01-10] MEDS: METOCLOPRAMIDE 5 MG TAB PO SCH (20:37)
[2019-01-11 07:10] LABS: Glucose,Whole Blood 161 mg/dL (75-99)
[2019-01-11 07:28] LABS: Albumin 3.9 g/dL (3.5-5.0); Calcium 9.5 mg/dL (8.4-10.2); Potassium 4.8 mmol/L (3.5-5.1); Total Bilirubin 1.2 mg/dL (0.2-1.3); Total Protein 6.3 g/dL (6.3-8.2)
[2019-01-11] MEDS ORDERED: METOCLOPRAMIDE 5 MG TAB PO SCH (07:30)
[2019-01-11] MEDS: cloNIDine HCL 0.1 MG TAB PO SCH ×2 (08:30→21:01)
[2019-01-11] MEDS: hydrALAZINE HCL 50 MG TAB PO SCH ×2 (08:30→21:01)
[2019-01-11] MEDS: ASPIRIN 81 MG PO SCH (08:30)
[2019-01-11] MEDS: guaiFENesin 600 MG TABLET.ER PO SCH ×2 (08:30→21:01)
[2019-01-11] MEDS: METOCLOPRAMIDE 5 MG TAB PO SCH ×3 (08:31→17:15)
[2019-01-11] MEDS: SEVELAMER 800 MG TAB PO SCH ×3 (08:31→17:15)
[2019-01-11] MEDS ORDERED: INSULIN DETEMIR (LEVEMIR) 100 UNIT/ML SYR SQ SCH (09:00)
[2019-01-11] MEDS: INSULIN ASPART (NovoLOG) 100 UNIT/ML VIAL SQ SCH ×4 (09:09→21:00)
--- NOTE | 2019-01-11 10:49 | P.PN ---
Subjective Progress Note Date: 01/11/19 Seen and examined for the follow-up of ESRD. Admits food sticking into the throat. Did not take his medications today. No nausea vomiting or diarrhea. Tolerated dialysis well yesterday. Objective - Vital Signs Vital signs: Vital Signs Temp 97.8 F 01/11/19 05:25 Pulse 78 01/11/19 05:25 Resp 17 01/11/19 05:25 BP 133/81 01/11/19 05:25 Pulse Ox 95 01/11/19 05:25 Intake & Output 01/10/19 01/11/19 01/11/19 18:59 06:59 18:59 Intake Total 1600 Output Total 1300 Balance 300 Intake: Oral 1300 Hemodialysis 300 Output: Hemodialysis 1300 Other: Voiding Method Urinal Urinal Urinal # Voids 1 0 # Bowel Movements 0 - Exam No acute distress S1-S2 heard Lungs clear Left upper arm aVF Trace edema - Labs CBC & Chem 7: 01/10/19 07:15 01/11/19 06:42 Labs: Abnormal Lab Results - Last 24 Hours (Table) 01/10/19 01/10/19 01/10/19 Range/Units 11:51 16:55 20:31 Sodium (137-145) mmol/L Chloride (98-107) mmol/L BUN (9-20) mg/dL Creatinine (0.66-1.25) mg/dL Glucose (74-99) mg/dL POC Glucose (mg/dL) 134 H 198 H 119 H (75-99) mg/dL 01/11/19 01/11/19 Range/Units 06:42 07:05 Sodium 135 L (137-145) mmol/L Chloride 94 L (98-107) mmol/L BUN 23 H (9-20) mg/dL Creatinine 5.54 H (0.66-1.25) mg/dL Glucose 139 H (74-99) mg/dL POC Glucose (mg/dL) 161 H (75-99) mg/dL Assessment and Plan Assessment: #1 ESRD, MWF well left upper arm aVF. #2 hyperkalemia secondary to missed dialysis. #3 intractable nausea vomiting and food obstruction rule out achalasia. #4 metabolic bone disease with ESRD #5 hypercalcemia secondary to PhosLo and volume contraction. Improved with dialysis #6 diastolic CHF #7 anemia with ESRD Plan: #1 plan hemodialysis tomorrow as per outpatient schedule. #2 ESRD medications #3 supportive care #4 may benefit from upper endoscopy to rule out achalasia.
[2019-01-11 12:08] LABS: Glucose,Whole Blood 216 mg/dL (75-99)
[2019-01-11 17:14] LABS: Glucose,Whole Blood 44 mg/dL (75-99)
[2019-01-11 17:29] LABS: Glucose,Whole Blood 91 mg/dL (75-99)
[2019-01-11 20:48] LABS: Glucose,Whole Blood 175 mg/dL (75-99)
[2019-01-11] MEDS: ATORVASTATIN 10 MG TAB PO SCH (21:01)
--- NOTE | 2019-01-11 23:07 | PN ---
PROGRESS NOTE DATE OF SERVICE: 01/11/2019 PRESENTING COMPLAINT: Food getting stuck. INTERVAL HISTORY: Patient admitted with flare up of what appears to be diabetic gastroparesis. Has been tolerating his liquids this morning. He felt that his food is getting stuck in the mid chest. No choking, otherwise. Has slight nausea, no vomiting. Sitting up. is present. REVIEW OF SYSTEMS: Done for constitutional, cardiovascular, GI, pulmonary; relevant findings as above. CURRENT MEDICATIONS: Reviewed. PHYSICAL EXAMINATION: VITAL SIGNS: Afebrile, pulse 75, respiratory rate 16, blood pressure 147/78, pulse ox 95% on room air. GENERAL APPEARANCE: Sitting on the edge of bed, comfortable. EYES: Pupils are equal. Conjunctivae normal. NECK: JVD not raised. Mass not palpable. RESPIRATORY: Effort normal. LUNGS: Decreased breath sounds. CARDIOVASCULAR: First and second sounds normal. No edema. ABDOMEN: Soft, nontender. Liver and spleen not palpable. PSYCHIATRY: Alert and oriented times three. Mood and affect normal. EXTREMITIES: Left below-knee amputation. INVESTIGATIONS: Accu-Cheks 161, 216, 44. ASSESSMENT: 1. Acute flare-up of diabetic gastroparesis. 2. Food getting stuck in middle of the chest, could be motility problems, need to be further investigated. 3. Diabetes mellitus type 2, chronically on insulin uncontrolled with hypoglycemia. 4. Gastroesophageal reflux disease. 5. Hyperlipidemia. 6. Essential hypertension. 7. Primary osteoarthritis multiple joints. 8. End-stage kidney disease on hemodialysis Saturday, Saturday and Saturday. 9. Aortic valve bovine valve. 10.Diabetic peripheral neuropathy. 11.Left below-knee amputation. 12.Essential hypertension with chronic kidney disease. 13.Diabetic gastroparesis. 14.Peripheral artery disease. 15.Diabetic retinopathy. PLAN: Care was discussed with the patient. We will do a barium swallow tomorrow morning. The patient's dose of Levemir will be further scaled back given that sugars are still dropping. MMODL / IJN: [id number] /
[2019-01-12 01:53] LABS: Glucose,Whole Blood 83 mg/dL (75-99)
[2019-01-12 02:52] LABS: Glucose,Whole Blood 54 mg/dL (75-99)
[2019-01-12] MEDS ORDERED: DEXTROSE 50% SYRINGE 50 ML IVP STA (02:52)
[2019-01-12 03:16] LABS: Glucose,Whole Blood 125 mg/dL (75-99)
[2019-01-12 04:29] LABS: Glucose,Whole Blood 75 mg/dL (75-99)
[2019-01-12] MEDS: DEXTROSE 10% IN WATER 500 ML in EMPTY BAG 1 BAG IV SCH ×2 (04:54→14:31)
[2019-01-12 05:14] LABS: Glucose,Whole Blood 68 mg/dL (75-99)
[2019-01-12 06:14] LABS: Glucose,Whole Blood 84 mg/dL (75-99)
[2019-01-12 06:59] LABS: Glucose,Whole Blood 101 mg/dL (75-99)
[2019-01-12] MEDS: INSULIN ASPART (NovoLOG) 100 UNIT/ML VIAL SQ SCH ×3 (07:09→17:25)
[2019-01-12] MEDS: METOCLOPRAMIDE 5 MG TAB PO SCH ×3 (07:09→17:25)
[2019-01-12] MEDS: guaiFENesin 600 MG TABLET.ER PO SCH (07:09)
[2019-01-12] MEDS: SEVELAMER 800 MG TAB PO SCH ×3 (07:09→17:25)
--- NOTE | 2019-01-12 08:29 | P.PN ---
Subjective Patient is seen in follow-up for end-stage renal disease. He is maintained on hemodialysis on a Saturday schedule. Patient states he's been having dysphagia with food getting stuck in his throat. He is scheduled to undergo barium swallow this morning. Denies chest pain or shortness of breath. Cough is improved. Vital signs are stable. General: The patient appeared well nourished and normally developed. HEENT: Head exam is unremarkable. Neck is without jugular venous distension. LUNGS: Breath sounds decreased. HEART: Rate and Rhythm are regular. First and second heart sounds normal. No murmurs, rubs or gallops. ABDOMEN: Abdominal exam reveals normal bowel sounds. Non-tender and non- distended. No evidence of peritonitis. EXTREMITITES: No clubbing, cyanosis, or edema. BKA noted. Objective - Vital Signs Vital signs: Vital Signs Temp 97.7 F 01/12/19 05:05 Pulse 76 01/12/19 05:05 Resp 18 01/12/19 05:05 BP 168/92 01/12/19 05:05 Pulse Ox 97 01/12/19 05:05 Intake & Output 01/11/19 01/12/19 01/12/19 18:59 06:59 18:59 Intake Total 710 50 Balance 710 50 Intake: Intake, IV Titration 50 Amount Dextrose 10% in Water 500 50 ml In Empty Bag 1 bag @ 50 mls/hr IV .Q10H [facility] Rx #:[id number] Oral 710 Other: Voiding Method Urinal Urinal # Voids 0 0 - Labs CBC & Chem 7: 01/10/19 07:15 01/11/19 06:42 Labs: Abnormal Lab Results - Last 24 Hours (Table) 01/11/19 01/11/19 01/11/19 Range/Units 12:03 17:08 20:46 POC Glucose (mg/dL) 216 H 44 L 175 H (75-99) mg/dL 01/12/19 01/12/19 01/12/19 Range/Units 02:51 03:13 04:54 POC Glucose (mg/dL) 54 L 125 H 68 L (75-99) mg/dL 01/12/19 Range/Units 06:53 POC Glucose (mg/dL) 101 H (75-99) mg/dL Assessment and Plan Plan: Assessment: 1. End-stage renal disease maintained on hemodialysis on a Saturday schedule. 2. Hyperkalemia secondary to chronic kidney disease. No evidence of metabolic acidosis. Blood sugars relatively well controlled. Patient is not on ACEi/ARB outpatient. Improved postdialysis. 3. Dysphagia with vomiting. Scheduled for barium swallow this morning. ? Achalasia versus stricture. 4. Chronic kidney disease mineral bone disease. 5. Hypercalcemia secondary to PhosLo as well as volume contraction. Improved. 6. Anemia of chronic kidney disease. Maintained on Aranesp. High ferritin level noted. 7. Diastolic CHF. 8. Insulin-dependent diabetes mellitus. Plan: Hemodialysis today. Follow-up barium swallow study.
[2019-01-12] MEDS ORDERED: INSULIN DETEMIR (LEVEMIR) 100 UNIT/ML SYR SQ SCH (09:00)
--- NOTE | 2019-01-12 09:16 | FL ---
EXAMINATION TYPE: FL barium swallow DATE OF EXAM: 01/12/2019 CLINICAL HISTORY: Mid esophageal dysphagia with solid foods. TECHNIQUE: A double contrast esophagram is performed utilizing air and barium. A total of 2 minutes and 38 seconds of fluoroscopic time was utilized during procedure. 74 fluoroscopic images were saved . COMPARISON: None FINDINGS: The esophagus shows abnormal motility as there is delayed esophageal propulsion without ter tiary contractions. There is delayed emptying along the gastroesophageal junction without distinct st ricture. Esophageal contour appears smooth. There is mild degree gastroesophageal reflux and severe i ntraesophageal reflux. At C5-C6 there is posterior impression on the esophagus that appears smooth an d likely relates to a cricopharyngeal bar no evidence of hiatal hernia. IMPRESSION: 1. Cricopharyngeal bar is present. 2. Overall delayed propulsion through the esophagus and gastroesophageal junction without discrete st ricture nor tertiary contractions. Incomplete small stricture at the gastroesophageal junction is pos sible given the delayed emptying. 3. Mild gastroesophageal reflux and severe intraesophageal reflux to the level of the cervical esopha eric. Aspiration precautions are recommended.
[2019-01-12] MEDS: hydrALAZINE HCL 50 MG TAB PO SCH (09:56)
[2019-01-12] MEDS: ASPIRIN 81 MG PO SCH (09:57)
[2019-01-12] MEDS: cloNIDine HCL 0.1 MG TAB PO SCH (09:57)
[2019-01-12 11:55] LABS: Glucose,Whole Blood 160 mg/dL (75-99)
[2019-01-12 16:47] LABS: Glucose,Whole Blood 219 mg/dL (75-99)
[2019-01-12] MEDS ORDERED: PANTOPRAZOLE 40 MG TABLET PO SCH (17:30)
--- NOTE | 2019-01-12 18:47 | DS ---
DISCHARGE SUMMARY DATE OF ADMISSION: 01/09/2019. DATE OF DISCHARGE: 01/12/2019 FINAL DIAGNOSES: 1. Acute flare of diabetic gastroparesis. 2. Severe reflux. 3. Dysphagia probably from esophagitis from reflux. 4. Diabetes mellitus type 2, chronically on insulin uncontrolled with hypoglycemia. 5. Gastroesophageal reflux disease. 6. Hyperlipidemia. 7. Essential hypertension. 8. Primary osteoarthritis multiple joints. 9. End-stage kidney disease on hemodialysis Saturday, Saturday and Saturday. 10.Aortic bovine valve. 11.Diabetic peripheral neuropathy. 12.Left below-knee amputation. 13.Essential hypertension with chronic kidney disease. 14.Diabetic gastroparesis. 15.Peripheral artery disease. 16.Diabetic retinopathy. HOSPITAL COURSE: This patient readmitted with throwing up, felt to be diabetic gastroparesis, antiemetics were given to which he did not respond. The patient subsequent to this was complaining of food getting stuck in the middle of the chest. Barium did swallow did show severe GERD going up to the level of the throat. The patient has been put on PPIs. Patient is tolerating a full liquid diet. Diet can be advanced slowly. He will see GI as an outpatient. The patient did get dialyzed today. CONSULTATION: Dr. Wilkinson from Nephrology. PHYSICAL EXAMINATION: On examination: Temperature 97.2, pulse 75 and respiratory rate 16, blood pressure 147/78, pulse ox 95% on room air. Lungs fair entry. Abdomen soft and nontender. Additional information: Because sugars were running a bit low, patient's dose of Lantus has been cut back. DISCHARGE MEDICATIONS: 1. Aspirin 81 mg daily. 2. Lipitor 20 mg q.h.s. 3. PhosLo 660 mg p.o. b.i.d. 4. Jannie-Bruna 1 tablet p.o. daily. 5. Hydralazine 100 mg b.i.d. 6. NovoLog per scale. 7. Catapres 0.1 mg p.o. b.i.d. 8. Mucinex 1200 mg p.o. q.12. 9. Lantus 20 units subcu in the morning. 10.Prilosec 40 mg b.i.d. 11.Phenergan 12.5 q.6h p.r.n. FOLLOWUP: Follow up with Dr. Robert. Follow up with Dr. Robert in 1 week. Follow up with Dr. Morales in 10 days. Patient to advance diet as tolerated and not to sit down at least for 2 hours after meals. Copy to Dr. Robert. STONE / JORDYN: [id number] /
[2019-01-12 18:53] VITALS: BP 129/75; PULSE 86; RESP 16; TEMP 98
== END 2019-01-12 20:10 | disposition home or self-care (01) | DRG 73 ==
LOC: EC 20:14 → 3NMEDONC 01-09 08:08
PROVIDERS: ADMIT Hospitalist; ATTEND Hospitalist
PROC: 5A1D70Z Performance of Urinary Filtration, Intermittent, Less than 6 Hours Per Day (ICD-10-PCS; principal; 2019-01-09)
DX: E11.43 Type 2 diabetes mellitus with diabetic autonomic (poly)neuropathy (principal); N18.6 End stage renal disease; I13.2 Hypertensive heart and chronic kidney disease with heart failure and with stage 5 chronic kidney disease, or end stage renal disease; I50.30 Unspecified diastolic (congestive) heart failure; K31.84 Gastroparesis; Z79.4 Long term (current) use of insulin; D63.1 Anemia in chronic kidney disease; E11.22 Type 2 diabetes mellitus with diabetic chronic kidney disease; E11.319 Type 2 diabetes mellitus with unspecified diabetic retinopathy without macular edema; E11.42 Type 2 diabetes mellitus with diabetic polyneuropathy; E11.51 Type 2 diabetes mellitus with diabetic peripheral angiopathy without gangrene; E78.5 Hyperlipidemia, unspecified; E83.52 Hypercalcemia; E87.5 Hyperkalemia; E88.89 Other specified metabolic disorders; F40.240 Claustrophobia; H91.90 Unspecified hearing loss, unspecified ear; I25.10 Atherosclerotic heart disease of native coronary artery without angina pectoris; K21.0 Gastro-esophageal reflux disease with esophagitis; M15.9 Polyosteoarthritis, unspecified; M89.8X9 Other specified disorders of bone, unspecified site; R13.10 Dysphagia, unspecified; Z79.82 Long term (current) use of aspirin; Z82.0 Family history of epilepsy and other diseases of the nervous system; Z82.49 Family history of ischemic heart disease and other diseases of the circulatory system; Z83.3 Family history of diabetes mellitus; Z86.14 Personal history of Methicillin resistant Staphylococcus aureus infection; Z89.512 Acquired absence of left leg below knee; Z95.3 Presence of xenogenic heart valve; Z99.2 Dependence on renal dialysis; Z98.49 Cataract extraction status, unspecified eye; Z96.1 Presence of intraocular lens; Z82.3 Family history of stroke; Z82.61 Family history of arthritis; M10.9 Gout, unspecified; Z89.429 Acquired absence of other toe(s), unspecified side; Z89.022 Acquired absence of left finger(s); Z99.3 Dependence on wheelchair; F41.9 Anxiety disorder, unspecified; F32.9 Major depressive disorder, single episode, unspecified; Z91.041 Radiographic dye allergy status
CPT/HCPCS: 36415; 71045; 74220; 80048; 80053; 82150; 82728; 83540; 83550; 83690; 84132; 85025; 85027; 90935; 93005; 96365; 96366; 96368; 96375; 96376; 99285

== ENCOUNTER 2019-02-21 19:28 | Emergency (ER) | payer MEDICARE ==
[2019-02-21] MEDS ORDERED: SODIUM CHLORIDE 0.9% 500 ML 500 ML IV STA (21:14)
[2019-02-21] MEDS ORDERED: ONDANSETRON 4 MG/2 ML VIAL IVP STA (21:14)
[2019-02-21] MEDS ORDERED: PANTOPRAZOLE 40 MG/10 ML VIAL IVP STA (21:14)
[2019-02-21 21:32] LABS: Basophils % (A) 0 %; Eosinophils # (A) 0.2 k/uL (0-0.7); Eosinophils % (A) 2 %; HCT 34.9 % (39.0-53.0); HGB 11.1 gm/dL (13.0-17.5); Lymphocytes # (A) 0.5 k/uL (1.0-4.8); Lymphocytes % (A) 7 %; MCH 28.8 pg (25.0-35.0); MCV 90.2 fL (80.0-100.0); Mean Platelet Volume 6.9; Monocytes # (A) 0.5 k/uL (0-1.0); Monocytes % (A) 7 %; Neutrophils # (A) 6.5 k/uL (1.3-7.7); Neutrophils % (A) 82 %; Platelet Count 182 k/uL (150-450); RBC 3.87 m/uL (4.30-5.90); RDW 15.8 % (11.5-15.5); WBC 7.9 k/uL (3.8-10.6)
[2019-02-21 21:53] LABS: Albumin 4.3 g/dL (3.5-5.0); Calcium 10.3 mg/dL (8.4-10.2); Magnesium 2.3 mg/dL (1.6-2.3); Phosphorus 2.4 mg/dL (2.5-4.5); Potassium 4.5 mmol/L (3.5-5.1); Total Bilirubin 0.8 mg/dL (0.2-1.3)
[2019-02-21] MEDS ORDERED: METOCLOPRAMIDE 5 MG/ML 2 ML VIAL IVP STA (22:01)
[2019-02-21] MEDS ORDERED: diphenhydrAMINE 50 MG/ML 1 ML VIAL IVP STA (22:01)
--- NOTE | 2019-02-21 22:02 | XR ---
EXAMINATION TYPE: XR KUB DATE OF EXAM: 02/21/2019 COMPARISON: 10/17/2015 HISTORY: Abdominal pain TECHNIQUE: 3 views FINDINGS: There is a large right pleural effusion. There is no sign of intestinal obstruction or pneu moperitoneum. There are clips from cholecystectomy. There are no pathologic calcifications over the k idneys. IMPRESSION: There is new large right pleural effusion compared to old exam.
--- NOTE | 2019-02-21 22:36 | ED ---
Abdominal Pain HPI - General Chief Complaint: Abdominal Pain Stated Complaint: Hypertensive Time Seen by Provider: 02/21/19 21:13 Source: patient Mode of arrival: ambulatory Limitations: no limitations - History of Present Illness Initial Comments: Andi is a 59 yo male with extensive past medical history including end-stage renal disease, diabetes, gastroparesis. Patient presents today for evaluation of having nausea and vomiting throughout the day. Patient reports this seems similar to previous episodes of diabetic gastroparesis. Patient reports she's not been able tolerate any oral intake today. Patient reports he's been compliant with his Saturday dialysis he went yesterday on 1 L fluid removal. Patient states that throughout the day today he has had epigastric abdominal pain, nausea multiple episodes of nonbloody nonbilious emesis. Nothing his improve the symptoms. It's worse with any attempted by mouth intake. He has not been able tolerate his by mouth medications. His blood pressure is been elevated because of this. Patient denies any associated fevers, chills, chest pain or shortness of breath. - Related Data Home Medications Medication Instructions Recorded Confirmed Atorvastatin [Lipitor] 10 mg PO HS 11/25/17 01/08/19 Calcium Acetate [PhosLo] 667 mg PO AC-BID 11/25/17 01/08/19 Jannie-Bruna 1 tab PO DAILY 11/25/17 02/22/19 hydrALAZINE HCL [Apresoline] 100 mg PO BID 08/14/18 02/22/19 INSULIN ASPART (NovoLOG) [NovoLOG See Protocol SQ AC-TID 01/04/19 02/22/19 (formulary)] Metoprolol Tartrate [Lopressor] 50 mg PO BID 02/22/19 02/22/19 Previous Rx's Medication Instructions Recorded Aspirin 81 mg PO DAILY #1 chewable 02/21/17 cloNIDine HCL [Catapres] 0.1 mg PO BID #60 tab 01/07/19 guaiFENesin [Mucinex] 1,200 mg PO Q12HR #14 tablet.er 01/07/19 Insulin Glargine [Lantus] 20 unit SQ QAM #0 01/12/19 Omeprazole [PriLOSEC] 40 mg PO BID #60 capsule. 01/12/19 Promethazine [Phenergan] 12.5 mg PO Q6HR PRN #20 tab 01/12/19 Allergies Allergy/AdvReac Type Severity Reaction Status Date / Time Iodinated Contrast- Oral and AdvReac shut down Verified 01/08/19 20:32 IV Dye kidneys [Iodinated Contrast Media - IV Dye] Review of Systems ROS Statement: Those systems with pertinent positive or pertinent negative responses have been documented in the HPI. ROS Other: All systems not noted in ROS Statement are negative. Past Medical History Past Medical History: Coronary Artery Disease (CAD), Diabetes Mellitus, Eye Disorder, GERD/Reflux, Hearing Disorder / Deafness, Hyperlipidemia, Hypertension, Hypertension, Osteoarthritis (OA), Renal Disease, Renal Disease, Vascular Disorder Additional Past Medical History / Comment(s): Aortic valve replacement - BOVINE, gout, IDDM type II, end-stage renal disease past peritoneal dialysis, now hemodialysis -W-, diabetic peripheral neuropathy, L foot ulcers, R foot infection, L BKA, bilateral diabetic retinopathy, bilateral cataracts, bleeds behind retina, history of osteomyelitis, history of MRSA infection, diabetic gastroparesis, PVD. History of Any Multi-Drug Resistant Organisms: MRSA Date of last positivie culture/infection: 2011 MDRO Source:: LEFT FOOT Past Surgical History: Cardiac Valve Replacement, Cholecystectomy, Hernia Repair, Orthopedic Surgery Additional Past Surgical History / Comment(s): L arm fistula being used for hemodialysis, R upper chest moura cath- removed . RT foot I&D when a metal fragment was in his foot that was also infected, LT FOOT DEBRIDEMENT ,5TH TOE AMP, 10/2016 L BKA, insertion and REMOVAL PD CATH.LT ARM FISTUAL, CATARACATS REMOVED-LENS IMPLANTS, YAMILKA EYE LASER EYE SX, LT INDEX FINGER PARTIAL AMP Past Anesthesia/Blood Transfusion Reactions: Motion Sickness Additional Past Anesthesia/Blood Transfusion Reaction / Comment(s): CLAUSTROPHOBIA Past Psychological History: Anxiety, Depression Smoking Status: Never smoker Past Alcohol Use History: None Reported Past Drug Use History: None Reported - Past Family History Mother Family Medical History: Diabetes Mellitus, Osteoarthritis (OA) Additional Family Medical History / Comment(s): HIP REPLACMENTS Father Family Medical History: CVA/TIA, Diabetes Mellitus, Myocardial Infarction ([place]), Musculoskeletal Disorder, Neurologic Disorder Additional Family Medical History / Comment(s): PARKINSON'S General Exam - General Exam Comments Initial Comments: Physical Exam GENERAL: Patient is well-developed and well-nourished. Patient is nontoxic and well- hydrated and is in no distress. HENT: Normocephalic, Atraumatic. EYES: PERRL, EOMI PULMONARY: Unlabored respirations. No audible rales rhonchi or wheezing was noted. CARDIOVASCULAR: There is a regular rate and rhythm without any murmurs gallops or rubs. ABDOMEN: Soft and nontender with normal bowel sounds. SKIN: Skin is clear with no lesions or rashes and otherwise unremarkable. : Deferred NEUROLOGIC: Patient is alert and oriented x3. Moving all extremities spontaneously MUSCULOSKELETAL: Normal extremities with adequate strength and full range of motion. No lower extremity swelling or edema. No calf tenderness. PSYCHIATRIC: Normal psychiatric evaluation. Limitations: no limitations Limitations: no limitations Course Vital Signs 02/21/19 02/21/19 02/22/19: 22:13 00:00 Temperature 98.5 F Pulse Rate 79 76 85 Respiratory 18 18 18 Rate Blood Pressure 224/98 217/96 213/97 O2 Sat by Pulse 95 95 Oximetry 02/22/19 02/22/19 02/22/19 00:30 01:00 01:30 Temperature Pulse Rate 70 88 84 Respiratory 16 Rate Blood Pressure 205/93 200/93 203/96 O2 Sat by Pulse 94 L Oximetry 02/22/19 02:57 Temperature 98.4 F Pulse Rate 90 Respiratory 18 Rate Blood Pressure 188/86 O2 Sat by Pulse 97 Oximetry Medical Decision Making - Medical Decision Making The patient was seen and evaluated history was obtained from patient Patient with gastroparesis, nausea, vomiting and abdominal pain similar to previous gastroparesis flare Labs and imaging ordered Meds ordered Labs at baseline for patient Patient was reassessed, sleeping comfortably but still hypertensive, likley from vomiting all antihypertensives all day Patient received PO antihypertensives, BP improving but remains elevated Catapress ordered Patient BP improving, patient continues to sleep comfortably, will be discharged home. - Lab Data Result diagrams: 02/21/19 20:50 02/21/19 20:50 Lab Results 02/21/19 02/21/19 02/21/19 Range/Units 20:50 20:50 20:50 WBC 7.9 (3.8-10.6) k/uL RBC 3.87 L (4.30-5.90) m/uL Hgb 11.1 L (13.0-17.5) gm/dL Hct 34.9 L (39.0-53.0) % MCV 90.2 (80.0-100.0) fL MCH 28.8 (25.0-35.0) pg MCHC 32.0 (31.0-37.0) g/dL RDW 15.8 H (11.5-15.5) % Plt Count 182 (150-450) k/uL Neutrophils % 82 % Lymphocytes % 7 % Monocytes % 7 % Eosinophils % 2 % Basophils % 0 % Neutrophils # 6.5 (1.3-7.7) k/uL Lymphocytes # 0.5 L (1.0-4.8) k/uL Monocytes # 0.5 (0-1.0) k/uL Eosinophils # 0.2 (0-0.7) k/uL Basophils # 0.0 (0-0.2) k/uL Sodium 140 (137-145) mmol/L Potassium 4.5 (3.5-5.1) mmol/L Chloride 98 (98-107) mmol/L Carbon Dioxide 30 (22-30) mmol/L Anion Gap 12 mmol/L BUN 29 H (9-20) mg/dL Creatinine 5.82 H (0.66-1.25) mg/dL Est GFR (CKD-EPI)AfAm 11 (>60 ml/min/1.73 sqM) Est GFR (CKD-EPI)NonAf 10 (>60 ml/min/1.73 sqM) Glucose 237 H (74-99) mg/dL Plasma Lactic Acid Venancio 1.2 (0.7-2.0) mmol/L Calcium 10.3 H (8.4-10.2) mg/dL Phosphorus 2.4 L (2.5-4.5) mg/dL Magnesium 2.3 (1.6-2.3) mg/dL Total Bilirubin 0.8 (0.2-1.3) mg/dL AST 20 (17-59) U/L ALT 14 L (21-72) U/L Alkaline Phosphatase 111 (38-126) U/L Creatine Kinase 62 (55-170) U/L Troponin I (0.000-0.034) ng/mL Total Protein 7.0 (6.3-8.2) g/dL Albumin 4.3 (3.5-5.0) g/dL Amylase 59 (30-110) U/L Lipase 72 (23-300) U/L 02/21/19 Range/Units 20:50 WBC (3.8-10.6) k/uL RBC (4.30-5.90) m/uL Hgb (13.0-17.5) gm/dL Hct (39.0-53.0) % MCV (80.0-100.0) fL MCH (25.0-35.0) pg MCHC (31.0-37.0) g/dL RDW (11.5-15.5) % Plt Count (150-450) k/uL Neutrophils % % Lymphocytes % % Monocytes % % Eosinophils % % Basophils % % Neutrophils # (1.3-7.7) k/uL Lymphocytes # (1.0-4.8) k/uL Monocytes # (0-1.0) k/uL Eosinophils # (0-0.7) k/uL Basophils # (0-0.2) k/uL Sodium (137-145) mmol/L Potassium (3.5-5.1) mmol/L Chloride (98-107) mmol/L Carbon Dioxide (22-30) mmol/L Anion Gap mmol/L BUN (9-20) mg/dL Creatinine (0.66-1.25) mg/dL Est GFR (CKD-EPI)AfAm (>60 ml/min/1.73 sqM) Est GFR (CKD-EPI)NonAf (>60 ml/min/1.73 sqM) Glucose (74-99) mg/dL Plasma Lactic Acid Venancio (0.7-2.0) mmol/L Calcium (8.4-10.2) mg/dL Phosphorus (2.5-4.5) mg/dL Magnesium (1.6-2.3) mg/dL Total Bilirubin (0.2-1.3) mg/dL AST (17-59) U/L ALT (21-72) U/L Alkaline Phosphatase (38-126) U/L Creatine Kinase (55-170) U/L Troponin I 0.025 (0.000-0.034) ng/mL Total Protein (6.3-8.2) g/dL Albumin (3.5-5.0) g/dL Amylase (30-110) U/L Lipase (23-300) U/L Disposition Clinical Impression: Gastroparesis Disposition: HOME SELF-CARE Condition: Stable Is patient prescribed a controlled substance at d/c from ED?: No Referrals: Thor Robert MD [Primary Care Provider] - 1-2 days
[2019-02-22] MEDS ORDERED: hydrALAZINE HCL 50 MG TAB PO STA (00:17)
[2019-02-22] MEDS ORDERED: METOPROLOL TARTRATE 50 MG TAB PO STA (00:17)
[2019-02-22] MEDS ORDERED: cloNIDine HCL 0.2 MG TAB PO STA (01:44)
[2019-02-22 02:58] VITALS: BP 188/86; PULSE 90; RESP 18; TEMP 98.4
== END 2019-02-22 02:55 | disposition home or self-care (01) ==
LOC: EC 19:28
DX: E11.43 Type 2 diabetes mellitus with diabetic autonomic (poly)neuropathy (principal); K31.84 Gastroparesis; R11.2 Nausea with vomiting, unspecified; E11.42 Type 2 diabetes mellitus with diabetic polyneuropathy; E11.319 Type 2 diabetes mellitus with unspecified diabetic retinopathy without macular edema; E11.22 Type 2 diabetes mellitus with diabetic chronic kidney disease; I12.0 Hypertensive chronic kidney disease with stage 5 chronic kidney disease or end stage renal disease; N18.6 End stage renal disease; E11.51 Type 2 diabetes mellitus with diabetic peripheral angiopathy without gangrene; I25.10 Atherosclerotic heart disease of native coronary artery without angina pectoris; E78.5 Hyperlipidemia, unspecified; Z79.899 Other long term (current) drug therapy; Z79.4 Long term (current) use of insulin; Z91.041 Radiographic dye allergy status; Z89.512 Acquired absence of left leg below knee; Z99.2 Dependence on renal dialysis; Z95.3 Presence of xenogenic heart valve
CPT/HCPCS: 36415; 93005; 80053; 82150; 82550; 83605; 83690; 83735; 84100; 84484; 85025; 74018; 99284; 96374; 96375 ×3; 96361; J1200; J2765; J2405; C9113

== ENCOUNTER 2019-07-13 11:24 | Inpatient (IN) | payer MEDICARE ==
--- NOTE | 2019-07-13 12:01 | ED ---
General Adult HPI - General Chief complaint: Shortness of Breath Stated complaint: Sob Time Seen by Provider: 07/13/19 11:39 Source: patient Mode of arrival: ambulatory Limitations: no limitations - History of Present Illness Initial comments: Dictation was produced using eegoes dictation software. please excuse any grammatical, word or spelling errors. Chief Complaint: 59-year-old male presents with shortness of breath. History of Present Illness: 59-year-old male presents with dyspnea. Patient was at dialysis. He gets dialysis Saturday and Saturday. Patient states that he told the dialysis nurse that he's been short of breath. He completed a full dialysis treatment today. He was then instructed to come to the emergency department for evaluation. He was told by dialysis nurse that he had diminished lung sounds on the right. Patient states she's been short of breath for the last 2 weeks. Denies any history of asthma or COPD. He states he is especially worse especially with exertion but he does note dyspnea with rest. He reports not feeling any improvement after dialysis. States is worse with lying flat. He feels better with oxygen. He was using oxygen throughout dialysis treatment. Patient was requesting home oxygen however did not meet criteria for having home oxygen. Denies any cough. No fever, chills or night sweats. The ROS documented in this emergency department record has been reviewed and confirmed by me. Those systems with pertinent positive or negative responses have been documented in the HPI. All other systems are other negative and/or noncontributory. PHYSICAL EXAM: General Impression: Alert and oriented x3, not in acute distress HEENT: Normocephalic atraumatic, extra-ocular movements intact, pupils equal and reactive to light bilaterally, mucous membranes moist. Cardiovascular: Heart regular rate and rhythm, S1&S2 audible, no murmurs, rubs or gallops Chest: Right lung crackles Abdomen: Bowel sounds present, abdomen soft, non-tender, non-distended, no organomegaly Musculoskeletal: Pulses present and equal in all extremities, 2+ pitting edema in the right lower extremity, prosthetic leg to the left lower extremity Motor: no focal deficits noted Neurological: CN II-XII grossly intact, no focal motor or sensory deficits noted Skin: Intact with no visualized rashes Psych: Normal affect and mood ED course: 59-year-old male presents with dyspnea. Signs upon arrival are within acceptable limits. Repeat O2 sat was checked at bedside upon arrival to the ED bed with hypoxia. Lab evaluation obtained. No leukocytosis. Hemoglobin stable at 10.7. Coag panel unremarkable. Metabolic panel is grossly unremarkable. Patient is premature peptide of 54,000. This appears to be elevated compared to patient's recent labs. Chest x-ray shows bilateral consolidation and pleural effusion greater than the right. Correlate for pneumonia. Clinically speaking, patient's symptomatology is more consistent with congestive heart failure versus pneumonia. Patient has pending blood cultures. He'll be admitted. Discussed patient case with Dr. Mcduffie was went except patient's. Presentation is consistent with hypoxic respiratory failure, dyspnea and congestive heart failure. Cardiology and nephrology consultation. EKG interpretation: Ventricular rate is 4, normal sinus rhythm,. Interval 90, QS 114, QTc 519. No NM prolongation, no ST or T-wave changes noted. EKG compared to 02/21/2019 showing no changes. Overall, this EKG is unremarkable - Related Data Home Medications Medication Instructions Recorded Confirmed Atorvastatin [Lipitor] 10 mg PO HS 11/25/17 07/13/19 hydrALAZINE HCL [Apresoline] 100 mg PO BID 08/14/18 07/13/19 INSULIN ASPART (NovoLOG) [NovoLOG See Protocol SQ AC-TID 01/04/19 07/13/19 (formulary)] Insulin Glargine [Lantus] 15 unit SQ QAM 07/13/19 07/13/19 Metoprolol Tartrate [Lopressor] 25 mg PO BID 07/13/19 07/13/19 Jannie-Bruna 0.8mg 0.8 mg PO DAILY 07/13/19 07/13/19 Previous Rx's Medication Instructions Recorded Aspirin 81 mg PO DAILY #1 chewable 02/21/17 Allergies Allergy/AdvReac Type Severity Reaction Status Date / Time Iodinated Contrast Media AdvReac shut down Verified 07/13/19 12:20 [Iodinated Contrast Media - kidneys IV Dye] Review of Systems ROS Statement: Those systems with pertinent positive or pertinent negative responses have been documented in the HPI. ROS Other: All systems not noted in ROS Statement are negative. Past Medical History Past Medical History: Coronary Artery Disease (CAD), Diabetes Mellitus, Eye Disorder, GERD/Reflux, Hearing Disorder / Deafness, Hyperlipidemia, Hypertension, Hypertension, Osteoarthritis (OA), Renal Disease, Renal Disease, Vascular Disorder Additional Past Medical History / Comment(s): Aortic valve replacement - BOVINE, gout, IDDM type II, end-stage renal disease past peritoneal dialysis, now hemodialysis M-W-F, diabetic peripheral neuropathy, L foot ulcers, R foot infection, L BKA, bilateral diabetic retinopathy, bilateral cataracts, bleeds behind retina, history of osteomyelitis, history of MRSA infection, diabetic gastroparesis, PVD. History of Any Multi-Drug Resistant Organisms: MRSA Date of last positivie culture/infection: 2011 MDRO Source:: LEFT FOOT Past Surgical History: Cardiac Valve Replacement, Cholecystectomy, Hernia Repair, Orthopedic Surgery Additional Past Surgical History / Comment(s): L arm fistula being used for hemodialysis, R upper chest moura cath- removed . RT foot I&D when a metal fragment was in his foot that was also infected, LT FOOT DEBRIDEMENT ,5TH TOE AMP, 10/2016 L BKA, insertion and REMOVAL PD CATH.LT ARM FISTUAL, CATARACATS REMOVED-LENS IMPLANTS, YAMILKA EYE LASER EYE SX, LT INDEX FINGER PARTIAL AMP Past Anesthesia/Blood Transfusion Reactions: Motion Sickness Additional Past Anesthesia/Blood Transfusion Reaction / Comment(s): CLAUSTROPHOBIA Past Psychological History: Anxiety, Depression Smoking Status: Never smoker Past Alcohol Use History: None Reported Past Drug Use History: None Reported - Past Family History Mother Family Medical History: Diabetes Mellitus, Osteoarthritis (OA) Additional Family Medical History / Comment(s): HIP REPLACMENTS Father Family Medical History: CVA/TIA, Diabetes Mellitus, Myocardial Infarction ([place]), Musculoskeletal Disorder, Neurologic Disorder Additional Family Medical History / Comment(s): PARKINSON'S General Exam Limitations: no limitations Course Vital Signs 07/13/19 07/13/19 07/13/19 11:30 11:41 12:47 Temperature 97.5 F L Pulse Rate 64 58 L 57 L Respiratory 18 22 22 Rate Blood Pressure 153/59 185/94 173/81 O2 Sat by Pulse 96 89 L 100 Oximetry Medical Decision Making - Lab Data Result diagrams: 07/13/19 12:00 07/13/19 12:00 Lab Results 07/13/19 07/13/19 07/13/19 Range/Units 12:00 12:00 12:00 WBC 4.1 (3.8-10.6) k/uL RBC 3.64 L (4.30-5.90) m/uL Hgb 10.7 L (13.0-17.5) gm/dL Hct 31.6 L (39.0-53.0) % MCV 86.8 (80.0-100.0) fL MCH 29.3 (25.0-35.0) pg MCHC 33.8 (31.0-37.0) g/dL RDW 15.7 H (11.5-15.5) % Plt Count 186 (150-450) k/uL Neutrophils % 70 % Lymphocytes % 11 % Monocytes % 11 % Eosinophils % 4 % Basophils % 1 % Neutrophils # 2.9 (1.3-7.7) k/uL Lymphocytes # 0.5 L (1.0-4.8) k/uL Monocytes # 0.5 (0-1.0) k/uL Eosinophils # 0.2 (0-0.7) k/uL Basophils # 0.0 (0-0.2) k/uL PT (9.0-12.0) sec INR (<1.2) APTT (22.0-30.0) sec Sodium 140 (137-145) mmol/L Potassium 3.4 L (3.5-5.1) mmol/L Chloride 97 L (98-107) mmol/L Carbon Dioxide 35 H (22-30) mmol/L Anion Gap 8 mmol/L BUN 14 (9-20) mg/dL Creatinine 3.53 H (0.66-1.25) mg/dL Est GFR (CKD-EPI)AfAm 20 (>60 ml/min/1.73 sqM) Est GFR (CKD-EPI)NonAf 18 (>60 ml/min/1.73 sqM) Glucose 212 H (74-99) mg/dL Calcium 9.0 (8.4-10.2) mg/dL Magnesium 1.9 (1.6-2.3) mg/dL Total Bilirubin 1.1 (0.2-1.3) mg/dL AST 21 (17-59) U/L ALT 15 L (21-72) U/L Alkaline Phosphatase 91 (38-126) U/L Troponin I (0.000-0.034) ng/mL NT-Pro-B Natriuret Pep 31444 pg/mL Total Protein 6.8 (6.3-8.2) g/dL Albumin 3.7 (3.5-5.0) g/dL 07/13/19 07/13/19 Range/Units 12:00 12:00 WBC (3.8-10.6) k/uL RBC (4.30-5.90) m/uL Hgb (13.0-17.5) gm/dL Hct (39.0-53.0) % MCV (80.0-100.0) fL MCH (25.0-35.0) pg MCHC (31.0-37.0) g/dL RDW (11.5-15.5) % Plt Count (150-450) k/uL Neutrophils % % Lymphocytes % % Monocytes % % Eosinophils % % Basophils % % Neutrophils # (1.3-7.7) k/uL Lymphocytes # (1.0-4.8) k/uL Monocytes # (0-1.0) k/uL Eosinophils # (0-0.7) k/uL Basophils # (0-0.2) k/uL PT 10.5 (9.0-12.0) sec INR 1.0 (<1.2) APTT 26.0 (22.0-30.0) sec Sodium (137-145) mmol/L Potassium (3.5-5.1) mmol/L Chloride (98-107) mmol/L Carbon Dioxide (22-30) mmol/L Anion Gap mmol/L BUN (9-20) mg/dL Creatinine (0.66-1.25) mg/dL Est GFR (CKD-EPI)AfAm (>60 ml/min/1.73 sqM) Est GFR (CKD-EPI)NonAf (>60 ml/min/1.73 sqM) Glucose (74-99) mg/dL Calcium (8.4-10.2) mg/dL Magnesium (1.6-2.3) mg/dL Total Bilirubin (0.2-1.3) mg/dL AST (17-59) U/L ALT (21-72) U/L Alkaline Phosphatase (38-126) U/L Troponin I 0.024 (0.000-0.034) ng/mL NT-Pro-B Natriuret Pep pg/mL Total Protein (6.3-8.2) g/dL Albumin (3.5-5.0) g/dL Disposition Clinical Impression: Dyspnea, Hypoxia Disposition: ADMITTED IP TO THIS HOSP Condition: Fair Referrals: Thor Robert MD [Primary Care Provider] - 1-2 days Decision Time: 13:50
[2019-07-13 12:21] LABS: Basophils % (A) 1 %; Eosinophils # (A) 0.2 k/uL (0-0.7); Eosinophils % (A) 4 %; HCT 31.6 % (39.0-53.0); HGB 10.7 gm/dL (13.0-17.5); Lymphocytes # (A) 0.5 k/uL (1.0-4.8); Lymphocytes % (A) 11 %; MCH 29.3 pg (25.0-35.0); MCHC 33.8 g/dL (31.0-37.0); MCV 86.8 fL (80.0-100.0); Monocytes # (A) 0.5 k/uL (0-1.0); Monocytes % (A) 11 %; Neutrophils # (A) 2.9 k/uL (1.3-7.7); Neutrophils % (A) 70 %; Platelet Count 186 k/uL (150-450); RBC 3.64 m/uL (4.30-5.90); RDW 15.7 % (11.5-15.5); WBC 4.1 k/uL (3.8-10.6)
--- NOTE | 2019-07-13 12:30 | XR ---
EXAMINATION TYPE: XR chest 2V DATE OF EXAM: 07/13/2019 COMPARISON: 12/20/2018 TECHNIQUE: PA and lateral views submitted. HISTORY: Shortness of breath FINDINGS: Bilateral consolidation and pleural effusion much greater on the right. Apical pleural thickening may represent extension of pleural fluid. Cardiomegaly and postsurgical changes noted. No pneumothorax. Prosthetic heart valve noted and there is degenerative change of the spine. IMPRESSION: 1. Bilateral consolidation and pleural effusion much greater on the right. Correlate for pneumonia. U nderlying CHF in the differential diagnosis.
[2019-07-13 12:31] LABS: Albumin 3.7 g/dL (3.5-5.0); Magnesium 1.9 mg/dL (1.6-2.3); Potassium 3.4 mmol/L (3.5-5.1); Total Bilirubin 1.1 mg/dL (0.2-1.3); Total Protein 6.8 g/dL (6.3-8.2)
[2019-07-13 12:33] LABS: Prothrombin Time 10.5 sec (9.0-12.0)
--- NOTE | 2019-07-13 12:56 | P.HPIM ---
History of Present Illness This is a pleasant 59 years old male with past medical history of end-stage renal disease on hemodialysis, congestive heart failure, diabetes mellitus and diabetic foot injury, numbness STEMI and coronary artery disease, GERD, hearing difficulty, hypertension, hyperlipidemia, osteoarthritis, aortic valve replacement, gout, diabetic neuropathy status post left BKA, diabetic retinopathy on both sides and the retinal hemorrhage, and gastroparesis Presents because of dyspnea for 2 weeks, more with exertion, associated with a dry cough and left-sided chest pain about 4/10 for 2 weeks as well, felt like sharp with no precipitating or aggravating factors. Patient says that is different from his cardiac chest pain. He went to the hemodialysis today and nurse at the dialysis center could not hear breath sounds on the right side and recommended him to come to the emergency room. No abdominal pain, no change in urine or bowel habits. No diarrhea. No fever Vitas looks stable with a blood pressure 153/59. Labs reviewed which were unremarkable including CBC, INR, BMP except for mild blood potassium 3.4 and expected elevated creatinine of 3.5. Liver enzymes not elevated. Chest x-ray: Bilateral consolidation and pleural effusion, more on the right side Review of Systems CONSTITUTIONAL: No fever, no malaise, no fatigue. HEENT: No recent visual problems or hearing problems. Denied any sore throat. CARDIOVASCULAR: No orthopnea, PND, no palpitations, no syncope. PULMONARY: no hemoptysis. GASTROINTESTINAL: No diarrhea, no nausea, no vomiting, no abdominal pain. Normoactive bowel sounds. NEUROLOGICAL: No headaches, no weakness, no numbness. HEMATOLOGICAL: Denies any bleeding or petechiae. GENITOURINARY: Denies any burning micturition, frequency, or urgency. MUSCULOSKELETAL/RHEUMATOLOGICAL: Denies any joint pain, swelling, or any muscle pain. ENDOCRINE: Denies any polyuria or polydipsia. Past Medical History Past Medical History: Coronary Artery Disease (CAD), Diabetes Mellitus, Eye Disorder, GERD/Reflux, Hearing Disorder / Deafness, Hyperlipidemia, Hypertension, Hypertension, Osteoarthritis (OA), Renal Disease, Renal Disease, Vascular Disorder Additional Past Medical History / Comment(s): Aortic valve replacement - BOVINE, gout, IDDM type II, end-stage renal disease past peritoneal dialysis, now hemodialysis M-W-F, diabetic peripheral neuropathy, L foot ulcers, R foot infection, L BKA, bilateral diabetic retinopathy, bilateral cataracts, bleeds behind retina, history of osteomyelitis, history of MRSA infection, diabetic gastroparesis, PVD. History of Any Multi-Drug Resistant Organisms: MRSA Date of last positivie culture/infection: 2011 MDRO Source:: LEFT FOOT Past Surgical History: Cardiac Valve Replacement, Cholecystectomy, Hernia Repair, Orthopedic Surgery Additional Past Surgical History / Comment(s): L arm fistula being used for hemodialysis, R upper chest moura cath- removed . RT foot I&D when a metal fragment was in his foot that was also infected, LT FOOT DEBRIDEMENT ,5TH TOE AMP, 10/2016 L BKA, insertion and REMOVAL PD CATH.LT ARM FISTUAL, CATARACATS REMOVED-LENS IMPLANTS, YAMILKA EYE LASER EYE SX, LT INDEX FINGER PARTIAL AMP Past Anesthesia/Blood Transfusion Reactions: Motion Sickness Additional Past Anesthesia/Blood Transfusion Reaction / Comment(s): CLAUSTROPHOBIA Past Psychological History: Anxiety, Depression Smoking Status: Never smoker Past Alcohol Use History: None Reported Past Drug Use History: None Reported - Past Family History Mother Family Medical History: Diabetes Mellitus, Osteoarthritis (OA) Additional Family Medical History / Comment(s): HIP REPLACMENTS Father Family Medical History: CVA/TIA, Diabetes Mellitus, Myocardial Infarction ([place]), Musculoskeletal Disorder, Neurologic Disorder Additional Family Medical History / Comment(s): PARKINSON'S Medications and Allergies Home Medications Medication Instructions Recorded Confirmed Type Aspirin 81 mg PO DAILY #1 chewable 02/21/17 02/22/19 Rx Atorvastatin [Lipitor] 10 mg PO HS 11/25/17 01/08/19 History Calcium Acetate [PhosLo] 667 mg PO AC-BID 11/25/17 01/08/19 History Jannie-Bruna 1 tab PO DAILY 11/25/17 02/22/19 History hydrALAZINE HCL [Apresoline] 100 mg PO BID 08/14/18 02/22/19 History INSULIN ASPART (NovoLOG) [NovoLOG See Protocol SQ AC-TID 01/04/19 02/22/19 History (formulary)] cloNIDine HCL [Catapres] 0.1 mg PO BID #60 tab 01/07/19 01/08/19 Rx guaiFENesin [Mucinex] 1,200 mg PO Q12HR #14 tablet.er 01/07/19 01/08/19 Rx Insulin Glargine [Lantus] 20 unit SQ QAM #0 01/12/19 02/22/19 Rx Omeprazole [PriLOSEC] 40 mg PO BID #60 capsule. 01/12/19 02/22/19 Rx Promethazine [Phenergan] 12.5 mg PO Q6HR PRN #20 tab 01/12/19 Rx Metoprolol Tartrate [Lopressor] 50 mg PO BID 02/22/19 02/22/19 History Allergies Allergy/AdvReac Type Severity Reaction Status Date / Time Iodinated Contrast Media AdvReac shut down Verified 07/13/19 12:20 [Iodinated Contrast Media - kidneys IV Dye] Physical Exam Vitals: Vital Signs Temp Pulse Resp BP Pulse Ox 07/13/19 11:41 16 07/13/19 11:30 97.5 F L 64 18 153/59 96 Intake and Output 07/12/19 07/13/19 07/13/19 22:59 06:59 14:59 Other: Weight 68.3 kg GENERAL: The patient is alert and oriented x3, not in any acute distress. Well developed, well nourished. HEENT: Pupils are round and equally reacting to light. EOMI. No scleral icterus. No conjunctival pallor. Normocephalic, atraumatic. No pharyngeal erythema. No thyromegaly. CARDIOVASCULAR: S1 and S2 present. No murmurs, rubs, or gallops. -PULMONARY: Chest is clear to auscultation, no wheezing or crackles. Decreased breast size more on the right side lower zones ABDOMEN: Soft, nontender, nondistended, normoactive bowel sounds. No palpable organomegaly. MUSCULOSKELETAL: No joint swelling or deformity. -EXTREMITIES: No cyanosis, clubbing, or pedal edema. Status post left BKA NEUROLOGICAL: Gross neurological examination did not reveal any focal deficits. SKIN: No rashes. No petechiae Results CBC & Chem 7: 07/13/19 12:00 07/13/19 12:00 Labs: Abnormal Lab Results - Last 24 Hours (Table) 07/13/19 07/13/19 Range/Units 12:00 12:00 RBC 3.64 L (4.30-5.90) m/uL Hgb 10.7 L (13.0-17.5) gm/dL Hct 31.6 L (39.0-53.0) % RDW 15.7 H (11.5-15.5) % Lymphocytes # 0.5 L (1.0-4.8) k/uL Potassium 3.4 L (3.5-5.1) mmol/L Chloride 97 L (98-107) mmol/L Carbon Dioxide 35 H (22-30) mmol/L Creatinine 3.53 H (0.66-1.25) mg/dL Glucose 212 H (74-99) mg/dL ALT 15 L (21-72) U/L Assessment and Plan Assessment: Acute hypoxic respiratory failure Bilateral pleural effusion and congestion, with consolidation, more on the right side. Rule out pneumonia End-stage renal disease on hemodialysis Chronic congestive heart failure Diabetes mellitus with complications including history of diabetic foot, diabetic neuropathy, diabetic nephropathy, and bilateral diabetic retinopathy with vitreous hemorrhage. Status post left BKA Diabetic gastroparesis GERD Hearing difficulty Hypertension Hyperlipidemia Primary osteoarthritis History of inverted fall for placement Doubt Plan: This is a pleasant 59 years old male who presents with acute hypoxic respiratory failure and pulmonary congestion and right pleural effusion. Continue with he modialysis as per nephrology service. Consult pulmonary and infectious disease services team. Continue with diuretic. Continue with aspirin and Lipitor and blood pressure medication. Continue with insulin and insulin sliding scale. Send sputum for culture Labs and medication were reviewed.. Continue same treatment. Continue with symptomatic treatment. Resume home medication. Monitor lytes and vitals. DVT and GI prophylaxis. Further recommendations of the clinical course of the patient DVT prophylaxis: Subcutaneous heparin GI Prophylaxis: Pepcid Prognosis is guarded
[2019-07-13] MEDS ORDERED: NALOXONE 0.4 MG/ML 1 ML VIAL IV PRN (13:50)
[2019-07-13 16:23] LABS: Glucose,Whole Blood 218 mg/dL (75-99)
[2019-07-13] MEDS: HEPARIN SODIUM,PORCINE 5,000 UNIT/ML 1 ML VIAL SQ SCH (19:57)
[2019-07-13] MEDS: ATORVASTATIN 10 MG TAB PO SCH (19:57)
[2019-07-13] MEDS: FAMOTIDINE 20 MG/2 ML VIAL IV SCH (19:57)
[2019-07-13] MEDS: METOPROLOL TARTRATE 25 MG TAB PO SCH (19:57)
[2019-07-13] MEDS: hydrALAZINE HCL 50 MG TAB PO SCH (19:57)
[2019-07-13 20:33] LABS: Glucose,Whole Blood 259 mg/dL (75-99)
[2019-07-13] MEDS: INSULIN ASPART (NovoLOG) 100 UNIT/ML VIAL SQ SCH (21:28)
--- NOTE | 2019-07-13 21:58 | CONS ---
CONSULTATION CHIEF COMPLAINT: Shortness of breath. HISTORY OF PRESENT ILLNESS: This is a 59-year-old gentleman with history of end-stage renal disease on hemodialysis, who presented to the emergency room at [facility] for persistent shortness of breath in spite of dialysis this morning. The patient has bilateral pleural effusions. He is currently on IV diuretics and has been dialyzed today. The patient has history of aortic valve replacement, hypertension and insulin-requiring diabetes. PAST MEDICAL HISTORY: Significant for aortic valve replacement, hypertension, end-stage renal disease on hemodialysis and insulin-requiring diabetes along with dyslipidemia. MEDICATIONS: Current medications include aspirin, Lipitor 10 daily, insulin, Lopressor 25 b.i.d., hydralazine 100 b.i.d. ALLERGIES: THE PATIENT IS ALLERGIC TO IV DYE. FAMILY HISTORY: Is negative for premature coronary artery disease. SOCIAL HISTORY: Is negative for current smoking, EtOH abuse, or drug abuse. REVIEW OF SYSTEMS: HEENT is unremarkable. Cardiac as described above. Respiratory as described above. GI: Negative. GENITOURINARY: Significant for end-stage renal disease on hemodialysis. Psychosocial negative. Endocrine negative. Derm negative. Constitutional negative. Oncological negative. Rest of the system review is not relevant. PHYSICAL EXAMINATION: On exam, the patient appears comfortable at rest. Heart rate is 60 beats per minute. Blood pressure is 180/86, respiratory rate 18. Chest exam reveals diminished air entry on the right side. Heart exam reveals first and second heart sounds. An S4 is heard. An ejection systolic murmur in the aortic area. Abdomen is soft. Exam of extremities revealed mild edema over the right leg. The patient had left above-knee amputation. LABORATORY DATA: Labs show that the hemoglobin is 10.7, platelet count is 180. Potassium is 3.4, BUN is 14, creatinine is 3.5. BNP is elevated at 54,800. EKG shows sinus rhythm, poor R-wave progression, prolonged QT interval and nonspecific ST-T wave changes. Patient had an echocardiogram in December that showed normal LV systolic function and normally functioning bioprosthetic valve in aortic position with a peak gradient of 24 mm and mean gradient of 11 mm across the valve. ASSESSMENT: 1. Acute exacerbation of chronic diastolic heart failure. 2. Status post aortic valve replacement. 3. Status post left above knee amputation. 4. Bilateral pleural effusion. 5. Insulin-requiring diabetes. 6. End-stage renal disease on hemodialysis plan. 7. Uncontrolled hypertension. PLAN: We will control his blood pressure optimally with hydralazine, Lopressor, and add amlodipine 10 mg daily. Continue with the dialysis and treat him with IV Lasix. The patient may need thoracentesis if diuretics and dialysis does not improve him. MMODL / IJN: [id number] /
--- NOTE | 2019-07-13 23:31 | P.CONS ---
History of Present Illness - Reason for Consult Consult date: 07/13/19 Abnormal chest x-ray with consolidation and question of pneumonia Requesting physician: [place] E Sheet - Chief Complaint Shortness of breath 2 weeks - History of Present Illness Patient is a 59-year-old male with a past medical history significant for diabetes mellitus patient did have a history of end-stage renal disease on hemodialysis through the left arm AV fistula patient has been complaining of shortness of breath that has been progressively getting worse over the last 2 weeks initially on exertion but now even at rest the patient 7 when he went for his dialysis today the dialysis nurse could not hear any breath sound on the right side and she advised him to go to the ER to be checked out the patient did have very minimal cough which is dry in nature and not bringing up any sputum the patient denies having any URI symptoms the patient denies having any fever or any chills denies having any chest pain with these symptoms the patient has been evaluated by the ER physician on arrival to the orthopedic did have influenza serology that was negative for 6 additional bilateral effusion and consolidation of more on the right side with a question of pneumonia with CHF in the differential patient white count has been normal and his anti-proBNP level has been significantly elevated infection disease was consulted for recommendations on possible antibiotics and pneumonia Review of Systems Positive point has been mentioned in the HPI rest of the systems are negative Past Medical History Past Medical History: Coronary Artery Disease (CAD), Diabetes Mellitus, Eye Disorder, GERD/Reflux, Hearing Disorder / Deafness, Hyperlipidemia, Hypertension, Hypertension, Osteoarthritis (OA), Renal Disease, Renal Disease, Vascular Disorder Additional Past Medical History / Comment(s): Aortic valve replacement - BOVINE, gout, IDDM type II, end-stage renal disease past peritoneal dialysis, now hemodialysis M-W-F, diabetic peripheral neuropathy, L foot ulcers, R foot infection, L BKA, bilateral diabetic retinopathy, bilateral cataracts, bleeds behind retina, history of osteomyelitis, history of MRSA infection, diabetic gastroparesis, PVD. History of Any Multi-Drug Resistant Organisms: MRSA Year Discovered:: 2011 MDRO Source:: LEFT FOOT Past Surgical History: Cardiac Valve Replacement, Cholecystectomy, Hernia Repair, Orthopedic Surgery Additional Past Surgical History / Comment(s): L arm fistula being used for hemodialysis, R upper chest moura cath- removed . RT foot I&D when a metal fragment was in his foot that was also infected, LT FOOT DEBRIDEMENT ,5TH TOE AMP, 10/2016 L BKA, insertion and REMOVAL PD CATH.LT ARM FISTUAL, CATARACATS REMOVED-LENS IMPLANTS, YAMILKA EYE LASER EYE SX, LT INDEX FINGER PARTIAL AMP Past Anesthesia/Blood Transfusion Reactions: Motion Sickness Additional Past Anesthesia/Blood Transfusion Reaction / Comm: CLAUSTROPHOBIA Past Psychological History: Anxiety, Depression Additional Psychological History / Comment(s): Pt resides with his spouse. He has [facility]. He is interested in trying to get home oxygen. 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 No experience. No recent travels. No animals in the home. No significant alcohol use. No current tobacco use. 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 - Past Family History Mother Family Medical History: Diabetes Mellitus, Osteoarthritis (OA) Additional Family Medical History / Comment(s): HIP REPLACMENTS Father Family Medical History: CVA/TIA, Diabetes Mellitus, Myocardial Infarction ([place]), Musculoskeletal Disorder, Neurologic Disorder Additional Family Medical History / Comment(s): PARKINSON'S Medications and Allergies Home Medications Medication Instructions Recorded Confirmed Type Aspirin 81 mg PO DAILY #1 chewable 02/21/17 07/13/19 Rx Atorvastatin [Lipitor] 10 mg PO HS 11/25/17 07/13/19 History hydrALAZINE HCL [Apresoline] 100 mg PO BID 08/14/18 07/13/19 History INSULIN ASPART (NovoLOG) [NovoLOG See Protocol SQ AC-TID 01/04/19 07/13/19 History (formulary)] Insulin Glargine [Lantus] 15 unit SQ QAM 07/13/19 07/13/19 History Metoprolol Tartrate [Lopressor] 25 mg PO BID 07/13/19 07/13/19 History Jannie-Bruna 0.8mg 0.8 mg PO DAILY 07/13/19 07/13/19 History Allergies Allergy/AdvReac Type Severity Reaction Status Date / Time Iodinated Contrast Media AdvReac shut down Verified 07/13/19 12:20 [Iodinated Contrast Media - kidneys IV Dye] Physical Exam Vitals: Vital Signs Temp Pulse Pulse Resp BP BP Pulse Ox 07/13/19 23:08 62 18 07/13/19 23:07 97.6 F 62 18 178/85 95 07/13/19 20:00 97.7 F 60 18 187/86 98 07/13/19 18:37 97.8 F 59 L 16 187/86 98 07/13/19 18:12 97.8 F 59 L 16 187/86 98 07/13/19 17:56 97.5 F L 57 L 18 181/87 98 07/13/19 17:51 57 L 18 181/87 98 07/13/19 15:39 60 20 181/86 99 07/13/19 13:55 57 L 18 171/86 97 07/13/19 12:47 57 L 22 173/81 100 07/13/19 11:41 58 L 22 185/94 89 L 07/13/19 11:30 97.5 F L 64 18 153/59 96 Intake and Output 07/13/19 07/13/19 07/14/19 14:59 22:59 06:59 Intake Total 250 Balance 250 Intake: IV 10 0.9 10 Oral 240 Other: Weight 68.3 kg GENERAL DESCRIPTION: Middle-aged male lying in bed, no distress. No tachypnea or accessory muscle of respiration use. HEENT: Shows Pallor , no scleral icterus. Oral mucous membrane is dry. No pharyngeal erythema or thrush NECK: Trachea central, no thyromegaly. LUNGS: Unlabored breathing. Decreased breath sound the bases. No wheeze or crackle. HEART: S1, S2, regular rate and rhythm. No loud murmur ABDOMEN: Soft, no tenderness , guarding or rigidity, no organomegaly EXTREMITIES: No edema of feet. SKIN: No rash, no masses palpable. NEUROLOGICAL: The patient is awake, alert, oriented x3, mood and affect normal. Results CBC & Chem 7: 07/13/19 12:00 07/13/19 12:00 Labs: Abnormal Lab Results - Last 24 Hours (Table) 07/13/19 07/13/19 07/13/19 Range/Units 12:00 12:00 16:11 RBC 3.64 L (4.30-5.90) m/uL Hgb 10.7 L (13.0-17.5) gm/dL Hct 31.6 L (39.0-53.0) % RDW 15.7 H (11.5-15.5) % Lymphocytes # 0.5 L (1.0-4.8) k/uL Potassium 3.4 L (3.5-5.1) mmol/L Chloride 97 L (98-107) mmol/L Carbon Dioxide 35 H (22-30) mmol/L Creatinine 3.53 H (0.66-1.25) mg/dL Glucose 212 H (74-99) mg/dL POC Glucose (mg/dL) 218 H (75-99) mg/dL ALT 15 L (21-72) U/L 07/13/19 Range/Units 20:33 RBC (4.30-5.90) m/uL Hgb (13.0-17.5) gm/dL Hct (39.0-53.0) % RDW (11.5-15.5) % Lymphocytes # (1.0-4.8) k/uL Potassium (3.5-5.1) mmol/L Chloride (98-107) mmol/L Carbon Dioxide (22-30) mmol/L Creatinine (0.66-1.25) mg/dL Glucose (74-99) mg/dL POC Glucose (mg/dL) 259 H (75-99) mg/dL ALT (21-72) U/L Assessment and Plan Assessment: 1-patient presented to the hospital with increasing shortness of breath on minimal exertion in this patient who did have a chest x-ray with evidence of bilateral effusion and consolidation more likely compressive atelectasis clinically doubt pneumonia in this patient who did not have any fever and elevated white count no significant cough or sputum production (1) Abnormal chest x-ray Current Visit: Yes Status: Acute Code(s): R93.89 - ABNORMAL FINDINGS ON DX IMAGING OF OTH BODY STRUCTURES SNOMED Code(s): 229257430 Plan: 1-we will hold on any systemic antibiotic therapy as clinical suspicion is low for pneumonia 2-await pulmonary evaluation and possible thoracocentesis at which time fluid should be sent for culture 3-we will check a CRP and Procalcitonin level We will follow on clinical condition and cultures to further adjust medication if needed Thank you for this consultation will follow this patient with you Time with Patient: Greater than 30
[2019-07-14 06:36] LABS: Glucose,Whole Blood 124 mg/dL (75-99)
[2019-07-14] MEDS: INSULIN ASPART (NovoLOG) 100 UNIT/ML VIAL SQ SCH ×4 (06:39→20:49)
--- NOTE | 2019-07-14 07:14 | ECHOF ---
Referral Reason:chf MEASUREMENTS -------- HEIGHT: 177.8 cm WEIGHT: 68.0 kg BP: 181/86 RVIDd: 4.7 cm (< 3.3) IVSd: 1.5 cm (0.6 - 1.1) LVIDd: 4.9 cm (3.9 - 5.3) LVPWd: 1.3 cm (0.6 - 1.1) IVSs: 1.8 cm LVIDs: 4.4 cm LVPWs: 1.6 cm LAESV Index (A-L): 40.18 ml/m Ao Diam: 3.4 cm (2.0 - 3.7) AV Cusp: 1.8 cm (1.5 - 2.6) LA Diam: 4.1 cm (2.7 - 3.8) MV EXCURSION: 20.130 mm (> 18.000) MV EF SLOPE: 56 mm/s (70 - 150) EPSS: 1.6 cm MV E Darrion: 1.26 m/s MV DecT: 223 ms MV A Darrion: 0.61 m/s MV E/A Ratio: 2.07 AV maxP.96 mmHg AV meanP.28 mmHg RAP: 5.00 mmHg RVSP: 16.99 mmHg FINDINGS -------- Sinus rhythm. This was a technically good study. The left ventricular size is normal. There is moderate concentric left ventricular hypertrophy. O verall left ventricular systolic function is mildly impaired with, an EF between 45 - 50 %. Mitral Doppler inflow pattern suggests diastolic filling abnormality 32.37. Septal wall motion is delayed and consistent with prior cardiac surgery. The right ventricle is severely enlarged. LA is severely dilated >40 ml/m2 RA appears enlarged. Interatrial and interventricular septum intact. Peak/mean gradient across the Aortic Valve is 20.96mmHg / 11.28mmHg. Normally functioning bioprosth etic valve. Mild mitral annular calcification present. Mild mitral regurgitation is present. Mild mitral sten osis. Trace tricuspid regurgitation present. There is no evidence of pulmonary hypertension. The right ventricular systolic pressure, as measured by Doppler, is 16.99mmHg. There is no pulmonic regurgitation present. The aortic root size is normal. Normal inferior vena cava with normal inspiratory collapse consistent with estimated right atrial pre ssure of 5 mmHg. There is no pericardial effusion. CONCLUSIONS -------- 1. Sinus rhythm. 2. This was a technically good study. 3. The left ventricular size is normal. 4. There is moderate concentric left ventricular hypertrophy. 5. Overall left ventricular systolic function is mildly impaired with, an EF between 45 - 50 %. 6. Mitral Doppler inflow pattern suggest diastolic filling abnormality 32.37. 7. Septal wall motion is delayed and consistent with prior cardiac surgery. 8. The right ventricle is severely enlarged. 9. LA is severely dilated >40 ml/m2 10. RA appears enlarged. 11. Interatrial and interventricular septum intact. 12. Peak/mean gradient across the Aortic Valve is 20.96mmHg / 11.28mmHg. 13. Normally functioning bioprosthetic valve. 14. Mild mitral annular calcification present. 15. Mild mitral regurgitation is present. 16. Mild mitral stenosis. 17. Trace tricuspid regurgitation present. 18. There is no evidence of pulmonary hypertension. 19. The right ventricular systolic pressure, as measured by Doppler, is 16.99mmHg. 20. There is no pulmonic regurgitation present. 21. The aortic root size is normal. 22. Normal inferior vena cava with normal inspiratory collapse consistent with estimated right atrial pressure of 5 mmHg. 23. There is no pericardial effusion. NITRO WORKER: Bernadine Hwang RDCS
[2019-07-14] MEDS ORDERED: INSULIN ASPART (NovoLOG) 100 UNIT/ML VIAL SQ SCH (07:30)
[2019-07-14] MEDS: HEPARIN SODIUM,PORCINE 5,000 UNIT/ML 1 ML VIAL SQ SCH ×2 (08:31→22:48)
[2019-07-14] MEDS: INSULIN DETEMIR (LEVEMIR) 100 UNIT/ML SYR SQ SCH (08:31)
[2019-07-14] MEDS: FOLIC ACID-VIT B COMPLEX-VIT C 1 CAP PO SCH (08:31)
[2019-07-14] MEDS: ASPIRIN 81 MG PO SCH (08:31)
[2019-07-14] MEDS: hydrALAZINE HCL 50 MG TAB PO SCH ×2 (08:31→22:46)
[2019-07-14] MEDS: METOPROLOL TARTRATE 25 MG TAB PO SCH ×2 (08:31→22:47)
[2019-07-14] MEDS: FAMOTIDINE 20 MG/2 ML VIAL IV SCH (08:32)
[2019-07-14 11:15] VITALS: BMI 23.3
--- NOTE | 2019-07-14 11:46 | P.NPCON ---
History of Present Illness - Reason for Consult end stage renal disease - History of Present Illness Reason for consultation: End-stage renal disease History of present illness: Patient is a 59-year-old male seen in consultation for end-stage renal disease. He is maintained on hemodialysis on Saturday schedule. Patient completed hemodialysis treatment yesterday. However even after treatment he felt short of breath and was advised to go to the hospital. Patient's chest x- ray on admission revealed bilateral consolidation and effusions. Patient denies any fever or chills. No vomiting or diarrhea. No chest pain. Overall he feels better today. Echocardiogram revealed ejection fraction of 45-50%. He's been afebrile. No hematuria or dysuria. No cough. No abdominal pain. No white count. Hemodynamically stable. Vital signs are stable. General: The patient appeared well nourished and normally developed. HEENT: Head exam is unremarkable. Neck is without jugular venous distension. LUNGS: Breath sounds decreased. HEART: Rate and Rhythm are regular. First and second heart sounds normal. No murmurs, rubs or gallops. ABDOMEN: Abdominal exam reveals normal bowel sounds. Non-tender and non- distended. No evidence of peritonitis. EXTREMITITES: No clubbing, cyanosis, or edema. BKA noted. Past Medical History Past Medical History: Coronary Artery Disease (CAD), Diabetes Mellitus, Eye Disorder, GERD/Reflux, Hearing Disorder / Deafness, Hyperlipidemia, Hypertension, Hypertension, Osteoarthritis (OA), Renal Disease, Renal Disease, Vascular Disorder Additional Past Medical History / Comment(s): Aortic valve replacement - BOVINE, gout, IDDM type II, end-stage renal disease past peritoneal dialysis, now hemodialysis M-W-F, diabetic peripheral neuropathy, L foot ulcers, R foot infection, L BKA, bilateral diabetic retinopathy, bilateral cataracts, bleeds behind retina, history of osteomyelitis, history of MRSA infection, diabetic gastroparesis, PVD. History of Any Multi-Drug Resistant Organisms: MRSA Date of last positivie culture/infection: 2011 MDRO Source:: LEFT FOOT Past Surgical History: Cardiac Valve Replacement, Cholecystectomy, Hernia Repair, Orthopedic Surgery Additional Past Surgical History / Comment(s): L arm fistula being used for hemodialysis, R upper chest moura cath- removed . RT foot I&D when a metal fragment was in his foot that was also infected, LT FOOT DEBRIDEMENT ,5TH TOE AMP, 10/2016 L BKA, insertion and REMOVAL PD CATH.LT ARM FISTUAL, CATARACATS REMOVED-LENS IMPLANTS, YAMILKA EYE LASER EYE SX, LT INDEX FINGER PARTIAL AMP Past Anesthesia/Blood Transfusion Reactions: Motion Sickness Additional Past Anesthesia/Blood Transfusion Reaction / Comment(s): CLAUSTROPHOBIA Past Psychological History: Anxiety, Depression Additional Psychological History / Comment(s): Pt resides with his spouse. He has [place] home care. He is interested in trying to get home oxygen. 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 No experience. No recent travels. No animals in the home. No significant alcohol use. No current tobacco use. 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 - Past Family History Mother Family Medical History: Diabetes Mellitus, Osteoarthritis (OA) Additional Family Medical History / Comment(s): HIP REPLACMENTS Father Family Medical History: CVA/TIA, Diabetes Mellitus, Myocardial Infarction (CT), Musculoskeletal Disorder, Neurologic Disorder Additional Family Medical History / Comment(s): PARKINSON'S Medications and Allergies Home Medications Medication Instructions Recorded Confirmed Type Aspirin 81 mg PO DAILY #1 chewable 02/21/17 07/13/19 Rx Atorvastatin [Lipitor] 10 mg PO HS 11/25/17 07/13/19 History hydrALAZINE HCL [Apresoline] 100 mg PO BID 08/14/18 07/13/19 History INSULIN ASPART (NovoLOG) [NovoLOG See Protocol SQ AC-TID 01/04/19 07/13/19 History (formulary)] Insulin Glargine [Lantus] 15 unit SQ QAM 07/13/19 07/13/19 History Metoprolol Tartrate [Lopressor] 25 mg PO BID 07/13/19 07/13/19 History Jannie-Bruna 0.8mg 0.8 mg PO DAILY 07/13/19 07/13/19 History Allergies Allergy/AdvReac Type Severity Reaction Status Date / Time Iodinated Contrast Media AdvReac shut down Verified 07/13/19 12:20 [Iodinated Contrast Media - kidneys IV Dye] Physical Exam Vitals: Vital Signs Temp Pulse Pulse Resp BP BP Pulse Ox 07/14/19 08:25 97.5 F L 58 L 18 164/77 96 07/14/19 03:37 97.2 F L 57 L 18 144/67 98 07/14/19 03:17 62 18 07/13/19 23:08 62 18 07/13/19 23:07 97.6 F 62 18 178/85 95 07/13/19 20:00 97.7 F 60 18 187/86 98 07/13/19 18:37 97.8 F 59 L 16 187/86 98 07/13/19 18:12 97.8 F 59 L 16 187/86 98 07/13/19 17:56 97.5 F L 57 L 18 181/87 98 07/13/19 17:51 57 L 18 181/87 98 07/13/19 15:39 60 20 181/86 99 07/13/19 13:55 57 L 18 171/86 97 07/13/19 12:47 57 L 22 173/81 100 07/13/19 11:41 58 L 22 185/94 89 L Intake and Output 07/13/19 07/14/19 07/14/19 22:59 06:59 14:59 Intake Total 250 Balance 250 Intake: IV 10 0.9 10 Oral 240 Other: # Voids 0 Weight 73.6 kg 73.6 kg Results - Lab Results Most recent lab results Calcium 9.0 mg/dL (8.4-10.2) 07/13/19 12:00 Magnesium 1.9 mg/dL (1.6-2.3) 07/13/19 12:00 07/13/19 12:00 07/13/19 12:00 Assessment and Plan Plan: Assessment: 1. End-stage renal disease maintained on hemodialysis on Saturday schedule. 2. Dyspnea secondary to volume overload. No evidence of infection. 3. Insulin-dependent diabetes mellitus. 4. Hypertension with chronic kidney disease. Controlled. 5. Anemia chronic kidney disease. Hemoglobin at goal. 6. Acute on chronic systolic CHF. Ejection fraction 45-50%. Plan: Extra hemodialysis treatment today mostly for ultrafiltration. Another treatment tomorrow per his outpatient schedule. Repeat electrolytes in the morning. Thank you for the consultation. I will continue to follow the patient with you during his hospital stay.
--- NOTE | 2019-07-14 12:00 | US ---
EXAMINATION TYPE: US chest DATE OF EXAM: 07/14/2019 COMPARISON: Chest x-ray 07/13/2019 CLINICAL HISTORY: Markings for thoracentesis by pulmonary staff. TECHNIQUE: Targeted ultrasound of the posterior lower bilateral hemithoraces EXAM MEASUREMENTS: Right Pleural Effusion pocket size: 10.1 cm Right skin surface to fluid distance: 2.4 cm Left Pleural Effusion pocket size: 10.3 cm Left skin surface to fluid distance: 2.3 cm Right side marked for possible thoracentesis outside the dept. Left side marked for possible thoracentesis outside the dept. Pulmonologists are able to review the images in the patient?s EMR. IMPRESSIONS: Bilateral pleural effusions.
[2019-07-14 12:47] LABS: Glucose,Whole Blood 74 mg/dL (75-99)
--- NOTE | 2019-07-14 13:54 | P.CNPUL ---
History of Present Illness Consult date: 07/14/19 Requesting physician: Salinas Mcduffie Reason for consult: dyspnea, pleural effusion, abnormal CXR/CT Chief complaint: Dyspnea, dry cough History of present illness: This is 69-year-old white male patient of Dr. arias, with past medical history of end-stage renal disease on hemodialysis on Saturday basis, diabetes mellitus, hypertension, coronary artery disease, previous hist ory of aortic valve replacement with a bioprosthetic aortic valve, hyperlipidemia, osteoarthritis, diabetic peripheral neuropathy, previous history of diabetic ulcers, and MRSA wound infections status post left below-knee amputation, bilateral cataracts, with history of bilateral eye laser surgery. Patient is a lifetime nonsmoker, but did have a previous history of pneumonia. No history of chronic lung disease. Patient presented to the emergency department on 07/13/2019 with complaints of dyspnea, dry cough. Patient was at hemodialysis treatment yesterday and told a nurse that he has been short of breath. Denied any chest pain, he completed his hemodialysis, he denied any subjective fever or chills, no congestion or phlegm production. His dyspnea was exacerbated by any exertion. Patient did not feel improved after the dialysis, in addition is been complaining of orthopnea, and desaturation to mid 80s with ambulation. He feels better with supplemental oxygen. Chest x-ray was co mpleted showing bilateral consolidation and pleural effusions right greater than the left, with the possibility of loculation of the right-sided pleural effusion. EKG showed normal sinus rhythm with nonspecific ST and T-wave abnormality. Patient has been afebrile, hemodynamically stable, he is currently on 2 L of oxygen with a pulse ox of 98%. His labs have been reviewed showing white blood cell count of 4.1, hemoglobin of 10.7, coagulation profile was within normal limits, sodium of 140, potassium 3.4, chloride is 97, CO2 35, BUN of 14 and creatinine is 3.53, proBNP was 54,008 100, troponin was negative 1, C-reactive protein was 24.9, influenza screen was negative. Blood culture has been sent and is pending at this time, sputum culture ordered but we were unable to collect, Procalcitonin has been ordered and is pending at this time, and were consulted for shortness of breath, and bilateral right greater than left pleural effusions. Review of Systems All systems: negative Constitutional: Denies chills, Denies fever Eyes: denies blurred vision, denies pain Ears, nose, mouth and throat: Denies headache, Denies sore throat Cardiovascular: Reports dyspnea on exertion, Reports orthopnea, Reports shortness of breath, Denies chest pain Respiratory: Reports dyspnea, Denies cough Gastrointestinal: Denies abdominal pain, Denies diarrhea, Denies nausea, Denies vomiting Musculoskeletal: Denies myalgias Integumentary: Denies pruritus, Denies rash Neurological: Denies numbness, Denies weakness Psychiatric: Denies anxiety, Denies depression Endocrine: Denies fatigue, Denies weight change Past Medical History Past Medical History: Coronary Artery Disease (CAD), Diabetes Mellitus, Eye Disorder, GERD/Reflux, Hearing Disorder / Deafness, Hyperlipidemia, Hypertension, Hypertension, Osteoarthritis (OA), Renal Disease, Renal Disease, Vascular Disorder Additional Past Medical History / Comment(s): Aortic valve replacement - BOVINE, gout, IDDM type II, end-stage renal disease past peritoneal dialysis, now hemodialysis --, diabetic peripheral neuropathy, L foot ulcers, R foot infection, L BKA, bilateral diabetic retinopathy, bilateral cataracts, bleeds behind retina, history of osteomyelitis, history of MRSA infection, diabetic gastroparesis, PVD. History of Any Multi-Drug Resistant Organisms: MRSA Date of last positivie culture/infection: 2011 MDRO Source:: LEFT FOOT Past Surgical History: Cardiac Valve Replacement, Cholecystectomy, Hernia Repair, Orthopedic Surgery Additional Past Surgical History / Comment(s): L arm fistula being used for hemodialysis, R upper chest moura cath- removed . RT foot I&D when a metal fragment was in his foot that was also infected, LT FOOT DEBRIDEMENT ,5TH TOE AMP, 10/2016 L BKA, insertion and REMOVAL PD CATH.LT ARM FISTUAL, CATARACATS REMOVED-LENS IMPLANTS, YAMILKA EYE LASER EYE SX, LT INDEX FINGER PARTIAL AMP Past Anesthesia/Blood Transfusion Reactions: Motion Sickness Additional Past Anesthesia/Blood Transfusion Reaction / Comment(s): CLAUSTROPHOBIA Past Psychological History: Anxiety, Depression Additional Psychological History / Comment(s): Pt resides with his spouse. He has [place] home care. He is interested in trying to get home oxygen. 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 No experience. No recent travels. No animals in the home. No significant alcohol use. No current tobacco use. 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 - Past Family History Mother Family Medical History: Diabetes Mellitus, Osteoarthritis (OA) Additional Family Medical History / Comment(s): HIP REPLACMENTS Father Family Medical History: CVA/TIA, Diabetes Mellitus, Myocardial Infarction ([place]), Musculoskeletal Disorder, Neurologic Disorder Additional Family Medical History / Comment(s): PARKINSON'S Medications and Allergies Home Medications Medication Instructions Recorded Confirmed Type Aspirin 81 mg PO DAILY #1 chewable 02/21/17 07/13/19 Rx Atorvastatin [Lipitor] 10 mg PO HS 11/25/17 07/13/19 History hydrALAZINE HCL [Apresoline] 100 mg PO BID 08/14/18 07/13/19 History INSULIN ASPART (NovoLOG) [NovoLOG See Protocol SQ AC-TID 01/04/19 07/13/19 History (formulary)] Insulin Glargine [Lantus] 15 unit SQ QAM 07/13/19 07/13/19 History Metoprolol Tartrate [Lopressor] 25 mg PO BID 07/13/19 07/13/19 History Jannie-Bruna 0.8mg 0.8 mg PO DAILY 07/13/19 07/13/19 History Allergies Allergy/AdvReac Type Severity Reaction Status Date / Time Iodinated Contrast Media AdvReac shut down Verified 07/13/19 12:20 [Iodinated Contrast Media - kidneys IV Dye] Physical Exam Vitals: Vital Signs Temp Pulse Pulse Resp BP BP Pulse Ox 07/14/19 11:30 97.4 F L 57 L 18 172/82 98 07/14/19 08:25 97.5 F L 58 L 18 164/77 96 07/14/19 03:37 97.2 F L 57 L 18 144/67 98 07/14/19 03:17 62 18 07/13/19 23:08 62 18 07/13/19 23:07 97.6 F 62 18 178/85 95 07/13/19 20:00 97.7 F 60 18 187/86 98 10/28/19 18:37 97.8 F 59 L 16 187/86 98 07/13/19 18:12 97.8 F 59 L 16 187/86 98 07/13/19 17:56 97.5 F L 57 L 18 181/87 98 07/13/19 17:51 57 L 18 181/87 98 07/13/19 15:39 60 20 181/86 99 07/13/19 13:55 57 L 18 171/86 97 Intake and Output 07/13/19 07/14/19 07/14/19 22:59 06:59 14:59 Intake Total 250 Balance 250 Intake: IV 10 0.9 10 Oral 240 Other: # Voids 0 Weight 73.6 kg 73.6 kg GENERAL EXAM: Alert, pleasant, 59-year-old white male, on 2 L of oxygen with a pulse ox of 98%, comfortable in no apparent distress. HEAD: Normocephalic/atraumatic. EYES: Normal reaction of pupils, equal size. Conjunctiva pink, sclera white. NOSE: Clear with pink turbinates. THROAT: No erythema or exudates. NECK: No masses, no JVD, no thyroid enlargement, no adenopathy. CHEST: No chest wall deformity. Symmetrical expansion. LUNGS: Equal air entry with no crackles, wheeze, rhonchi or dullness. Diminished breath sounds at the bases CVS: Regular rate and rhythm, normal S1 and S2, no gallops, no murmurs, no rubs. Left arm AV fistula ABDOMEN: Soft, nontender. No hepatosplenomegaly, normal bowel sounds, no guarding or rigidity. EXTREMITIES: No clubbing, no edema, no cyanosis, 2+ pulses and upper and lower extremities. Left below the knee amputation, with prosthesis. MUSCULOSKELETAL: Muscle strength and tone normal. SPINE: No scoliosis or deformity SKIN: No rashes CENTRAL NERVOUS SYSTEM: Alert and oriented -3. No focal deficits, tone is normal in all 4 extremities. PSYCHIATRIC: Alert and oriented -3. Appropriate affect. Intact judgment and insight. Results - Laboratory Findings CBC and BMP: 07/13/19 12:00 07/13/19 12:00 PT/INR, D-dimer PT 10.5 sec (9.0-12.0) 07/13/19 12:00 INR 1.0 (<1.2) 07/13/19 12:00 Abnormal lab findings: Abnormal Labs 07/13/19 07/13/19 07/13/19 12:00 12:00 16:11 RBC 3.64 L Hgb 10.7 L Hct 31.6 L RDW 15.7 H Lymphocytes # 0.5 L Potassium 3.4 L Chloride 97 L Carbon Dioxide 35 H Creatinine 3.53 H Glucose 212 H POC Glucose (mg/dL) 218 H ALT 15 L C-Reactive Protein 07/13/19 07/14/19 07/14/19 20:33 06:06 06:35 RBC Hgb Hct RDW Lymphocytes # Potassium Chloride Carbon Dioxide Creatinine Glucose POC Glucose (mg/dL) 259 H 124 H ALT C-Reactive Protein 24.9 H 07/14/19 12:45 RBC Hgb Hct RDW Lymphocytes # Potassium Chloride Carbon Dioxide Creatinine Glucose POC Glucose (mg/dL) 74 L ALT C-Reactive Protein - Diagnostic Findings Chest x-ray: report reviewed, image reviewed Additional studies: Echocardiogram, and EKG reviewed Assessment and Plan Plan: Assessment: #1. Acute hypoxic respiratory failure related to bilateral pleural effusions, and acute exacerbation of CHF with mildly impaired left ventricle systolic function and EF of 45-50%. Chest x-ray shows bilateral right greater than left pleural effusions and the possibility of loculation in the right pleural effusion #2. History of aortic valve replacement with a bioprosthetic valve, echocardiogram from 07/14/2019 showed normally functioning bioprosthetic valve, mild mitral regurgitation, mild mitral stenosis, trace tricuspid regurgitation, and no evidence of pulmonary hypertension with PA systolic of 16.9 mmHg #3. End-stage renal disease, on hemodialysis on Saturday schedule, and patient has been compliant with hemodialysis treatments #4. Diabetes mellitus type 2, with diabetic neuropathy, diabetic retinopathy and gastroparesis #5. History of diabetic wounds involving left foot, with MRSA infection and osteomyelitis, status post left below the knee amputation #6. Coronary artery disease #7. Hypertension #8. Hyperlipidemia #9. Osteoarthritis #10. Cataracts with history of laser surgery and lens implant #11. Lifetime nonsmoker #12. Anxiety and depression Plan: Ultrasound of the chest has been obtained and reviewed, showing 10.1 cm fluid pocket on the right, and 10.3 cm fluid pocket on the left. Clinically patient feels better today, he is on a couple liters of supplemental oxygen, he is maintaining O2 saturations above 96%, no carpets of chest pain, nephrology is following, and patient will be undergoing an extra hemodialysis treatment today mostly for ultrafiltration. We will continue to follow and monitor patient's clinical course, may need to do a thoracentesis, if chest x-ray does not improve, follow up chest x-ray to be done tomorrow. Chest x-ray findings and patient's clinical presentation is more consistent with CHF exacerbation, however blood cultures and Procalcitonin and have been sent and are pending at this time. We'll try to obtain a sputum culture as well. We'll continue to follow I performed a history & physical examination of the patient and discussed their management with my nurse practitioner, Carmelita Robert. I reviewed the nurse practitioner's note and agree with the documented findings and plan of care. Lung sounds are positive for diminished breath sounds throughout the lung up. The findings and the impression was discussed with the patient. I attest to the documentation by the nurse practitioner. Time with Patient: Greater than 30
[2019-07-14] MEDS: amLODIPine 5 MG TAB PO SCH (14:23)
[2019-07-14 14:32] LABS: Hemoglobin A1C 6.3 % (4.0-6.0)
--- NOTE | 2019-07-14 14:34 | P.PN ---
Subjective Progress Note Date: 07/14/19 This is a 59-year-old gentleman with known end-stage renal disease on hemodialysis who presented to the hospital with symptoms of shortness of breath. Chest x-ray showed bilateral consolidation and pleural effusions. An ultrasound of the chest was performed which revealed a right-sided pleural effusion measuring 10.1 cm, left-sided effusion measuring 10.3 cm. An echocardiogram with Doppler study was performed which revealed an ejection fraction of 45-50%. Normally functioning bioprosthetic valve. No evidence of any pericardial effusion. Patient did receive dialysis yesterday and again is receiving dialysis today. Blood pressure 174/67 with a heart rate in the 60s, 98% on 2 L O2. Objective - Vital Signs Vital signs: Vital Signs Temp 97.4 F L 07/14/19 11:30 Pulse 57 L 07/14/19 11:30 Resp 18 07/14/19 11:30 BP 172/82 07/14/19 11:30 Pulse Ox 98 07/14/19 11:30 Intake & Output 07/13/19 07/14/19 07/14/19 18:59 06:59 18:59 Intake Total 240 10 Balance 240 10 Weight 68.3 kg 73.6 kg 73.6 kg Intake: IV 10 0.9 10 Oral 240 Other: # Voids 0 - Exam PHYSICAL EXAMINATION: GENERAL: 59-year-old gentleman in no acute distress at the time of my examination HEENT: Head is atraumatic, normocephalic. Pupils equal, round. Sclera anicteric. Conjunctiva are clear. Mucous membranes of the mouth are moist. Neck is supple. There is elevated jugular venous pressure. No carotid bruit is heard. HEART EXAMINATION: Heart S1 and S2 systolic ejection murmur is heard CHEST EXAMINATION: Lungs reveal diminished air entry to the bases bilaterally ABDOMEN: Soft, nontender. Bowel sounds are heard. No organomegaly noted. EXTREMITIES 1+ peripheral pulses the right lower extremity with evidence of 1+ edema NEUROLOGIC patient is awake, alert and oriented X3. . - Labs CBC & Chem 7: 07/13/19 12:00 07/13/19 12:00 Labs: Abnormal Lab Results - Last 24 Hours (Table) 07/13/19 07/13/19 07/14/19 Range/Units 16:11 20:33 06:06 POC Glucose (mg/dL) 218 H 259 H (75-99) mg/dL C-Reactive Protein 24.9 H (<10.0) mg/L 07/14/19 07/14/19 Range/Units 06:35 12:45 POC Glucose (mg/dL) 124 H 74 L (75-99) mg/dL C-Reactive Protein (<10.0) mg/L Assessment and Plan Plan: Assessment and plan #1 fluid overload, acute exacerbation of chronic diastolic congestive heart failure #2 status post aortic valve replacement #3 bilateral pleural effusions #4 diabetes #5 uncontrolled hypertension #6 end-stage renal disease on hemodialysis Plan Patient continues to still be quite hypertensive, he is scheduled to have dialysis today, if the blood pressure remains elevated we'll start the patient on Norvasc 5 mg daily. If the blood pressure comes down nicely after dialysis we will continue with current medications. DNP note has been reviewed, I agree with a documented findings and plan of care. Patient was seen and examined.
[2019-07-14 17:09] LABS: Glucose,Whole Blood 110 mg/dL (75-99)
--- NOTE | 2019-07-14 18:04 | PN ---
PROGRESS NOTE DATE OF SERVICE: 07/14/2019 REASON FOR FOLLOWUP: Abnormal x-ray and a question of pneumonia. INTERVAL HISTORY: The patient is currently afebrile. The patient has been breathing comfortably. The patient denies having any chest pain. Very minimal cough. No nausea, no vomiting, no abdominal pain, no diarrhea. PHYSICAL EXAMINATION: Blood pressure is 148/70 with a pulse of 62, temperature 97.5. He is 98% on 2 L nasal cannula. General description is a middle-aged male up in the bed in no distress. RESPIRATORY SYSTEM: Unlabored breathing with decreased breath sounds at the base. No wheeze. HEART: S1, S2. Regular rate and rhythm. ABDOMEN: Soft. No tenderness. EXTREMITIES: No edema of the feet. LABS: No new labs have been obtained today. Blood culture has been negative. DIAGNOSTIC IMPRESSION AND PLAN: Patient with bilateral pleural effusion and compressive atelectasis. Clinical suspicion low for underlying pneumonia. Patient to be monitored closely off antibiotic therapy. Await thoracocentesis, and fluid should be sent for Gram stain and culture. Continue supportive care. MMODL / IJN: [id number] /
[2019-07-14 20:48] LABS: Glucose,Whole Blood 104 mg/dL (75-99)
--- NOTE | 2019-07-14 21:31 | PN ---
PROGRESS NOTE DATE OF SERVICE: 07/14/2019 This 59-year-old gentleman who was admitted with shortness of breath and acute hypoxic respiratory failure, bilateral pleural effusion with possible consolidation on the right side. The patient also had recent valve surgery also. Patient being closely monitored. Multiple consultants following the patient including Pulmonary, Infectious Disease and Cardiology. A chest ultrasound showed pleural effusions. PAST MEDICAL HISTORY: Reviewed. REVIEW OF SYSTEMS: Cardiovascular system: Mentioned earlier. Respiration as mentioned earlier. GI no nausea or vomiting. no dysuria. Nervous systems: No numbness or weakness. CURRENT MEDICATIONS: Reviewed and include: 1. Norvasc 5 mg p.o. daily. 2. Aspirin 81 mg. 3. Lipitor 10 mg q.h.s. 4. Pepcid. 5. Heparin. 6. Apresoline. 7. NovoLog. 8. Levemir. 9. Lopressor. 10.Nephrocaps. 11.Narcan. 12.Doses are reviewed. PHYSICAL EXAM: Patient is alert and oriented times three. Pulse 56. Blood pressure 178/83, respiration 18, temperature 97.8, pulse ox 98% on 2 L. HEENT: Conjunctivae normal. Neck is no jugular venous distention. CARDIOVASCULAR: S1, S2 muffled. RESPIRATIONS: Breath sounds diminished in the bases. Bilateral scattered rhonchi and crackles. ABDOMEN: Soft, nontender. LEGS are no edema. No swelling. CENTRAL NERVOUS SYSTEM: No focal deficits. LABS: The C-reactive protein is 24.9. Hemoglobin A1c is 6.3. WBC 4.2, hemoglobin 10.6. Sugars are noted. ASSESSMENT: 1. Congestive heart failure, acute exacerbation with acute on chronic systolic dysfunction ejection fraction 40 to 50% with acute hypoxic respiratory failure. 2. Right pleural effusion with possible pneumonia. 3. History of recent aortic valve replacement with bioprosthetic aortic valve. 4. Diabetes mellitus type 2 with hypoglycemia and uncontrolled. 5. Anemia, normocytic anemia of chronic disease. 6. Increased creatinine with chronic kidney disease stage 4, end-stage renal disease on hemodialysis Saturday, Saturday, Saturday schedule. 7. History of diabetic retinopathy. 8. History of MRSA. 9. History of anxiety, depression. 10.History of claustrophobia. RECOMMENDATIONS AND DISCUSSION: This 59-year-old gentleman who presented with multiple complex medical issues, we will monitor the patient closely. Continue the current management and symptomatic treatment. Fluid and electrolytes balance. Continue with hemodialysis. Otherwise, I would also recommend repeat labs. Closely follow with Pulmonary and as well as Cardiology. Guarded prognosis because of multiple complex medical issues. Further recommendations to follow. Repeat chest x-ray has been planned for tomorrow after hemodialysis. Closely follow with Pulmonary. See orders for details. The patient is also recommend broad-spectrum IV antibiotics as well. MMODL / IJN: [id number] /
[2019-07-14] MEDS: ATORVASTATIN 10 MG TAB PO SCH (22:48)
[2019-07-15 06:30] LABS: Glucose,Whole Blood 99 mg/dL (75-99)
[2019-07-15] MEDS: INSULIN ASPART (NovoLOG) 100 UNIT/ML VIAL SQ SCH ×4 (06:36→20:49)
--- NOTE | 2019-07-15 07:41 | XR ---
EXAMINATION TYPE: XR chest 1V portable DATE OF EXAM: 07/15/2019 COMPARISON: 07/13/2019 HISTORY: Shortness of breath TECHNIQUE: Single frontal view of the chest is obtained. FINDINGS: There is a moderate to large right pleural effusion, slightly worsened from the prior with associated airspace disease. Cardia mediastinal silhouette is enlarged with post CABG changes. Trace left pleural effusion. Remainder the left lung is well aerated. Cholecystectomy clips are seen. IMPRESSION: Moderate to large right pleural effusion and associated multifocal right-sided airspace disease. Trace left pleural effusion. Findings are slightly worsened from the prior of 07/05/2019.
[2019-07-15] MEDS: FOLIC ACID-VIT B COMPLEX-VIT C 1 CAP PO SCH (08:26)
[2019-07-15] MEDS: METOPROLOL TARTRATE 25 MG TAB PO SCH ×2 (08:26→20:45)
[2019-07-15] MEDS: hydrALAZINE HCL 50 MG TAB PO SCH ×2 (08:26→20:45)
[2019-07-15] MEDS: amLODIPine 5 MG TAB PO SCH (08:26)
[2019-07-15] MEDS: HEPARIN SODIUM,PORCINE 5,000 UNIT/ML 1 ML VIAL SQ SCH (08:26)
[2019-07-15] MEDS: FAMOTIDINE 20 MG TAB PO SCH (08:27)
[2019-07-15] MEDS: ASPIRIN 81 MG PO SCH (08:27)
[2019-07-15] MEDS: INSULIN DETEMIR (LEVEMIR) 100 UNIT/ML SYR SQ SCH (08:27)
--- NOTE | 2019-07-15 11:50 | P.PN ---
Subjective Progress Note Date: 07/15/19 Principal diagnosis: Dyspnea, bilateral pleural effusions, abnormal chest x-ray/CT This is 69-year-old white male patient of Dr. Robert, with past medical history of end-stage renal disease on hemodialysis on Saturday basis, diabetes mellitus, hypertension, coronary artery disease, previous history of aortic valve replacement with a bioprosthetic aortic valve, hyperlipidemia, osteoarthritis, diabetic peripheral neuropathy, previous history of diabetic ulcers, and MRSA wound infections status post left below-knee amputation, bilateral cataracts, with history of bilateral eye laser surgery. Patient is a lifetime nonsmoker, but did have a previous history of pneumonia. No history of chronic lung disease. Patient presented to the emergency department on 07/13/2019 with complaints of dyspnea, dry cough. Patient was at hemodialysis treatment yesterday and told a nurse that he has been short of breath. Denied any chest pain, he completed his hemodialysis, he denied any subjective fever or chills, no congestion or phlegm production. His dyspnea was exacerbated by any exertion. Patient did not feel improved after the dialysis, in addition is been complaining of orthopnea, and desaturation to mid 80s with ambulation. He feels better with supplemental oxygen. Chest x-ray was completed showing bilateral consolidation and pleural effusions right greater than the left, with the possibility of loculation of the right-sided pleural effusion. EKG showed normal sinus rhythm with nonspecific ST and T-wave abnormality. Patient has been afebrile, hemodynamically stable, he is currently on 2 L of oxygen with a pulse ox of 98%. His labs have been reviewed showing white blood cell count of 4.1, hemoglobin of 10.7, coagulation profile was within normal limits, sodium of 140, potassium 3.4, chloride is 97, CO2 35, BUN of 14 and creatinine is 3.53, proBNP was 54,008 100, troponin was negative 1, C-reactive protein was 24.9, influenza screen was negative. Blood culture has been sent and is pending at this time, sputum culture ordered but we were unable to collect, Procalcitonin has been ordered and is pending at this time, and were consulted for shortness of breath, and bilateral right greater than left pleural effusions. On 07/15/2019 patient seen in follow-up on selective care unit, yesterday he had hemodialysis would removal of 1.6 L of fluid, today is having a hemodialysis treatment again with the goal of removal of 2 L of fluid. Follow-up chest x-ray today has been reviewed showing stable findings of moderate to large right pleural effusion and associated multifocal right-sided airspace disease, and trace left pleural effusion. Clinically patient denies any respiratory distress, denies any chest pain, he is on 2 L of oxygen and the pulse ox of 92- 96%, afebrile, hemodynamically patient is stable, lung sounds reveal equal air entry bilaterally, with no crackles, wheezes or rhonchi and some diminished breath sounds at the bases. No cough or congestion. Vital signs are stable, no new labs today. We spoke to the patient, and we will repeat a chest x-ray tomorrow, if there is no improvement in the appearance of right-sided pleural effusion will consider thoracentesis. Aspirin and subcu heparin have been placed on hold for possibility of right-sided thoracentesis. Objective - Vital Signs Vital signs: Vital Signs Temp 97.4 F L 07/15/19 08:15 Pulse 61 07/15/19 08:15 Resp 18 07/15/19 08:15 BP 159/65 07/15/19 08:15 Pulse Ox 92 L 07/15/19 08:15 Intake & Output 07/14/19 07/15/19 07/15/19 18:59 06:59 18:59 Intake Total 340 236 Output Total 2300 Balance -1959 236 Weight 73.6 kg 71.4 kg Intake: Oral 340 236 Output: Urine 0 Hemodialysis 2300 Other: # Voids 1 - Exam GENERAL EXAM: Alert, pleasant, 59-year-old white male, on 2 L of oxygen with a pulse ox of 96%, comfortable in no apparent distress. HEAD: Normocephalic/atraumatic. EYES: Normal reaction of pupils, equal size. Conjunctiva pink, sclera white. NOSE: Clear with pink turbinates. THROAT: No erythema or exudates. NECK: No masses, no JVD, no thyroid enlargement, no adenopathy. CHEST: No chest wall deformity. Symmetrical expansion. LUNGS: Equal air entry with no crackles, wheeze, rhonchi or dullness. Diminished breath sounds at the bases CVS: Regular rate and rhythm, normal S1 and S2, no gallops, no murmurs, no rubs. Left arm AV fistula ABDOMEN: Soft, nontender. No hepatosplenomegaly, normal bowel sounds, no guarding or rigidity. EXTREMITIES: No clubbing, no edema, no cyanosis, 2+ pulses and upper and lower extremities. Left below the knee amputation, with prosthesis. MUSCULOSKELETAL: Muscle strength and tone normal. SPINE: No scoliosis or deformity SKIN: No rashes CENTRAL NERVOUS SYSTEM: Alert and oriented -3. No focal deficits, tone is normal in all 4 extremities. PSYCHIATRIC: Alert and oriented -3. Appropriate affect. Intact judgment and insight. - Labs CBC & Chem 7: 07/13/19 12:00 07/13/19 12:00 Labs: Abnormal Lab Results - Last 24 Hours (Table) 07/14/19 07/14/19 07/14/19 Range/Units 06:06 06:06 12:45 POC Glucose (mg/dL) 74 L (75-99) mg/dL Hemoglobin A1c 6.3 H (4.0-6.0) % Procalcitonin 0.30 H (0.02-0.09) ng/mL 07/14/19 07/14/19 Range/Units 16:54 20:47 POC Glucose (mg/dL) 110 H 104 H (75-99) mg/dL Hemoglobin A1c (4.0-6.0) % Procalcitonin (0.02-0.09) ng/mL Microbiology - Last 24 Hours (Table) 07/13/19 13:38 Blood Culture - Preliminary Blood No Growth after 24 hours Assessment and Plan Plan: Assessment: #1. Acute hypoxic respiratory failure related to bilateral pleural effusions, and acute exacerbation of CHF with mildly impaired left ventricle systolic function and EF of 45-50%. Chest x-ray shows bilateral right greater than left pleural effusions and the possibility of loculation in the right pleural effusion #2. History of aortic valve replacement with a bioprosthetic valve, echocardiogram from 07/14/2019 showed normally functioning bioprosthetic valve, mild mitral regurgitation, mild mitral stenosis, trace tricuspid regurgitation, and no evidence of pulmonary hypertension with PA systolic of 16.9 mmHg #3. End-stage renal disease, on hemodialysis on Saturday schedule, and patient has been compliant with hemodialysis treatments #4. Diabetes mellitus type 2, with diabetic neuropathy, diabetic retinopathy and gastroparesis #5. History of diabetic wounds involving left foot, with MRSA infection and osteomyelitis, status post left below the knee amputation #6. Coronary artery disease #7. Hypertension #8. Hyperlipidemia #9. Osteoarthritis #10. Cataracts with history of laser surgery and lens implant #11. Lifetime nonsmoker #12. Anxiety and depression Plan: Today's chest x-ray has been reviewed, showing stable findings of bilateral pleural effusions, right greater than left, patient is undergoing another hemodialysis treatment with a goal of removal of 2 L of fluid, clinically patient is relatively asymptomatic, no acute distress, no fever or chills, no significant cough or congestion. Her calcitonin level came back elevated to 0.30 suggesting a possibility of an infectious process, we'll maintain empiric antibiotics, blood cultures so far are negative. We will repeat chest x-ray tomorrow to reevaluate for possibility of right-sided thoracentesis, aspirin and heparin were placed on hold, and the plan was discussed with the patient was agreeable with it. I performed a history & physical examination of the patient and discussed their management with my nurse practitioner, Carmelita Robert. I reviewed the nurse practitioner's note and agree with the documented findings and plan of care. Lung sounds are positive for diminished breath sounds throughout the lung up. The findings and the impression was discussed with the patient. I attest to the documentation by the nurse practitioner. Time with Patient: Less than 30
--- NOTE | 2019-07-15 12:13 | P.PN ---
Subjective Patient is seen in follow-up for end-stage renal disease. He is maintained on hemodialysis on Saturday schedule. Dyspnea is improved. No cough. Afebrile. Vital signs are stable. General: The patient appeared well nourished and normally developed. HEENT: Head exam is unremarkable. Neck is without jugular venous distension. LUNGS: Breath sounds decreased. HEART: Rate and Rhythm are regular. First and second heart sounds normal. No murmurs, rubs or gallops. ABDOMEN: Abdominal exam reveals normal bowel sounds. Non-tender and non- distended. No evidence of peritonitis. EXTREMITITES: No clubbing, cyanosis, or edema. BKA noted. Objective - Vital Signs Vital signs: Vital Signs Temp 97.4 F L 07/15/19 08:15 Pulse 61 07/15/19 08:15 Resp 18 07/15/19 08:15 BP 159/65 07/15/19 08:15 Pulse Ox 92 L 07/15/19 08:15 Intake & Output 07/14/19 07/15/19 07/15/19 18:59 06:59 18:59 Intake Total 340 236 Output Total 2300 Balance -1959 236 Weight 73.6 kg 71.4 kg Intake: Oral 340 236 Output: Urine 0 Hemodialysis 2300 Other: # Voids 1 - Labs CBC & Chem 7: 07/13/19 12:00 07/13/19 12:00 Labs: Abnormal Lab Results - Last 24 Hours (Table) 07/14/19 07/14/19 07/14/19 Range/Units 06:06 06:06 12:45 POC Glucose (mg/dL) 74 L (75-99) mg/dL Hemoglobin A1c 6.3 H (4.0-6.0) % Procalcitonin 0.30 H (0.02-0.09) ng/mL 07/14/19 07/14/19 Range/Units 16:54 20:47 POC Glucose (mg/dL) 110 H 104 H (75-99) mg/dL Hemoglobin A1c (4.0-6.0) % Procalcitonin (0.02-0.09) ng/mL Microbiology - Last 24 Hours (Table) 07/13/19 13:38 Blood Culture - Preliminary Blood No Growth after 24 hours Assessment and Plan Plan: Assessment: 1. End-stage renal disease maintained on hemodialysis on Saturday schedule. 2. Dyspnea secondary to volume overload. No evidence of infection. Noted to have right-sided pleural effusion. 3. Insulin-dependent diabetes mellitus. 4. Hypertension with chronic kidney disease. 5. Anemia chronic kidney disease. Hemoglobin at goal. 6. Acute on chronic systolic CHF. Ejection fraction 45-50%. Plan: Currently seen while undergoing hemodialysis. Next treatment tomorrow mostly for ultrafiltration. Potential thoracentesis this admission if no improvement in the effusion.
[2019-07-15 12:22] LABS: Glucose,Whole Blood 111 mg/dL (75-99)
--- NOTE | 2019-07-15 12:43 | P.PN ---
Subjective Progress Note Date: 07/15/19 This is a 59-year-old gentleman with known end-stage renal disease on hemodialysis who presented to the hospital with symptoms of shortness of breath. Chest x-ray showed bilateral consolidation and pleural effusions. An ultrasound of the chest was performed which revealed a right-sided pleural effusion measuring 10.1 cm, left-sided effusion measuring 10.3 cm. An echocardiogram with Doppler study was performed which revealed an ejection fraction of 45-50%. Normally functioning bioprosthetic valve. No evidence of any pericardial effusion. Patient did receive dialysis yesterday and again is receiving dialysis today. Blood pressure 174/67 with a heart rate in the 60s, 98% on 2 L O2. 07/15/2019 Patient was seen and examined this morning, undergoing dialysis. Blood pressure 158/60 with a heart rate in the 60s, 92% on 2 L of oxygen Objective - Vital Signs Vital signs: Vital Signs Temp 97.4 F L 07/15/19 08:15 Pulse 61 07/15/19 08:15 Resp 18 07/15/19 08:15 BP 159/65 07/15/19 08:15 Pulse Ox 92 L 07/15/19 08:15 Intake & Output 07/14/19 07/15/19 07/15/19 18:59 06:59 18:59 Intake Total 340 236 Output Total 2300 Balance -1959 236 Weight 73.6 kg 71.4 kg Intake: Oral 340 236 Output: Urine 0 Hemodialysis 2300 Other: # Voids 1 - Exam PHYSICAL EXAMINATION: GENERAL: 59-year-old gentleman in no acute distress at the time of my examination HEENT: Head is atraumatic, normocephalic. Pupils equal, round. Sclera anicteric. Conjunctiva are clear. Mucous membranes of the mouth are moist. Neck is supple. There is elevated jugular venous pressure. No carotid bruit is heard. HEART EXAMINATION: Heart S1 and S2 systolic ejection murmur is heard CHEST EXAMINATION: Lungs reveal diminished air entry to the bases bilaterally ABDOMEN: Soft, nontender. Bowel sounds are heard. No organomegaly noted. EXTREMITIES 1+ peripheral pulses the right lower extremity with evidence of 1+ edema NEUROLOGIC patient is awake, alert and oriented X3. . - Labs CBC & Chem 7: 07/13/19 12:00 07/13/19 12:00 Labs: Abnormal Lab Results - Last 24 Hours (Table) 07/14/19 07/14/19 07/14/19 Range/Units 06:06 06:06 12:45 POC Glucose (mg/dL) 74 L (75-99) mg/dL Hemoglobin A1c 6.3 H (4.0-6.0) % Procalcitonin 0.30 H (0.02-0.09) ng/mL 07/14/19 07/14/19 07/15/19 Range/Units 16:54 20:47 12:20 POC Glucose (mg/dL) 110 H 104 H 111 H (75-99) mg/dL Hemoglobin A1c (4.0-6.0) % Procalcitonin (0.02-0.09) ng/mL Microbiology - Last 24 Hours (Table) 07/13/19 13:38 Blood Culture - Preliminary Blood No Growth after 24 hours Assessment and Plan Plan: Assessment and plan #1 fluid overload, acute exacerbation of chronic diastolic congestive heart failure #2 status post aortic valve replacement #3 bilateral pleural effusions #4 diabetes #5 uncontrolled hypertension #6 end-stage renal disease on hemodialysis Plan Blood pressure today 154/70, 158/60. We will continue with current medications. Discharged once cleared by primary and nephrology. DNP note has been reviewed, I agree with a documented findings and plan of care. Patient was seen and examined.
[2019-07-15] MEDS ORDERED: IPRATROPIUM-ALBUTEROL 3 ML NEB INHALATION PRN (16:47)
[2019-07-15 17:26] LABS: Glucose,Whole Blood 210 mg/dL (75-99)
--- NOTE | 2019-07-15 17:39 | PN ---
PROGRESS NOTE DATE OF SERVICE: 07/15/2019 REASON FOR FOLLOWUP: Bilateral pleural effusion and consolidation and question of pneumonia. INTERVAL HISTORY: The patient is currently afebrile. The patient is breathing comfortably. Denies having any chest pain. He did have some mild dry cough, not bringing up any sputum. No nausea, no vomiting. No abdominal pain. No diarrhea. PHYSICAL EXAMINATION: Blood pressure 118/60 with a pulse of 52, temperature 98.2. He is 98% on 2 L nasal cannula. General description is a middle-aged male lying in bed in no distress. RESPIRATORY SYSTEM: Unlabored breathing with decreased breath sounds at the base. No wheeze. HEART: S1, S2. Regular rate and rhythm. ABDOMEN: Soft. No tenderness. EXTREMITIES: No edema of the feet. LABS/IMAGING: Chest x-ray with large pleural effusion with multifocal right-sided airspace disease. DIAGNOSTIC IMPRESSION AND PLAN: Patient admitted to hospital with difficulty in breathing in this patient who did have large right-sided effusion and some compressive atelectasis versus pneumonia. Clinically not behaving as pneumonia, with no fever or elevated white count. Patient is currently covered with Rocephin; to continue. Possible thoracocentesis tomorrow, at which time fluid should be sent, and we will monitor his clinical course closely. MMODL / IJN: [id number] /
--- NOTE | 2019-07-15 19:01 | PN ---
PROGRESS NOTE DATE OF SERVICE: 07/15/2019. This 59-year-old gentleman who was admitted with CHF acute exacerbation is also receiving hemodialysis. The patient apparently had a right pleural effusion also. The patient is also being followed by Dr. Gomez from Pulmonary who is recommending repeat chest x-ray and consider the possibility of a right-sided thoracocentesis. PAST MEDICAL HISTORY: Reviewed. REVIEW OF SYSTEM: Cardiovascular: No angina or palpitations. Respirations: As mentioned earlier. GI: As mentioned earlier. as mentioned earlier. CENTRAL NERVOUS SYSTEM: No numbness or weakness. CURRENT MEDICATIONS: Reviewed and include: 1. Norvasc 5 mg p.o. daily. 2. Lipitor 10 mg q.h.s. 3. Rocephin 1 g daily. 4. Pepcid 20 mg daily. 5. Apresoline 100 mg p.o. b.i.d. 6. NovoLog q.h.s. 7. Levemir 15 units subcu q.a.m. 8. Lopressor 25 mg p.o. b.i.d. 9. Nephrocaps. 10.Narcan. PHYSICAL EXAM: Patient is alert and oriented times three. Pulse 52. Blood pressure 118/60, respiration 14, temperature 98.2, pulse ox 98% on 2 L. HEENT: Conjunctivae normal. NECK: No JVD. CARDIOVASCULAR: S1, S2 muffled. RESPIRATORY: Breath sounds diminished in the bases. A few scattered rhonchi and crackles. ABDOMEN: Soft, nontender. No mass palpable. LEGS are no edema. No swelling. CENTRAL NERVOUS SYSTEM: No focal deficits. LABORATORY DATA: Labs are at this time shows procalcitonin 0.3. 24.9. Other labs noted. ASSESSMENT: 1. Congestive heart failure acute exacerbation with acute on chronic systolic dysfunction, ejection fraction 45-50 percent with acute hypoxic respiratory failure, right pleural effusion with possible pneumonia. 2. History of recent aortic valve replacement with bioprosthetic aortic valve. 3. Diabetes mellitus type 2 with hypoglycemia and uncontrolled. 4. Anemia, normocytic anemia of chronic disease. 5. Increased creatinine with chronic kidney stage 4, end-stage renal disease on hemodialysis Saturday, Saturday, Saturday schedule. 6. History of diabetic retinopathy. 7. History of MRSA. 8. History of anxiety, depression. 9. History of claustrophobia. RECOMMENDATIONS AND DISCUSSION: Recommend to continue current medications, continue to monitor, symptomatic treatment. Otherwise, at this time, I recommend follow the patient closely. Repeat labs. Continue the bronchodilators. Continue with antibiotics. Otherwise, we will continue to follow with [employer] education teacher and hemodialysis. Closely follow with Dr. Gomez regarding the possibility of thoracocentesis. Further recommendations to follow. MMSERAL / IJN: [id number] / MTDD
[2019-07-15] MEDS: ATORVASTATIN 10 MG TAB PO SCH (20:46)
[2019-07-15] MEDS: IPRATROPIUM-ALBUTEROL 3 ML NEB INHALATION SCH (20:47)
[2019-07-15 20:55] LABS: Glucose,Whole Blood 108 mg/dL (75-99)
[2019-07-16 06:01] LABS: Glucose,Whole Blood 200 mg/dL (75-99)
[2019-07-16] MEDS: INSULIN ASPART (NovoLOG) 100 UNIT/ML VIAL SQ SCH ×4 (06:42→20:53)
[2019-07-16] MEDS: IPRATROPIUM-ALBUTEROL 3 ML NEB INHALATION SCH ×3 (07:07→20:38)
--- NOTE | 2019-07-16 07:17 | XR ---
EXAMINATION TYPE: XR chest 2V DATE OF EXAM: 07/16/2019 COMPARISON: 07/15/2019 HISTORY: 59 year-old male shortness of breath TECHNIQUE: PA and lateral views FINDINGS: Median sternotomy wires. Heart remains borderline enlarged. Small left pleural effusion with adjacent opacity persists. Continued moderate right pleural effusion with multifocal pleural parenchymal opac ities on the right. Opacity is redemonstrated. A somewhat focal in appearance peripheral right midlun g. IMPRESSION: 1. Continued moderate right pleural effusion with multifocal pleural parenchymal opacities on the rig ht. Underlying mass should be excluded following successful treatment. 2. Continued small left pleural effusion with adjacent atelectasis and/or consolidation.
[2019-07-16] MEDS: hydrALAZINE HCL 50 MG TAB PO SCH ×2 (08:51→20:54)
[2019-07-16] MEDS: INSULIN DETEMIR (LEVEMIR) 100 UNIT/ML SYR SQ SCH (08:52)
[2019-07-16] MEDS: METOPROLOL TARTRATE 25 MG TAB PO SCH ×2 (08:52→20:54)
[2019-07-16] MEDS: FAMOTIDINE 20 MG TAB PO SCH (08:52)
[2019-07-16] MEDS: amLODIPine 5 MG TAB PO SCH (08:52)
[2019-07-16] MEDS: FOLIC ACID-VIT B COMPLEX-VIT C 1 CAP PO SCH (08:52)
[2019-07-16 09:55] LABS: Anisocytosis Slight; Basophils # (A) 0.1 k/uL (0-0.2); Basophils % (A) 3 %; Eosinophils # (A) 0.2 k/uL (0-0.7); Eosinophils % (A) 3 %; HCT 33.3 % (39.0-53.0); HGB 10.9 gm/dL (13.0-17.5); Lymphocytes # (A) 0.4 k/uL (1.0-4.8); Lymphocytes % (A) 9 %; MCH 28.9 pg (25.0-35.0); MCHC 32.7 g/dL (31.0-37.0); MCV 88.5 fL (80.0-100.0); Mean Platelet Volume 6.8; Monocytes # (A) 0.4 k/uL (0-1.0); Monocytes % (A) 9 %; Neutrophils # (A) 3.5 k/uL (1.3-7.7); Neutrophils % (A) 73 %; Platelet Count 156 k/uL (150-450); RBC 3.76 m/uL (4.30-5.90); RDW 16.1 % (11.5-15.5); WBC 4.8 k/uL (3.8-10.6)
[2019-07-16 10:03] LABS: Calcium 8.9 mg/dL (8.4-10.2); Potassium 3.6 mmol/L (3.5-5.1)
[2019-07-16] MEDS ORDERED: LIDOCAINE 2% INJ 20 MG/ML (20 ML MDV) SQ ONE (11:15)
[2019-07-16] MEDS ORDERED: MIDODRINE 5 MG TAB PO PRN (11:40)
--- NOTE | 2019-07-16 11:40 | P.PN ---
Subjective Patient is seen in follow-up for end-stage renal disease. He is maintained on hemodialysis on Saturday schedule. Dyspnea is improved but still requiring oxygen. No cough. Afebrile. Oral intake is good. No vomiting or diarrhea. Vital signs are stable. General: The patient appeared well nourished and normally developed. HEENT: Head exam is unremarkable. Neck is without jugular venous distension. LUNGS: Breath sounds decreased. HEART: Rate and Rhythm are regular. First and second heart sounds normal. No murmurs, rubs or gallops. ABDOMEN: Abdominal exam reveals normal bowel sounds. Non-tender and non- distended. No evidence of peritonitis. EXTREMITITES: No clubbing, cyanosis, or edema. BKA noted. Objective - Vital Signs Vital signs: Vital Signs Temp 97.9 F 07/16/19 08:00 Pulse 68 07/16/19 08:00 Resp 16 07/16/19 08:00 BP 124/58 07/16/19 08:00 Pulse Ox 96 07/16/19 08:00 Intake & Output 07/15/19 07/16/19 07/16/19 18:59 06:59 18:59 Intake Total 958 Output Total 2400 400 Balance -1442 -400 Weight 68.1 kg Intake: Oral 558 Hemodialysis 400 Output: Urine 400 Hemodialysis 2400 - Labs CBC & Chem 7: 07/16/19 09:15 07/16/19 09:15 Labs: Abnormal Lab Results - Last 24 Hours (Table) 07/15/19 07/15/19 07/15/19 Range/Units 12:20 17:24 20:48 RBC (4.30-5.90) m/uL Hgb (13.0-17.5) gm/dL Hct (39.0-53.0) % RDW (11.5-15.5) % Lymphocytes # (1.0-4.8) k/uL Chloride (98-107) mmol/L BUN (9-20) mg/dL Creatinine (0.66-1.25) mg/dL Glucose (74-99) mg/dL POC Glucose (mg/dL) 111 H 210 H 108 H (75-99) mg/dL 07/16/19 07/16/19 07/16/19 Range/Units 05:59 09:15 09:15 RBC 3.76 L (4.30-5.90) m/uL Hgb 10.9 L (13.0-17.5) gm/dL Hct 33.3 L (39.0-53.0) % RDW 16.1 H (11.5-15.5) % Lymphocytes # 0.4 L (1.0-4.8) k/uL Chloride 97 L (98-107) mmol/L BUN 23 H (9-20) mg/dL Creatinine 5.27 H (0.66-1.25) mg/dL Glucose 211 H (74-99) mg/dL POC Glucose (mg/dL) 200 H (75-99) mg/dL Microbiology - Last 24 Hours (Table) 07/13/19 13:38 Blood Culture - Preliminary Blood No Growth after 48 hours Assessment and Plan Plan: Assessment: 1. End-stage renal disease maintained on hemodialysis on Saturday schedule. 2. Dyspnea secondary to volume overload. No evidence of infection. Noted to have right-sided pleural effusion. 3. Insulin-dependent diabetes mellitus. 4. Hypertension with chronic kidney disease. 5. Anemia chronic kidney disease. Hemoglobin at goal. 6. Acute on chronic systolic CHF. Ejection fraction 45-50%. Plan: Currently seen while undergoing hemodialysis. Next treatment tomorrow per his outpatient schedule. Potential thoracentesis this admission if no improvement in the effusion. Pulmonology following.
--- NOTE | 2019-07-16 12:34 | P.PN ---
Subjective Progress Note Date: 07/16/19 Principal diagnosis: Dyspnea, bilateral pleural effusions, abnormal chest x-ray/CT This is 69-year-old white male patient of Dr. Robert, with past medical history of end-stage renal disease on hemodialysis on Saturday basis, diabetes mellitus, hypertension, coronary artery disease, previous history of aortic valve replacement with a bioprosthetic aortic valve, hyperlipidemia, osteoarthritis, diabetic peripheral neuropathy, previous history of diabetic ulcers, and MRSA wound infections status post left below-knee amputation, bilateral cataracts, with history of bilateral eye laser surgery. Patient is a lifetime nonsmoker, but did have a previous history of pneumonia. No history of chronic lung disease. Patient presented to the emergency department on 07/13/2019 with complaints of dyspnea, dry cough. Patient was at hemodialysis treatment yesterday and told a nurse that he has been short of breath. Denied any chest pain, he completed his hemodialysis, he denied any subjective fever or chills, no congestion or phlegm production. His dyspnea was exacerbated by any exertion. Patient did not feel improved after the dialysis, in addition is been complaining of orthopnea, and desaturation to mid 80s with ambulation. He feels better with supplemental oxygen. Chest x-ray was completed showing bilateral consolidation and pleural effusions right greater than the left, with the possibility of loculation of the right-sided pleural effusion. EKG showed normal sinus rhythm with nonspecific ST and T-wave abnormality. Patient has been afebrile, hemodynamically stable, he is currently on 2 L of oxygen with a pulse ox of 98%. His labs have been reviewed showing white blood cell count of 4.1, hemoglobin of 10.7, coagulation profile was within normal limits, sodium of 140, potassium 3.4, chloride is 97, CO2 35, BUN of 14 and creatinine is 3.53, proBNP was 54,008 100, troponin was negative 1, C-reactive protein was 24.9, influenza screen was negative. Blood culture has been sent and is pending at this time, sputum culture ordered but we were unable to collect, Procalcitonin has been ordered and is pending at this time, and were consulted for shortness of breath, and bilateral right greater than left pleural effusions. On 07/15/2019 patient seen in follow-up on selective care unit, yesterday he had hemodialysis would removal of 1.6 L of fluid, today is having a hemodialysis treatment again with the goal of removal of 2 L of fluid. Follow-up chest x-ray today has been reviewed showing stable findings of moderate to large right pleural effusion and associated multifocal right-sided airspace disease, and trace left pleural effusion. Clinically patient denies any respiratory distress, denies any chest pain, he is on 2 L of oxygen and the pulse ox of 92- 96%, afebrile, hemodynamically patient is stable, lung sounds reveal equal air entry bilaterally, with no crackles, wheezes or rhonchi and some diminished breath sounds at the bases. No cough or congestion. Vital signs are stable, no new labs today. We spoke to the patient, and we will repeat a chest x-ray tomorrow, if there is no improvement in the appearance of right-sided pleural effusion will consider thoracentesis. Aspirin and subcu heparin have been placed on hold for possibility of right-sided thoracentesis. On 07/16/2019 patient seen in follow-up on selective care unit. He is awake and alert, resting comfortably in bed, yesterday he had an extra hemodialysis treatment, and will have another one today. 2400 cc of fluid was removed during hemodialysis yesterday. Patient states his breathing easier, today's follow-up chest x-ray shows continued moderate-sized right-sided pleural effusion with multifocal pleural parenchymal opacities on the right, and the effusion seems to be loculated. And small left pleural effusion with adjacent atelectasis. He is on 2 L of oxygen, with a pulse ox of 94-96%, hemodynamically stable, no fever or chills no significant cough or congestion, no complaints of chest pain. Blood cultures so far showed no growth, we have been unable to send the sputum culture. Patient is on Rocephin for empiric antibiotic coverage, and some breathing treatments. Objective - Vital Signs Vital signs: Vital Signs Temp 97.9 F 07/16/19 08:00 Pulse 63 07/16/19 11:53 Resp 18 07/16/19 12:00 BP 116/65 07/16/19 11:53 Pulse Ox 94 L 07/16/19 11:53 Intake & Output 07/15/19 07/16/19 07/16/19 18:59 06:59 18:59 Intake Total 958 Output Total 2400 400 Balance -1442 -400 Weight 68.1 kg Intake: Oral 558 Hemodialysis 400 Output: Urine 400 Hemodialysis 2400 - Exam GENERAL EXAM: Alert, pleasant, 59-year-old white male, on 2 L of oxygen with a pulse ox of 96%, comfortable in no apparent distress. HEAD: Normocephalic/atraumatic. EYES: Normal reaction of pupils, equal size. Conjunctiva pink, sclera white. NOSE: Clear with pink turbinates. THROAT: No erythema or exudates. NECK: No masses, no JVD, no thyroid enlargement, no adenopathy. CHEST: No chest wall deformity. Symmetrical expansion. LUNGS: Equal air entry with no crackles, wheeze, rhonchi or dullness. Diminished breath sounds at the bases CVS: Regular rate and rhythm, normal S1 and S2, no gallops, no murmurs, no rubs. Left arm AV fistula ABDOMEN: Soft, nontender. No hepatosplenomegaly, normal bowel sounds, no guarding or rigidity. EXTREMITIES: No clubbing, no edema, no cyanosis, 2+ pulses and upper and lower extremities. Left below the knee amputation, with prosthesis. MUSCULOSKELETAL: Muscle strength and tone normal. SPINE: No scoliosis or deformity SKIN: No rashes CENTRAL NERVOUS SYSTEM: Alert and oriented -3. No focal deficits, tone is normal in all 4 extremities. PSYCHIATRIC: Alert and oriented -3. Appropriate affect. Intact judgment and insight. - Labs CBC & Chem 7: 07/16/19 09:15 07/16/19 09:15 Labs: Abnormal Lab Results - Last 24 Hours (Table) 07/15/19 07/15/19 07/16/19 Range/Units 17:24 20:48 05:59 RBC (4.30-5.90) m/uL Hgb (13.0-17.5) gm/dL Hct (39.0-53.0) % RDW (11.5-15.5) % Lymphocytes # (1.0-4.8) k/uL Chloride (98-107) mmol/L BUN (9-20) mg/dL Creatinine (0.66-1.25) mg/dL Glucose (74-99) mg/dL POC Glucose (mg/dL) 210 H 108 H 200 H (75-99) mg/dL 07/16/19 07/16/19 Range/Units 09:15 09:15 RBC 3.76 L (4.30-5.90) m/uL Hgb 10.9 L (13.0-17.5) gm/dL Hct 33.3 L (39.0-53.0) % RDW 16.1 H (11.5-15.5) % Lymphocytes # 0.4 L (1.0-4.8) k/uL Chloride 97 L (98-107) mmol/L BUN 23 H (9-20) mg/dL Creatinine 5.27 H (0.66-1.25) mg/dL Glucose 211 H (74-99) mg/dL POC Glucose (mg/dL) (75-99) mg/dL Microbiology - Last 24 Hours (Table) 07/13/19 13:38 Blood Culture - Preliminary Blood No Growth after 48 hours Assessment and Plan Plan: Assessment: #1. Acute hypoxic respiratory failure related to bilateral pleural effusions, and acute exacerbation of CHF with mildly impaired left ventricle systolic function and EF of 45-50%. Chest x-ray shows bilateral right greater than left pleural effusions and the possibility of loculation in the right pleural effusion #2. History of aortic valve replacement with a bioprosthetic valve, echocardiogram from 07/14/2019 showed normally functioning bioprosthetic valve, mild mitral regurgitation, mild mitral stenosis, trace tricuspid regurgitation, and no evidence of pulmonary hypertension with PA systolic of 16.9 mmHg #3. End-stage renal disease, on hemodialysis on Saturday schedule, and patient has been compliant with hemodialysis treatments #4. Diabetes mellitus type 2, with diabetic neuropathy, diabetic retinopathy and gastroparesis #5. History of diabetic wounds involving left foot, with MRSA infection and osteomyelitis, status post left below the knee amputation #6. Coronary artery disease #7. Hypertension #8. Hyperlipidemia #9. Osteoarthritis #10. Cataracts with history of laser surgery and lens implant #11. Lifetime nonsmoker #12. Anxiety and depression Plan: Today's follow-up chest x-ray has been reviewed, showing moderately sized right- sided pleural effusion and small left pleural effusion, patient is having another hemodialysis treatment today, we may proceed with a right-sided thoracentesis later this afternoon or tomorrow. Clinical patient looks fairly comfortable, stable, will continue with empiric antibiotics. We'll send of pleural fluid for cultures, cytology and analysis, patient may be considered for discharge home after the thoracentesis tomorrow on oral course of antibiotics, if he continues to do well. We'll need follow-up in the office with Dr. Gomez in one or 2 weeks I performed a history & physical examination of the patient and discussed their management with my nurse practitioner, Carmelita Robert. I reviewed the nurse practitioner's note and agree with the documented findings and plan of care. Lung sounds are positive for diminished breath sounds throughout the lung up. The findings and the impression was discussed with the patient. I attest to the documentation by the nurse practitioner. Time with Patient: Less than 30
--- NOTE | 2019-07-16 12:40 | P.PN ---
Subjective Progress Note Date: 07/16/19 This is a 59-year-old gentleman with known end-stage renal disease on hemodialysis who presented to the hospital with symptoms of shortness of breath. Chest x-ray showed bilateral consolidation and pleural effusions. An ultrasound of the chest was performed which revealed a right-sided pleural effusion measuring 10.1 cm, left-sided effusion measuring 10.3 cm. An echocardiogram with Doppler study was performed which revealed an ejection fraction of 45-50%. Normally functioning bioprosthetic valve. No evidence of any pericardial effusion. Patient did receive dialysis yesterday and again is receiving dialysis today. Blood pressure 174/67 with a heart rate in the 60s, 98% on 2 L O2. 07/15/2019 Patient was seen and examined this morning, undergoing dialysis. Blood pressure 158/60 with a heart rate in the 60s, 92% on 2 L of oxygen. 07/16/2019 Patient was seen and examined this morning, resting comfortably in bed. Patient did have an extra hemodialysis treatment performed yesterday and again is scheduled to have another treatment. He does state that his breathing is improving. Chest x-ray performed today revealed a moderate sized right-sided pleural effusion with multifocal pleuroparenchymal [place] on the right and the effusion seems to be loculated. There is also evidence of a left pleural effusion. Hemodynamically the patient is stable. Blood cultures are negative s o far. Objective - Vital Signs Vital signs: Vital Signs Temp 97.9 F 07/16/19 08:00 Pulse 63 07/16/19 11:53 Resp 18 07/16/19 12:00 BP 116/65 07/16/19 11:53 Pulse Ox 94 L 07/16/19 11:53 Intake & Output 07/15/19 07/16/19 07/16/19 18:59 06:59 18:59 Intake Total 958 Output Total 2400 400 Balance -1442 -400 Weight 68.1 kg Intake: Oral 558 Hemodialysis 400 Output: Urine 400 Hemodialysis 2400 - Exam PHYSICAL EXAMINATION: GENERAL: 59-year-old gentleman in no acute distress at the time of my examination HEENT: Head is atraumatic, normocephalic. Pupils equal, round. Sclera anicteric. Conjunctiva are clear. Mucous membranes of the mouth are moist. Neck is supple. There is elevated jugular venous pressure. No carotid bruit is heard. HEART EXAMINATION: Heart S1 and S2 systolic ejection murmur is heard CHEST EXAMINATION: Lungs reveal diminished air entry to the bases bilaterally ABDOMEN: Soft, nontender. Bowel sounds are heard. No organomegaly noted. EXTREMITIES 1+ peripheral pulses the right lower extremity with evidence of 1+ edema NEUROLOGIC patient is awake, alert and oriented X3. . - Labs CBC & Chem 7: 07/16/19 09:15 07/16/19 09:15 Labs: Abnormal Lab Results - Last 24 Hours (Table) 07/15/19 07/15/19 07/16/19 Range/Units 17:24 20:48 05:59 RBC (4.30-5.90) m/uL Hgb (13.0-17.5) gm/dL Hct (39.0-53.0) % RDW (11.5-15.5) % Lymphocytes # (1.0-4.8) k/uL Chloride (98-107) mmol/L BUN (9-20) mg/dL Creatinine (0.66-1.25) mg/dL Glucose (74-99) mg/dL POC Glucose (mg/dL) 210 H 108 H 200 H (75-99) mg/dL 07/16/19 07/16/19 Range/Units 09:15 09:15 RBC 3.76 L (4.30-5.90) m/uL Hgb 10.9 L (13.0-17.5) gm/dL Hct 33.3 L (39.0-53.0) % RDW 16.1 H (11.5-15.5) % Lymphocytes # 0.4 L (1.0-4.8) k/uL Chloride 97 L (98-107) mmol/L BUN 23 H (9-20) mg/dL Creatinine 5.27 H (0.66-1.25) mg/dL Glucose 211 H (74-99) mg/dL POC Glucose (mg/dL) (75-99) mg/dL Microbiology - Last 24 Hours (Table) 07/13/19 13:38 Blood Culture - Preliminary Blood No Growth after 48 hours Assessment and Plan Plan: Assessment and plan #1 fluid overload, acute exacerbation of chronic diastolic congestive heart failure #2 status post aortic valve replacement #3 bilateral pleural effusions #4 diabetes #5 uncontrolled hypertension #6 end-stage renal disease on hemodialysis Plan Blood pressure stable today 124/50. From cardiology's perspective we will continue this gentleman on his current medications. DNP note has been reviewed, I agree with a documented findings and plan of care. Patient was seen and examined.
[2019-07-16 12:46] LABS: Glucose,Whole Blood 201 mg/dL (75-99)
[2019-07-16 12:54] LABS: Total Protein 6.2 g/dL (6.3-8.2)
[2019-07-16 17:27] LABS: Glucose,Whole Blood 125 mg/dL (75-99)
--- NOTE | 2019-07-16 19:10 | PN ---
PROGRESS NOTE DATE OF SERVICE: 07/16/2019. REASON FOR FOLLOWUP: Abnormal x-ray and a question of pneumonia. INTERVAL HISTORY: The patient is currently afebrile. The patient is breathing comfortably. He denies having any chest pain. He did have very minimal cough, not bringing up any sputum. No nausea, no vomiting. No abdominal pain. No diarrhea. PHYSICAL EXAMINATION: Blood pressure 113/56, pulse of 63. Temperature 98.5. General description is a middle- aged male lying in bed in no distress. Respiratory system: Unlabored breathing. Decreased breath sounds at the bases. No wheeze. Heart S1, S2. Regular rate and rhythm. Abdomen soft. No tenderness. LABS: Hemoglobin is 10.1, white count 4.8. BUN of 23, creatinine 5.27. DIAGNOSTIC IMPRESSION AND PLAN: Patient with abnormal x-ray with evidence of bilateral pleural effusion, more on the right with question of possible compressive atelectasis versus pneumonia. Patient is currently covered on Rocephin, to continue while waiting possible thoracocentesis and monitor clinical course closely. MMODL / IJN: [id number] /
[2019-07-16 20:17] LABS: Glucose,Whole Blood 179 mg/dL (75-99)
[2019-07-16] MEDS: ATORVASTATIN 10 MG TAB PO SCH (20:54)
--- NOTE | 2019-07-16 21:02 | P.PN ---
Progress Note - Text Progress Note Date: 07/16/19 Interval history: This is a 59-year-old patient of Dr. Robert. Has extensive medical history. P resented because of dyspnea for 2 weeks. Has a dry cough. Found to have a significant right-sided pleural effusion. And fluid overload. Hemodialysis was done. Today-feeling better. Sitting upon a chair. No edema. Did tolerate some diet. Breathing is improved. Review of systems: Was done for constitutional, cardiovascular, GI, pulmonary. relevant finding as above Active Medications Albuterol/Ipratropium (Duoneb 0.5 Mg-3 Mg/3 Ml Soln) 3 ml INHALATION RT-TID [facility] Last Admin: 07/16/19 20:38 Dose: 3 ml Documented by: Albuterol/Ipratropium (Duoneb 0.5 Mg-3 Mg/3 Ml Soln) 3 ml INHALATION RT-TID PRN PRN Reason: Shortness Of Breath Or Wheezing Amlodipine Besylate (Norvasc) 5 mg PO DAILY [facility] Last Admin: 07/16/19 08:52 Dose: 5 mg Documented by: Atorvastatin Calcium (Lipitor) 10 mg PO HS [facility] Last Admin: 07/15/19 20:46 Dose: 10 mg Documented by: Famotidine (Pepcid) 20 mg PO DAILY [facility] Last Admin: 07/16/19 08:52 Dose: 20 mg Documented by: Hydralazine HCl (Apresoline) 100 mg PO BID [facility] Last Admin: 07/16/19 08:51 Dose: 100 mg Documented by: Ceftriaxone Sodium 1 gm/ (Sodium Chloride) 50 mls @ 100 mls/hr IVPB Q24H [facility] Last Admin: 07/16/19 18:18 Dose: 100 mls/hr Documented by: Insulin Aspart (Novolog) 0 unit SQ ACHS [facility]; Protocol Last Admin: 07/16/19 17:30 Dose: Not Given Documented by: Insulin Detemir (Levemir) 15 unit SQ QAM [facility] Last Admin: 07/16/19 08:52 Dose: 15 unit Documented by: Metoprolol Tartrate (Lopressor) 25 mg PO BID [facility] Last Admin: 07/16/19 08:52 Dose: 25 mg Documented by: Midodrine (Proamatine) 10 mg PO ONCE PRN PRN Reason: Blood Pressure - Low Last Admin: 07/16/19 11:49 Dose: 10 mg Documented by: Multivit/Ca Carb/B Cmplx/FA/Prenat (Nephrocaps) 1 each PO DAILY [place] Last Admin: 07/16/19 08:52 Dose: 1 each Documented by: Naloxone HCl (Narcan) 0.2 mg IV Q2M PRN PRN Reason: Opioid Reversal On examination: VITAL SIGNS: 98.5, 63, 18, 113 x 66, 100% room air GENERAL APPEARANCE: Sitting upon a chair, not in distress. HEENT: Normal external appearance of nose and ear. Oral cavity normal EYES: Pupils equal. Conjunctiva normal. NECK: JVD not raised. Mass not palpable. RESPIRATORY: Respiratory effort normal. Lungs decreased breath sounds CARDIOVASCULAR: First and second sounds normal. No edema. ABDOMEN: Soft. Liver and spleen not palpable. No tenderness. No mass palpable. PSYCHIATRY: Alert and oriented x3. Mood and affect normal. Investigations: White count 4.8 hemoglobin 10.9 potassium 3.6.23 creatinine 5.27 Chest x-ray film personally reviewed by me-large right pleural effusion 2-D echocardiogram-moderate concentric left medical hypertrophy, EF 45-50% EKG tracing personally reviewed by me-flipped T waves Assessment: -Acute on chronic congestive heart failure exacerbation from diastolic dysfunction EF 45-50% -Acute right pleural effusion secondary to CHF -End-stage kidney disease on renal replacement therapy -Severe GERD -Diabetic gastroparesis -Diabetes mellitus type 2 chronically on insulin -Hyperlipidemia -Essential hypertension -Primary osteoarthritis of multiple joints -Aortic bovine valve -Aortic peripheral neuropathy -Left below-knee amputation -Essential hypertension with chronic kidney disease -Peripheral arterial disease -Diabetic retinopathy Plan: Continue current medication treatment plan. Patient to have right-sided thoracentesis by Dr. Villeda tomorrow, which was initially scheduled for today. Overall patient feels much better. Other medication treatment plan is to continue. It may be noted that the blood pressure was running a bit of the lower side today. Cardiology did adjust the medications. Dose of amlodipine was cut back. Patient also has been getting midodrine.
[2019-07-17 06:07] LABS: Glucose,Whole Blood 182 mg/dL (75-99)
[2019-07-17] MEDS: INSULIN ASPART (NovoLOG) 100 UNIT/ML VIAL SQ SCH ×2 (06:27→12:06)
--- NOTE | 2019-07-17 07:48 | XR ---
EXAMINATION TYPE: XR chest 1V portable DATE OF EXAM: 07/17/2019 COMPARISON: 07/16/2019 HISTORY: Pleural effusion TECHNIQUE: Single frontal view of the chest is obtained. FINDINGS: Right pleural effusion is moderate. Multifocal right-sided airspace disease is stable. Car diomediastinal silhouette is enlarged with post CABG changes. Left lung is well aerated with resolved left pleural effusion and left basilar airspace disease. No sizable pneumothorax seen. Stable osseou s structures. IMPRESSION: Resolved left pleural effusion and left basilar airspace disease. Persistent moderate ri ght pleural effusion with multifocal airspace disease unchanged from the prior.
[2019-07-17] MEDS: IPRATROPIUM-ALBUTEROL 3 ML NEB INHALATION SCH ×2 (08:11→13:37)
[2019-07-17] MEDS: hydrALAZINE HCL 50 MG TAB PO SCH (08:47)
[2019-07-17] MEDS: FAMOTIDINE 20 MG TAB PO SCH (08:47)
[2019-07-17] MEDS: amLODIPine 5 MG TAB PO SCH (08:48)
[2019-07-17] MEDS: INSULIN DETEMIR (LEVEMIR) 100 UNIT/ML SYR SQ SCH (08:48)
[2019-07-17] MEDS: FOLIC ACID-VIT B COMPLEX-VIT C 1 CAP PO SCH (08:48)
[2019-07-17] MEDS: METOPROLOL TARTRATE 25 MG TAB PO SCH (08:48)
[2019-07-17 08:59] VITALS: RESP 18
--- NOTE | 2019-07-17 09:07 | P.PN ---
Subjective Patient is seen in follow-up for end-stage renal disease. He is maintained on hemodialysis on Saturday schedule. Dyspnea is improved but still requiring oxygen. No cough. Afebrile. Oral intake is good. No vomiting or diarrhea. Has received dialysis every day this week mostly for ultrafiltration purposes. 2 L removed yesterday. Vital signs are stable. General: The patient appeared well nourished and normally developed. HEENT: Head exam is unremarkable. Neck is without jugular venous distension. LUNGS: Breath sounds decreased. HEART: Rate and Rhythm are regular. First and second heart sounds normal. No murmurs, rubs or gallops. ABDOMEN: Abdominal exam reveals normal bowel sounds. Non-tender and non- distended. No evidence of peritonitis. EXTREMITITES: No clubbing, cyanosis, or edema. BKA noted. Objective - Vital Signs Vital signs: Vital Signs Temp 98.6 F 07/17/19 08:10 Pulse 68 07/17/19 08:19 Resp 18 07/17/19 08:10 BP 109/68 07/17/19 08:10 Pulse Ox 98 07/17/19 08:10 Intake & Output 07/16/19 07/17/19 07/17/19 18:59 06:59 18:59 Intake Total 360 Output Total 1999 Balance -1999 360 Weight 65.5 kg Intake: Oral 360 Output: Hemodialysis 1999 Other: # Voids 0 - Labs CBC & Chem 7: 07/16/19 09:15 07/16/19 09:15 Labs: Abnormal Lab Results - Last 24 Hours (Table) 07/16/19 07/16/19 07/16/19 Range/Units 09:15 09:15 09:15 RBC 3.76 L (4.30-5.90) m/uL Hgb 10.9 L (13.0-17.5) gm/dL Hct 33.3 L (39.0-53.0) % RDW 16.1 H (11.5-15.5) % Lymphocytes # 0.4 L (1.0-4.8) k/uL Chloride 97 L (98-107) mmol/L BUN 23 H (9-20) mg/dL Creatinine 5.27 H (0.66-1.25) mg/dL Glucose 211 H (74-99) mg/dL POC Glucose (mg/dL) (75-99) mg/dL Total Protein 6.2 L (6.3-8.2) g/dL 07/16/19 07/16/19 07/16/19 Range/Units 12:45 17:25 20:15 RBC (4.30-5.90) m/uL Hgb (13.0-17.5) gm/dL Hct (39.0-53.0) % RDW (11.5-15.5) % Lymphocytes # (1.0-4.8) k/uL Chloride (98-107) mmol/L BUN (9-20) mg/dL Creatinine (0.66-1.25) mg/dL Glucose (74-99) mg/dL POC Glucose (mg/dL) 201 H 125 H 179 H (75-99) mg/dL Total Protein (6.3-8.2) g/dL 07/17/19 Range/Units 06:03 RBC (4.30-5.90) m/uL Hgb (13.0-17.5) gm/dL Hct (39.0-53.0) % RDW (11.5-15.5) % Lymphocytes # (1.0-4.8) k/uL Chloride (98-107) mmol/L BUN (9-20) mg/dL Creatinine (0.66-1.25) mg/dL Glucose (74-99) mg/dL POC Glucose (mg/dL) 182 H (75-99) mg/dL Total Protein (6.3-8.2) g/dL Microbiology - Last 24 Hours (Table) 07/13/19 13:38 Blood Culture - Preliminary Blood No Growth after 72 hours Assessment and Plan Plan: Assessment: 1. End-stage renal disease maintained on hemodialysis on Saturday schedule. 2. Dyspnea secondary to volume overload. No evidence of infection. Noted to have right-sided pleural effusion. 3. Insulin-dependent diabetes mellitus. 4. Hypertension with chronic kidney disease. Controlled. 5. Anemia chronic kidney disease. Hemoglobin at goal. 6. Acute on chronic systolic CHF. Ejection fraction 45-50%. Plan: Hemodialysis today. Potential thoracentesis today.
--- NOTE | 2019-07-17 10:43 | CDI ---
Documentation Clarification Form Date: 07/17/2019 10:18:30 AM From: Genie AUNG Peace, CCDS Admit Date: 07/13/2019 1:50:00 PM Patient Name: Andi Parker Visit Number: [id number] Discharge Date: ATTENTION: The Clinical Documentation Specialists (CDI) and [facility] Coding Staff appreciate your assistance in clarifying documentation. Please respond to the clarification below the line at the bottom and electronically sign. The CDI & [facility] Coding staff will review the response and follow-up if needed. Please note: Queries are made part of the Legal Health Record. If you have any questions, please contact the author of this message via ITS. Dr. Duane Pedersen: There is conflicting documentation in the record regarding the type of congestive heart failure the patient is diagnosed with. Per the cardiology consult 07/13 & subsequent progress notes: Acute exacerbation of chronic diastolic heart failure. Per the nephrology consult 07/14: Acute on chronic systolic CHF, EF 45-50%. Per the attending progress notes 07/14 & 07/15: Acute exacerbation of systolic congestive heart failure. Per the attending progress note 07/16: Acute exacerbation diastolic congestive heart failure EF 45-50%. History/Risk Factors: CHF, ESRD on hemodialysis, GERD, IDDM II, Hyperlipidemia, Hypertension, Primary osteoarthritis multiple joints, Aortic bovine valve, Aortic peripheral neuropathy, Left BKA, Peripheral arterial disease, diabetic retinopathy. Clinical Indicators: SOB & chest pain while at dialysis center. Found to have bilateral pleural effusions with consolidation, exacerbation of heart failure, acute hypoxic respiratory failure & possible pneumonia. VS: P 64 - 57*, R 18 - 22 (sob, cough, tachypnea), BP 153/59, PO 96 RA - 89 RA - 100 2Lnc BNP: 54,800 Echocardiogram Results: Systolic function mildly impaired, EF 45-50%. Mild MR, Mild mitral stenosis, Trace TR, no evidence of pulmonary hypertension. Chest X Ray 07/13: Bilateral consolidation & pleural effusion much greater on right. Correlate for pneumonia. Underlying CHF in the differential. 07/14 Bilateral pleural effusions. Treatment: IV Pepcid, Heparin sq, IV Rocephin, INH Albuterol, Hemodialysis x3. IV Lasix ordered on 07/13 per documentation, not given or recorded. O2 2Lnc. In your professional opinion, can you please clarify the acuity and type of CHF if known? Systolic Heart Failure: Diastolic Heart Failure: Systolic & Diastolic Heart Failure: Unable to Determine Other, please specify (Last Revision: December 2017) As dictated in discharge summary MTDD
--- NOTE | 2019-07-17 11:33 | P.PN ---
Subjective Progress Note Date: 07/17/19 This is a 59-year-old gentleman with known end-stage renal disease on hemodialysis who presented to the hospital with symptoms of shortness of breath. Chest x-ray showed bilateral consolidation and pleural effusions. An ultrasound of the chest was performed which revealed a right-sided pleural effusion measuring 10.1 cm, left-sided effusion measuring 10.3 cm. An echocardiogram with Doppler study was performed which revealed an ejection fraction of 45-50%. Normally functioning bioprosthetic valve. No evidence of any pericardial effusion. Patient did receive dialysis yesterday and again is receiving dialysis today. Blood pressure 174/67 with a heart rate in the 60s, 98% on 2 L O2. 07/15/2019 Patient was seen and examined this morning, undergoing dialysis. Blood pressure 158/60 with a heart rate in the 60s, 92% on 2 L of oxygen. 07/16/2019 Patient was seen and examined this morning, resting comfortably in bed. Patient did have an extra hemodialysis treatment performed yesterday and again is scheduled to have another treatment. He does state that his breathing is improving. Chest x-ray performed today revealed a moderate sized right-sided pleural effusion with multifocal pleuroparenchymal [place] on the right and the effusion seems to be loculated. There is also evidence of a left pleural effusion. Hemodynamically the patient is stable. Blood cultures are negative s o far. 07/17/2019 Patient seen and examined this morning, repeat chest x-ray showed persistent rig ht-sided pleural effusion for which the patient is scheduled today to undergo a thoracentesis. Blood pressure 110/60, heart rate in the 70s. Objective - Vital Signs Vital signs: Vital Signs Temp 98.6 F 07/17/19 08:10 Pulse 68 07/17/19 08:19 Resp 18 07/17/19 08:10 BP 109/68 07/17/19 08:10 Pulse Ox 98 07/17/19 08:10 Intake & Output 07/16/19 07/17/19 07/17/19 18:59 06:59 18:59 Intake Total 360 Output Total 1999 Balance -1999 360 Weight 65.5 kg Intake: Oral 360 Output: Hemodialysis 1999 Other: # Voids 0 - Exam PHYSICAL EXAMINATION: GENERAL: 59-year-old gentleman in no acute distress at the time of my examination HEENT: Head is atraumatic, normocephalic. Pupils equal, round. Sclera anicteric. Conjunctiva are clear. Mucous membranes of the mouth are moist. Neck is supple. There is elevated jugular venous pressure. No carotid bruit is heard. HEART EXAMINATION: Heart S1 and S2 systolic ejection murmur is heard CHEST EXAMINATION: Lungs reveal diminished air entry to the bases bilaterally ABDOMEN: Soft, nontender. Bowel sounds are heard. No organomegaly noted. EXTREMITIES 1+ peripheral pulses the right lower extremity with evidence of 1+ edema NEUROLOGIC patient is awake, alert and oriented X3. . - Labs CBC & Chem 7: 07/16/19 09:15 07/16/19 09:15 Labs: Abnormal Lab Results - Last 24 Hours (Table) 07/16/19 07/16/19 07/16/19 Range/Units 09:15 12:45 17:25 POC Glucose (mg/dL) 201 H 125 H (75-99) mg/dL Total Protein 6.2 L (6.3-8.2) g/dL 07/16/19 07/17/19 Range/Units 20:15 06:03 POC Glucose (mg/dL) 179 H 182 H (75-99) mg/dL Total Protein (6.3-8.2) g/dL Microbiology - Last 24 Hours (Table) 07/13/19 13:38 Blood Culture - Preliminary Blood No Growth after 72 hours Assessment and Plan Plan: Assessment and plan #1 fluid overload, acute exacerbation of chronic diastolic congestive heart failure #2 status post aortic valve replacement #3 bilateral pleural effusions #4 diabetes #5 uncontrolled hypertension #6 end-stage renal disease on hemodialysis Plan Cardiology's perspective, we'll follow this patient with you now on an as-needed basis only, please don't hesitate to call if you have any questions at all. DNP note has been reviewed, I agree with a documented findings and plan of care. Patient was seen and examined.
[2019-07-17 11:49] LABS: Glucose,Whole Blood 186 mg/dL (75-99)
--- NOTE | 2019-07-17 13:30 | P.PN ---
Subjective Progress Note Date: 07/17/19 Principal diagnosis: Dyspnea, bilateral pleural effusions, abnormal chest x-ray/CT This is 69-year-old white male patient of Dr. Robert, with past medical history of end-stage renal disease on hemodialysis on Saturday basis, diabetes mellitus, hypertension, coronary artery disease, previous history of aortic valve replacement with a bioprosthetic aortic valve, hyperlipidemia, osteoarthritis, diabetic peripheral neuropathy, previous history of diabetic ulcers, and MRSA wound infections status post left below-knee amputation, bilateral cataracts, with history of bilateral eye laser surgery. Patient is a lifetime nonsmoker, but did have a previous history of pneumonia. No history of chronic lung disease. Patient presented to the emergency department on 07/13/2019 with complaints of dyspnea, dry cough. Patient was at hemodialysis treatment yesterday and told a nurse that he has been short of breath. Denied any chest pain, he completed his hemodialysis, he denied any subjective fever or chills, no congestion or phlegm production. His dyspnea was exacerbated by any exertion. Patient did not feel improved after the dialysis, in addition is been complaining of orthopnea, and desaturation to mid 80s with ambulation. He feels better with supplemental oxygen. Chest x-ray was completed showing bilateral consolidation and pleural effusions right greater than the left, with the possibility of loculation of the right-sided pleural effusion. EKG showed normal sinus rhythm with nonspecific ST and T-wave abnormality. Patient has been afebrile, hemodynamically stable, he is currently on 2 L of oxygen with a pulse ox of 98%. His labs have been reviewed showing white blood cell count of 4.1, hemoglobin of 10.7, coagulation profile was within normal limits, sodium of 140, potassium 3.4, chloride is 97, CO2 35, BUN of 14 and creatinine is 3.53, proBNP was 54,008 100, troponin was negative 1, C-reactive protein was 24.9, influenza screen was negative. Blood culture has been sent and is pending at this time, sputum culture ordered but we were unable to collect, Procalcitonin has been ordered and is pending at this time, and were consulted for shortness of breath, and bilateral right greater than left pleural effusions. On 07/15/2019 patient seen in follow-up on selective care unit, yesterday he had hemodialysis would removal of 1.6 L of fluid, today is having a hemodialysis treatment again with the goal of removal of 2 L of fluid. Follow-up chest x-ray today has been reviewed showing stable findings of moderate to large right pleural effusion and associated multifocal right-sided airspace disease, and trace left pleural effusion. Clinically patient denies any respiratory distress, denies any chest pain, he is on 2 L of oxygen and the pulse ox of 92- 96%, afebrile, hemodynamically patient is stable, lung sounds reveal equal air entry bilaterally, with no crackles, wheezes or rhonchi and some diminished breath sounds at the bases. No cough or congestion. Vital signs are stable, no new labs today. We spoke to the patient, and we will repeat a chest x-ray tomorrow, if there is no improvement in the appearance of right-sided pleural effusion will consider thoracentesis. Aspirin and subcu heparin have been placed on hold for possibility of right-sided thoracentesis. On 07/16/2019 patient seen in follow-up on selective care unit. He is awake and alert, resting comfortably in bed, yesterday he had an extra hemodialysis treatment, and will have another one today. 2400 cc of fluid was removed during hemodialysis yesterday. Patient states his breathing easier, today's follow-up chest x-ray shows continued moderate-sized right-sided pleural effusion with multifocal pleural parenchymal opacities on the right, and the effusion seems to be loculated. And small left pleural effusion with adjacent atelectasis. He is on 2 L of oxygen, with a pulse ox of 94-96%, hemodynamically stable, no fever or chills no significant cough or congestion, no complaints of chest pain. Blood cultures so far showed no growth, we have been unable to send the sputum culture. Patient is on Rocephin for empiric antibiotic coverage, and some breathing treatments. On 07/17/2019 patient seen in follow-up on selective care unit. He is calm and comfortable, he is resting in bed, yesterday he had hemodialysis would removal of 2 L of fluid, follow-up chest x-ray still showing right-sided lacunar pleural effusion. She denies any difficulty breathing, room air pulse ox is 92%, he is afebrile, hemodynamically stable, no significant cough or congestion, once her reveal diminished breath sounds over right lower lobe, no rhonchi, no wheezing. Blood culture show no growth. He is on IV Rocephin for antibiotic coverage, no new labs today. Objective - Vital Signs Vital signs: Vital Signs Temp 98.6 F 07/17/19 08:10 Pulse 66 07/17/19 12:15 Resp 18 07/17/19 12:15 BP 111/59 07/17/19 12:15 Pulse Ox 92 L 07/17/19 12:15 Intake & Output 07/16/19 07/17/19 07/17/19 18:59 06:59 18:59 Intake Total 360 Output Total 1999 Balance -1999 360 Weight 65.5 kg Intake: Oral 360 Output: Hemodialysis 1999 Other: # Voids 0 - Exam GENERAL EXAM: Alert, pleasant, 59-year-old white male, on 2 L of oxygen with a pulse ox of 96%, comfortable in no apparent distress. HEAD: Normocephalic/atraumatic. EYES: Normal reaction of pupils, equal size. Conjunctiva pink, sclera white. NOSE: Clear with pink turbinates. THROAT: No erythema or exudates. NECK: No masses, no JVD, no thyroid enlargement, no adenopathy. CHEST: No chest wall deformity. Symmetrical expansion. LUNGS: Equal air entry with no crackles, wheeze, rhonchi or dullness. Diminished breath sounds at the bases CVS: Regular rate and rhythm, normal S1 and S2, no gallops, no murmurs, no rubs. Left arm AV fistula ABDOMEN: Soft, nontender. No hepatosplenomegaly, normal bowel sounds, no guarding or rigidity. EXTREMITIES: No clubbing, no edema, no cyanosis, 2+ pulses and upper and lower extremities. Left below the knee amputation, with prosthesis. MUSCULOSKELETAL: Muscle strength and tone normal. SPINE: No scoliosis or deformity SKIN: No rashes CENTRAL NERVOUS SYSTEM: Alert and oriented -3. No focal deficits, tone is normal in all 4 extremities. PSYCHIATRIC: Alert and oriented -3. Appropriate affect. Intact judgment and insight. - Labs CBC & Chem 7: 07/16/19 09:15 07/16/19 09:15 Labs: Abnormal Lab Results - Last 24 Hours (Table) 07/16/19 07/16/19 07/17/19 Range/Units 17:25 20:15 06:03 POC Glucose (mg/dL) 125 H 179 H 182 H (75-99) mg/dL 07/17/19 Range/Units 11:44 POC Glucose (mg/dL) 186 H (75-99) mg/dL Microbiology - Last 24 Hours (Table) 07/13/19 13:38 Blood Culture - Preliminary Blood No Growth after 72 hours Assessment and Plan Plan: Assessment: #1. Acute hypoxic respiratory failure related to bilateral pleural effusions, and acute exacerbation of CHF with mildly impaired left ventricle systolic function and EF of 45-50%. Chest x-ray shows bilateral right greater than left pleural effusions and the possibility of loculation in the right pleural effusion #2. History of aortic valve replacement with a bioprosthetic valve, echocardiogram from 07/14/2019 showed normally functioning bioprosthetic valve, mild mitral regurgitation, mild mitral stenosis, trace tricuspid regurgitation, and no evidence of pulmonary hypertension with PA systolic of 16.9 mmHg #3. End-stage renal disease, on hemodialysis on Saturday schedule, and patient has been compliant with hemodialysis treatments #4. Diabetes mellitus type 2, with diabetic neuropathy, diabetic retinopathy and gastroparesis #5. History of diabetic wounds involving left foot, with MRSA infection and osteomyelitis, status post left below the knee amputation #6. Coronary artery disease #7. Hypertension #8. Hyperlipidemia #9. Osteoarthritis #10. Cataracts with history of laser surgery and lens implant #11. Lifetime nonsmoker #12. Anxiety and depression Plan: We'll proceed with a right-sided thoracentesis this afternoon, pleural fluid cultures will be sent for cultures, cytology and analysis. Clinical patient is doing well, denies any difficulty breathing, no fever or chills, no significant cough or congestion, he had another 2 L of fluid removed during hemodialysis yesterday, his breathing easier, no acute events overnight, will consider for discharge after the right-sided thoracentesis with outpatient follow-up. I performed a history & physical examination of the patient and discussed their management with my nurse practitioner, Carmelita Robert. I reviewed the nurse practitioner's note and agree with the documented findings and plan of care. Lung sounds are positive for diminished breath sounds throughout the lung up. The findings and the impression was discussed with the patient. I attest to the documentation by the nurse practitioner. Time with Patient: Less than 30
--- NOTE | 2019-07-17 15:53 | PN ---
PROGRESS NOTE DATE OF SERVICE: 07/17/2019 REASON FOR FOLLOWUP: Pleural effusion and consolidation with a question of pneumonia. INTERVAL HISTORY: The patient is currently afebrile. The patient is breathing comfortably. The patient is currently scheduled for thoracocentesis this afternoon per Pulmonary. He denies any worsening chest pain or shortness of breath or cough. Minimal cough. No nausea, no vomiting. No abdominal pain or diarrhea. PHYSICAL EXAMINATION: Blood pressure 111/59 with a pulse of 66, temperature 98. He is 92% on room air. General description is a middle-aged male up in the bed in no distress. RESPIRATORY SYSTEM: Unlabored breathing with decreased breath sounds at the base. No wheeze. HEART: S1, S2. Regular rate and rhythm. ABDOMEN: Soft. No tenderness. LABS: No new labs have been obtained today. Blood culture has been negative. DIAGNOSTIC IMPRESSION AND PLAN: Patient with abnormal x-ray with evidence of bilateral effusion and consolidation, possible compressive atelectasis; clinically not behaving as pneumonia. Awaiting the thoracocentesis. Empirically covered with Rocephin; to continue. Monitor his clinical course closely. MMODL / IJN: [id number] /
[2019-07-17 16:42] VITALS: BP 115/71; PULSE 74; TEMP 98.4
[2019-07-17 16:45] LABS: Glucose,Whole Blood 124 mg/dL (75-99)
--- NOTE | 2019-07-17 22:20 | P.DS ---
Providers Date of admission: 07/13/19 13:50 Expected date of discharge: 07/17/19 Attending physician: Duane Pedersen Consults: 07/13/19 12:54 Consult Physician Routine Consulting Provider: Karen Bhagat Consult Reason/Comments: sob with pleural effusion and consolidation , more on the right Do you want consulting provider notified?: Yes Consult Physician Urgent Consulting Provider: Alfredo Gomez Consult Reason/Comments: sob with pleural effusion and consolidation , more on the right Do you want consulting provider notified?: Yes 07/13/19 13:51 Consult Physician Routine Consulting Provider: Alex Felton Consult Reason/Comments: chf Do you want consulting provider notified?: Yes Consult Physician Routine Consulting Provider: Kati Gomez Consult Reason/Comments: esrd Do you want consulting provider notified?: Yes Primary care physician: [facility] Course: Interval history: This is a 59-year-old patient of Dr. Robert. Has extensive medical history. Presented because of dyspnea for 2 weeks. Has a dry cough. Found to have a significant right-sided pleural effusion. And fluid overload. Hemodialysis was done. Today. Patient's is feeling better. Sitting up. is present. Tolerating a diet. Consultation: Dr. Bhagat from ID Dr. Villeda from pulmonary Dr. Kathi Felton and associates from cardiology On examination: VITAL SIGNS: 98.4, 74, 18, 11 5/71, 98% room air GENERAL APPEARANCE: Sitting upon a chair, not in distress. HEENT: Normal external appearance of nose and ear. Oral cavity normal EYES: Pupils equal. Conjunctiva normal. NECK: JVD not raised. Mass not palpable. RESPIRATORY: Respiratory effort normal. Lungs decreased breath sounds CARDIOVASCULAR: First and second sounds normal. No edema. ABDOMEN: Soft. Liver and spleen not palpable. No tenderness. No mass palpable. PSYCHIATRY: Alert and oriented x3. Mood and affect normal. Investigations: White count 4.8 hemoglobin 10.9 potassium 3.6.23 creatinine 5.27 Chest x-ray film personally reviewed by me-large right pleural effusion 2-D echocardiogram-moderate concentric left medical hypertrophy, EF 45-50% EKG tracing personally reviewed by me-flipped T waves Assessment: -Acute on chronic congestive heart failure exacerbation from diastolic dysfunction EF 45-50% -Acute right pleural effusion secondary to CHF -End-stage kidney disease on renal replacement therapy -Severe GERD -Diabetic gastroparesis -Diabetes mellitus type 2 chronically on insulin -Hyperlipidemia -Essential hypertension -Primary osteoarthritis of multiple joints -Aortic bovine valve -Aortic peripheral neuropathy -Left below-knee amputation -Essential hypertension with chronic kidney disease -Peripheral arterial disease -Diabetic retinopathy Disposition: Home Patient Condition at Discharge: Stable Plan - Discharge Summary Discharge Rx Participant: No New Discharge Prescriptions: New Cefuroxime Axetil [Ceftin] 500 mg PO BID 3 Days #6 tab amLODIPine [Norvasc] 5 mg PO DAILY #30 tab Continue Aspirin 81 mg PO DAILY #1 chewable Atorvastatin [Lipitor] 10 mg PO HS hydrALAZINE HCL [Apresoline] 100 mg PO BID INSULIN ASPART (NovoLOG) [NovoLOG (formulary)] See Protocol SQ AC-TID Jannie-Bruna 0.8mg 0.8 mg PO DAILY Metoprolol Tartrate [Lopressor] 25 mg PO BID Insulin Glargine [Lantus] 15 unit SQ QAM Discharge Medication List Aspirin 81 mg PO DAILY #1 chewable 02/21/17 [Rx] Atorvastatin [Lipitor] 10 mg PO HS 11/25/17 [History] hydrALAZINE HCL [Apresoline] 100 mg PO BID 08/14/18 [History] INSULIN ASPART (NovoLOG) [NovoLOG (formulary)] See Protocol SQ AC-TID 01/04/19 [History] Insulin Glargine [Lantus] 15 unit SQ QAM 07/13/19 [History] Metoprolol Tartrate [Lopressor] 25 mg PO BID 07/13/19 [History] Jannie-Bruna 0.8mg 0.8 mg PO DAILY 07/13/19 [History] Cefuroxime Axetil [Ceftin] 500 mg PO BID 3 Days #6 tab 07/17/19 [Rx] amLODIPine [Norvasc] 5 mg PO DAILY #30 tab 07/17/19 [Rx] Follow up Appointment(s)/Referral(s): [facility] [Provider Group] - 07/30/19 1:15 pm () Thor Robert MD [Primary Care Provider] - 07/27/19 11:20 am (Saturday -previously scheduled appointment) Alfredo Gomez DO [Doctor of Osteopathic Medicine] - 07/28/19 1:30 pm (Saturday) Bahman Wilkinson DO [STAFF PHYSICIAN] - 1 Week (Please keep scheduled dialysis appointment) Activity/Diet/Wound Care/Special Instructions: HD [facility] [phone] Discharge Disposition: HOME SELF-CARE
== END 2019-07-17 17:10 | disposition home or self-care (01) | DRG 291 ==
LOC: EC 11:24 → 3SCARD 13:50
PROVIDERS: ADMIT Hospitalist; ATTEND Hospitalist
PROC: 5A1D70Z Performance of Urinary Filtration, Intermittent, Less than 6 Hours Per Day (ICD-10-PCS; principal; 2019-07-13)
DX: I13.2 Hypertensive heart and chronic kidney disease with heart failure and with stage 5 chronic kidney disease, or end stage renal disease (principal); N18.6 End stage renal disease; J96.01 Acute respiratory failure with hypoxia; I50.33 Acute on chronic diastolic (congestive) heart failure; J98.11 Atelectasis; D63.1 Anemia in chronic kidney disease; I25.10 Atherosclerotic heart disease of native coronary artery without angina pectoris; E11.649 Type 2 diabetes mellitus with hypoglycemia without coma; K31.84 Gastroparesis; E11.319 Type 2 diabetes mellitus with unspecified diabetic retinopathy without macular edema; E11.42 Type 2 diabetes mellitus with diabetic polyneuropathy; E11.43 Type 2 diabetes mellitus with diabetic autonomic (poly)neuropathy; E11.51 Type 2 diabetes mellitus with diabetic peripheral angiopathy without gangrene; E11.22 Type 2 diabetes mellitus with diabetic chronic kidney disease; K21.9 Gastro-esophageal reflux disease without esophagitis; E78.5 Hyperlipidemia, unspecified; H91.90 Unspecified hearing loss, unspecified ear; M19.90 Unspecified osteoarthritis, unspecified site; M10.9 Gout, unspecified; E11.36 Type 2 diabetes mellitus with diabetic cataract; M89.49 Other hypertrophic osteoarthropathy, multiple sites; F32.9 Major depressive disorder, single episode, unspecified; F41.9 Anxiety disorder, unspecified; I08.1 Rheumatic disorders of both mitral and tricuspid valves; Z96.1 Presence of intraocular lens; Z91.041 Radiographic dye allergy status; Z79.899 Other long term (current) drug therapy; Z79.4 Long term (current) use of insulin; Z79.82 Long term (current) use of aspirin; Z99.2 Dependence on renal dialysis; Z95.3 Presence of xenogenic heart valve; Z90.49 Acquired absence of other specified parts of digestive tract; Z89.512 Acquired absence of left leg below knee; Z98.42 Cataract extraction status, left eye; Z98.41 Cataract extraction status, right eye; Z86.14 Personal history of Methicillin resistant Staphylococcus aureus infection; Z83.3 Family history of diabetes mellitus; Z98.890 Other specified postprocedural states; Z82.0 Family history of epilepsy and other diseases of the nervous system; Z82.49 Family history of ischemic heart disease and other diseases of the circulatory system; Z82.3 Family history of stroke; Z82.61 Family history of arthritis; Z87.01 Personal history of pneumonia (recurrent); Z99.3 Dependence on wheelchair; Z86.19 Personal history of other infectious and parasitic diseases; I25.2 Old myocardial infarction; Z86.59 Personal history of other mental and behavioral disorders; Z89.022 Acquired absence of left finger(s); Z97.14 Presence of artificial left leg (complete) (partial)
CPT/HCPCS: 36415; 71045; 71046; 76604; 80048; 80053; 83036; 83615; 83735; 83880; 84145; 84155; 84484; 85025; 85610; 85730; 86140; 87040; 87502; 90935; 93005; 93306; 94640; 99285

== ENCOUNTER 2021-02-11 21:50 | Inpatient (IN) | payer MEDICARE ==
[2021-02-11] MEDS ORDERED: ALBUTEROL NEBULIZED 2.5 MG/3 ML INHALATION STA (22:19)
[2021-02-11] MEDS ORDERED: SODIUM CHLORIDE 0.9% 1,000 ML IV STA (22:19)
[2021-02-11] MEDS ORDERED: IPRATROPIUM 0.5 MG/2.5 ML NEBU INHALATION STA (22:19)
--- NOTE | 2021-02-11 22:26 | ED ---
SOB HPI - General Chief Complaint: Shortness of Breath Stated Complaint: low O2 Time Seen by Provider: 02/11/21 21:56 Source: patient, RN notes reviewed, old records reviewed Mode of arrival: ambulatory Limitations: no limitations - History of Present Illness Initial Comments: This is a 61-year-old male DF for evaluation patient severely weak and short of breath can catch his breath. Patient states his home O2 was reading in the 50s. His breath and called EMS. Patient presents DF for evaluation of low oxygen is improved still feeling short of breath MD Complaint: shortness of breath, cough, anxiety -: hour(s) Severity: severe Severity scale (1-10): 8 Quality: dull Consistency: constant, other (Improving) Improves With: oxygen Worsens With: exertion, movement Known History Of: congestive heart failure Context: anxiety, recent illness Associated Symptoms: cough Treatments Prior to Arrival: oxygen - Related Data Home Medications Medication Instructions Recorded Confirmed Atorvastatin [Lipitor] 10 mg PO HS 11/25/17 02/12/21 hydrALAZINE HCL [Apresoline] 100 mg PO AC-BID 08/14/18 02/12/21 Jannie-Bruna 0.8mg 0.8 mg PO DAILY 07/13/19 02/12/21 Insulin Aspart [NovoLOG Flexpen] 29 units SQ AC-TID 02/12/21 02/12/21 Insulin Glargine,Hum.rec.anlog 15 units SQ DAILY 02/12/21 02/12/21 [Lantus Solostar] LORazepam [Ativan] 0.5 mg PO DAILY PRN 02/12/21 02/12/21 Lidocaine-Prilocaine Cream [Emla 1 applic TOPICAL DAILY PRN 02/12/21 02/12/21 Cream 2.5%/2.5%] Metoprolol Tartrate [Lopressor] 50 mg PO AC-BID 02/12/21 02/12/21 Sevelamer [Renvela] 800 mg PO AC-TID 02/12/21 02/12/21 Previous Rx's Medication Instructions Recorded Aspirin 81 mg PO DAILY #1 chewable 02/21/17 amLODIPine [Norvasc] 5 mg PO DAILY #30 tab 07/17/19 Allergies Allergy/AdvReac Type Severity Reaction Status Date / Time Iodinated Contrast Media AdvReac shut down Verified 02/11/21 22:01 [Iodinated Contrast Media - kidneys IV Dye] Review of Systems ROS Statement: Those systems with pertinent positive or pertinent negative responses have been documented in the HPI. ROS Other: All systems not noted in ROS Statement are negative. Past Medical History Past Medical History: Coronary Artery Disease (CAD), Diabetes Mellitus, Eye D isorder, GERD/Reflux, Hearing Disorder / Deafness, Hyperlipidemia, Hypertension, Hypertension, Osteoarthritis (OA), Renal Disease, Renal Disease, Vascular Disorder Additional Past Medical History / Comment(s): Aortic valve replacement - BOVINE, gout, IDDM type II, end-stage renal disease past peritoneal dialysis, now hemodialysis M-W-F, diabetic peripheral neuropathy, L foot ulcers, R foot infection, L BKA, bilateral diabetic retinopathy, bilateral cataracts, bleeds b ehind retina, history of osteomyelitis, history of MRSA infection, diabetic gastroparesis, PVD. History of Any Multi-Drug Resistant Organisms: MRSA Date of last positivie culture/infection: 2011 MDRO Source:: LEFT FOOT Past Surgical History: Cardiac Valve Replacement, Cholecystectomy, Hernia Repai r, Orthopedic Surgery Additional Past Surgical History / Comment(s): L arm fistula being used for hemodialysis, R upper chest moura cath- removed . RT foot I&D when a metal fragment was in his foot that was also infected, LT FOOT DEBRIDEMENT ,5TH TOE AMP, 10/2016 L BKA, insertion and REMOVAL PD CATH.LT ARM FISTUAL, CATARACATS REMOVED-LENS IMPLANTS, YAMILKA EYE LASER EYE SX, LT INDEX FINGER PARTIAL AMP Past Anesthesia/Blood Transfusion Reactions: Motion Sickness Additional Past Anesthesia/Blood Transfusion Reaction / Comment(s): CLAUSTROPHOBIA Past Psychological History: Anxiety, Depression Smoking Status: Never smoker Past Alcohol Use History: None Reported Past Drug Use History: None Reported - Past Family History Mother Family Medical History: Diabetes Mellitus, Osteoarthritis (OA) Additional Family Medical History / Comment(s): HIP REPLACMENTS Father Family Medical History: CVA/TIA, Diabetes Mellitus, Myocardial Infarction ([place]), Musculoskeletal Disorder, Neurologic Disorder Additional Family Medical History / Comment(s): PARKINSON'S General Exam Limitations: no limitations General appearance: alert, in no apparent distress, anxious Head exam: Present: atraumatic, normocephalic, normal inspection Eye exam: Present: normal appearance, PERRL, EOMI. Absent: scleral icterus, conjunctival injection, periorbital swelling ENT exam: Present: normal exam, mucous membranes moist Neck exam: Present: normal inspection. Absent: tenderness, meningismus, lymphadenopathy Respiratory exam: Present: normal lung sounds bilaterally. Absent: respiratory distress, wheezes, rales, rhonchi, stridor Cardiovascular Exam: Present: regular rate, normal rhythm, normal heart sounds. Absent: systolic murmur, diastolic murmur, rubs, gallop, clicks GI/Abdominal exam: Present: soft, normal bowel sounds. Absent: distended, tenderness, guarding, rebound, rigid Extremities exam: Present: normal inspection, full ROM, normal capillary refill. Absent: tenderness, pedal edema, joint swelling, calf tenderness Back exam: Present: normal inspection Neurological exam: Present: alert, oriented X3, CN II-XII intact Psychiatric exam: Present: normal affect, normal mood Skin exam: Present: warm, dry, intact, normal color. Absent: rash Course Vital Signs 02/11/21 02/11/21 02/11/21 21:53 22:48 23:31 Temperature 98 F Pulse Rate 57 L 54 L 72 Pulse Rate [ Pulse Oximetery ] Respiratory 19 Rate Blood Pressure 146/74 Blood Pressure [Right Arm] O2 Sat by Pulse 98 Oximetry 02/12/21 02/12/21 02/12/21 00:21 00:31 01:21 Temperature 98.0 F 97.6 F Pulse Rate 80 Pulse Rate [ 76 77 Pulse Oximetery ] Respiratory 18 18 18 Rate Blood Pressure 107/55 Blood Pressure 101/58 101/58 [Right Arm] O2 Sat by Pulse 95 100 96 Oximetry - Reevaluation(s) Reevaluation #1: Medical record is reviewed Patient symptoms are improved here in the ER Spoke patient and family regarding results questions answered Medical Decision Making - Medical Decision Making 61 male who will be admitted for hypoxia and CHF. Acute renal failure. Weakness. - Lab Data Result diagrams: 02/17/21 04:54 02/17/21 04:54 Lab Results 02/11/21 02/11/21 02/11/21 Range/Units 22:54 22:54 22:54 WBC 9.2 (3.8-10.6) k/uL RBC 3.73 L (4.30-5.90) m/uL Hgb 11.9 L (13.0-17.5) gm/dL Hct 34.3 L (39.0-53.0) % MCV 92.0 (80.0-100.0) fL MCH 31.9 (25.0-35.0) pg MCHC 34.7 (31.0-37.0) g/dL RDW 14.4 (11.5-15.5) % Plt Count 176 (150-450) k/uL MPV 7.2 Immature Gran % (Auto) % Absolute Nucleated RBC (0.00-0.00) X 10*3/uL Neutrophils % 85 % Lymphocytes % 5 % Monocytes % 8 % Eosinophils % 2 % Basophils % 0 % Immature Gran # (0.00-0.04) X 10*3/uL Neutrophils # 7.9 H (1.3-7.7) k/uL Lymphocytes # 0.4 L (1.0-4.8) k/uL Monocytes # 0.7 (0-1.0) k/uL Eosinophils # 0.1 (0-0.7) k/uL Basophils # 0.0 (0-0.2) k/uL NRBC/100 WBC Diff (0.0-0.0) /100 WBCS PT 10.3 (9.0-12.0) sec INR 1.0 (<1.2) APTT 23.8 (22.0-30.0) sec Sodium 138 (137-145) mmol/L Potassium 3.6 (3.5-5.1) mmol/L Chloride 97 L (98-107) mmol/L Carbon Dioxide 30 (22-30) mmol/L Anion Gap 11 mmol/L BUN 24 H (9-20) mg/dL Creatinine 6.90 H (0.66-1.25) mg/dL Est GFR (CKD-EPI)AfAm 9 (>60 ml/min/1.73 sqM) Est GFR (CKD-EPI)NonAf 8 (>60 ml/min/1.73 sqM) BUN/Creatinine Ratio (12.00-20.00) Ratio Glucose 95 (74-99) mg/dL POC Glucose (mg/dL) (75-99) mg/dL POC Glu Recreation Specialist ID Plasma Lactic Acid Venancio (0.7-2.0) mmol/L Calcium 10.5 H (8.4-10.2) mg/dL Magnesium 2.4 H (1.6-2.3) mg/dL Total Bilirubin 0.5 (0.2-1.3) mg/dL AST 20 (17-59) U/L ALT 12 (4-49) U/L Alkaline Phosphatase 95 (38-126) U/L Creatine Kinase 46 L (55-170) U/L Troponin I (0.000-0.034) ng/mL Total Protein 6.2 L (6.3-8.2) g/dL Albumin 3.6 (3.5-5.0) g/dL Coronavirus (PCR) (Not Detectd) 02/11/21 02/11/21 02/12/21 Range/Units 22:54 22:54 00:18 WBC (3.8-10.6) k/uL RBC (4.30-5.90) m/uL Hgb (13.0-17.5) gm/dL Hct (39.0-53.0) % MCV (80.0-100.0) fL MCH (25.0-35.0) pg MCHC (31.0-37.0) g/dL RDW (11.5-15.5) % Plt Count (150-450) k/uL MPV Immature Gran % (Auto) % Absolute Nucleated RBC (0.00-0.00) X 10*3/uL Neutrophils % % Lymphocytes % % Monocytes % % Eosinophils % % Basophils % % Immature Gran # (0.00-0.04) X 10*3/uL Neutrophils # (1.3-7.7) k/uL Lymphocytes # (1.0-4.8) k/uL Monocytes # (0-1.0) k/uL Eosinophils # (0-0.7) k/uL Basophils # (0-0.2) k/uL NRBC/100 WBC Diff (0.0-0.0) /100 WBCS PT (9.0-12.0) sec INR (<1.2) APTT (22.0-30.0) sec Sodium (137-145) mmol/L Potassium (3.5-5.1) mmol/L Chloride (98-107) mmol/L Carbon Dioxide (22-30) mmol/L Anion Gap mmol/L BUN (9-20) mg/dL Creatinine (0.66-1.25) mg/dL Est GFR (CKD-EPI)AfAm (>60 ml/min/1.73 sqM) Est GFR (CKD-EPI)NonAf (>60 ml/min/1.73 sqM) BUN/Creatinine Ratio (12.00-20.00) Ratio Glucose (74-99) mg/dL POC Glucose (mg/dL) (75-99) mg/dL POC Glu Recreation Specialist ID Plasma Lactic Acid Venancio 1.1 (0.7-2.0) mmol/L Calcium (8.4-10.2) mg/dL Magnesium (1.6-2.3) mg/dL Total Bilirubin (0.2-1.3) mg/dL AST (17-59) U/L ALT (4-49) U/L Alkaline Phosphatase (38-126) U/L Creatine Kinase (55-170) U/L Troponin I <0.012 (0.000-0.034) ng/mL Total Protein (6.3-8.2) g/dL Albumin (3.5-5.0) g/dL Coronavirus (PCR) Not Detected (Not Detectd) 02/12/21 02/12/21 02/12/21 Range/Units 02:46 04:53 07:13 WBC (3.8-10.6) k/uL RBC (4.30-5.90) m/uL Hgb (13.0-17.5) gm/dL Hct (39.0-53.0) % MCV (80.0-100.0) fL MCH (25.0-35.0) pg MCHC (31.0-37.0) g/dL RDW (11.5-15.5) % Plt Count (150-450) k/uL MPV Immature Gran % (Auto) % Absolute Nucleated RBC (0.00-0.00) X 10*3/uL Neutrophils % % Lymphocytes % % Monocytes % % Eosinophils % % Basophils % % Immature Gran # (0.00-0.04) X 10*3/uL Neutrophils # (1.3-7.7) k/uL Lymphocytes # (1.0-4.8) k/uL Monocytes # (0-1.0) k/uL Eosinophils # (0-0.7) k/uL Basophils # (0-0.2) k/uL NRBC/100 WBC Diff (0.0-0.0) /100 WBCS PT (9.0-12.0) sec INR (<1.2) APTT (22.0-30.0) sec Sodium (137-145) mmol/L Potassium (3.5-5.1) mmol/L Chloride (98-107) mmol/L Carbon Dioxide (22-30) mmol/L Anion Gap mmol/L BUN (9-20) mg/dL Creatinine (0.66-1.25) mg/dL Est GFR (CKD-EPI)AfAm (>60 ml/min/1.73 sqM) Est GFR (CKD-EPI)NonAf (>60 ml/min/1.73 sqM) BUN/Creatinine Ratio (12.00-20.00) Ratio Glucose (74-99) mg/dL POC Glucose (mg/dL) 216 H (75-99) mg/dL POC Glu Recreation Specialist ID Sarahi Farnsworth Plasma Lactic Acid Venancio (0.7-2.0) mmol/L Calcium (8.4-10.2) mg/dL Magnesium (1.6-2.3) mg/dL Total Bilirubin (0.2-1.3) mg/dL AST (17-59) U/L ALT (4-49) U/L Alkaline Phosphatase (38-126) U/L Creatine Kinase (55-170) U/L Troponin I <0.012 0.015 (0.000-0.034) ng/mL Total Protein (6.3-8.2) g/dL Albumin (3.5-5.0) g/dL Coronavirus (PCR) (Not Detectd) 02/12/21 02/12/21 02/12/21 Range/Units 11:39 17:27 17:41 WBC (3.8-10.6) k/uL RBC (4.30-5.90) m/uL Hgb (13.0-17.5) gm/dL Hct (39.0-53.0) % MCV (80.0-100.0) fL MCH (25.0-35.0) pg MCHC (31.0-37.0) g/dL RDW (11.5-15.5) % Plt Count (150-450) k/uL MPV Immature Gran % (Auto) % Absolute Nucleated RBC (0.00-0.00) X 10*3/uL Neutrophils % % Lymphocytes % % Monocytes % % Eosinophils % % Basophils % % Immature Gran # (0.00-0.04) X 10*3/uL Neutrophils # (1.3-7.7) k/uL Lymphocytes # (1.0-4.8) k/uL Monocytes # (0-1.0) k/uL Eosinophils # (0-0.7) k/uL Basophils # (0-0.2) k/uL NRBC/100 WBC Diff (0.0-0.0) /100 WBCS PT (9.0-12.0) sec INR (<1.2) APTT (22.0-30.0) sec Sodium (137-145) mmol/L Potassium (3.5-5.1) mmol/L Chloride (98-107) mmol/L Carbon Dioxide (22-30) mmol/L Anion Gap mmol/L BUN (9-20) mg/dL Creatinine (0.66-1.25) mg/dL Est GFR (CKD-EPI)AfAm (>60 ml/min/1.73 sqM) Est GFR (CKD-EPI)NonAf (>60 ml/min/1.73 sqM) BUN/Creatinine Ratio (12.00-20.00) Ratio Glucose (74-99) mg/dL POC Glucose (mg/dL) 320 H 43 L 65 L (75-99) mg/dL POC Glu Recreation Specialist ID Rhody, Sarahi Rhody, Sarahi Rhody, Sarahi Plasma Lactic Acid Venancio (0.7-2.0) mmol/L Calcium (8.4-10.2) mg/dL Magnesium (1.6-2.3) mg/dL Total Bilirubin (0.2-1.3) mg/dL AST (17-59) U/L ALT (4-49) U/L Alkaline Phosphatase (38-126) U/L Creatine Kinase (55-170) U/L Troponin I (0.000-0.034) ng/mL Total Protein (6.3-8.2) g/dL Albumin (3.5-5.0) g/dL Coronavirus (PCR) (Not Detectd) 02/12/21 02/12/21 02/13/21 Range/Units 18:02 19:58 05:44 WBC 6.92 (3.8-10.6) k/uL RBC 3.26 L (4.30-5.90) m/uL Hgb 10.1 L (13.0-17.5) gm/dL Hct 31.0 L (39.0-53.0) % MCV 95.1 (80.0-100.0) fL MCH 31.0 (25.0-35.0) pg MCHC 32.6 (31.0-37.0) g/dL RDW 13.9 (11.5-15.5) % Plt Count 166 (150-450) k/uL MPV 9.8 Immature Gran % (Auto) 0.3 % Absolute Nucleated RBC 0 (0.00-0.00) X 10*3/uL Neutrophils % 73.5 % Lymphocytes % 9.1 % Monocytes % 11.6 % Eosinophils % 4.9 % Basophils % 0.6 % Immature Gran # 0.02 (0.00-0.04) X 10*3/uL Neutrophils # 5.09 (1.3-7.7) k/uL Lymphocytes # 0.63 L (1.0-4.8) k/uL Monocytes # 0.80 (0-1.0) k/uL Eosinophils # 0.34 (0-0.7) k/uL Basophils # 0.04 (0-0.2) k/uL NRBC/100 WBC Diff 0 (0.0-0.0) /100 WBCS PT (9.0-12.0) sec INR (<1.2) APTT (22.0-30.0) sec Sodium (137-145) mmol/L Potassium (3.5-5.1) mmol/L Chloride (98-107) mmol/L Carbon Dioxide (22-30) mmol/L Anion Gap mmol/L BUN (9-20) mg/dL Creatinine (0.66-1.25) mg/dL Est GFR (CKD-EPI)AfAm (>60 ml/min/1.73 sqM) Est GFR (CKD-EPI)NonAf (>60 ml/min/1.73 sqM) BUN/Creatinine Ratio (12.00-20.00) Ratio Glucose (74-99) mg/dL POC Glucose (mg/dL) 70 L 132 H (75-99) mg/dL POC Glu Recreation Specialist ID Werner Ericaespinoza Hassan Kaela Plasma Lactic Acid Venancio (0.7-2.0) mmol/L Calcium (8.4-10.2) mg/dL Magnesium (1.6-2.3) mg/dL Total Bilirubin (0.2-1.3) mg/dL AST (17-59) U/L ALT (4-49) U/L Alkaline Phosphatase (38-126) U/L Creatine Kinase (55-170) U/L Troponin I (0.000-0.034) ng/mL Total Protein (6.3-8.2) g/dL Albumin (3.5-5.0) g/dL Coronavirus (PCR) (Not Detectd) 02/13/21 02/13/21 Range/Units 05:44 07:32 WBC (3.8-10.6) k/uL RBC (4.30-5.90) m/uL Hgb (13.0-17.5) gm/dL Hct (39.0-53.0) % MCV (80.0-100.0) fL MCH (25.0-35.0) pg MCHC (31.0-37.0) g/dL RDW (11.5-15.5) % Plt Count (150-450) k/uL MPV Immature Gran % (Auto) % Absolute Nucleated RBC (0.00-0.00) X 10*3/uL Neutrophils % % Lymphocytes % % Monocytes % % Eosinophils % % Basophils % % Immature Gran # (0.00-0.04) X 10*3/uL Neutrophils # (1.3-7.7) k/uL Lymphocytes # (1.0-4.8) k/uL Monocytes # (0-1.0) k/uL Eosinophils # (0-0.7) k/uL Basophils # (0-0.2) k/uL NRBC/100 WBC Diff (0.0-0.0) /100 WBCS PT (9.0-12.0) sec INR (<1.2) APTT (22.0-30.0) sec Sodium 138 (137-145) mmol/L Potassium 4.0 (3.5-5.1) mmol/L Chloride 97 (98-107) mmol/L Carbon Dioxide 29.9 (22-30) mmol/L Anion Gap 11.10 mmol/L BUN 32.0 H (9-20) mg/dL Creatinine 7.9 H* (0.66-1.25) mg/dL Est GFR (CKD-EPI)AfAm 7.6 L (>60 ml/min/1.73 sqM) Est GFR (CKD-EPI)NonAf 6.6 L (>60 ml/min/1.73 sqM) BUN/Creatinine Ratio 4.05 L (12.00-20.00) Ratio Glucose 124 H (74-99) mg/dL POC Glucose (mg/dL) 133 H (75-99) mg/dL POC Glu Recreation Specialist Yolis Mao Plasma Lactic Acid Venancio (0.7-2.0) mmol/L Calcium 9.7 (8.4-10.2) mg/dL Magnesium (1.6-2.3) mg/dL Total Bilirubin (0.2-1.3) mg/dL AST (17-59) U/L ALT (4-49) U/L Alkaline Phosphatase (38-126) U/L Creatine Kinase (55-170) U/L Troponin I (0.000-0.034) ng/mL Total Protein (6.3-8.2) g/dL Albumin (3.5-5.0) g/dL Coronavirus (PCR) (Not Detectd) - EKG Data -: EKG Interpreted by Me (EKG is sinus bradycardia 55 MA 204 QRS 154 QTC 485) - Radiology Data Radiology results: report reviewed (Chest x-ray shows right and left pleural effusions), image reviewed Critical Care Time Critical Care Time: Yes Total Critical Care Time: 31 Disposition Clinical Impression: Chronic renal failure syndrome, Hypoxia, Congestive heart failure, Dyspnea, Renal failure (ARF), acute on chronic, Bilateral leg edema, Bilateral pleural effusion Disposition: ADMITTED IP TO THIS [facility] Condition: Serious Is patient prescribed a controlled substance at d/c from ED?: No
--- NOTE | 2021-02-11 22:53 | XR ---
EXAMINATION TYPE: XR chest 2V DATE OF EXAM: 02/11/2021 COMPARISON: 07/28/2019 HISTORY: Difficulty breathing TECHNIQUE: FINDINGS: Heart is enlarged. There is blunting of the costophrenic angles. There is mild pulmonary co ngestion. There are chest leads. There are sternal wires. IMPRESSION: Right pleural effusion with some loculation that is similar to old exam. There is evidenc e of the increased left pleural effusion compared to old exam. Mild pulmonary congestion but no obvio us heart failure. Cardiomegaly probably increased.
[2021-02-11 23:10] LABS: Basophils % (A) 0 %; Eosinophils # (A) 0.1 k/uL (0-0.7); Eosinophils % (A) 2 %; HCT 34.3 % (39.0-53.0); HGB 11.9 gm/dL (13.0-17.5); Lymphocytes # (A) 0.4 k/uL (1.0-4.8); Lymphocytes % (A) 5 %; MCH 31.9 pg (25.0-35.0); MCHC 34.7 g/dL (31.0-37.0); Mean Platelet Volume 7.2; Monocytes # (A) 0.7 k/uL (0-1.0); Monocytes % (A) 8 %; Neutrophils # (A) 7.9 k/uL (1.3-7.7); Neutrophils % (A) 85 %; Platelet Count 176 k/uL (150-450); RBC 3.73 m/uL (4.30-5.90); RDW 14.4 % (11.5-15.5); WBC 9.2 k/uL (3.8-10.6)
[2021-02-11 23:20] LABS: Albumin 3.6 g/dL (3.5-5.0); Calcium 10.5 mg/dL (8.4-10.2); Magnesium 2.4 mg/dL (1.6-2.3); Potassium 3.6 mmol/L (3.5-5.1); Total Bilirubin 0.5 mg/dL (0.2-1.3); Total Protein 6.2 g/dL (6.3-8.2)
[2021-02-11 23:21] LABS: Partial Thromboplastin Time 23.8 sec (22.0-30.0); Prothrombin Time 10.3 sec (9.0-12.0)
[2021-02-12 07:14] LABS: Glucose,Whole Blood 216 mg/dL (75-99)
[2021-02-12] MEDS ORDERED: LORazepam 0.5 MG TAB PO PRN (09:34)
[2021-02-12] MEDS ORDERED: LIDOCAINE-PRILOCAINE 2.5-2.5% CREAM 5 GM TUBE TOPICAL PRN (09:34)
[2021-02-12] MEDS: INSULIN DETEMIR (LEVEMIR) 100 UNIT/ML SYR SQ SCH (11:10)
--- NOTE | 2021-02-12 11:29 | P.CNPUL ---
History of Present Illness Consult date: 02/12/21 Reason for consult: dyspnea History of present illness: This is a very pleasant 61-year-old male patient who was hospitalized yesterday because of worsening shortness of breath and hypoxemia. His pulse ox was as low as 60% at home. Note that the patient has multiple medical problems and comorbidities. His dialysis-dependent renal failure Patient undergoes dialysis 3 times a week, MW and he states that he has not missed a single dialysis. The patient also has coronary artery disease, he has undergone previous aortic valve replacement and he does have a bioprosthetic aortic valve and he has also hypertension and diabetes mellitus and hyperlipidemia and peripheral neuropathy and previous history of diabetic ulcers and he is undergone a below-knee amputation on the left. He has also retinopathy involving the eyes. He is a nonsmoker. Has been hospitalized in the past 40 same presentation. He has cardiomyopathy and systolic heart failure. No cough. No chest pain. Troponins have been negative. His chest x- ray was consistent with CHF and bilateral pleural effusion and cardiomegaly. BNP is 24 with a creatinine of 6.9. Coagulation profile is been within normal limits. COVID-19 testing came back not detected. Currently is on 2 L of oxygen by nasal cannula. His resting comfortably in bed. No chest pain. No angina. No palpitation.. The patient has been followed up with Dr. Dr. Sanderson. His last echocardiogram according to him was done in the office and he was told that the valve and the heart muscle function was within normal limits. Based on my records, his last echocardiogram in the hospital was in 2019 and he had an ejection fraction of 45%. Review of Systems Constitutional: Denies chills, Denies fever Eyes: denies blurred vision, denies pain Ears, nose, mouth and throat: Denies headache, Denies sore throat Cardiovascular: Reports dyspnea on exertion, Reports orthopnea, Reports shortness of breath, Denies chest pain Respiratory: Reports dyspnea, Denies cough Gastrointestinal: Denies abdominal pain, Denies diarrhea, Denies nausea, Denies vomiting Musculoskeletal: Denies myalgias Integumentary: Denies pruritus, Denies rash Neurological: Denies numbness, Denies weakness Psychiatric: Denies anxiety, Denies depression Endocrine: Denies fatigue, Denies weight change Past Medical History Past Medical History: Coronary Artery Disease (CAD), Diabetes Mellitus, Eye Disorder, GERD/Reflux, Hearing Disorder / Deafness, Hyperlipidemia, Hypertension, Hypertension, Osteoarthritis (OA), Renal Disease, Renal Disease, Vascular Disorder Additional Past Medical History / Comment(s): Aortic valve replacement - BOVINE, gout, IDDM type II, end-stage renal disease past peritoneal dialysis, now hemodialysis M-W-F, diabetic peripheral neuropathy, L foot ulcers, R foot infection, L BKA, bilateral diabetic retinopathy, bilateral cataracts, bleeds behind retina, history of osteomyelitis, history of MRSA infection, diabetic gastroparesis, PVD. History of Any Multi-Drug Resistant Organisms: MRSA Date of last positivie culture/infection: 2011 MDRO Source:: LEFT FOOT Past Surgical History: Cardiac Valve Replacement, Cholecystectomy, Hernia Repair, Orthopedic Surgery Additional Past Surgical History / Comment(s): L arm fistula being used for hemodialysis, R upper chest moura cath- removed . RT foot I&D when a metal fragment was in his foot that was also infected, LT FOOT DEBRIDEMENT ,5TH TOE AMP, 10/2016 L BKA, insertion and REMOVAL PD CATH.LT ARM FISTUAL, CATARACATS REMOVED-LENS IMPLANTS, YAMILKA EYE LASER EYE SX, LT INDEX FINGER PARTIAL AMP Past Anesthesia/Blood Transfusion Reactions: Motion Sickness Additional Past Anesthesia/Blood Transfusion Reaction / Comment(s): CLAUSTROPHOBIA Past Psychological History: Anxiety, Depression Additional Psychological History / Comment(s): Pt resides with his spouse. He has [facility]. He is interested in trying to get home oxygen. RETIRED,WORKED IN [employer] WITH [employer] FOR 37 YEARS.PT IS WHEELCHAIR BOUND AT THIS TIME. No experience. No recent travels. No animals in the home. No significant alcohol use. No current tobacco use. 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 - Past Family History Mother Family Medical History: Diabetes Mellitus, Osteoarthritis (OA) Additional Family Medical History / Comment(s): HIP REPLACMENTS Father Family Medical History: CVA/TIA, Diabetes Mellitus, Myocardial Infarction ([place]), Musculoskeletal Disorder, Neurologic Disorder Additional Family Medical History / Comment(s): PARKINSON'S Medications and Allergies Home Medications Medication Instructions Recorded Confirmed Type Aspirin 81 mg PO DAILY #1 chewable 02/21/17 02/12/21 Rx Atorvastatin [Lipitor] 10 mg PO HS 11/25/17 02/12/21 History hydrALAZINE HCL [Apresoline] 100 mg PO AC-BID 08/14/18 02/12/21 History Jannie-Bruna 0.8mg 0.8 mg PO DAILY 07/13/19 02/12/21 History amLODIPine [Norvasc] 5 mg PO DAILY #30 tab 07/17/19 02/12/21 Rx Insulin Aspart [NovoLOG Flexpen] 29 units SQ AC-TID 02/12/21 02/12/21 History Insulin Glargine,Hum.rec.anlog 15 units SQ DAILY 02/12/21 02/12/21 History [Lantus Solostar] LORazepam [Ativan] 0.5 mg PO DAILY PRN 02/12/21 02/12/21 History Lidocaine-Prilocaine Cream [Emla 1 applic TOPICAL DAILY PRN 02/12/21 02/12/21 History Cream 2.5%/2.5%] Metoprolol Tartrate [Lopressor] 50 mg PO AC-BID 02/12/21 02/12/21 History Sevelamer [Renvela] 800 mg PO AC-TID 02/12/21 02/12/21 History Allergies Allergy/AdvReac Type Severity Reaction Status Date / Time Iodinated Contrast Media AdvReac shut down Verified 02/11/21 22:01 [Iodinated Contrast Media - kidneys IV Dye] Physical Exam Vitals: Vital Signs Temp Pulse Pulse Resp BP BP Pulse Ox 02/12/21 07:00 97.8 F 74 20 169/65 94 L 02/12/21 02:00 18 02/12/21 01:21 97.6 F 77 18 101/58 96 02/12/21 00:31 80 18 107/55 100 02/12/21 00:21 98.0 F 76 18 101/58 95 02/11/21 23:31 72 02/11/21 22:48 54 L 02/11/21 21:53 98 F 57 L 19 146/74 98 Intake and Output 02/11/21 02/12/21 02/12/21 22:59 06:59 14:59 Intake Total 150 Balance 150 Intake: Oral 150 Other: Weight 77.111 kg 77.111 kg GENERAL EXAM: Alert, pleasant, 59-year-old white male, on 2 L of oxygen with a pulse ox of 98%, comfortable in no apparent distress. HEAD: Normocephalic/atraumatic. EYES: Normal reaction of pupils, equal size. Conjunctiva pink, sclera white. NOSE: Clear with pink turbinates. THROAT: No erythema or exudates. NECK: No masses, no JVD, no thyroid enlargement, no adenopathy. CHEST: No chest wall deformity. Symmetrical expansion. LUNGS: Equal air entry with no crackles, wheeze, rhonchi or dullness. Diminished breath sounds at the bases CVS: Regular rate and rhythm, normal S1 and S2, no gallops, no murmurs, no rubs. Left arm AV fistula ABDOMEN: Soft, nontender. No hepatosplenomegaly, normal bowel sounds, no guarding or rigidity. EXTREMITIES: No clubbing, no edema, no cyanosis, 2+ pulses and upper and lower extremities. Left below the knee amputation, with prosthesis. MUSCULOSKELETAL: Muscle strength and tone normal. SPINE: No scoliosis or deformity SKIN: No rashes CENTRAL NERVOUS SYSTEM: Alert and oriented -3. No focal deficits, tone is normal in all 4 extremities. PSYCHIATRIC: Alert and oriented -3. Appropriate affect. Intact judgment and insight. Results - Laboratory Findings CBC and BMP: 02/11/21 22:54 02/11/21 22:54 PT/INR, D-dimer PT 10.3 sec (9.0-12.0) 02/11/21 22:54 INR 1.0 (<1.2) 02/11/21 22:54 Abnormal lab findings: Abnormal Labs 02/11/21 02/11/21 02/12/21 22:54 22:54 07:13 RBC 3.73 L Hgb 11.9 L Hct 34.3 L Neutrophils # 7.9 H Lymphocytes # 0.4 L Chloride 97 L BUN 24 H Creatinine 6.90 H POC Glucose (mg/dL) 216 H Calcium 10.5 H Magnesium 2.4 H Creatine Kinase 46 L Total Protein 6.2 L - Diagnostic Findings Chest x-ray: image reviewed Assessment and Plan Plan: #1. Acute hypoxic respiratory failure related to bilateral pleural effusions, and acute exacerbation of CHF with mildly impaired left ventricle systolic function and EF of 45-50%. Chest x-ray shows bilateral right greater than left pleural effusions and the possibility of loculation in the right pleural effusion #2. History of aortic valve replacement with a bioprosthetic valve, echo cardiogram from 07/14/2019 showed normally functioning bioprosthetic valve, mild mitral regurgitation, mild mitral stenosis, trace tricuspid regurgitation, and no evidence of pulmonary hypertension with PA systolic of 16.9 mmHg #3. End-stage renal disease, on hemodialysis on Saturday schedule, and patient has been compliant with hemodialysis treatments #4. Diabetes mellitus type 2, with diabetic neuropathy, diabetic retinopathy and gastroparesis #5. History of diabetic wounds involving left foot, status post left below the knee amputation #6. Coronary artery disease #7. Hypertension #8. Hyperlipidemia #9. Osteoarthritis #10. Cataracts with history of laser surgery and lens implant #11. Lifetime nonsmoker #12. Anxiety and depression Plan: Keep oxygen 2 L per minute nasal cannula Will need hemodialysis treatment with ultrafiltration to optimize the volume status May benefit from a repeat echocardiogram Thoracentesis of the pleural effusion if the patient continues to be short of breath and effusions remain persistent post dialysis. Nephrology and cardiology also need to be consulted on this patient.
[2021-02-12 11:40] LABS: Glucose,Whole Blood 320 mg/dL (75-99)
[2021-02-12] MEDS ORDERED: ALPRAZolam 0.25 MG TAB PO PRN (12:35)
[2021-02-12] MEDS ORDERED: ACETAMINOPHEN TAB 500 MG TAB PO PRN (12:35)
[2021-02-12] MEDS ORDERED: HYDROcodone/APAP 5-325MG 1 EACH TAB PO PRN (12:35)
[2021-02-12] MEDS: INSULIN ASPART (NovoLOG) 100 UNIT/ML VIAL SQ SCH ×4 (12:41→20:37)
[2021-02-12] MEDS: SEVELAMER 800 MG TAB PO SCH ×2 (12:42→17:58)
--- NOTE | 2021-02-12 13:16 | HP ---
HISTORY AND PHYSICAL DATE OF SERVICE: 02/12/2021 CHIEF COMPLAINT: Shortness of breath. HISTORY OF PRESENT ILLNESS: This 61-year-old gentleman with a past medical history of CAD, diabetes, GERD, hypertension, hyperlipidemia, cardiac valve replacement, history of cholecystectomy, being followed by Dr. Robert in the outpatient setting, not feeling well yesterday. The patient had shortness of breath. The patient's pulse ox found to be about 50%. The patient came to [facility]. Chest x-ray showed evidence of congestive heart failure with fluid overload and bilateral pleural effusion. Patient admitted for further evaluation and treatment. There is no history of fever, rigors. No history of headache, loss of consciousness, seizures at this time. Patient not missing hemodialysis recently according to him. PAST MEDICAL HISTORY: History of end-stage renal disease, history of diabetes type 2, GERD, hypertension, hyperlipidemia, history of DJD. MEDICATIONS: Home medications are: Apresoline 100 mg p.o. b.i.d., Norvasc 5 mg p.o. daily, Renvela, Jannie-Bruna, Lopressor 50 mg b.i.d., Lidocaine cream, Ativan 0.5 mg daily p.r.n. NovoLog, Lantus 50 units subcu daily, Lipitor and aspirin. ALLERGIES: IODINATED CONTRAST DYES. FAMILY HISTORY: History of diabetes mellitus, degenerative joint disease and hip replacement. SOCIAL HISTORY: No history of smoking. No history of alcohol. REVIEW OF SYSTEMS: ENT: Diminished vision. Diminished hearing. Cardiovascular: No angina. Respiratory as mentioned. GI: As mentioned earlier. : As mentioned earlier. Nervous system: No numbness, weakness. Allergy/Immunology: No asthma or hayfever. Musculoskeletal as mentioned earlier. HEMATOLOGY/ONCOLOGY: No history of anemia. ENDOCRINE: As mentioned earlier. CONSTITUTIONAL: As mentioned earlier. DERMATOLOGY: Negative. RHEUMATOLOGY: Negative. PSYCHIATRY as mentioned earlier. PHYSICAL EXAMINATION: Alert and oriented times three. Pulse 74, blood pressure 169/95, respiration 20, temperature 97.8, pulse ox 94% on 2 L. HEENT: Conjunctivae are normal. NECK is jugular venous distention at the root of the neck. CARDIOVASCULAR: S1, S2 muffled. Ejection systolic murmur heard. RESPIRATION: Breath sounds diminished in the bases. A few scattered rhonchi and crackles. ABDOMEN: Soft, obese, nontender. No mass palpable. LEGS: Minimal edema. NERVOUS SYSTEM: Higher functions as mentioned earlier. Moves all 4 limbs. No focal motor or sensory deficits. Lymphatics: Enlarged neck, axillae, groin. SKIN: No ulcer, rash or bleeding. JOINTS: No active deforming arthropathy. LABS: WBC 9.2, hemoglobin 11.9, sodium 138, potassium 3.6 and creatinine 6.90 and glucose is 320. Magnesium is 2.4. Creatinine kinase 46, total protein 6.2, Covid 19 is negative. ASSESSMENT: 1. Congestive heart failure acute exacerbation with possibly acute on chronic systolic dysfunction, ejection fraction 40% to 50% with acute hypoxic respiratory failure. 2. Chronic kidney disease stage 4, end-stage renal disease on hemodialysis. 3. Anemia, normocytic anemia of chronic disease. 4. History of aortic valve replacement, bovine. 5. History of coronary artery disease. 6. Diabetes mellitus type 2. 7. Gastroesophageal reflux disease. 8. Hypertension. 9. Hyperlipidemia. 10.History of degenerative joint disease. 11.History of diabetic peripheral neuropathy. 12.History of left foot ulcers. 13.Status post left below-knee amputation. 14.History of MRSA. 15.History of diabetic gastroparesis. 16.History of peripheral vascular disease. 17.Left arm fistula and hemodialysis. 18.Anxiety, depression. 19.Claustrophobia. 20.History of hernia repair. 21.FULL CODE. RECOMMENDATIONS AND DISCUSSION: This 61-year-old gentleman who presented with multiple complex medical issues, we will monitor the patient closely, continue the current medications, symptomatic treatment and hemodialysis per Dr. Gomez. Otherwise, we will monitor the patient closely. Troponins are negative. I would recommend repeat 2D echo to re-evaluate the ejection fraction. Otherwise, closely follow with Dr. Sorenson. There is no evidence of any Covid 19 infection at this time. I recommend serum procalcitonin. Continue to monitor. Further recommendations to follow. A copy of this dictation being forwarded to Dr. Robert who is the primary physician. MMODL / JORDYN: [id number] /
--- NOTE | 2021-02-12 13:40 | CONS ---
CONSULTATION REASON FOR CONSULT: End-stage renal disease. HISTORY OF PRESENT ILLNESS: Patient is a 61-year-old male who was admitted to the hospital with complaints of shortness of breath. He was noted to have O2 sats in the 50s at home. He denied missing hemodialysis. He had increased ultrafiltration at outpatient hemodialysis on Saturday. The patient denied any chest pain. His COVID PCR was negative. Currently he is comfortable, maintained on just 2 L nasal cannula. Chest x-ray from yesterday showed mild pulmonary congestion with the right pleural effusion, which was loculated which is not new. PAST MEDICAL HISTORY: End-stage renal disease, coronary artery disease, CKD mineral bone disorder, type 2 diabetes, peripheral neuropathy, gastroesophageal reflux disease, hearing loss, hyperlipidemia, osteoarthritis, history of valvular heart disease, gout, peripheral vascular disease, retinopathy, osteomyelitis, gastroparesis. PAST SURGICAL HISTORY: Aortic valve replacement with bovine valve, cholecystectomy, hernia repair, left arm AV fistula, foot I and D multiple times, left BKA, insertion and removal of PD catheter, cataract surgery, left index finger partial amputation. SOCIAL HISTORY: Negative for smoking, drug abuse or alcohol abuse. MEDICATIONS: Medications prior to admission included aspirin, Lipitor, hydralazine, Norvasc, RenaVite, insulin, Renvela, Lopressor. ALLERGIES: IV DYE. REVIEW OF SYSTEMS: As per HPI. Other systems negative. EXAMINATION: Patient is comfortable, awake, not in any acute distress. Blood pressure 169/65, heart rate 74 per minute, he is afebrile. Examination of the heart S1, S2. Examination of the lungs, bilateral breath sounds are heard. Decreased breath sounds at bases, basal crackles heard. Abdomen is soft, nontender. Examination of lower extremities shows no significant edema, left BKA noted. CRITICAL CARE PHYSICIAN exam grossly intact. LAB: Show sodium of 138, potassium 3.6, chloride 97, BUN 24, creatinine 6.9, hemoglobin of 11.9 g/dL. ASSESSMENT: 1. End-stage renal disease, on hemodialysis on a Saturday, Saturday, Saturday schedule. 2. Volume overload, will plan for hemodialysis in a.m. Currently, patient is comfortable without any respiratory distress. 3. Hypercalcemia, maintained on non calcium binders. We will dialyze him on a low calcium bath tomorrow and adjust vitamin D as outpatient. 4. Chronic kidney disease mineral bone disorder, maintained on Renvela. 5. Type 2 diabetes. 6. Hypertension. Resume home blood pressure medications. Expect improvement in blood pressure with ultrafiltration. PLAN: Hemodialysis in a.m. Goal UF 3-3.5 L as tolerated. MMODL / IJN: [id number] /
[2021-02-12 14:35] VITALS: BMI 24.3
[2021-02-12 17:29] LABS: Glucose,Whole Blood 43 mg/dL (75-99)
[2021-02-12 17:43] LABS: Glucose,Whole Blood 65 mg/dL (75-99)
[2021-02-12] MEDS: METOPROLOL TARTRATE 50 MG TAB PO SCH (17:58)
[2021-02-12] MEDS: hydrALAZINE HCL 50 MG TAB PO SCH (17:58)
[2021-02-12 18:05] LABS: Glucose,Whole Blood 70 mg/dL (75-99)
[2021-02-12 19:59] LABS: Glucose,Whole Blood 132 mg/dL (75-99)
[2021-02-12] MEDS: HEPARIN SODIUM,PORCINE/PF 5,000 UNIT/0.5 ML SYRINGE SQ SCH (20:38)
[2021-02-12] MEDS: ATORVASTATIN 10 MG TAB PO SCH (20:38)
[2021-02-13 07:34] LABS: Glucose,Whole Blood 133 mg/dL (75-99)
[2021-02-13] MEDS: ASPIRIN 81 MG PO SCH (08:20)
[2021-02-13] MEDS: INSULIN ASPART (NovoLOG) 100 UNIT/ML VIAL SQ SCH ×7 (08:20→22:33)
[2021-02-13] MEDS: HEPARIN SODIUM,PORCINE/PF 5,000 UNIT/0.5 ML SYRINGE SQ SCH ×2 (08:20→20:31)
[2021-02-13] MEDS: PANTOPRAZOLE 40 MG TABLET PO SCH (08:20)
[2021-02-13] MEDS: INSULIN DETEMIR (LEVEMIR) 100 UNIT/ML SYR SQ SCH (08:22)
[2021-02-13] MEDS: FOLIC ACID-VIT B COMPLEX-VIT C 1 CAP PO SCH (08:23)
[2021-02-13 09:26] LABS: Basophils # (A) 0.04 X 10*3/uL (0.00-0.10); Basophils % (A) 0.6 %; Eosinophils # (A) 0.34 X 10*3/uL (0.04-0.35); Eosinophils % (A) 4.9 %; HGB 10.1 g/dL (13.0-17.0); Lymphocytes # (A) 0.63 X 10*3/uL (0.90-5.00); Lymphocytes % (A) 9.1 %; MCHC 32.6 g/dL (32.0-37.0); MCV 95.1 fL (80.0-97.0); Mean Platelet Volume 9.8 fL (9.5-12.2); Monocytes % (A) 11.6 %; Neutrophils # (A) 5.09 X 10*3/uL (1.80-7.70); Neutrophils % (A) 73.5 %; Platelet Count 166 X 10*3/uL (140-440); RBC 3.26 X 10*6/uL (4.40-5.60); RDW 13.9 % (11.5-14.5); WBC 6.92 X 10*3/uL (4.50-10.00)
[2021-02-13 10:58] LABS: African American GFR (CKD) 7.6 (60.0-200.0); Anion Gap 11.1 mmol/L (4.00-12.00); BUN/Creat Ratio 4.05 Ratio (12.00-20.00); Calcium 9.7 mg/dL (8.7-10.3); Carbon Dioxide 29.9 mmol/L (21.6-31.8); Non-African American GFR(CKD) 6.6 (60.0-200.0)
--- NOTE | 2021-02-13 11:13 | P.PN ---
Subjective Progress Note Date: 02/13/21 This is a very pleasant 61-year-old male patient who was hospitalized yesterday because of worsening shortness of breath and hypoxemia. His pulse ox was as low as 60% at home. Note that the patient has multiple medical problems and comorbidities. His dialysis-dependent renal failure Patient undergoes dialysis 3 times a week, MW and he states that he has not missed a single dialysis. The patient also has coronary artery disease, he has undergone previous aortic valve replacement and he does have a bioprosthetic aortic valve and he has also hypertension and diabetes mellitus and hyperlipidemia and peripheral neuropathy and previous history of diabetic ulcers and he is undergone a below-knee amputation on the left. He has also retinopathy involving the eyes. He is a nonsmoker. Has been hospitalized in the past 40 same presentation. He has cardiomyopathy and systolic heart failure. No cough. No chest pain. Troponins have been negative. His chest x- ray was consistent with CHF and bilateral pleural effusion and cardiomegaly. BNP is 24 with a creatinine of 6.9. Coagulation profile is been within normal limits. COVID-19 testing came back not detected. Currently is on 2 L of oxygen by nasal cannula. His resting comfortably in bed. No chest pain. No angina. No palpitation.. The patient has been followed up with Dr. Dr. Sanderson. His last echocardiogram according to him was done in the office and he was told that the valve and the heart muscle function was within normal limits. Based on my records, his last echocardiogram in the hospital was in 2019 and he had an ejection fraction of 45%. 02/13/2021, the patient is slightly more short of breath currently on 4 L of oxygen by nasal cannula. The patient is currently undergoing hemodialysis with a goal of ultrafiltration of 2 L. He needed his dialysis as the patient's chest x-ray showed bilateral pleural effusion and fluid overload. Echocardiogram will be also repeated. No other new complaints otherwise for now. Hemodynamically stable. Labs are all stable. No new abnormalities seen. Objective - Vital Signs Vital signs: Vital Signs Temp 99 F 02/13/21 07:00 Pulse 66 02/13/21 07:00 Resp 20 02/13/21 07:00 BP 184/83 02/13/21 07:00 Pulse Ox 96 02/13/21 07:00 Intake & Output 02/12/21 02/13/21 02/13/21 18:59 06:59 18:59 Intake Total 300 118 Output Total 0 0 Balance 300 0 118 Weight 77.111 kg Intake: Oral 300 118 Output: Urine 0 0 Other: # Voids 0 - Exam GENERAL EXAM: Alert, pleasant, 59-year-old white male, on 4 L of oxygen with a pulse ox of 98%, comfortable in no apparent distress. HEAD: Normocephalic/atraumatic. EYES: Normal reaction of pupils, equal size. Conjunctiva pink, sclera white. NOSE: Clear with pink turbinates. THROAT: No erythema or exudates. NECK: No masses, no JVD, no thyroid enlargement, no adenopathy. CHEST: No chest wall deformity. Symmetrical expansion. LUNGS: Equal air entry with no crackles, wheeze, rhonchi or dullness. Diminished breath sounds at the bases CVS: Regular rate and rhythm, normal S1 and S2, no gallops, no murmurs, no rubs. Left arm AV fistula ABDOMEN: Soft, nontender. No hepatosplenomegaly, normal bowel sounds, no guarding or rigidity. EXTREMITIES: No clubbing, no edema, no cyanosis, 2+ pulses and upper and lower extremities. Left below the knee amputation, with prosthesis. MUSCULOSKELETAL: Muscle strength and tone normal. SPINE: No scoliosis or deformity SKIN: No rashes CENTRAL NERVOUS SYSTEM: Alert and oriented -3. No focal deficits, tone is normal in all 4 extremities. PSYCHIATRIC: Alert and oriented -3. Appropriate affect. Intact judgment and insight. - Labs CBC & Chem 7: 02/13/21 05:44 02/13/21 05:44 Labs: Abnormal Lab Results - Last 24 Hours (Table) 02/12/21 02/12/21 02/12/21 Range/Units 11:39 17:27 17:41 RBC (4.40-5.60) X 10*6/uL Hgb (13.0-17.0) g/dL Hct (39.6-50.0) % Lymphocytes # (0.90-5.00) X 10*3/uL BUN (9.0-27.0) mg/dL Creatinine (0.6-1.5) mg/dL Est GFR (CKD-EPI)AfAm (60.0-200.0) Est GFR (CKD-EPI)NonAf (60.0-200.0) BUN/Creatinine Ratio (12.00-20.00) Ratio Glucose (70-110) mg/dL POC Glucose (mg/dL) 320 H 43 L 65 L (75-99) mg/dL 02/12/21 02/12/21 02/13/21 Range/Units 18:02 19:58 05:44 RBC 3.26 L (4.40-5.60) X 10*6/uL Hgb 10.1 L (13.0-17.0) g/dL Hct 31.0 L (39.6-50.0) % Lymphocytes # 0.63 L (0.90-5.00) X 10*3/uL BUN (9.0-27.0) mg/dL Creatinine (0.6-1.5) mg/dL Est GFR (CKD-EPI)AfAm (60.0-200.0) Est GFR (CKD-EPI)NonAf (60.0-200.0) BUN/Creatinine Ratio (12.00-20.00) Ratio Glucose (70-110) mg/dL POC Glucose (mg/dL) 70 L 132 H (75-99) mg/dL 02/13/21 02/13/21 Range/Units 05:44 07:32 RBC (4.40-5.60) X 10*6/uL Hgb (13.0-17.0) g/dL Hct (39.6-50.0) % Lymphocytes # (0.90-5.00) X 10*3/uL BUN 32.0 H (9.0-27.0) mg/dL Creatinine 7.9 H* (0.6-1.5) mg/dL Est GFR (CKD-EPI)AfAm 7.6 L (60.0-200.0) Est GFR (CKD-EPI)NonAf 6.6 L (60.0-200.0) BUN/Creatinine Ratio 4.05 L (12.00-20.00) Ratio Glucose 124 H (70-110) mg/dL POC Glucose (mg/dL) 133 H (75-99) mg/dL Assessment and Plan Plan: #1. Acute hypoxic respiratory failure related to bilateral pleural effusions, and acute exacerbation of CHF with mildly impaired left ventricle systolic function and EF of 45-50%. Chest x-ray shows bilateral right greater than left pleural effusions and the possibility of loculation in the right pleural effusion #2. History of aortic valve replacement with a bioprosthetic valve, echocardiogram from 07/14/2019 showed normally functioning bioprosthetic valve, mild mitral regurgitation, mild mitral stenosis, trace tricuspid regurgitation, and no evidence of pulmonary hypertension with PA systolic of 16.9 mmHg #3. End-stage renal disease, on hemodialysis on Saturday schedule, and patient has been compliant with hemodialysis treatments #4. Diabetes mellitus type 2, with diabetic neuropathy, diabetic retinopathy and gastroparesis #5. History of diabetic wounds involving left foot, status post left below the knee amputation #6. Coronary artery disease #7. Hypertension #8. Hyperlipidemia #9. Osteoarthritis #10. Cataracts with history of laser surgery and lens implant #11. Lifetime nonsmoker #12. Anxiety and depression Plan: Keep oxygen 4 L per minute nasal cannula Will need hemodialysis treatment with ultrafiltration to optimize the volume status. The patient is undergoing dialysis today. We will request some increase in the ultrafiltration up to 3.3 L if possible. It'll depend on his ability to handle ultrafiltration and his hemodynamics. May benefit from a repeat echocardiogram Thoracentesis of the pleural effusion if the patient continues to be short of breath and effusions remain persistent post dialysis. Nephrology and cardiology also need to be consulted on this patient.
[2021-02-13] MEDS: SEVELAMER 800 MG TAB PO SCH ×3 (11:20→17:45)
[2021-02-13 12:00] LABS: Glucose,Whole Blood 113 mg/dL (75-99)
--- NOTE | 2021-02-13 13:18 | PN ---
PROGRESS NOTE Patient is seen for followup for end-stage renal disease. He was admitted to the hospital with shortness of breath and hypoxia. He is scheduled for hemodialysis today. We will increase ultrafiltration as tolerated. He has been comfortable. Denies any significant chest pains. PHYSICAL EXAMINATION: On examination today, blood pressure was 84/83, heart rate 66 per minute, he is afebrile. Examination of the heart S1, S2. Examination of the lungs, bilateral breath sounds are heard. Abdomen is soft, nontender. Examination of lower extremities shows edema 1+ bilaterally. Patient has left BKA. LAB: Show sodium 138, potassium 4.0, creatinine 7.9, BUN of 32. ASSESSMENT: 1. End-stage renal disease, on hemodialysis on a Saturday, Saturday, Saturday schedule. 2. Volume overload for hemodialysis today with increase UF as tolerated. 3. Acute hypoxic respiratory failure secondary to volume overload congestive heart failure. 4. Chronic kidney disease mineral bone disorder. 5. Hypertension, partly volume-sensitive. 6. Hypercalcemia, currently improved. PLAN: Hemodialysis today. Increase UF. MMODL / IJN: [id number] /
[2021-02-13] MEDS: hydrALAZINE HCL 50 MG TAB PO SCH ×2 (14:24→20:33)
[2021-02-13] MEDS: amLODIPine 5 MG TAB PO SCH (14:24)
[2021-02-13] MEDS: METOPROLOL TARTRATE 50 MG TAB PO SCH ×2 (14:24→20:31)
[2021-02-13 17:17] LABS: Glucose,Whole Blood 187 mg/dL (75-99)
--- NOTE | 2021-02-13 17:55 | XR ---
EXAMINATION TYPE: XR chest 1V portable DATE OF EXAM: 02/13/2021 CLINICAL HISTORY: chf. TECHNIQUE: Portable frontal view of the chest. COMPARISON: 02/11/2021 FINDINGS: Sternotomy wires. The cardiomediastinal silhouette is enlarged. Pulmonary vasculature is n ormal. Low lung volumes likely accentuate the pleural effusions, however they are likely mildly incre ased versus 02/11/2021 and moderate in size bilaterally. No pneumothorax seen. No acute displaced osse ous fracture. IMPRESSION: Moderate bilateral pleural effusions, mildly increased versus 02/11/2021.
--- NOTE | 2021-02-13 19:12 | PN ---
PROGRESS NOTE DATE OF SERVICE: 02/13/2021 INTERVAL HISTORY: This is a 61-year-old gentleman with past medical history of multiple medical problems admitted with severe shortness of breath and possible CHF acute exacerbation, acute hypoxic respiratory failure, present on admission. The patient is undergoing hemodialysis at this time. Three liters of fluid has been planned to be removed. Patient also has leg swelling. Dr. Sorenson saw the patient. The patient has some bilateral pleural effusion also. The patient has history of aortic valve replacement with bioprosthetic aortic valve. No chest pain. No palpitations. No fever. PAST MEDICAL HISTORY: Reviewed. CURRENT MEDICATION: Medications Tylenol, Bogard, Xanax, Norvasc, aspirin, Lipitor, present doses and other medications reviewed. PHYSICAL EXAMINATION: GENERAL: Patient is alert and oriented times three. VITAL SIGNS: Pulse 61, blood pressure 177/68, respirations 16, temperature 98.7, pulse ox 100% on 4 liters. HEENT: Conjunctivae normal. NECK: No jugular venous distention. No carotid bruits. No lymph node enlargement. RESPIRATORY: Breath sounds diminished at the bases. A few scattered rhonchi. HEART: S1 and S2, muffled. ABDOMEN: Soft, no tenderness. EXTREMITIES: No edema, no swelling. NERVOUS: No focal deficits. LABS: WBC ntd, hemoglobin 10.1, creatinine is 7.9. ASSESSMENT: 1. Congestive heart failure acute exacerbation with possible acute on chronic systolic dysfunction ejection fraction 40% to 50% with acute hypoxic respiratory failure. 2. Chronic kidney stage 4, end-stage renal disease on hemodialysis. 3. Right pleural effusion, possibly loculated. 4. Anemia, normocytic anemia of chronic disease. 5. History of aortic valve replacement, bovine. 6. History of coronary artery disease. 7. Diabetes mellitus type 2. 8. Gastroesophageal reflux disease. 9. Hypertension. 10.Hyperlipidemia. 11.History of degenerative joint disease. 12.History of diabetic peripheral neuropathy. 13.History of left foot ulcers. 14.Status post left above-knee amputation. 15.History of MRSA. 16.History of diabetic gastroparesis. 17.History of peripheral vascular disease. 18.Left arm fistula and hemodialysis. 19.Anxiety, depression. 20.Claustrophobia. 21.History of hernia repair. 22.FULL CODE. RECOMMENDATIONS AND DISCUSSION: Continue current management and continue symptomatic treatment. Continue with hemodialysis. Otherwise, I would also recommend a 2D echo with Doppler because the most recent echo available in the chart is from 2019. I would also recommend monitor blood sugars closely. We will also recommend a chest x-ray to evaluate the current fluid status. Prognosis guarded. Further recommendations to follow. MMSERAL / JORDYN: [id number] / MTDD
[2021-02-13] MEDS: ATORVASTATIN 10 MG TAB PO SCH (20:31)
[2021-02-13 21:37] LABS: Glucose,Whole Blood 184 mg/dL (75-99)
[2021-02-14 06:58] LABS: Glucose,Whole Blood 129 mg/dL (75-99)
[2021-02-14] MEDS: INSULIN ASPART (NovoLOG) 100 UNIT/ML VIAL SQ SCH ×7 (09:09→21:00)
[2021-02-14] MEDS: INSULIN DETEMIR (LEVEMIR) 100 UNIT/ML SYR SQ SCH (09:10)
[2021-02-14] MEDS: PANTOPRAZOLE 40 MG TABLET PO SCH (09:10)
[2021-02-14] MEDS: amLODIPine 5 MG TAB PO SCH (09:11)
[2021-02-14] MEDS: hydrALAZINE HCL 50 MG TAB PO SCH ×2 (09:11→17:52)
[2021-02-14] MEDS: FOLIC ACID-VIT B COMPLEX-VIT C 1 CAP PO SCH (09:11)
[2021-02-14] MEDS: ASPIRIN 81 MG PO SCH (09:11)
[2021-02-14] MEDS: SEVELAMER 800 MG TAB PO SCH ×3 (09:11→17:52)
[2021-02-14] MEDS: METOPROLOL TARTRATE 50 MG TAB PO SCH ×2 (09:12→17:52)
[2021-02-14] MEDS: HEPARIN SODIUM,PORCINE/PF 5,000 UNIT/0.5 ML SYRINGE SQ SCH ×2 (09:13→21:00)
--- NOTE | 2021-02-14 11:37 | ECHOF ---
Referral Reason:chf MEASUREMENTS -------- HEIGHT: 177.8 cm WEIGHT: 77.1 kg BP: 150/74 RVIDd: 3.3 cm (< 3.3) IVSd: 1.7 cm (0.6 - 1.1) LVIDd: 4.8 cm (3.9 - 5.3) LVPWd: 1.3 cm (0.6 - 1.1) IVSs: 2.0 cm LVIDs: 3.2 cm LVPWs: 2.1 cm LAESV Index (A-L): 36.96 ml/m Ao Diam: 3.9 cm (2.0 - 3.7) AV Cusp: 2.4 cm (1.5 - 2.6) MV EXCURSION: 12.396 mm (> 18.000) MV EF SLOPE: 37 mm/s (70 - 150) EPSS: 1.4 cm MV E Darrion: 1.11 m/s MV DecT: 248 ms MV A Darrion: 1.12 m/s MV E/A Ratio: 1.00 AV maxP.33 mmHg AV meanP.74 mmHg RAP: 5.00 mmHg RVSP: 19.74 mmHg FINDINGS -------- Sinus rhythm. This was a technically adequate study. The left ventricular size is normal. There is severe concentric left ventricular hypertrophy. Ove rall left ventricular systolic function is low-normal with, an EF between 50 - 55 %. Septal wall mo tion is delayed and consistent with prior cardiac surgery. The right ventricle is mildly enlarged. LA is moderately dilated 34-39 ml/m2 The right atrial size is normal. Mobile interatrial septum. There is no regurgitation of the bioprosthetic aortic valve. There is mild stenosis of the bioprost hetic aortic valve. Mild mitral regurgitation is present. Mild tricuspid regurgitation present. There is no evidence of pulmonary hypertension. The right v entricular systolic pressure, as measured by Doppler, is 19.74mmHg. There is no pulmonic regurgitation present. The aortic root size is normal. IVC Not well visulized. There is no pericardial effusion. Large Pleural Effusion. CONCLUSIONS -------- 1. The left ventricular size is normal. 2. There is severe concentric left ventricular hypertrophy. 3. Overall left ventricular systolic function is low-normal with, an EF between 50 - 55 %. 4. Septal wall motion is delayed and consistent with prior cardiac surgery. 5. The right ventricle is mildly enlarged. 6. LA is moderately dilated 34-39 ml/m2 7. Mobile interatrial septum. 8. There is no regurgitation of the bioprosthetic aortic valve. 9. There is mild stenosis of the bioprosthetic aortic valve. 10. Mild mitral regurgitation is present. 11. Mild tricuspid regurgitation present. 12. Large Pleural Effusion. CELLULOID TRIMMER: Bernadine Hwang RDCS
[2021-02-14 11:52] LABS: Glucose,Whole Blood 155 mg/dL (75-99)
--- NOTE | 2021-02-14 13:34 | P.PN ---
Subjective Progress Note Date: 02/14/21 Principal diagnosis: Acute exacerbation of CHF with a mildly impaired LVEF This is a very pleasant 61-year-old male patient who was hospitalized yesterday because of worsening shortness of breath and hypoxemia. His pulse ox was as low as 60% at home. Note that the patient has multiple medical problems and comorbidities. His dialysis-dependent renal failure Patient undergoes dialysis 3 times a week, MW and he states that he has not missed a single dialysis. The patient also has coronary artery disease, he has undergone previous aortic valve replacement and he does have a bioprosthetic aortic valve and he has also hypertension and diabetes mellitus and hyperlipidemia and peripheral neuropathy and previous history of diabetic ulcers and he is undergone a below-knee amputation on the left. He has also retinopathy involving the eyes. He is a nonsmoker. Has been hospitalized in the past 40 same presentation. He has cardiomyopathy and systolic heart failure. No cough. No chest pain. Troponins have been negative. His chest x- ray was consistent with CHF and bilateral pleural effusion and cardiomegaly. BNP is 24 with a creatinine of 6.9. Coagulation profile is been within normal limits. COVID-19 testing came back not detected. Currently is on 2 L of oxygen by nasal cannula. His resting comfortably in bed. No chest pain. No angina. No palpitation.. The patient has been followed up with Dr. Dr. Sanderson. His last echocardiogram according to him was done in the office and he was told that the valve and the heart muscle function was within normal limits. Based on my records, his last echocardiogram in the hospital was in 2019 and he had an ejection fraction of 45%. 02/13/2021, the patient is slightly more short of breath currently on 4 L of oxygen by nasal cannula. The patient is currently undergoing hemodialysis with a goal of ultrafiltration of 2 L. He needed his dialysis as the patient's chest x-ray showed bilateral pleural effusion and fluid overload. Echocardiogram will be also repeated. No other new complaints otherwise for now. Hemodynamically stable. Labs are all stable. No new abnormalities seen. On 02/14/2021 patient seen in follow-up on medical surgical floor, he is calm and comfortable, is currently on 3 L supplemental oxygen, pulse ox is 94%, he had hemodialysis treatment yesterday with removal of 3 L of fluid. He is breathing much easier, lung sounds are diminished, no complaints of chest pain, no worsening cough or dyspnea. Vital signs have been stable, his been afebrile, no worsening cough or hemoptysis. No acute events overnight. Yesterday's chest x-ray showed moderate bilateral pleural effusions. Objective - Vital Signs Vital signs: Vital Signs Temp 98.3 F 02/14/21 07:35 Pulse 60 02/14/21 07:35 Resp 18 02/14/21 07:35 BP 158/75 02/14/21 07:35 Pulse Ox 94 L 02/14/21 07:35 Intake & Output 02/13/21 02/14/21 02/14/21 18:59 06:59 18:59 Intake Total 340 200 Balance 340 200 Intake: Oral 340 200 Other: # Voids 1 1 - Exam GENERAL EXAM: Alert, very pleasant, 61-year-old white male, on 3 L of oxygen with pulse ox of 94%, comfortable in no apparent distress. HEAD: Normocephalic/atraumatic. EYES: Normal reaction of pupils, equal size. Conjunctiva pink, sclera white. NOSE: Clear with pink turbinates. THROAT: No erythema or exudates. NECK: No masses, no JVD, no thyroid enlargement, no adenopathy. CHEST: No chest wall deformity. Symmetrical expansion. LUNGS: Equal air entry with diminished breath sounds at the bases, CVS: Regular rate and rhythm, normal S1 and S2, no gallops, no murmurs, no rubs ABDOMEN: Soft, nontender. No hepatosplenomegaly, normal bowel sounds, no guarding or rigidity. EXTREMITIES: No clubbing, no edema, no cyanosis, 2+ pulses and upper and lower extremities. MUSCULOSKELETAL: Muscle strength and tone normal. Patient is a left below-knee amputee with prosthesis SPINE: No scoliosis or deformity SKIN: No rashes CENTRAL NERVOUS SYSTEM: Alert and oriented -3. No focal deficits, tone is normal in all 4 extremities. PSYCHIATRIC: Alert and oriented -3. Appropriate affect. Intact judgment and insight. - Labs CBC & Chem 7: 02/13/21 05:44 02/13/21 05:44 Labs: Abnormal Lab Results - Last 24 Hours (Table) 02/13/21 02/13/21 02/14/21 Range/Units 17:14 21:35 06:57 POC Glucose (mg/dL) 187 H 184 H 129 H (75-99) mg/dL 02/14/21 Range/Units 11:50 POC Glucose (mg/dL) 155 H (75-99) mg/dL Assessment and Plan Plan: #1. Acute hypoxic respiratory failure related to bilateral pleural effusions, and acute exacerbation of CHF with mildly impaired left ventricle systolic function and EF of 45-50%. Chest x-ray shows bilateral right greater than left pleural effusions and the possibility of loculation in the right pleural effusion #2. History of aortic valve replacement with a bioprosthetic valve, echocardiogram from 02/14/2021 showed low normal EF of 50-55%, mildly enlarged right ventricle, mild stenosis of the bioprosthetic aortic valve, mild MR, mild TR, no evidence of pulmonary hypertension and right-sided pressure is measured at 19.74 mmHg #3. End-stage renal disease, on hemodialysis on Saturday schedule, and patient has been compliant with hemodialysis treatments #4. Diabetes mellitus type 2, with diabetic neuropathy, diabetic retinopathy and gastroparesis #5. History of diabetic wounds involving left foot, status post left below the knee amputation #6. Coronary artery disease #7. Hypertension #8. Hyperlipidemia #9. Osteoarthritis #10. Cataracts with history of laser surgery and lens implant #11. Lifetime nonsmoker #12. Anxiety and depression Plan: No worsening dyspnea, or hypoxia Patient had hemodialysis yesterday His next hemodialysis treatment is scheduled for tomorrow His repeat echocardiogram has been reviewed Follow blood work tomorrow, CT chest tomorrow Continue to follow I performed a history & physical examination of the patient and discussed their management with my nurse practitioner, Carmelita Robert. I reviewed the nurse practitioner's note and agree with the documented findings and plan of care. Lung sounds are positive for diminished breath sounds. The findings and the impression was discussed with the patient. I attest to the documentation by the nurse practitioner. Time with Patient: Less than 30
[2021-02-14 17:40] LABS: Glucose,Whole Blood 133 mg/dL (75-99)
--- NOTE | 2021-02-14 18:11 | PN ---
PROGRESS NOTE The patient is seen for followup for end-stage renal disease. He is scheduled for hemodialysis tomorrow. There is concern for need for CT of the chest with IV contrast. This can be done tomorrow if not emergently indicated and we will dialyze the patient tomorrow. PHYSICAL EXAMINATION: On examination today, blood pressure is 158/75, heart rate 60 per minute. Patient is afebrile. Examination of the heart S1, S2. Examination of the lungs, bilateral breath sounds are heard. Decreased breath sounds at the bases. Examination lower extremities shows 1+ edema bilaterally. 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 LABS: No recent labs available. We have labs from yesterday 02/13 showing sodium 138, potassium 4.0, serum creatinine 7.9, hemoglobin 10.1. ASSESSMENT: 1. End-stage renal disease, on hemodialysis on a Saturday, Saturday, Saturday schedule. 2. Volume overload, currently improved. We will dialyze the patient again tomorrow and increase UF as tolerated. 3. Chronic kidney disease mineral bone disorder. 4. Acute hypoxic respiratory failure, on admission most likely secondary to volume overload, currently improved. CT of the chest with IV contrast is scheduled for tomorrow, which is okay and we will dialyze the patient after the CT scan. MMODL / IJN: [id number] /
[2021-02-14] MEDS ORDERED: predniSONE 50 MG TAB PO ONE (20:00)
--- NOTE | 2021-02-14 20:08 | PN ---
PROGRESS NOTE DATE OF SERVICE: 02/14/2021 This 61-year-old gentleman admitted with CHF acute exacerbation has acute hypoxic respiratory failure. The patient undergoing hemodialysis. The most recent chest x-ray which was reviewed personally which showed evidence of CHF and bilateral pleural effusion also, right more than the left. A 2D echo with Doppler showed ejection fraction about 50-55 percent. Large pleural effusions are noted. CT angio is underway. PAST MEDICAL HISTORY: Reviewed. GO REVIEW OF SYSTEMS: CARDIOVASCULAR: No angina. GI: As mentioned earlier. : No dysuria. RESPIRATORY SYSTEM: As mentioned earlier. NERVOUS SYSTEM: No numbness, weakness. CURRENT MEDICATIONS: Reviewed and include: Tylenol, Krypton, Xanax, Norvasc, aspirin, Lipitor, Benadryl, doses reviewed. PHYSICAL EXAMINATION: Patient is alert, oriented x3. The pulse is 59. Blood pressure 181/77, respiration 18, temperature 98.2, pulse ox 94% on 4 L. HEENT: Conjunctivae normal. NECK: No JVD. CARDIOVASCULAR: S1, S2 muffled. RESPIRATIONS: Breath sounds diminished in the bases. Bilateral scattered rhonchi and crackles. ABDOMEN: Soft. Nontender. Nervous System: No focal deficits. LABS: Accu-Cheks 155. Hemoglobin 10.1, creatinine is 1.9. ASSESSMENT: 1. Congestive heart failure acute exacerbation acute on chronic diastolic dysfunction, ejection fraction 50-55 percent. 2. Bilateral pleural effusions, right more than the left. 3. Chronic kidney stage 4 with end-stage renal disease on hemodialysis. 4. Right pleural effusion possibly loculated. 5. Anemia, normocytic anemia of chronic disease. 6. History of aortic valve replacement, bovine. 7. History of coronary artery disease. 8. Diabetes mellitus type 2. 9. Continued hypoxia. 10.Gastroesophageal reflux disease. 11.Hypertension. 12.Hyperlipidemia. 13.History of degenerative joint disease. 14.History of diabetic peripheral neuropathy. 15.History of left foot ulcer. 16.Status post left below-knee amputation. 17.History of MRSA. 18.History of diabetic gastroparesis. 19.History of peripheral vascular disease. 20.Left arm fistula for hemodialysis. 21.Anxiety, depression. 22.Claustrophobia. 23.History of hernia repair. 24.FULL CODE. RECOMMENDATIONS AND DISCUSSION: Recommend to continue current medication, continue symptomatic treatment. Otherwise at this time I recommend a CT angio ultrasound for possible pleural tap. Prognosis guarded because of multiple complex medical issues. Bronchodilators. Monitor blood pressure closely. MMODL / IJN: [id number] /
[2021-02-14 20:58] LABS: Glucose,Whole Blood 151 mg/dL (75-99)
[2021-02-14] MEDS: ATORVASTATIN 10 MG TAB PO SCH (21:00)
[2021-02-15] MEDS ORDERED: predniSONE 50 MG TAB PO ONE ×2 (02:00→08:00)
[2021-02-15 07:12] LABS: Glucose,Whole Blood 125 mg/dL (75-99)
[2021-02-15] MEDS ORDERED: diphenhydrAMINE 50 MG CAP PO ONE (08:00)
[2021-02-15] MEDS: FOLIC ACID-VIT B COMPLEX-VIT C 1 CAP PO SCH (08:10)
[2021-02-15] MEDS: PANTOPRAZOLE 40 MG TABLET PO SCH (08:10)
[2021-02-15] MEDS: METOPROLOL TARTRATE 50 MG TAB PO SCH ×2 (08:10→18:09)
[2021-02-15] MEDS: ASPIRIN 81 MG PO SCH (08:10)
[2021-02-15] MEDS: hydrALAZINE HCL 50 MG TAB PO SCH ×2 (08:10→18:09)
[2021-02-15] MEDS: amLODIPine 5 MG TAB PO SCH (08:10)
[2021-02-15] MEDS: HEPARIN SODIUM,PORCINE/PF 5,000 UNIT/0.5 ML SYRINGE SQ SCH ×2 (08:10→20:23)
[2021-02-15] MEDS: INSULIN ASPART (NovoLOG) 100 UNIT/ML VIAL SQ SCH ×7 (08:11→23:07)
[2021-02-15] MEDS: INSULIN DETEMIR (LEVEMIR) 100 UNIT/ML SYR SQ SCH (08:11)
[2021-02-15] MEDS: SEVELAMER 800 MG TAB PO SCH ×3 (08:12→18:09)
--- NOTE | 2021-02-15 09:44 | CT ---
EXAMINATION TYPE: CT chest angio for PE DATE OF EXAM: 02/15/2021 COMPARISON: Chest x-ray 02/13/2021 HISTORY: PE, abnormal chest x-ray, congestive heart failure CT DLP: 311.70 mGycm Automated exposure control for dose reduction was used. CONTRAST: CT Chest for pulmonary embolism performed with without and with IV Contrast, patient injected with 10 0 ml mL of Isovue 370. Three-dimensional reconstructions performed on an alternate workstation. FINDINGS: LUNGS: There are bilateral pleural effusions present. There is associated atelectasis. There may be r ound atelectasis of the right lung base. There is some basilar scarring bilaterally, upper lobe scarr ing in the right suspected. MEDIASTINUM: There is satisfactory enhancement of the pulmonary artery and its branches, there is no CT evidence for pulmonary embolism. There are no greater than 1 cm hilar or mediastinal lymph nodes. No pericardial effusion is seen. Patient is post median sternotomy. Heart is enlarged. Pulmonary artery is dilated, correlate for possible pulmonary artery hypertension AORTA: Metallic densities present at the root of the aorta which is dilated at 4.3 cm, proximal asce nding aorta only 3.6 cm, there are coronary artery calcifications. OTHER: No additional significant abnormality is seen. IMPRESSION: Bilateral pleural effusions, atelectasis. Postop change, root of the aorta is aneurysmal. There is ca rdiomegaly. Correlate for pulmonary artery hypertension. Coronary artery disease.
[2021-02-15 11:50] LABS: Glucose,Whole Blood 198 mg/dL (75-99)
--- NOTE | 2021-02-15 11:59 | P.PN ---
Subjective Progress Note Date: 02/15/21 Principal diagnosis: Acute exacerbation of CHF with a mildly impaired LVEF This is a very pleasant 61-year-old male patient who was hospitalized yesterday because of worsening shortness of breath and hypoxemia. His pulse ox was as low as 60% at home. Note that the patient has multiple medical problems and comorbidities. His dialysis-dependent renal failure Patient undergoes dialysis 3 times a week, MW and he states that he has not missed a single dialysis. The patient also has coronary artery disease, he has undergone previous aortic valve replacement and he does have a bioprosthetic aortic valve and he has also hypertension and diabetes mellitus and hyperlipidemia and peripheral neuropathy and previous history of diabetic ulcers and he is undergone a below-knee amputation on the left. He has also retinopathy involving the eyes. He is a nonsmoker. Has been hospitalized in the past 40 same presentation. He has cardiomyopathy and systolic heart failure. No cough. No chest pain. Troponins have been negative. His chest x- ray was consistent with CHF and bilateral pleural effusion and cardiomegaly. BNP is 24 with a creatinine of 6.9. Coagulation profile is been within normal limits. COVID-19 testing came back not detected. Currently is on 2 L of oxygen by nasal cannula. His resting comfortably in bed. No chest pain. No angina. No palpitation.. The patient has been followed up with Dr. Dr. Sanderson. His last echocardiogram according to him was done in the office and he was told that the valve and the heart muscle function was within normal limits. Based on my records, his last echocardiogram in the hospital was in 2019 and he had an ejection fraction of 45%. 02/13/2021, the patient is slightly more short of breath currently on 4 L of oxygen by nasal cannula. The patient is currently undergoing hemodialysis with a goal of ultrafiltration of 2 L. He needed his dialysis as the patient's chest x-ray showed bilateral pleural effusion and fluid overload. Echocardiogram will be also repeated. No other new complaints otherwise for now. Hemodynamically stable. Labs are all stable. No new abnormalities seen. On 02/14/2021 patient seen in follow-up on medical surgical floor, he is calm and comfortable, is currently on 3 L supplemental oxygen, pulse ox is 94%, he had hemodialysis treatment yesterday with removal of 3 L of fluid. He is breathing much easier, lung sounds are diminished, no complaints of chest pain, no worsening cough or dyspnea. Vital signs have been stable, his been afebrile, no worsening cough or hemoptysis. No acute events overnight. Yesterday's chest x-ray showed moderate bilateral pleural effusions. On 02/15/2021 patient seen in follow-up on medical surgical floor, is resting comfortably in bed, 2 L of oxygen pulse ox is 98%, room air pulse ox was 82%, breathing is nonlabored. Vital signs have been stable, CTA chest was completed showing no evidence of pulmonary embolism, bilateral pleural effusions, atelectasis. Patient is on hemodialysis on Saturday schedule, and he is supposed to have his hemodialysis treatment today. Objective - Vital Signs Vital signs: Vital Signs Temp 97.8 F 02/15/21 07:39 Pulse 60 02/15/21 07:39 Resp 18 02/15/21 08:00 BP 189/74 02/15/21 07:39 Pulse Ox 82 L 02/15/21 10:42 Intake & Output 02/14/21 02/15/21 02/15/21 18:59 06:59 18:59 Intake Total 600 Balance 600 Intake: Oral 600 Other: # Voids 0 0 - Exam GENERAL EXAM: Alert, very pleasant, 61-year-old white male, on 2 L of oxygen with pulse ox of 98%, comfortable in no apparent distress. HEAD: Normocephalic/atraumatic. EYES: Normal reaction of pupils, equal size. Conjunctiva pink, sclera white. NOSE: Clear with pink turbinates. THROAT: No erythema or exudates. NECK: No masses, no JVD, no thyroid enlargement, no adenopathy. CHEST: No chest wall deformity. Symmetrical expansion. LUNGS: Equal air entry with diminished breath sounds at the bases, CVS: Regular rate and rhythm, normal S1 and S2, no gallops, no murmurs, no rubs ABDOMEN: Soft, nontender. No hepatosplenomegaly, normal bowel sounds, no guarding or rigidity. EXTREMITIES: No clubbing, no edema, no cyanosis, 2+ pulses and upper and lower extremities. MUSCULOSKELETAL: Muscle strength and tone normal. Patient is a left below-knee amputee with prosthesis SPINE: No scoliosis or deformity SKIN: No rashes CENTRAL NERVOUS SYSTEM: Alert and oriented -3. No focal deficits, tone is normal in all 4 extremities. PSYCHIATRIC: Alert and oriented -3. Appropriate affect. Intact judgment and insight. - Labs CBC & Chem 7: 02/13/21 05:44 02/13/21 05:44 Labs: Abnormal Lab Results - Last 24 Hours (Table) 02/14/21 02/14/21 02/15/21 Range/Units 17:39 20:57 07:11 POC Glucose (mg/dL) 133 H 151 H 125 H (75-99) mg/dL 02/15/21 Range/Units 11:49 POC Glucose (mg/dL) 198 H (75-99) mg/dL Assessment and Plan Plan: #1. Acute hypoxic respiratory failure related to bilateral pleural effusions, and acute exacerbation of CHF with mildly impaired left ventricle systolic function and EF of 45-50%. Chest x-ray shows bilateral right greater than left pleural effusions and the possibility of loculation in the right pleural effusion #2. History of aortic valve replacement with a bioprosthetic valve, echocardiogram from 02/14/2021 showed low normal EF of 50-55%, mildly enlarged right ventricle, mild stenosis of the bioprosthetic aortic valve, mild MR, mild TR, no evidence of pulmonary hypertension and right-sided pressure is measured at 19.74 mmHg #3. End-stage renal disease, on hemodialysis on Saturday schedule, and patient has been compliant with hemodialysis treatments #4. Diabetes mellitus type 2, with diabetic neuropathy, diabetic retinopathy and gastroparesis #5. History of diabetic wounds involving left foot, status post left below the knee amputation #6. Coronary artery disease #7. Hypertension #8. Hyperlipidemia #9. Osteoarthritis #10. Cataracts with history of laser surgery and lens implant #11. Lifetime nonsmoker #12. Anxiety and depression Plan: Vital signs have been stable No worsening dyspnea or hypoxia Patient is on 2 L of oxygen He did qualify for home oxygen, room air pulse ox was 82% CTA chest results have been noted, no evidence of pulmonary embolism, bilateral pleural effusions, CHF Patient supposed to be dialyzed again today Otherwise doing well If remains stable he may consider for discharge home tomorrow I performed a history & physical examination of the patient and discussed their management with my nurse practitioner, Carmelita Robert. I reviewed the nurse practitioner's note and agree with the documented findings and plan of care. Lung sounds are positive for diminished breath sounds. The findings and the impression was discussed with the patient. I attest to the documentation by the nurse practitioner. Time with Patient: Less than 30
--- NOTE | 2021-02-15 16:11 | PN ---
PROGRESS NOTE DATE OF SERVICE: 02/15/2021. This 61-year-old gentleman was admitted with CHF exacerbation also had acute hypoxic respiratory failure. The patient had a chest CTA which was done today which is reported showing bilateral pleural effusion and atelectasis, postoperative changes of aortic aneurysm. Otherwise, pulmonary artery hypertension also noted. There is no history of any acute pulmonary embolism. Patient is receiving hemodialysis as well. The pulse ox on room air is dropping up to 80s according to him. PAST MEDICAL HISTORY: Reviewed. REVIEW OF SYSTEM: Cardiovascular: No angina. RESPIRATORY: As mentioned earlier. GI: As mentioned earlier. : No dysuria. Nervous system: No numbness, weakness. CURRENT MEDICATIONS: Reviewed and include current medications are: Tylenol, [place], Xanax, Norvasc, aspirin, Lipitor. Doses reviewed. PHYSICAL EXAMINATION: Patient is alert, oriented x3. Pulse is 60, blood pressure 118/75, respiration 18, temperature 97.2, pulse ox 94% on 4 L. HEENT: Conjunctivae normal. NECK: No JVD. CARDIOVASCULAR: S1, S2 muffled. RESPIRATIONS: Breath sounds diminished in the bases. A few scattered rhonchi and crackles. ABDOMEN: Soft, nontender. LEGS are no edema. No swelling. NERVOUS SYSTEM: No focal deficits. LABS: Accu-Cheks 125. WBC 6.2, hemoglobin 10.1, and creatinine is 7.9. ASSESSMENT: 1. Congestive heart failure acute exacerbation acute on chronic diastolic dysfunction, ejection fraction 50-55 percent. 2. Bilateral pleural effusion, right more the left. 3. Chronic hypoxic respiratory failure. Patient will need home O2. 4. Chronic kidney disease stage 4, end-stage renal disease on hemodialysis. 5. Right pleural effusion, possibly loculated. 6. Anemia, normocytic anemia of chronic disease. 7. History of aortic valve replacement, Bovine. 8. History of coronary artery disease. 9. Diabetes mellitus type 2. 10.Continued hypoxia. 11.Gastroesophageal reflux disease. 12.Hypertension. 13.Hyperlipidemia. 14.History of degenerative joint disease. 15.History of diabetic peripheral neuropathy. 16.History of left foot ulcer. 17.Status post left above-knee amputation. 18.History of MRSA. 19.History of diabetic gastroparesis. 20.History of peripheral vascular disease. 21.Left arm fistula for hemodialysis. 22.Anxiety, depression. 23.Claustrophobia. 24.History of hernia repair. 25.FULL CODE. RECOMMENDATIONS AND DISCUSSION: I recommend to continue current medication, continue bronchodilators, continue steroids. Continue recommend ultrasound of the chest to rule out the possibility of any pleural effusion which could be tapped. Otherwise, continue the current medications. The patient also will require home O2 because the room air pulse ox is below 88 on ambulation. The patient had features of chronic hypoxic respiratory failure because of COPD and multiple other medical issues. Prognosis guarded. Repeat labs will be ordered. MMODL / IJN: [id number] /
--- NOTE | 2021-02-15 16:11 | PN ---
PROGRESS NOTE Patient is seen for followup for end-stage renal disease. He is currently doing well. Patient is status post CT of his chest which did not reveal any significant abnormal findings except for pleural effusions. The patient is scheduled for hemodialysis today. PHYSICAL EXAMINATION: Blood pressure was 189/74, heart rate 98 per minute. Patient is afebrile. Examination of the heart S1, S2. Examination of lower extremities shows edema 1+ bilaterally. TRUCK SERVICE MANAGER examination is grossly intact. The patient has right BKA. ASSESSMENT: 1. End-stage renal disease, on hemodialysis on a Saturday, Saturday, Saturday schedule. 2. Volume overload. Scheduled for hemodialysis today. 3. Acute hypoxic respiratory failure secondary to CHF volume overload. 4. CKD mineral bone disorder. PLAN: Hemodialysis today with increased ultrafiltration. We will plan for a short treatment again tomorrow if the patient is still in the hospital. STONE / HORTENCIA: [id number] /
--- NOTE | 2021-02-15 16:51 | US ---
EXAMINATION TYPE: US chest DATE OF EXAM: 02/15/2021 COMPARISON: NONE CLINICAL HISTORY: bilateral pleural effusion- . TECHNIQUE: Targeted ultrasound of the posterior lower bilateral hemithoraces EXAM MEASUREMENTS: Right Pleural Effusion pocket size: 10.6 cm Right skin surface to fluid distance: 2.8 cm Left Pleural Effusion pocket size: 11.5 cm Left skin surface to fluid distance: 2.7 cm Right side marked for possible thoracentesis outside the dept. Left side marked for possible thoracentesis outside the dept. Pulmonologists are able to review the images in the patient?s EMR. IMPRESSIONS: Bilateral pleural effusion.
[2021-02-15 17:24] LABS: Glucose,Whole Blood 228 mg/dL (75-99)
[2021-02-15] MEDS: ATORVASTATIN 10 MG TAB PO SCH (20:23)
[2021-02-15 20:39] LABS: Glucose,Whole Blood 312 mg/dL (75-99)
[2021-02-16 08:00] LABS: Glucose,Whole Blood 439 mg/dL (75-99)
[2021-02-16] MEDS: amLODIPine 5 MG TAB PO SCH (08:07)
[2021-02-16] MEDS: hydrALAZINE HCL 50 MG TAB PO SCH ×2 (08:07→17:48)
[2021-02-16] MEDS: HEPARIN SODIUM,PORCINE/PF 5,000 UNIT/0.5 ML SYRINGE SQ SCH ×2 (08:07→22:18)
[2021-02-16] MEDS: INSULIN ASPART (NovoLOG) 100 UNIT/ML VIAL SQ SCH ×7 (08:07→22:17)
[2021-02-16] MEDS: PANTOPRAZOLE 40 MG TABLET PO SCH (08:08)
[2021-02-16] MEDS: FOLIC ACID-VIT B COMPLEX-VIT C 1 CAP PO SCH (08:08)
[2021-02-16] MEDS: METOPROLOL TARTRATE 50 MG TAB PO SCH ×2 (08:08→17:48)
[2021-02-16] MEDS: ASPIRIN 81 MG PO SCH (08:08)
[2021-02-16] MEDS: INSULIN DETEMIR (LEVEMIR) 100 UNIT/ML SYR SQ SCH (08:08)
[2021-02-16] MEDS: SEVELAMER 800 MG TAB PO SCH ×3 (08:09→17:48)
[2021-02-16 10:36] LABS: Glucose,Whole Blood 213 mg/dL (75-99)
[2021-02-16 11:31] LABS: Glucose,Whole Blood 142 mg/dL (75-99)
--- NOTE | 2021-02-16 12:44 | P.PN ---
Subjective Progress Note Date: 02/16/21 Principal diagnosis: Acute exacerbation of CHF with a mildly impaired LVEF This is a very pleasant 61-year-old male patient who was hospitalized yesterday because of worsening shortness of breath and hypoxemia. His pulse ox was as low as 60% at home. Note that the patient has multiple medical problems and comorbidities. His dialysis-dependent renal failure Patient undergoes dialysis 3 times a week, MW and he states that he has not missed a single dialysis. The patient also has coronary artery disease, he has undergone previous aortic valve replacement and he does have a bioprosthetic aortic valve and he has also hypertension and diabetes mellitus and hyperlipidemia and peripheral neuropathy and previous history of diabetic ulcers and he is undergone a below-knee amputation on the left. He has also retinopathy involving the eyes. He is a nonsmoker. Has been hospitalized in the past 40 same presentation. He has cardiomyopathy and systolic heart failure. No cough. No chest pain. Troponins have been negative. His chest x- ray was consistent with CHF and bilateral pleural effusion and cardiomegaly. BNP is 24 with a creatinine of 6.9. Coagulation profile is been within normal limits. COVID-19 testing came back not detected. Currently is on 2 L of oxygen by nasal cannula. His resting comfortably in bed. No chest pain. No angina. No palpitation.. The patient has been followed up with Dr. Dr. Sanderson. His last echocardiogram according to him was done in the office and he was told that the valve and the heart muscle function was within normal limits. Based on my records, his last echocardiogram in the hospital was in 2019 and he had an ejection fraction of 45%. 02/13/2021, the patient is slightly more short of breath currently on 4 L of oxygen by nasal cannula. The patient is currently undergoing hemodialysis with a goal of ultrafiltration of 2 L. He needed his dialysis as the patient's chest x-ray showed bilateral pleural effusion and fluid overload. Echocardiogram will be also repeated. No other new complaints otherwise for now. Hemodynamically stable. Labs are all stable. No new abnormalities seen. On 02/14/2021 patient seen in follow-up on medical surgical floor, he is calm and comfortable, is currently on 3 L supplemental oxygen, pulse ox is 94%, he had hemodialysis treatment yesterday with removal of 3 L of fluid. He is breathing much easier, lung sounds are diminished, no complaints of chest pain, no worsening cough or dyspnea. Vital signs have been stable, his been afebrile, no worsening cough or hemoptysis. No acute events overnight. Yesterday's chest x-ray showed moderate bilateral pleural effusions. On 02/15/2021 patient seen in follow-up on medical surgical floor, is resting comfortably in bed, 2 L of oxygen pulse ox is 98%, room air pulse ox was 82%, breathing is nonlabored. Vital signs have been stable, CTA chest was completed showing no evidence of pulmonary embolism, bilateral pleural effusions, atelectasis. Patient is on hemodialysis on Saturday schedule, and he is supposed to have his hemodialysis treatment today. On 02/16/2021 patient seen in follow-up on medical surgical floor, yesterday he had dialysis with removal of 3 L of fluid, and ultrasound of the chest was completed following his hemodialysis showing bilateral pleural effusions, with the right pleural effusion pocket measuring 10.6 cm, and left pleural effusion pocket of 11.5 cm. His next hemodialysis is scheduled for tomorrow. We were asked to evaluate the patient for possibility of thoracentesis, and we'll proceed with left thoracentesis today. We discussed with the patient and she is agreeable to proceeding, otherwise denies any acute rest or distress, he is on 4 L of oxygen pulse ox of 94%, he is afebrile, hemodynamically stable. Objective - Vital Signs Vital signs: Vital Signs Temp 98.0 F 02/16/21 08:00 Pulse 59 L 02/16/21 08:00 Resp 16 02/16/21 08:00 BP 199/78 02/16/21 08:00 Pulse Ox 94 L 02/16/21 08:00 Intake & Output 02/15/21 02/16/21 02/16/21 18:59 06:59 18:59 Intake Total 400 300 458 Output Total 3500 0 Balance -3100 300 458 Intake: Oral 400 300 458 Output: Urine 0 Hemodialysis 3500 Other: # Voids 0 1 # Bowel Movements 1 - Exam GENERAL EXAM: Alert, very pleasant, 61-year-old white male, on 4 L of oxygen with pulse ox of 98%, comfortable in no apparent distress. HEAD: Normocephalic/atraumatic. EYES: Normal reaction of pupils, equal size. Conjunctiva pink, sclera white. NOSE: Clear with pink turbinates. THROAT: No erythema or exudates. NECK: No masses, no JVD, no thyroid enlargement, no adenopathy. CHEST: No chest wall deformity. Symmetrical expansion. LUNGS: Equal air entry with diminished breath sounds at the bases, CVS: Regular rate and rhythm, normal S1 and S2, no gallops, no murmurs, no rubs ABDOMEN: Soft, nontender. No hepatosplenomegaly, normal bowel sounds, no guarding or rigidity. EXTREMITIES: No clubbing, no edema, no cyanosis, 2+ pulses and upper and lower extremities. MUSCULOSKELETAL: Muscle strength and tone normal. Patient is a left below-knee amputee with prosthesis SPINE: No scoliosis or deformity SKIN: No rashes CENTRAL NERVOUS SYSTEM: Alert and oriented -3. No focal deficits, tone is normal in all 4 extremities. PSYCHIATRIC: Alert and oriented -3. Appropriate affect. Intact judgment and insight. - Labs CBC & Chem 7: 02/13/21 05:44 02/13/21 05:44 Labs: Abnormal Lab Results - Last 24 Hours (Table) 02/15/21 02/15/21 02/16/21 Range/Units 17:22 20:37 07:58 POC Glucose (mg/dL) 228 H 312 H 439 H (75-99) mg/dL 02/16/21 02/16/21 Range/Units 10:34 11:30 POC Glucose (mg/dL) 213 H 142 H (75-99) mg/dL Assessment and Plan Plan: #1. Acute hypoxic respiratory failure related to bilateral pleural effusions, and acute exacerbation of CHF with mildly impaired left ventricle systolic function and EF of 45-50%. Chest x-ray shows bilateral right greater than left pleural effusions and the possibility of loculation in the right pleural effusion. Patient is status post left-sided thoracentesis today on 02/16/2021 with removal of 1.6 L of dark fluid which was sent for analysis and cultures #2. History of aortic valve replacement with a bioprosthetic valve, echocardiogram from 02/14/2021 showed low normal EF of 50-55%, mildly enlarged right ventricle, mild stenosis of the bioprosthetic aortic valve, mild MR, mild TR, no evidence of pulmonary hypertension and right-sided pressure is measured at 19.74 mmHg #3. End-stage renal disease, on hemodialysis on Saturday renea guajardo, and patient has been compliant with hemodialysis treatments #4. Diabetes mellitus type 2, with diabetic neuropathy, diabetic retinopathy and gastroparesis #5. History of diabetic wounds involving left foot, status post left below the knee amputation #6. Coronary artery disease #7. Hypertension #8. Hyperlipidemia #9. Osteoarthritis #10. Cataracts with history of laser surgery and lens implant #11. Lifetime nonsmoker #12. Anxiety and depression Plan: Ultrasound the chest has been reviewed Left-sided thoracentesis was done with removal of 1.6 L of dark pleural fluid Pleural fluid will be sent for analysis, cultures, and cytology Patient tolerated procedure well, postprocedure chest x-ray has been ordered Patient is scheduled for hemodialysis tomorrow We'll possibly evaluate for right-sided thoracentesis tomorrow after hemodialysis If remains stable he may consider for discharge home tomorrow I performed a history & physical examination of the patient and discussed their management with my nurse practitioner, Carmelita Robert. I reviewed the nurse practitioner's note and agree with the documented findings and plan of care. Lung sounds are positive for diminished breath sounds. The findings and the impression was discussed with the patient. I attest to the documentation by the nurse practitioner. Time with Patient: Less than 30
--- NOTE | 2021-02-16 13:06 | XR ---
EXAMINATION TYPE: XR chest 1V portable DATE OF EXAM: 02/16/2021 COMPARISON: 02/13/2021 HISTORY: Thoracentesis TECHNIQUE: Single frontal view of the chest is obtained. FINDINGS: Status post median sternotomy. Low lung volumes. Heart size is enlarged. Tiny left and mod erate right pleural effusion. Left pleural effusion has decreased significantly since prior exam. Mil d bibasilar airspace opacity may represent atelectasis or pneumonitis. No pneumothorax. IMPRESSION: 1. Tiny left pleural effusion. Previously seen moderate pleural effusion has decreased likely due to thoracentesis. Moderate right pleural effusion. Mild bibasilar atelectasis or pneumonitis. 2. Status post median sternotomy. 3. Cardiomegaly.
[2021-02-16 15:23] LABS: Appearance,BF Cloudy; Color,BF Red; RBC, Body Fluid 42250 /uL
[2021-02-16 15:24] LABS: Nucleated Cells, Body Fluid 90 /uL
[2021-02-16 15:26] LABS: Mononuclear WBC,Body Fluid 71 %; Polynuclear WBC,Body Fluid 29 %; Total Cells Counted,Body Fluid 100
--- NOTE | 2021-02-16 15:28 | PN ---
PROGRESS NOTE The patient is seen for followup for end-stage renal disease. He was admitted with fluid overload. Patient is feeling better. He has been dialyzed. We had 3.5 L of fluid removed yesterday. He did have another treatment on initial admission as well. EXAMINATION: Today, patient is comfortable. He is getting ready for discharge. Blood pressure was 163/62, heart rate of 60 per minute. He is afebrile. Examination of the heart S1, S2. Examination of lungs, decreased breath sounds at bases. Abdomen is soft, nontender. Examination of lower extremities shows 1+ edema bilaterally. The patient has patient has left below-knee amputation. DIGITAL ANALYTICS MANAGER exam grossly intact. LABS: Show sodium 138, potassium 4.0, BUN 32, creatinine 7.9, hemoglobin 10.1 g/dL. ASSESSMENT: 1. End-stage renal disease, on hemodialysis on a Saturday, Saturday, Saturday schedule. 2. Volume overload, somewhat improved today. 3. Acute hypoxic respiratory failure associated with pleural effusion, volume overload, currently improved, status post left-sided thoracentesis as well. 4. Cardiomyopathy, ejection fraction 45% to 50%. 5. History of prostatic aortic valve replacement. PLAN: Hemodialysis in a.m. and again increase goal UF as tolerated to about 3-4 L. MMODL / IJN: [id number] /
[2021-02-16 17:24] LABS: Glucose,Whole Blood 161 mg/dL (75-99)
--- NOTE | 2021-02-16 17:39 | PN ---
PROGRESS NOTE DATE OF SERVICE: 02/16/2021 This 61-year-old gentleman was admitted with CHF acute exacerbation, also had bilateral pleural effusion. No chest pain. No palpitations. No fever. PHYSICAL EXAMINATION: Alert and oriented x3. Pulse is 55, blood pressure 160/76, respirations 18, temperature 97.9, pulse ox 98% on 4 L. HEENT: Conjunctivae normal. Oral mucosa moist. NECK: No jugular venous distention. No lymph node enlargement. CARDIOVASCULAR: S1, S2, muffled. No S3, no S4, RESPIRATORY: Diminished breath sounds at the bases. A few scattered rhonchi and crackles. ABDOMEN: Soft, nontender. LEGS: No edema, no swelling. NERVOUS SYSTEM: No focal deficits. LAB: Hemoglobin 10.1. Pleural fluid findings are awaited. ASSESSMENT: 1. Congestive heart failure acute exacerbation with acute on chronic diastolic dysfunction, ejection fraction 50-55%. 2. Bilateral pleural effusion, right more than the left, status post thoracocentesis. 3. Chronic hypoxic respiratory failure. The patient will need home O2. 4. Chronic kidney stage 2 end-stage renal disease on hemodialysis. 5. Right pleural effusion, possibly loculated. 6. Anemia, normocytic anemia of chronic disease. 7. History of aortic valve replacement, bovine. 8. History of coronary artery disease. 9. Diabetes mellitus type 2. 10.Continued hypoxia. 11.Hypertension. 12.Hyperlipidemia. 13.History of DJD. 14.History of diabetic peripheral neuropathy. 15.History of left foot ulcer. 16.Status post left above-knee amputation. 17.History of MRSA. 18.History of diabetic gastroparesis. 19.History of peripheral vascular disease. 20.Left arm fistula for hemodialysis. 21.Anxiety, depression. 22.Claustrophobia. 23.History of hernia repair. 24.FULL CODE. RECOMMENDATIONS: Recommend to continue current management, continue symptomatic treatment. Repeat labs. Otherwise, home O2. Await pleural fluid reports. Closely follow with pulmonary. Guarded prognosis. Further recommendations to follow. Continue hemodialysis. MMODL / IJN: [id number] /
[2021-02-16 20:05] LABS: Glucose,Whole Blood 203 mg/dL (75-99)
[2021-02-16 21:20] LABS: LDH, Body Fluid Source Pleural Fluid; Total Protein, Body Fluid 3400 mg/dL
[2021-02-16 21:21] LABS: Glucose, BF Source Pleural Fluid; Glucose, Body Fluid 302 mg/dL
[2021-02-16] MEDS: ATORVASTATIN 10 MG TAB PO SCH (22:25)
--- NOTE | 2021-02-16 23:33 | PCN ---
PROCEDURE NOTE OPERATIVE REPORT: Left-sided thoracentesis. PREOPERATIVE DIAGNOSIS: Left-sided pleural effusion. POSTOP DIAGNOSIS: Left sided pleural effusion. ANESTHESIA USED: 2 mL of 1% lidocaine. PROCEDURE DETAILS: The patient was placed in a sitting upright position, the area below the left scapula was prepared in a sterile fashion and drapes were applied. The fluid was earlier localized and marked by ultrasound, and the marking was placed basically at the level of the 8th intercostal space and tip of the scapula. Then, the area was locally anesthetized with lidocaine. Then, a 26-gauge needle was inserted into the pleural space until fluid was localized with the needle. Then a small tiny incision was made at the same site, and the thoracentesis catheter and needle were used, advanced into the same site into the pleural space and as soon as the fluid was obtained, the catheter was advanced over the needle into the pleural space, and the needle was pulled out of the pleural space. Freely flowing fluid was removed, roughly 60 to 100 mL of serosanguineous fluid was drained from the left pleural space. The procedure was well tolerated, chest x-ray postoperatively showed no complications and the fluid was sent for different diagnostic studies. MMODL / IJN: [id number] /
[2021-02-17 06:54] LABS: Glucose,Whole Blood 148 mg/dL (75-99)
[2021-02-17] MEDS: INSULIN ASPART (NovoLOG) 100 UNIT/ML VIAL SQ SCH ×6 (07:47→17:45)
[2021-02-17] MEDS: METOPROLOL TARTRATE 50 MG TAB PO SCH ×2 (08:04→18:04)
[2021-02-17] MEDS: SEVELAMER 800 MG TAB PO SCH ×3 (08:04→18:04)
[2021-02-17] MEDS: hydrALAZINE HCL 50 MG TAB PO SCH ×2 (08:05→18:03)
[2021-02-17] MEDS: PANTOPRAZOLE 40 MG TABLET PO SCH (08:06)
[2021-02-17] MEDS: INSULIN DETEMIR (LEVEMIR) 100 UNIT/ML SYR SQ SCH (08:08)
[2021-02-17 08:20] VITALS: PULSE 53
[2021-02-17] MEDS: amLODIPine 5 MG TAB PO SCH (09:29)
[2021-02-17] MEDS: HEPARIN SODIUM,PORCINE/PF 5,000 UNIT/0.5 ML SYRINGE SQ SCH (09:29)
[2021-02-17] MEDS: FOLIC ACID-VIT B COMPLEX-VIT C 1 CAP PO SCH (09:31)
[2021-02-17] MEDS: ASPIRIN 81 MG PO SCH (09:35)
[2021-02-17 10:32] LABS: Basophils # (A) 0.01 X 10*3/uL (0.00-0.10); Basophils % (A) 0.1 %; Eosinophils # (A) 0.03 X 10*3/uL (0.04-0.35); Eosinophils % (A) 0.3 %; HCT 33.7 % (39.6-50.0); HGB 10.8 g/dL (13.0-17.0); Lymphocytes # (A) 0.74 X 10*3/uL (0.90-5.00); Lymphocytes % (A) 8.3 %; MCH 31.1 pg (27.0-32.0); MCV 97.1 fL (80.0-97.0); Mean Platelet Volume 9.9 fL (9.5-12.2); Monocytes % (A) 11.2 %; Neutrophils # (A) 7.08 X 10*3/uL (1.80-7.70); Neutrophils % (A) 79.7 %; Platelet Count 180 X 10*3/uL (140-440); RBC 3.47 X 10*6/uL (4.40-5.60); RDW 14.3 % (11.5-14.5)
--- NOTE | 2021-02-17 11:37 | P.PN ---
Subjective Progress Note Date: 02/17/21 Principal diagnosis: Acute exacerbation of CHF with a mildly impaired LVEF This is a very pleasant 61-year-old male patient who was hospitalized yesterday because of worsening shortness of breath and hypoxemia. His pulse ox was as low as 60% at home. Note that the patient has multiple medical problems and comorbidities. His dialysis-dependent renal failure Patient undergoes dialysis 3 times a week, MW and he states that he has not missed a single dialysis. The patient also has coronary artery disease, he has undergone previous aortic valve replacement and he does have a bioprosthetic aortic valve and he has also hypertension and diabetes mellitus and hyperlipidemia and peripheral neuropathy and previous history of diabetic ulcers and he is undergone a below-knee amputation on the left. He has also retinopathy involving the eyes. He is a nonsmoker. Has been hospitalized in the past 40 same presentation. He has cardiomyopathy and systolic heart failure. No cough. No chest pain. Troponins have been negative. His chest x- ray was consistent with CHF and bilateral pleural effusion and cardiomegaly. BNP is 24 with a creatinine of 6.9. Coagulation profile is been within normal limits. COVID-19 testing came back not detected. Currently is on 2 L of oxygen by nasal cannula. His resting comfortably in bed. No chest pain. No angina. No palpitation.. The patient has been followed up with Dr. Dr. Sanderson. His last echocardiogram according to him was done in the office and he was told that the valve and the heart muscle function was within normal limits. Based on my records, his last echocardiogram in the hospital was in 2019 and he had an ejection fraction of 45%. 02/13/2021, the patient is slightly more short of breath currently on 4 L of oxygen by nasal cannula. The patient is currently undergoing hemodialysis with a goal of ultrafiltration of 2 L. He needed his dialysis as the patient's chest x-ray showed bilateral pleural effusion and fluid overload. Echocardiogram will be also repeated. No other new complaints otherwise for now. Hemodynamically stable. Labs are all stable. No new abnormalities seen. On 02/14/2021 patient seen in follow-up on medical surgical floor, he is calm and comfortable, is currently on 3 L supplemental oxygen, pulse ox is 94%, he had hemodialysis treatment yesterday with removal of 3 L of fluid. He is breathing much easier, lung sounds are diminished, no complaints of chest pain, no worsening cough or dyspnea. Vital signs have been stable, his been afebrile, no worsening cough or hemoptysis. No acute events overnight. Yesterday's chest x-ray showed moderate bilateral pleural effusions. On 02/15/2021 patient seen in follow-up on medical surgical floor, is resting comfortably in bed, 2 L of oxygen pulse ox is 98%, room air pulse ox was 82%, breathing is nonlabored. Vital signs have been stable, CTA chest was completed showing no evidence of pulmonary embolism, bilateral pleural effusions, atelectasis. Patient is on hemodialysis on Saturday schedule, and he is supposed to have his hemodialysis treatment today. On 02/16/2021 patient seen in follow-up on medical surgical floor, yesterday he had dialysis with removal of 3 L of fluid, and ultrasound of the chest was completed following his hemodialysis showing bilateral pleural effusions, with the right pleural effusion pocket measuring 10.6 cm, and left pleural effusion pocket of 11.5 cm. His next hemodialysis is scheduled for tomorrow. We were asked to evaluate the patient for possibility of thoracentesis, and we'll proceed with left thoracentesis today. We discussed with the patient and she is agreeable to proceeding, otherwise denies any acute rest or distress, he is on 4 L of oxygen pulse ox of 94%, he is afebrile, hemodynamically stable. On 02/17/2021 patient seen in follow-up on medical surgical floor. Yesterday he underwent left-sided thoracentesis by Dr. Faulkner and 1.6 L of pleural fluid was removed. Pleural fluid LDH was 177, total protein was 3.4 g, and this is exudative fluid due to elevated protein content. Pleural fluid cultures are pending, Gram stain shows no organisms, and no PMNs at the 24-hour margie. Cytology is pending, today patient is seen in follow-up on medical surgical floor, he is resting comfortably in bed, he is currently on 2 L of oxygen, breathing comfortably his pulse ox is 95-98%, he is afebrile, his follow-up chest x-ray postprocedure yesterday showed a small right pleural effusion, and improved aeration of the left lung. he is awaiting hemodialysis treatment today. Objective - Vital Signs Vital signs: Vital Signs Temp 97.9 F 02/17/21 08:00 Pulse 53 L 02/17/21 08:00 Resp 16 02/17/21 08:00 BP 145/68 02/17/21 08:00 Pulse Ox 95 02/17/21 08:00 Intake & Output 02/16/21 02/17/21 02/17/21 18:59 06:59 18:59 Intake Total 680 458 Output Total 0 Balance 680 0 458 Intake: Oral 680 458 Output: Urine 0 Other: # Voids 1 1 - Exam GENERAL EXAM: Alert, very pleasant, 61-year-old white male, on 2 L of oxygen with pulse ox of 98%, comfortable in no apparent distress. HEAD: Normocephalic/atraumatic. EYES: Normal reaction of pupils, equal size. Conjunctiva pink, sclera white. NOSE: Clear with pink turbinates. THROAT: No erythema or exudates. NECK: No masses, no JVD, no thyroid enlargement, no adenopathy. CHEST: No chest wall deformity. Symmetrical expansion. LUNGS: Equal air entry with diminished breath sounds at the bases, CVS: Regular rate and rhythm, normal S1 and S2, no gallops, no murmurs, no rubs ABDOMEN: Soft, nontender. No hepatosplenomegaly, normal bowel sounds, no guarding or rigidity. EXTREMITIES: No clubbing, no edema, no cyanosis, 2+ pulses and upper and lower extremities. MUSCULOSKELETAL: Muscle strength and tone normal. Patient is a left below-knee amputee with prosthesis SPINE: No scoliosis or deformity SKIN: No rashes CENTRAL NERVOUS SYSTEM: Alert and oriented -3. No focal deficits, tone is normal in all 4 extremities. PSYCHIATRIC: Alert and oriented -3. Appropriate affect. Intact judgment and insight. - Labs CBC & Chem 7: 02/17/21 04:54 02/13/21 05:44 Labs: Abnormal Lab Results - Last 24 Hours (Table) 02/16/21 02/16/21 02/16/21 Range/Units 11:30 17:22 20:03 RBC (4.40-5.60) X 10*6/uL Hgb (13.0-17.0) g/dL Hct (39.6-50.0) % MCV (80.0-97.0) fL Lymphocytes # (0.90-5.00) X 10*3/uL Eosinophils # (0.04-0.35) X 10*3/uL POC Glucose (mg/dL) 142 H 161 H 203 H (75-99) mg/dL 02/17/21 02/17/21 Range/Units 04:54 06:53 RBC 3.47 L (4.40-5.60) X 10*6/uL Hgb 10.8 L (13.0-17.0) g/dL Hct 33.7 L (39.6-50.0) % MCV 97.1 H (80.0-97.0) fL Lymphocytes # 0.74 L (0.90-5.00) X 10*3/uL Eosinophils # 0.03 L (0.04-0.35) X 10*3/uL POC Glucose (mg/dL) 148 H (75-99) mg/dL Microbiology - Last 24 Hours (Table) 02/16/21 12:15 Gram Stain - Preliminary Pleural Fluid Body Fluid Culture - Preliminary 02/16/21 12:15 Acid Fast Bacilli Smear - Final Pleural Fluid Acid Fast Bacilli Culture - Preliminary 02/16/21 12:15 Fungal Culture - Preliminary Pleural Fluid Assessment and Plan Plan: #1. Acute hypoxic respiratory failure related to bilateral pleural effusions, and acute exacerbation of CHF with mildly impaired left ventricle systolic function and EF of 45-50%. Chest x-ray shows bilateral right greater than left pleural effusions and the possibility of loculation in the right pleural effusion. Patient is status post left-sided thoracentesis today on 02/16/2021 with removal of 1.6 L of dark fluid which was sent for analysis and cultures, pleural fluid was exudative in nature, so far the pleural fluid cultures have shown no PMNs and no organisms, cytology is pending #2. History of aortic valve replacement with a bioprosthetic valve, echocardiogram from 02/14/2021 showed low normal EF of 50-55%, mildly enlarged right ventricle, mild stenosis of the bioprosthetic aortic valve, mild MR, mild TR, no evidence of pulmonary hypertension and right-sided pressure is measured at 19.74 mmHg #3. End-stage renal disease, on hemodialysis on Saturday schedule, and patient has been compliant with hemodialysis treatments #4. Diabetes mellitus type 2, with diabetic neuropathy, diabetic retinopathy and gastroparesis #5. History of diabetic wounds involving left foot, status post left below the knee amputation #6. Coronary artery disease #7. Hypertension #8. Hyperlipidemia #9. Osteoarthritis #10. Cataracts with history of laser surgery and lens implant #11. Lifetime nonsmoker #12. Anxiety and depression Plan: Patient is awaiting hemodialysis today His most recent chest x-ray still shows a small right-sided pleural effusion, and improved aeration of the left lung following left-sided thoracentesis No plans for right thoracentesis Expect the pleural effusion on the right to improve with hemodialysis Requiring minimal supplemental oxygen Obtain home oxygen assessment before discharge Stable for discharge home from pulmonary perspective with outpatient follow-up with Dr. Faulkner in the office in 7-10 days I performed a history & physical examination of the patient and discussed their management with my nurse practitioner, Carmelita Robert. I reviewed the nurse practitioner's note and agree with the documented findings and plan of care. Lung sounds are positive for diminished breath sounds. The findings and the impression was discussed with the patient. I attest to the documentation by the nurse practitioner. Time with Patient: Less than 30
[2021-02-17 11:57] LABS: Glucose,Whole Blood 190 mg/dL (75-99)
[2021-02-17 13:25] LABS: African American GFR (CKD) 7.2 (60.0-200.0); Anion Gap 16.2 mmol/L (4.00-12.00); BUN/Creat Ratio 7.59 Ratio (12.00-20.00); Calcium 9.7 mg/dL (8.7-10.3); Carbon Dioxide 21.8 mmol/L (21.6-31.8); Non-African American GFR(CKD) 6.2 (60.0-200.0)
--- NOTE | 2021-02-17 16:19 | PN ---
PROGRESS NOTE Patient is seen for followup for end-stage renal disease. He is maintained on a Saturday, Saturday, Saturday schedule. Patient is seen this morning. Denies any significant complaints. He did have thoracentesis yesterday with about 1.6 L of fluid that was drained. The patient states he is feeling much better. PHYSICAL EXAMINATION: On examination today, blood pressure was 145/68, heart rate 53 per minute, he is afebrile. Examination of the heart S1, S2. Examination of the lungs, bilateral breath sounds are heard. Abdomen is soft, nontender. Examination of lower extremities shows no evidence of edema. The patient has left BKA. SALVAGE DIVER exam grossly intact. LAB: Show hemoglobin 10.8, sodium 136, potassium 5.0, BUN 63, creatinine 8.3. ASSESSMENT: 1. End-stage renal disease, on hemodialysis on a Saturday, Saturday, Saturday schedule. 2. Volume overload, currently improved. 3. Acute hypoxic respiratory failure secondary to volume overload as well as pleural effusion status post left-sided thoracentesis with 1.6 L of fluid removed. Currently, respiratory status is much improved. 4. Chronic kidney disease mineral bone disorder. PLAN: Hemodialysis today with goal UF about 3-4 L as tolerated. MMODL / IJN: [id number] /
[2021-02-17 17:33] LABS: Glucose,Whole Blood 184 mg/dL (75-99)
[2021-02-17 19:02] VITALS: BP 147/66; RESP 18; TEMP 97.9
--- NOTE | 2021-02-18 07:35 | DS ---
DISCHARGE SUMMARY DATE OF SERVICE: 02/17/2021 FINAL DIAGNOSIS: 1. Congestive heart failure acute exacerbation with acute on chronic diastolic dysfunction with ejection fraction of 50-55%. 2. Bilateral pleural effusion, right more the left, status post thoracocentesis of the left side. 3. Chronic hypoxic respiratory failure. Patient is started on home O2. 4. Chronic kidney stage IV and end-stage renal disease on hemodialysis. 5. Right pleural effusion, possibly loculated. 6. Anemia, normocytic anemia of chronic disease. 7. History of aortic valve replacement, bovine. 8. History of coronary artery disease. 9. Diabetes mellitus type 2. 10.Continued hypoxia. 11.Hypotension. 12.Hyperlipidemia. 13.History of degenerative joint disease. 14.History of diabetic peripheral neuropathy. 15.History of left foot ulcer. 16.History of left above-knee amputation. 17.History of MRSA. 18.History of diabetic gastroparesis. 19.History of peripheral vascular disease. 20.Left arm fistula for hemodialysis. 21.Anxiety, depression. 22.Claustrophobia. 23.History of hernia repair. 24.FULL CODE. DISCHARGE DISPOSITION: The patient will be discharged in stable condition with guarded prognosis. Total time taken 35 minutes. HISTORY OF PRESENT ILLNESS: This is a 61-year-old gentleman with a past medical history of multiple medical problems was admitted with CHF acute exacerbation. Patient also had bilateral pleural effusions. The patient underwent ultrasound evaluation of left-sided pleural effusion by Dr. Webb and about 60-100 cc of fluid was drained and the patient is being closely monitored at this time. The chest x-ray post procedure was reviewed and was patient improved and the patient was discharged in a stable condition with a guarded prognosis. The thoracocentesis was done by Dr. Us. PHYSICAL EXAMINATION: On exam vitals stable. Cardiovascular S1 and S2. Abdomen soft. Nervous system with no focal deficits. DISCHARGE INSTRUCTIONS: Discharge diet is cardiac. Activity limited until followup. Home O2 because of the chronic hypoxic respiratory failure. MEDICATIONS: 1. Hydralazine 100 mg a.c. b.i.d. 2. Ativan p.r.n. 3. Lidocaine p.r.n. 4. Insulin 15 units subcu daily. 5. Lipitor 10 mg q.h.s. 6. Lopressor 50 mg a.c. b.i.d. 7. NovoLog 29 units a.c. t.i.d. with meals. 8. Accu-Cheks before meals and at bedtime. 9. Jannie-Bruna 0.8 mg p.o. daily. 10RENVELA 800 mg a.c. t.i.d. 11.Aspirin 81 mg p.o. daily. 12.Norvasc 5 mg p.o. daily. The patient follows with Dr. Robert in the outpatient setting. Followup with Dr. Robert in 2-3 days for CBC BMP. Follow up with Nephrology as recommended. Once again the patient will be discharged in stable condition. Guarded prognosis. Followup chest x- rays with primary Dr. Robert to ensure stability. MMODL / IJN: [id number] / ALIZA
== END 2021-02-17 19:06 | disposition home health service (06) | DRG 291 ==
LOC: EC 21:50 → 6NMEDSUR 23:28 → OBSVTOIN 02-13 10:29
PROVIDERS: ADMIT Hospitalist; ATTEND Hospitalist
PROC: 5A1D70Z Performance of Urinary Filtration, Intermittent, Less than 6 Hours Per Day (ICD-10-PCS; 2021-02-13)
PROC: 0W9B3ZX Drainage of Left Pleural Cavity, Percutaneous Approach, Diagnostic (ICD-10-PCS; principal; 2021-02-16)
DX: I13.2 Hypertensive heart and chronic kidney disease with heart failure and with stage 5 chronic kidney disease, or end stage renal disease (principal); I50.33 Acute on chronic diastolic (congestive) heart failure; N18.6 End stage renal disease; J96.21 Acute and chronic respiratory failure with hypoxia; J91.8 Pleural effusion in other conditions classified elsewhere; N17.9 Acute kidney failure, unspecified; J98.11 Atelectasis; I27.21 Secondary pulmonary arterial hypertension; E11.319 Type 2 diabetes mellitus with unspecified diabetic retinopathy without macular edema; D63.1 Anemia in chronic kidney disease; I95.9 Hypotension, unspecified; I42.9 Cardiomyopathy, unspecified; E11.22 Type 2 diabetes mellitus with diabetic chronic kidney disease; E11.42 Type 2 diabetes mellitus with diabetic polyneuropathy; E11.43 Type 2 diabetes mellitus with diabetic autonomic (poly)neuropathy; E11.51 Type 2 diabetes mellitus with diabetic peripheral angiopathy without gangrene; Z89.512 Acquired absence of left leg below knee; Z79.4 Long term (current) use of insulin; Z99.2 Dependence on renal dialysis; Z20.822 Contact with and (suspected) exposure to COVID-19; I05.2 Rheumatic mitral stenosis with insufficiency; I25.10 Atherosclerotic heart disease of native coronary artery without angina pectoris; E83.52 Hypercalcemia; K31.84 Gastroparesis; E78.5 Hyperlipidemia, unspecified; E83.9 Disorder of mineral metabolism, unspecified; K21.9 Gastro-esophageal reflux disease without esophagitis; F41.9 Anxiety disorder, unspecified; F32.9 Major depressive disorder, single episode, unspecified; H54.7 Unspecified visual loss; H91.90 Unspecified hearing loss, unspecified ear; M19.90 Unspecified osteoarthritis, unspecified site; Z79.82 Long term (current) use of aspirin; Z79.899 Other long term (current) drug therapy; Z86.19 Personal history of other infectious and parasitic diseases; Z95.3 Presence of xenogenic heart valve; Z87.39 Personal history of other diseases of the musculoskeletal system and connective tissue; Z87.2 Personal history of diseases of the skin and subcutaneous tissue; Z87.19 Personal history of other diseases of the digestive system; Z86.31 Personal history of diabetic foot ulcer; Z98.42 Cataract extraction status, left eye; Z98.41 Cataract extraction status, right eye; Z96.1 Presence of intraocular lens; Z90.49 Acquired absence of other specified parts of digestive tract; Z89.022 Acquired absence of left finger(s); Z99.3 Dependence on wheelchair; Z86.14 Personal history of Methicillin resistant Staphylococcus aureus infection; Z98.890 Other specified postprocedural states; Z91.041 Radiographic dye allergy status; Z83.3 Family history of diabetes mellitus; Z82.49 Family history of ischemic heart disease and other diseases of the circulatory system; Z82.0 Family history of epilepsy and other diseases of the nervous system; Z82.61 Family history of arthritis; Z82.3 Family history of stroke
CPT/HCPCS: 36415; 71045; 71046; 71275; 76604; 80048; 80053; 82550; 82945; 83605; 83615; 83735; 84157; 84484; 85025; 85610; 85730; 87070; 87102; 87116; 87205; 87206; 87252; 87496; 87498; 87502; 87529; 87634; 87635; 87798; 88108; 88305; 89050; 90935; 93005; 93306; 94640; 99285

== ENCOUNTER 2021-05-08 10:11 | Inpatient (IN) | payer MEDICARE ==
--- NOTE | 2021-05-08 10:44 | ED ---
SOB HPI - General Chief Complaint: Shortness of Breath Stated Complaint: MARIZA Time Seen by Provider: 05/08/21 10:25 Source: patient Mode of arrival: wheelchair Limitations: physical limitation - History of Present Illness Initial Comments: 61-year-old male with ESRD, on dialysis MWF presenting to the emergency department with a chief complaint of shortness of breath. Patient reports he went to dialysis today and he was told by the dialysis nurse that he has fluid in his lungs and is to come to the emergency room for evaluation. His states the patient has been experiencing increased shortness of breath over the last few days but he refused to come to emergency department for evaluation. She states the patient was here about 3 months ago for a pleural effusion ahead over a liter drained from his lungs. This was performed by Dr. Gomez. She states that the patient is also a cough for approximately one week. Denies any associated chest pain fever or chills. Not a smoker. - Related Data Home Medications Medication Instructions Recorded Confirmed Atorvastatin [Lipitor] 10 mg PO HS 11/25/17 05/08/21 hydrALAZINE HCL [Apresoline] 100 mg PO AC-BID 08/14/18 05/08/21 Jannie-Bruna 0.8mg 0.8 mg PO DAILY 07/13/19 05/08/21 Insulin Glargine,Hum.rec.anlog 28 units SQ DAILY 02/12/21 05/08/21 [Lantus Solostar Pen] LORazepam [Ativan] 0.5 mg PO DAILY PRN 02/12/21 05/08/21 Lidocaine-Prilocaine Cream [Emla 1 applic TOPICAL DAILY PRN 02/12/21 05/08/21 Cream 2.5%/2.5%] Metoprolol Tartrate [Lopressor] 50 mg PO AC-BID 02/12/21 05/08/21 Sevelamer [Renvela] 800 mg PO AC-TID 02/12/21 05/08/21 Previous Rx's Medication Instructions Recorded Aspirin 81 mg PO DAILY #1 chewable 02/21/17 amLODIPine [Norvasc] 5 mg PO DAILY #30 tab 07/17/19 Allergies Allergy/AdvReac Type Severity Reaction Status Date / Time Iodinated Contrast Media AdvReac shut down Verified 05/08/21 11:06 [Iodinated Contrast Media - kidneys IV Dye] Review of Systems ROS Statement: Those systems with pertinent positive or pertinent negative responses have been documented in the HPI. ROS Other: All systems not noted in ROS Statement are negative. Past Medical History Past Medical History: Coronary Artery Disease (CAD), Diabetes Mellitus, Eye Disorder, GERD/Reflux, Hearing Disorder / Deafness, Hyperlipidemia, Hypertension, Hypertension, Osteoarthritis (OA), Renal Disease, Renal Disease, Vascular Disorder Additional Past Medical History / Comment(s): Aortic valve replacement - BOVINE, gout, IDDM type II, end-stage renal disease past peritoneal dialysis, now hemodialysis M-W-F, diabetic peripheral neuropathy, L foot ulcers, R foot infection, L BKA, bilateral diabetic retinopathy, bilateral cataracts, bleeds behind retina, history of osteomyelitis, history of MRSA infection, diabetic gastroparesis, PVD. History of Any Multi-Drug Resistant Organisms: MRSA Date of last positivie culture/infection: 2011 MDRO Source:: LEFT FOOT Past Surgical History: Cardiac Valve Replacement, Cholecystectomy, Hernia Repair, Orthopedic Surgery Additional Past Surgical History / Comment(s): L arm fistula being used for hemodialysis, R upper chest moura cath- removed . RT foot I&D when a metal fragment was in his foot that was also infected, LT FOOT DEBRIDEMENT ,5TH TOE AMP, 10/2016 L BKA, insertion and REMOVAL PD CATH.LT ARM FISTUAL, CATARACATS REMOVED-LENS IMPLANTS, YAMILKA EYE LASER EYE SX, LT INDEX FINGER PARTIAL AMP Past Anesthesia/Blood Transfusion Reactions: Motion Sickness Additional Past Anesthesia/Blood Transfusion Reaction / Comment(s): CLAUSTROPHOBIA Past Psychological History: Anxiety, Depression Smoking Status: Never smoker Past Alcohol Use History: None Reported Past Drug Use History: None Reported - Past Family History Mother Family Medical History: Diabetes Mellitus, Osteoarthritis (OA) Additional Family Medical History / Comment(s): HIP REPLACMENTS Father Family Medical History: CVA/TIA, Diabetes Mellitus, Myocardial Infarction (HI), Musculoskeletal Disorder, Neurologic Disorder Additional Family Medical History / Comment(s): PARKINSON'S General Exam Limitations: physical limitation General appearance: alert, in no apparent distress Head exam: Present: atraumatic, normocephalic, normal inspection Eye exam: Present: normal appearance, PERRL, EOMI Pupils: Present: normal accommodation ENT exam: Present: normal exam, normal oropharynx, mucous membranes moist Neck exam: Present: normal inspection, full ROM. Absent: tenderness, lymphadenopathy Respiratory exam: Present: normal lung sounds bilaterally, rales (Faint crackles in the left lung base). Absent: respiratory distress, wheezes, rhonchi, stridor, chest wall tenderness, accessory muscle use Cardiovascular Exam: Present: regular rate, normal rhythm, normal heart sounds. Absent: systolic murmur GI/Abdominal exam: Present: soft. Absent: distended, tenderness, guarding, rebound Extremities exam: Present: normal inspection, full ROM Back exam: Present: normal inspection, full ROM. Absent: tenderness Neurological exam: Present: alert, oriented X3 Psychiatric exam: Present: normal affect, normal mood Skin exam: Present: warm, dry, intact, normal color Course Vital Signs 05/08/21 10:13 Temperature 97.6 F Pulse Rate 50 L Respiratory 20 Rate Blood Pressure 123/57 O2 Sat by Pulse 100 Oximetry Medical Decision Making - Medical Decision Making 61-year-old male with ESRD, on dialysis MWF presenting to the emergency department with a chief complaint of shortness of breath. On physical examination, crackles at the left lung base. Chest x-ray reveals moderate left- sided pleural effusion. There is also mild right-sided pleural effusion. Patient also had an elevated troponin 0.066. I did start patient on aspirin. Patient also had hypokalemia with a potassium of 3.2. He was given oral K Dur. Magnesium and phosphorus within normal limits. Elevated creatinine, however patient is supposed to be dialyzed today. I spoke to who will admit patient. Case discussed with Dr Field Pulmonary consult Nephorolgy consult - Lab Data Result diagrams: 05/08/21 10:55 05/08/21 10:55 Lab Results 05/08/21 05/08/21 05/08/21 Range/Units 10:55 10:55 10:55 WBC 7.3 (3.8-10.6) k/uL RBC 3.58 L (4.30-5.90) m/uL Hgb 11.1 L (13.0-17.5) gm/dL Hct 33.8 L (39.0-53.0) % MCV 94.6 (80.0-100.0) fL MCH 31.0 (25.0-35.0) pg MCHC 32.7 (31.0-37.0) g/dL RDW 15.2 (11.5-15.5) % Plt Count 260 (150-450) k/uL MPV 7.5 Neutrophils % 77 % Lymphocytes % 9 % Monocytes % 9 % Eosinophils % 3 % Basophils % 1 % Neutrophils # 5.6 (1.3-7.7) k/uL Lymphocytes # 0.7 L (1.0-4.8) k/uL Monocytes # 0.6 (0-1.0) k/uL Eosinophils # 0.2 (0-0.7) k/uL Basophils # 0.0 (0-0.2) k/uL PT 10.2 (9.0-12.0) sec INR 0.9 (<1.2) APTT 28.3 (22.0-30.0) sec Sodium 135 L (137-145) mmol/L Potassium 3.2 L (3.5-5.1) mmol/L Chloride 96 L (98-107) mmol/L Carbon Dioxide 29 (22-30) mmol/L Anion Gap 10 mmol/L BUN 13 (9-20) mg/dL Creatinine 3.85 H (0.66-1.25) mg/dL Est GFR (CKD-EPI)AfAm 18 (>60 ml/min/1.73 sqM) Est GFR (CKD-EPI)NonAf 16 (>60 ml/min/1.73 sqM) Glucose 72 L (74-99) mg/dL Calcium 8.7 (8.4-10.2) mg/dL Phosphorus 2.7 (2.5-4.5) mg/dL Magnesium 2.1 (1.6-2.3) mg/dL Total Bilirubin 0.7 (0.2-1.3) mg/dL AST 20 (17-59) U/L ALT 10 (4-49) U/L Alkaline Phosphatase 106 (38-126) U/L Troponin I (0.000-0.034) ng/mL Total Protein 6.8 (6.3-8.2) g/dL Albumin 3.8 (3.5-5.0) g/dL Coronavirus (PCR) (Not Detectd) 05/08/21 05/08/21 Range/Units 10:55 10:55 WBC (3.8-10.6) k/uL RBC (4.30-5.90) m/uL Hgb (13.0-17.5) gm/dL Hct (39.0-53.0) % MCV (80.0-100.0) fL MCH (25.0-35.0) pg MCHC (31.0-37.0) g/dL RDW (11.5-15.5) % Plt Count (150-450) k/uL MPV Neutrophils % % Lymphocytes % % Monocytes % % Eosinophils % % Basophils % % Neutrophils # (1.3-7.7) k/uL Lymphocytes # (1.0-4.8) k/uL Monocytes # (0-1.0) k/uL Eosinophils # (0-0.7) k/uL Basophils # (0-0.2) k/uL PT (9.0-12.0) sec INR (<1.2) APTT (22.0-30.0) sec Sodium (137-145) mmol/L Potassium (3.5-5.1) mmol/L Chloride (98-107) mmol/L Carbon Dioxide (22-30) mmol/L Anion Gap mmol/L BUN (9-20) mg/dL Creatinine (0.66-1.25) mg/dL Est GFR (CKD-EPI)AfAm (>60 ml/min/1.73 sqM) Est GFR (CKD-EPI)NonAf (>60 ml/min/1.73 sqM) Glucose (74-99) mg/dL Calcium (8.4-10.2) mg/dL Phosphorus (2.5-4.5) mg/dL Magnesium (1.6-2.3) mg/dL Total Bilirubin (0.2-1.3) mg/dL AST (17-59) U/L ALT (4-49) U/L Alkaline Phosphatase (38-126) U/L Troponin I 0.066 H* (0.000-0.034) ng/mL Total Protein (6.3-8.2) g/dL Albumin (3.5-5.0) g/dL Coronavirus (PCR) Not Detected (Not Detectd) - EKG Data EKG Comments: Sinus bradycardia Right bundle-branch block Ventricular rate 59, MD 196, QRS 140,, QTC 485. Disposition Clinical Impression: Elevated troponin, Pleural effusion, Hypokalemia Disposition: ADMITTED IP TO THIS HOSP Condition: Fair Is patient prescribed a controlled substance at d/c from ED?: No Referrals: Thor Robert MD [Primary Care Provider] - 1-2 days Time of Disposition: 12:42
[2021-05-08 11:21] LABS: Basophils % (A) 1 %; Eosinophils # (A) 0.2 k/uL (0-0.7); Eosinophils % (A) 3 %; HCT 33.8 % (39.0-53.0); HGB 11.1 gm/dL (13.0-17.5); Lymphocytes # (A) 0.7 k/uL (1.0-4.8); Lymphocytes % (A) 9 %; MCHC 32.7 g/dL (31.0-37.0); MCV 94.6 fL (80.0-100.0); Mean Platelet Volume 7.5; Monocytes # (A) 0.6 k/uL (0-1.0); Monocytes % (A) 9 %; Neutrophils # (A) 5.6 k/uL (1.3-7.7); Neutrophils % (A) 77 %; Platelet Count 260 k/uL (150-450); RBC 3.58 m/uL (4.30-5.90); RDW 15.2 % (11.5-15.5); WBC 7.3 k/uL (3.8-10.6)
[2021-05-08 11:31] LABS: INR 0.9 (<1.2); Partial Thromboplastin Time 28.3 sec (22.0-30.0); Prothrombin Time 10.2 sec (9.0-12.0)
[2021-05-08 11:34] LABS: Albumin 3.8 g/dL (3.5-5.0); Calcium 8.7 mg/dL (8.4-10.2); Magnesium 2.1 mg/dL (1.6-2.3); Phosphorus 2.7 mg/dL (2.5-4.5); Potassium 3.2 mmol/L (3.5-5.1); Total Bilirubin 0.7 mg/dL (0.2-1.3); Total Protein 6.8 g/dL (6.3-8.2)
--- NOTE | 2021-05-08 11:45 | XR ---
EXAMINATION TYPE: XR chest 2V DATE OF EXAM: 05/08/2021 COMPARISON: 02/16/2021 HISTORY: Shortness of breath TECHNIQUE: Frontal and lateral views of the chest are obtained. FINDINGS: Scattered senescent parenchymal changes noted. Hyperinflation compatible with COPD. Moderate left-sided pleural effusion and smaller right-sided pleural effusion. Underlying atelectasis or infiltrates. Heart size is stable. Mediastinal structures are stable and grossly unremarkable. No evidence for hilar prominence. Degenerative changes dorsal spine. IMPRESSION: 1. Moderate left-sided pleural effusion and smaller right-sided pleural effusion. Underlying atelecta sis or infiltrates.
[2021-05-08] MEDS ORDERED: ASPIRIN 325 MG TAB PO STA (12:08)
[2021-05-08] MEDS ORDERED: ONDANSETRON 4 MG/2 ML VIAL IVP PRN (12:37)
[2021-05-08] MEDS ORDERED: NALOXONE 0.4 MG/ML 1 ML VIAL IV PRN (12:37)
[2021-05-08] MEDS ORDERED: POTASSIUM CHLORIDE ER 20 MEQ TAB.ER PO STA (12:42)
[2021-05-08] MEDS ORDERED: LORazepam 0.5 MG TAB PO PRN (19:06)
--- NOTE | 2021-05-08 19:47 | P.CNPUL ---
History of Present Illness Consult date: 05/08/21 Requesting physician: Tanner Carrion Reason for consult: dyspnea, pleural effusion, abnormal CXR/CT Chief complaint: Pleural effusion, end-stage renal failure History of present illness: This is a 61-year-old white male patient of Dr. Robert, past medical history of end-stage renal disease on hemodialysis on Saturday, bilateral pleural effusions, chronic CHF with mildly impaired EF of 45-50%, history of aortic valve replacement, diabetes mellitus, hypertension, hyperlipidemia. Patient presented to the emergency department on 05/08/2021 from the hemodialysis center for evaluation of worsening shortness of breath. Patient was dialyzed however his shortness of breath did not improve with hemodialysis. He was told by the dialysis nurse that he had fluid in his lungs and was directed to the emergency department for evaluation. Apparently he has had a cough for approximately one week. No chest pain, no fever or chills. Patient had a previous history of left-sided pleural effusion by Dr. Faulkner in February 2021 with removal of 1.6 cc of pleural fluid which was found to be exudative based on the protein criteria. Pleural fluid cultures were negative. Chest x-ray in the emergency department showed moderate left-sided pleural effusion and smaller right-sided pleural effusion. His labs showed a white blood cell count of 7.3, hemoglobin of 11.1, sodium is 135, potassium is 3.2, chloride is 96, BUN of 13, creatinine is 3.85, his troponins were elevated to 0.066, 0.054, LFTs were within normal limits, his COVID-19 test was negative, is on 4 L of oxygen his pulse ox is 96%, has had no fever or chills. His EKG showed sinus tachycardia with right bundle branch block, acute ST or T-wave abnormalities. Review of Systems All systems: negative Constitutional: Denies chills, Denies fever Eyes: denies blurred vision, denies pain Ears, nose, mouth and throat: Denies headache, Denies sore throat Cardiovascular: Denies chest pain, Denies shortness of breath Respiratory: Reports cough, Reports dyspnea Gastrointestinal: Denies abdominal pain, Denies diarrhea, Denies nausea, Denies vomiting Musculoskeletal: Denies myalgias Integumentary: Denies pruritus, Denies rash Neurological: Denies numbness, Denies weakness Psychiatric: Denies anxiety, Denies depression Endocrine: Denies fatigue, Denies weight change Past Medical History Past Medical History: Coronary Artery Disease (CAD), Heart Failure, Diabetes Mellitus, Eye Disorder, GERD/Reflux, Hearing Disorder / Deafness, Hyperlipidemia, Hypertension, Hypertension, Osteoarthritis (OA), Renal Disease, Renal Disease, Vascular Disorder Additional Past Medical History / Comment(s): Aortic valve replacement - BOVINE, gout, IDDM type II, end-stage renal disease past peritoneal dialysis, now hemodialysis M-W-F, diabetic peripheral neuropathy, L foot ulcers, R foot infection, L BKA, bilateral diabetic retinopathy, bilateral cataracts, bleeds behind retina, history of osteomyelitis, history of MRSA infection, diabetic gastroparesis, PVD. History of Any Multi-Drug Resistant Organisms: MRSA Date of last positivie culture/infection: 2011 MDRO Source:: LEFT FOOT Past Surgical History: Cardiac Valve Replacement, Cholecystectomy, Hernia Repair, Orthopedic Surgery Additional Past Surgical History / Comment(s): L arm fistula being used for hemodialysis, R upper chest moura cath- remove. RT foot I&D when a metal fragment was in his foot that was also infected, LT FOOT DEBRIDEMENT ,5TH TOE AMP, 10/2016 L BKA, insertion and REMOVAL PD CATH. LT ARM FISTUAL, CATARACATS REMOVED-LENS IMPLANTS, YAMILKA EYE LASER EYE SX, LT INDEX FINGER PARTIAL AMP Past Anesthesia/Blood Transfusion Reactions: Motion Sickness Additional Past Anesthesia/Blood Transfusion Reaction / Comment(s): CLAUSTROPHOBIA Past Psychological History: Anxiety, Depression Additional Psychological History / Comment(s): Pt resides with his spouse. He has [facility]. RETIRED,WORKED IN [employer] WITH [employer] FOR 37 YEARS.PT IS WHEELCHAIR BOUND AT THIS TIME. No experience. No recent travels. No animals in the home. No significant alcohol use. No current tobacco use. No recreational drug use. Smoking Status: Never smoker Past Alcohol Use History: None Reported Past Drug Use History: None Reported - Past Family History Mother Family Medical History: Diabetes Mellitus, Osteoarthritis (OA) Additional Family Medical History / Comment(s): HIP REPLACMENTS Father Family Medical History: CVA/TIA, Diabetes Mellitus, Myocardial Infarction ([place]), Musculoskeletal Disorder, Neurologic Disorder Additional Family Medical History / Comment(s): PARKINSON'S Medications and Allergies Home Medications Medication Instructions Recorded Confirmed Type Aspirin 81 mg PO DAILY #1 chewable 02/21/17 05/08/21 Rx Atorvastatin [Lipitor] 10 mg PO HS 11/25/17 05/08/21 History hydrALAZINE HCL [Apresoline] 100 mg PO AC-BID 08/14/18 05/08/21 History Jannie-Bruna 0.8mg 0.8 mg PO DAILY 07/13/19 05/08/21 History amLODIPine [Norvasc] 5 mg PO DAILY #30 tab 07/17/19 05/08/21 Rx Insulin Glargine,Hum.rec.anlog 28 units SQ DAILY 02/12/21 05/08/21 History [Lantus Solostar Pen] LORazepam [Ativan] 0.5 mg PO DAILY PRN 02/12/21 05/08/21 History Lidocaine-Prilocaine Cream [Emla 1 applic TOPICAL DAILY PRN 02/12/21 05/08/21 History Cream 2.5%/2.5%] Metoprolol Tartrate [Lopressor] 50 mg PO AC-BID 02/12/21 05/08/21 History Sevelamer [Renvela] 800 mg PO AC-TID 02/12/21 05/08/21 History Allergies Allergy/AdvReac Type Severity Reaction Status Date / Time Iodinated Contrast Media AdvReac shut down Verified 05/08/21 11:06 [Iodinated Contrast Media - kidneys IV Dye] Physical Exam Vitals: Vital Signs Temp Pulse Pulse Resp BP BP Pulse Ox 05/08/21 15:36 97.7 F 61 20 150/66 96 05/08/21 14:00 61 20 05/08/21 13:45 64 20 122/43 94 L 05/08/21 13:10 20 05/08/21 12:45 61 18 166/63 94 L 05/08/21 10:13 97.6 F 50 L 20 123/57 100 Intake and Output 05/08/21 05/08/21 05/08/21 06:59 14:59 22:59 Other: Weight 75.2 kg GENERAL EXAM: Alert, pleasant, 61-year-old white male on 4 L of oxygen a pulse ox of 96% comfortable in no apparent distress. HEAD: Normocephalic/atraumatic. EYES: Normal reaction of pupils, equal size. Conjunctiva pink, sclera white. NOSE: Clear with pink turbinates. THROAT: No erythema or exudates. NECK: No masses, no JVD, no thyroid enlargement, no adenopathy. CHEST: No chest wall deformity. Symmetrical expansion. LUNGS: Equal air entry with no crackles, wheeze, rhonchi or dullness. Diminished breath sounds at bases CVS: Regular rate and rhythm, normal S1 and S2, no gallops, no murmurs, no rubs ABDOMEN: Soft, nontender. No hepatosplenomegaly, normal bowel sounds, no guarding or rigidity. EXTREMITIES: No clubbing, no edema, no cyanosis, 2+ pulses and upper and lower extremities. MUSCULOSKELETAL: Muscle strength and tone normal. SPINE: No scoliosis or deformity SKIN: No rashes CENTRAL NERVOUS SYSTEM: Alert and oriented -3. No focal deficits, tone is normal in all 4 extremities. PSYCHIATRIC: Alert and oriented -3. Appropriate affect. Intact judgment and insight. Results - Laboratory Findings CBC and BMP: 05/08/21 10:55 05/08/21 10:55 PT/INR, D-dimer PT 10.2 sec (9.0-12.0) 05/08/21 10:55 INR 0.9 (<1.2) 05/08/21 10:55 Abnormal lab findings: Abnormal Labs 05/08/21 05/08/21 05/08/21 10:55 10:55 10:55 RBC 3.58 L Hgb 11.1 L Hct 33.8 L Lymphocytes # 0.7 L Sodium 135 L Potassium 3.2 L Chloride 96 L Creatinine 3.85 H Glucose 72 L Troponin I 0.066 H* 05/08/21 15:32 RBC Hgb Hct Lymphocytes # Sodium Potassium Chloride Creatinine Glucose Troponin I 0.054 H* - Diagnostic Findings Chest x-ray: report reviewed, image reviewed Assessment and Plan Plan: #1. Acute hypoxic respiratory failure related to bilateral pleural effusions, and chronic CHF with mildly impaired left ventricle systolic function and EF of 45-50%. Chest x-ray showed moderate left-sided pleural effusion and smaller right-sided pleural effusion. COVID-19 PCR was negative #2. Chronic pleural effusions, previous history of left sided thoracentesis on 02/16/2021 with removal of 1.6 L of pleural fluid which was exudative on the protein criteria. Negative cultures and cytology #3. History of aortic valve replacement with a bioprosthetic valve, echocardiogram from 02/14/2021 showed low normal EF of 50-55% #4. End-stage renal disease, on hemodialysis on Saturday schedule, and patient has been compliant with hemodialysis treatments #4. Diabetes mellitus type 2, with diabetic neuropathy, diabetic retinopathy and gastroparesis #5. History of diabetic wounds involving left foot, status post left below the knee amputation #6. Coronary artery disease #7. Hypertension #8. Hyperlipidemia #9. Osteoarthritis #10. Cataracts with history of laser surgery and lens implant #11. Lifetime nonsmoker #12. Anxiety and depression Plan: Chest x-ray has been reviewed Continue hemodialysis per nephrology recommendations May consider left-sided thoracentesis Follow-up chest x-ray after hemodialysis We'll continue to follow Obtain consent for left-sided thoracentesis tomorrow on 05/09/2021. Time with Patient: Greater than 30
--- NOTE | 2021-05-08 23:02 | P.HPIM ---
History of Present Illness H&P Date: 05/08/21 Chief Complaint: Shortness of breath Patient is a 61-year-old male with a known history of chronic CHF with mildly reduced systolic function ejection fraction 45 to 50%, history of aortic valve replacement, ESRD on hemodialysis Saturday and Saturday diabetes type 2, h ypertension, hyperlipidemia, diabetic gastroparesis, peripheral vascular disease with history of left BKA and other multiple medical problems presents to ER with complaints of worsening shortness of breath. Patient states that he has been having shortness of breath since yesterday and unable to sleep flat overnight. Patient did have dialysis today without much improvement in shortness of breath. Patient was told by dialysis nurse that he had fluid in the lung and was recommended to go to ER. Patient denied any complaints of fever or chills. No chest pain. Does have cough without sputum production for the past 1 week. Patient did have previous left-sided thoracentesis with 1.6 L fluid removal in February 2021. Chest x-ray showed moderate left-sided pleural effusion and small right-sided p leural effusion. Underlying atelectasis or infiltrate. EKG showed normal sinus rhythm with sinus bradycardia. Laboratory data showed WBC 7.3 hemoglobin 11.1 and platelets 260 Sodium 135 potassium 3.2 chloride 96 BUN 39 creatinine 3.85 blood sugar is 72 Troponin 0 0.066, 0.054, 0.051 Coronavirus PCR not detected Patient is currently on 4 L oxygen via nasal cannula. Patient does use oxygen at home as needed. Review of Systems Constitutional: Patient denies any fever or chills . No generalized weakness or weight loss. Abdomen: Patient denied nausea vomiting and diarrhea and abdominal pain. Cardiovascular: Patient denies any chest pain or short of breath no palp itations. Respiratory: Patient with complaints of shortness of breath. Cough without production. No chest pain. Neurologic: Patient denied any numbness or tingling headache. Musculoskeletal: Patient denies any complaints of joint swelling or deformity. Skin: Negative Psychiatric: Negative Endocrine: No heat or cold intolerance. No recent weight gain. Genitourinary: No dysuria or hematuria. All other 14 point ROS negative except the above Past Medical History Past Medical History: Coronary Artery Disease (CAD), Heart Failure, Diabetes Mellitus, Eye Disorder, GERD/Reflux, Hearing Disorder / Deafness, Hyperlipidemia, Hypertension, Hypertension, Osteoarthritis (OA), Renal Disease, Renal Disease, Vascular Disorder Additional Past Medical History / Comment(s): Aortic valve replacement - BOVINE, gout, IDDM type II, end-stage renal disease past peritoneal dialysis, now hemodialysis M-W-F, diabetic peripheral neuropathy, L foot ulcers, R foot infection, L BKA, bilateral diabetic retinopathy, bilateral cataracts, bleeds behind retina, history of osteomyelitis, history of MRSA infection, diabetic gastroparesis, PVD. History of Any Multi-Drug Resistant Organisms: MRSA Date of last positivie culture/infection: 2011 MDRO Source:: LEFT FOOT Past Surgical History: Cardiac Valve Replacement, Cholecystectomy, Hernia Repair, Orthopedic Surgery Additional Past Surgical History / Comment(s): L arm fistula being used for hemodialysis, R upper chest moura cath- remove. RT foot I&D when a metal fra gment was in his foot that was also infected, LT FOOT DEBRIDEMENT ,5TH TOE AMP, 10/2016 L BKA, insertion and REMOVAL PD CATH. LT ARM FISTUAL, CATARACATS REMOVED- LENS IMPLANTS, YAMILKA EYE LASER EYE SX, LT INDEX FINGER PARTIAL AMP Past Anesthesia/Blood Transfusion Reactions: Motion Sickness Additional Past Anesthesia/Blood Transfusion Reaction / Comment(s): CLAUSTROPHOBIA Past Psychological History: Anxiety, Depression Additional Psychological History / Comment(s): Pt resides with his spouse. He has [employer] [facility]. RETIRED,WORKED IN [employer] WITH [employer] FOR 37 YEARS.PT IS WHEELCHAIR BOUND AT THIS TIME. No experience. No recent travels. No animals in the home. No significant alcohol use. No current tobacco use. No recreational drug use. Smoking Status: Never smoker Past Alcohol Use History: None Reported Past Drug Use History: None Reported - Past Family History Mother Family Medical History: Diabetes Mellitus, Osteoarthritis (OA) Additional Family Medical History / Comment(s): HIP REPLACMENTS Father Family Medical History: CVA/TIA, Diabetes Mellitus, Myocardial Infarction ([place]), Musculoskeletal Disorder, Neurologic Disorder Additional Family Medical History / Comment(s): PARKINSON'S Medications and Allergies Home Medications Medication Instructions Recorded Confirmed Type Aspirin 81 mg PO DAILY #1 chewable 02/21/17 05/08/21 Rx Atorvastatin [Lipitor] 10 mg PO HS 11/25/17 05/08/21 History hydrALAZINE HCL [Apresoline] 100 mg PO AC-BID 08/14/18 05/08/21 History Jannie-Bruna 0.8mg 0.8 mg PO DAILY 07/13/19 05/08/21 History amLODIPine [Norvasc] 5 mg PO DAILY #30 tab 07/17/19 05/08/21 Rx Insulin Glargine,Hum.rec.anlog 28 units SQ DAILY 02/12/21 05/08/21 History [Lantus Solostar Pen] LORazepam [Ativan] 0.5 mg PO DAILY PRN 02/12/21 05/08/21 History Lidocaine-Prilocaine Cream [Emla 1 applic TOPICAL DAILY PRN 02/12/21 05/08/21 History Cream 2.5%/2.5%] Metoprolol Tartrate [Lopressor] 50 mg PO AC-BID 02/12/21 05/08/21 History Sevelamer [Renvela] 800 mg PO AC-TID 02/12/21 05/08/21 History Allergies Allergy/AdvReac Type Severity Reaction Status Date / Time Iodinated Contrast Media AdvReac shut down Verified 05/08/21 11:06 [Iodinated Contrast Media - kidneys IV Dye] Physical Exam Vitals: Vital Signs Temp Pulse Pulse Resp BP BP Pulse Ox 05/08/21 15:36 97.7 F 61 20 150/66 96 05/08/21 14:00 61 20 05/08/21 13:45 64 20 122/43 94 L 05/08/21 13:10 20 05/08/21 12:45 61 18 166/63 94 L 05/08/21 10:13 97.6 F 50 L 20 123/57 100 Intake and Output 05/08/21 05/08/21 05/08/21 06:59 14:59 22:59 Other: Weight 75.2 kg PHYSICAL EXAMINATION: Patient is lying in the bed comfortably, no acute distress, awake alert and oriented.. HEENT: Normocephalic. Neck is supple. Pupils reactive. Nostrils clear. Oral cavity is moist. Ears reveal no drainage. Neck reveals no JVD, carotid bruits, or thyromegaly. CHEST EXAMINATION: Trachea is central. Symmetrical expansion. LDiminished left basilar lung sounds and right-sided crackles. No wheezing. Nonlabored breathing. CARDIAC: Normal S1, S2 with no gallops. No murmurs ABDOMEN: Soft. Bowel sounds normal. No organomegaly. No abdominal bruits. Extremities: 1+ edema. No clubbing or cyanosis, Left BKA. Neurologically awake, alert, oriented x3 with well-coordinated movements. No focal deficits noted Skin: No rash or skin lesions. Psychiatric: Coperative. Nonsuicidal Musculoskeletal: No joint swelling or deformity. Normal range of motion. Results CBC & Chem 7: 05/08/21 10:55 05/08/21 10:55 Labs: Abnormal Lab Results - Last 24 Hours (Table) 05/08/21 05/08/21 05/08/21 Range/Units 10:55 10:55 10:55 RBC 3.58 L (4.30-5.90) m/uL Hgb 11.1 L (13.0-17.5) gm/dL Hct 33.8 L (39.0-53.0) % Lymphocytes # 0.7 L (1.0-4.8) k/uL Sodium 135 L (137-145) mmol/L Potassium 3.2 L (3.5-5.1) mmol/L Chloride 96 L (98-107) mmol/L Creatinine 3.85 H (0.66-1.25) mg/dL Glucose 72 L (74-99) mg/dL Troponin I 0.066 H* (0.000-0.034) ng/mL 05/08/21 05/08/21 Range/Units 15:32 18:37 RBC (4.30-5.90) m/uL Hgb (13.0-17.5) gm/dL Hct (39.0-53.0) % Lymphocytes # (1.0-4.8) k/uL Sodium (137-145) mmol/L Potassium (3.5-5.1) mmol/L Chloride (98-107) mmol/L Creatinine (0.66-1.25) mg/dL Glucose (74-99) mg/dL Troponin I 0.054 H* 0.051 H* (0.000-0.034) ng/mL Thrombosis Risk Factor Assmnt - DVT/VTE Prophylaxis DVT/VTE Prophylaxis: Pharmacologic Prophylaxis ordered - Choose All That Apply Any of the Below Risk Factors Present?: No Other Risk Factors: Yes Each Risk Factor Represents 2 Points: Age 61-74 years Other congenital or acquired thrombophilia - If yes, enter type in comment: No Thrombosis Risk Factor Assessment Total Risk Factor Score: 2 Thrombosis Risk Factor Assessment Level: Low Risk Assessment and Plan Assessment: Acute hypoxic respiratory failure secondary to bilateral pleural effusion left greater than right. Chronic CHF with systolic dysfunction ejection fraction 45 to 50% ESRD on hemodialysis Saturday and Saturday. Elevated troponin level likely due to CKD Hypokalemia. Replaced. Hypervolemic hyponatremia History of aortic valve replacement. Hemodialysis was initiated post surgery. Diabetes type 2 insulin-dependent Hypertension Hyperlipidemia Osteoarthritis Diabetic peripheral neuropathy and retinopathy Peripheral vascular disease History of left BKA GERD Hearing disorder/deafness DVT prophylaxis with heparin subcu Plan: Patient was found to have bilateral pleural effusion with the left greater than right side and history of left thoracentesis. Previous cultures were negative. Pulmonary was consulted and is planning for left-sided thoracentesis. Patient will be continued on hemodialysis as per schedule. Continue with insulin sliding scale and Levemir. Continue home medications and replace potassium. Follow-up closely. Prognosis guarded. Time with Patient: Greater than 30
[2021-05-09] MEDS: HEPARIN SODIUM,PORCINE/PF 5,000 UNIT/0.5 ML SYRINGE SQ SCH ×4 (00:15→23:09)
[2021-05-09 06:04] LABS: Glucose,Whole Blood 106 mg/dL (75-99)
[2021-05-09] MEDS: ATORVASTATIN 10 MG TAB PO SCH ×2 (06:51→21:16)
[2021-05-09] MEDS: SEVELAMER 800 MG TAB PO SCH ×3 (06:52→16:22)
[2021-05-09] MEDS: METOPROLOL TARTRATE 50 MG TAB PO SCH ×2 (06:52→16:22)
[2021-05-09 07:59] LABS: Basophils % (A) 1 %; Eosinophils # (A) 0.2 k/uL (0-0.7); Eosinophils % (A) 3 %; HCT 30.4 % (39.0-53.0); Lymphocytes # (A) 0.5 k/uL (1.0-4.8); Lymphocytes % (A) 9 %; MCH 31.4 pg (25.0-35.0); MCHC 32.9 g/dL (31.0-37.0); MCV 95.5 fL (80.0-100.0); Mean Platelet Volume 7.3; Monocytes # (A) 0.6 k/uL (0-1.0); Monocytes % (A) 11 %; Neutrophils # (A) 4.5 k/uL (1.3-7.7); Neutrophils % (A) 75 %; Platelet Count 214 k/uL (150-450); RBC 3.19 m/uL (4.30-5.90); RDW 14.9 % (11.5-15.5); WBC 6.1 k/uL (3.8-10.6)
[2021-05-09] MEDS: INSULIN DETEMIR (LEVEMIR) 100 UNIT/ML SYR SQ SCH (08:03)
[2021-05-09 08:11] LABS: Calcium 9.3 mg/dL (8.4-10.2); Phosphorus 4.9 mg/dL (2.5-4.5); Potassium 4.1 mmol/L (3.5-5.1)
--- NOTE | 2021-05-09 08:37 | XR ---
EXAMINATION TYPE: XR chest 1V portable DATE OF EXAM: 05/09/2021 COMPARISON: 05/08/2021 HISTORY: Shortness of breath TECHNIQUE: Single frontal view of the chest is obtained. FINDINGS: Heart is prominent there is postoperative change with bilateral consolidation and pleural effusion. No pneumothorax. Osseous structures stable. IMPRESSION: Stable bilateral infiltrate and pleural effusion.
[2021-05-09] MEDS: ASPIRIN 81 MG PO SCH (08:59)
[2021-05-09] MEDS: amLODIPine 5 MG TAB PO SCH (08:59)
[2021-05-09] MEDS: FOLIC ACID-VIT B COMPLEX-VIT C 1 CAP PO SCH (08:59)
[2021-05-09] MEDS ORDERED: MIDODRINE 5 MG TAB PO PRN (09:09)
--- NOTE | 2021-05-09 09:11 | P.NPCON ---
History of Present Illness - Reason for Consult end stage renal disease - History of Present Illness Reason for consultation: End-stage renal disease History of present illness: Patient is a 61-year-old male seen in renal consultation for end-stage renal disease. He is maintained on hemodialysis on Saturday schedule via AV fistula. Patient completed hemodialysis treatment yesterday with 1.7 L ultrafiltration. Patient's blood pressure does tend to drop in the middle of treatment therefore more UF couldn't be done. He presented to the hospital for shortness of breath. He is noted to have a left-sided pleural effusion and a small right pleural effusion. Pulmonology is following and may undergo thoracentesis today. Blood pressure stable. No fever or chills. Does have a nonproductive cough. No vomiting or diarrhea. No chest pain. Vital signs are stable. General: The patient appeared well nourished and normally developed. HEENT: Head exam is unremarkable. Neck is without jugular venous distension. LUNGS: Breath sounds decreased. HEART: Rate and Rhythm are regular. ABDOMEN: Soft, no distention. EXTREMITITES: Trace edema. BKA noted. Past Medical History Past Medical History: Coronary Artery Disease (CAD), Heart Failure, Diabetes Mellitus, Eye Disorder, GERD/Reflux, Hearing Disorder / Deafness, Hyperlipidemia, Hypertension, Hypertension, Osteoarthritis (OA), Renal Disease, Renal Disease, Vascular Disorder Additional Past Medical History / Comment(s): Aortic valve replacement - BOVINE, gout, IDDM type II, end-stage renal disease past peritoneal dialysis, now hemodialysis M-W-F, diabetic peripheral neuropathy, L foot ulcers, R foot infection, L BKA, bilateral diabetic retinopathy, bilateral cataracts, bleeds behind retina, history of osteomyelitis, history of MRSA infection, diabetic ga stroparesis, PVD. History of Any Multi-Drug Resistant Organisms: MRSA Date of last positivie culture/infection: 2011 MDRO Source:: LEFT FOOT Past Surgical History: Cardiac Valve Replacement, Cholecystectomy, Hernia Repair, Orthopedic Surgery Additional Past Surgical History / Comment(s): L arm fistula being used for hemodialysis, R upper chest moura cath- remove. RT foot I&D when a metal fragment was in his foot that was also infected, LT FOOT DEBRIDEMENT ,5TH TOE A MP, 10/2016 L BKA, insertion and REMOVAL PD CATH. LT ARM FISTUAL, CATARACATS REMOVED-LENS IMPLANTS, YAMILKA EYE LASER EYE SX, LT INDEX FINGER PARTIAL AMP Past Anesthesia/Blood Transfusion Reactions: Motion Sickness Additional Past Anesthesia/Blood Transfusion Reaction / Comment(s): CLAUSTROPHOBIA Past Psychological History: Anxiety, Depression Additional Psychological History / Comment(s): Pt resides with his spouse. He has [facility] home care. RETIRED,WORKED IN [employer] WITH [employer] FOR 37 YEAR S.PT IS WHEELCHAIR BOUND AT THIS TIME. No experience. No recent travels. No animals in the home. No significant alcohol use. No current tobacco use. No recreational drug use. Smoking Status: Never smoker Past Alcohol Use History: None Reported Past Drug Use History: None Reported - Past Family History Mother Family Medical History: Diabetes Mellitus, Osteoarthritis (OA) Additional Family Medical History / Comment(s): HIP REPLACMENTS Father Family Medical History: CVA/TIA, Diabetes Mellitus, Myocardial Infarction (SC), Musculoskeletal Disorder, Neurologic Disorder Additional Family Medical History / Comment(s): PARKINSON'S Medications and Allergies Home Medications Medication Instructions Recorded Confirmed Type Aspirin 81 mg PO DAILY #1 chewable 02/21/17 05/08/21 Rx Atorvastatin [Lipitor] 10 mg PO HS 11/25/17 05/08/21 History hydrALAZINE HCL [Apresoline] 100 mg PO AC-BID 08/14/18 05/08/21 History Jannie-Bruna 0.8mg 0.8 mg PO DAILY 07/13/19 05/08/21 History amLODIPine [Norvasc] 5 mg PO DAILY #30 tab 07/17/19 05/08/21 Rx Insulin Glargine,Hum.rec.anlog 28 units SQ DAILY 02/12/21 05/08/21 History [Lantus Solostar Pen] LORazepam [Ativan] 0.5 mg PO DAILY PRN 02/12/21 05/08/21 History Lidocaine-Prilocaine Cream [Emla 1 applic TOPICAL DAILY PRN 02/12/21 05/08/21 History Cream 2.5%/2.5%] Metoprolol Tartrate [Lopressor] 50 mg PO AC-BID 02/12/21 05/08/21 History Sevelamer [Renvela] 800 mg PO AC-TID 02/12/21 05/08/21 History Allergies Allergy/AdvReac Type Severity Reaction Status Date / Time Iodinated Contrast Media AdvReac shut down Verified 05/08/21 11:06 [Iodinated Contrast Media - kidneys IV Dye] Physical Exam Vitals: Vital Signs Temp Pulse Pulse Resp BP BP BP 05/09/21 07:44 66 16 05/09/21 07:42 98 F 66 16 155/79 05/09/21 07:30 05/09/21 04:00 98.2 F 62 18 140/59 05/09/21 02:00 68 20 05/08/21 23:25 97.6 F 68 16 128/61 05/08/21 15:36 97.7 F 61 20 150/66 05/08/21 14:00 61 20 05/08/21 13:45 64 20 122/43 05/08/21 13:10 20 05/08/21 12:45 61 18 166/63 05/08/21 10:13 97.6 F 50 L 20 123/57 Pulse Ox 05/09/21 07:44 05/09/21 07:42 90 L 05/09/21 07:30 92 L 05/09/21 04:00 91 L 05/09/21 02:00 05/08/21 23:25 94 L 05/08/21 15:36 96 05/08/21 14:00 05/08/21 13:45 94 L 05/08/21 13:10 05/08/21 12:45 94 L 05/08/21 10:13 100 Intake and Output 05/08/21 05/09/21 05/09/21 22:59 06:59 14:59 Intake Total 240 Output Total 0 Balance 0 240 Intake: Oral 240 Output: Urine 0 Other: Weight 75.6 kg Results - Lab Results Most recent lab results Calcium 9.3 mg/dL (8.4-10.2) 05/09/21 07:27 Phosphorus 4.9 mg/dL (2.5-4.5) H 05/09/21 07:27 Magnesium 2.1 mg/dL (1.6-2.3) 05/08/21 10:55 05/09/21 07:27 05/09/21 07:27 Assessment and Plan Plan: Assessment: 1. End-stage renal disease maintained on hemodialysis on Saturday schedule. 2. Volume overload. 3. Diabetes mellitus. 4. Hypertension with chronic kidney disease. 5. Chronic kidney disease mineral bone disease maintained on Renvela. 6. Chronic diastolic CHF. Plan: Hemodialysis tomorrow. Patient refusing hemodialysis treatment today. Possible thoracentesis today. Add midodrine with dialysis to maximize ultrafiltration. Low-salt diet. Thank you for the consultation. I will continue to follow the patient with you during his hospital stay.
--- NOTE | 2021-05-09 11:15 | P.PCN ---
Date of Procedure: 05/09/21 Preoperative Diagnosis: left pleural effusion Postoperative Diagnosis: left pleural effusion Procedure(s) Performed: Thoracentesis, left Anesthesia: local Surgeon: Jameson Sorenson Estimated Blood Loss (ml): 0 Pathology: other Condition: stable Disposition: floor Operative Findings: Indication: Pleural effusion-left A time-out was completed verifying correct patient, procedure, site, positioning, and implant (s) or special equipment if applicable. Ultrasound guidance was not used and appropriate fluid pocket was identified and marked. Patient was positioned, prepped and draped in usual sterile fashion. Lidocaine was used to anesthetize the area. A Thoracentesis catheter was introduced into the pleural space and fluid was removed. Blood loss was none. A chest x-ray was ordered to evaluate for pneumothorax. Total Fluid Removed: 1700 Color of Fluid: turbid, dark, red Fluid was sent for appropriate laboratory tests. Patient tolerated the procedure well and there were no complications.
--- NOTE | 2021-05-09 11:45 | XR ---
EXAMINATION TYPE: XR chest 1V DATE OF EXAM: 05/09/2021 COMPARISON: 05/09/2021 HISTORY: Postthoracentesis TECHNIQUE: Single frontal view of the chest is obtained. FINDINGS: Heart is prominent there is postoperative change with bilateral consolidation and pleural effusion. No pneumothorax. Osseous structures stable . There is interval reduction in amount of pleural fluid on the left. No sizable pneumothorax. Postsu rgical changes are noted. Arthropathy of the shoulders. IMPRESSION: 1. No evidence of sizable pneumothorax. Interval reduction in amount of pleural fluid on the left wit h persistent bilateral consolidation and small effusion.
[2021-05-09 11:58] LABS: Glucose,Whole Blood 99 mg/dL (75-99)
--- NOTE | 2021-05-09 12:21 | P.PN ---
Subjective Progress Note Date: 05/09/21 Principal diagnosis: Shortness of breath, bilateral pleural effusions This is a 61-year-old white male patient of Dr. Robert, past medical history of end-stage renal disease on hemodialysis on Saturday, bilateral pleural effusions, chronic CHF with mildly impaired EF of 45-50%, history of aortic valve replacement, diabetes mellitus, hypertension, hyperlipidemia. Patient presented to the emergency department on 05/08/2021 from the hemodialysis center for evaluation of worsening shortness of breath. Patient was dialyzed however his shortness of breath did not improve with hemodialysis. He was told by the dialysis nurse that he had fluid in his lungs and was directed to the emergency department for evaluation. Apparently he has had a cough for approximately one week. No chest pain, no fever or chills. Patient had a previous history of left-sided pleural effusion by Dr. Faulkner in February 2021 with removal of 1.6 cc of pleural fluid which was found to be exudative based on the protein criteria. Pleural fluid cultures were negative. Chest x-ray in the emergency department showed moderate left-sided pleural effusion and smaller right-sided pleural effusion. His labs showed a white blood cell count of 7.3, hemoglobin of 11.1, sodium is 135, potassium is 3.2, chloride is 96, BUN of 13, creatinine is 3.85, his troponins were elevated to 0.066, 0.054, LFTs were within normal limits, his COVID-19 test was negative, is on 4 L of oxygen his pulse ox is 96%, has had no fever or chills. His EKG showed sinus tachycardia with right bundle branch block, acute ST or T-wave abnormalities. On 05/09/2021 patient seen in follow-up on selective care unit, he is resting comfortably in bed, appears to be no acute distress, he is on 2 L of oxygen pulse ox is 90%, today's repeat chest x-ray showed stable bilateral infiltrates and pleural effusions. No complaint of chest discomfort. He is awake and alert, his had no fever or chills, today's labs have been reviewed, white blood cell, 6.1, hemoglobin is 10, sodium is 135, potassium is 4.1, chloride is 97, BUN is 24, creatinine is 6.03. Nephrology is following and is planning on dialyzing the patient today, we met with the patient yesterday, and discussed possibility of left-sided thoracentesis to which the patient is agreeable. Objective - Vital Signs Vital signs: Vital Signs Temp 97.8 F 05/09/21 12:00 Pulse 68 05/09/21 12:00 Resp 16 05/09/21 12:00 BP 158/77 05/09/21 12:00 Pulse Ox 93 L 05/09/21 12:00 Intake & Output 05/08/21 05/09/21 05/09/21 18:59 06:59 18:59 Intake Total 240 Output Total 0 Balance 0 240 Weight 75.2 kg 75.6 kg Intake: Oral 240 Output: Urine 0 - Exam GENERAL EXAM: Alert, 61-year-old white male, on 2 L of oxygen with a pulse ox of 93%, comfortable in no apparent distress. HEAD: Normocephalic/atraumatic. EYES: Normal reaction of pupils, equal size. Conjunctiva pink, sclera white. NOSE: Clear with pink turbinates. THROAT: No erythema or exudates. NECK: No masses, no JVD, no thyroid enlargement, no adenopathy. CHEST: No chest wall deformity. Symmetrical expansion. LUNGS: Equal air entry with no crackles, wheeze, rhonchi, there is diminished breath sounds at bilateral bases, and dullness to percussion at bilateral bases CVS: Regular rate and rhythm, normal S1 and S2, no gallops, no murmurs, no rubs ABDOMEN: Soft, nontender. No hepatosplenomegaly, normal bowel sounds, no guarding or rigidity. EXTREMITIES: No clubbing, no edema, no cyanosis, 2+ pulses and upper and lower extremities. MUSCULOSKELETAL: Muscle strength and tone normal. Left below the knee amputation SPINE: No scoliosis or deformity SKIN: No rashes, has open blister on his right foot, area is not inspected, patient has a dressing covering the blister. CENTRAL NERVOUS SYSTEM: Alert and oriented -3. No focal deficits, tone is normal in all 4 extremities. PSYCHIATRIC: Alert and oriented -3. Appropriate affect. Intact judgment and insight. - Labs CBC & Chem 7: 05/09/21 07:27 05/09/21 07:27 Labs: Abnormal Lab Results - Last 24 Hours (Table) 05/08/21 05/08/21 05/09/21 Range/Units 15:32 18:37 06:03 RBC (4.30-5.90) m/uL Hgb (13.0-17.5) gm/dL Hct (39.0-53.0) % Lymphocytes # (1.0-4.8) k/uL Sodium (137-145) mmol/L Chloride (98-107) mmol/L BUN (9-20) mg/dL Creatinine (0.66-1.25) mg/dL Glucose (74-99) mg/dL POC Glucose (mg/dL) 106 H (75-99) mg/dL Phosphorus (2.5-4.5) mg/dL Troponin I 0.054 H* 0.051 H* (0.000-0.034) ng/mL 05/09/21 05/09/21 Range/Units 07:27 07:27 RBC 3.19 L (4.30-5.90) m/uL Hgb 10.0 L (13.0-17.5) gm/dL Hct 30.4 L (39.0-53.0) % Lymphocytes # 0.5 L (1.0-4.8) k/uL Sodium 135 L (137-145) mmol/L Chloride 97 L (98-107) mmol/L BUN 24 H (9-20) mg/dL Creatinine 6.03 H (0.66-1.25) mg/dL Glucose 106 H (74-99) mg/dL POC Glucose (mg/dL) (75-99) mg/dL Phosphorus 4.9 H (2.5-4.5) mg/dL Troponin I (0.000-0.034) ng/mL Assessment and Plan Plan: #1. Acute hypoxic respiratory failure related to bilateral pleural effusions, and chronic CHF with mildly impaired left ventricle systolic function and EF of 45-50%. Chest x-ray showed moderate left-sided pleural effusion and smaller right-sided pleural effusion. COVID-19 PCR was negative #2. Chronic pleural effusions, previous history of left sided thoracentesis on 02/16/2021 with removal of 1.6 L of pleural fluid which was exudative on the protein criteria. Negative cultures and cytology. Status post left-sided thoracentesis today on 05/09/2021 with removal of 1.8 L of dark blood tinged pleural fluid which was sent for cytology, urinalysis, and cultures #3. History of aortic valve replacement with a bioprosthetic valve, echocardiogram from 02/14/2021 showed low normal EF of 50-55% #4. End-stage renal disease, on hemodialysis on Saturday schedule, and patient has been compliant with hemodialysis treatments #4. Diabetes mellitus type 2, with diabetic neuropathy, diabetic retinopathy and gastroparesis #5. History of diabetic wounds involving left foot, status post left below the knee amputation #6. Coronary artery disease #7. Hypertension #8. Hyperlipidemia #9. Osteoarthritis #10. Cataracts with history of laser surgery and lens implant #11. Lifetime nonsmoker #12. Anxiety and depression Plan: Patient tolerated left-sided thoracentesis, 1.8 L of dark blood tinged pleural fluid was removed and sent for analysis and cytology Follow-up chest x-ray showing no evidence of sizable pneumothorax Patient is having hemodialysis today Will await results of the pleural fluid analysis Continue to follow Time with Patient: Less than 30
[2021-05-09 15:34] LABS: Appearance,BF Bloody; Color,BF Red; Nucleated Cells, Body Fluid 700 /uL; RBC, Body Fluid 168300 /uL
[2021-05-09 15:37] LABS: Mononuclear WBC,Body Fluid 94 %; Polynuclear WBC,Body Fluid 6 %; Total Cells Counted,Body Fluid 100
[2021-05-09 16:48] LABS: Glucose,Whole Blood 162 mg/dL (75-99)
[2021-05-09 20:00] LABS: Glucose, BF Source Pleural Fluid; Glucose, Body Fluid 79 mg/dL; LDH, Body Fluid Source Pleural Fluid; Total Protein, Body Fluid 3900 mg/dL
[2021-05-09 20:05] LABS: Glucose,Whole Blood 177 mg/dL (75-99)
[2021-05-09 20:20] VITALS: RESP 18
[2021-05-10 06:07] LABS: Glucose,Whole Blood 185 mg/dL (75-99)
[2021-05-10] MEDS: SEVELAMER 800 MG TAB PO SCH ×3 (06:31→16:49)
[2021-05-10] MEDS: INSULIN DETEMIR (LEVEMIR) 100 UNIT/ML SYR SQ SCH (06:31)
[2021-05-10] MEDS: METOPROLOL TARTRATE 50 MG TAB PO SCH ×2 (06:31→17:53)
[2021-05-10 07:52] LABS: Basophils % (A) 0 %; Eosinophils # (A) 0.1 k/uL (0-0.7); Eosinophils % (A) 2 %; HCT 31.6 % (39.0-53.0); HGB 10.8 gm/dL (13.0-17.5); Lymphocytes # (A) 0.6 k/uL (1.0-4.8); Lymphocytes % (A) 9 %; MCH 32.2 pg (25.0-35.0); MCHC 34.2 g/dL (31.0-37.0); Mean Platelet Volume 6.6; Monocytes # (A) 0.5 k/uL (0-1.0); Monocytes % (A) 8 %; Neutrophils # (A) 4.7 k/uL (1.3-7.7); Neutrophils % (A) 77 %; Platelet Count 223 k/uL (150-450); RBC 3.36 m/uL (4.30-5.90); WBC 6.1 k/uL (3.8-10.6)
[2021-05-10 08:21] LABS: Calcium 9.9 mg/dL (8.4-10.2); Potassium 4.8 mmol/L (3.5-5.1)
[2021-05-10] MEDS: amLODIPine 5 MG TAB PO SCH (08:33)
[2021-05-10] MEDS: FOLIC ACID-VIT B COMPLEX-VIT C 1 CAP PO SCH (08:33)
[2021-05-10] MEDS: ASPIRIN 81 MG PO SCH (08:33)
[2021-05-10] MEDS: HEPARIN SODIUM,PORCINE/PF 5,000 UNIT/0.5 ML SYRINGE SQ SCH ×2 (08:33→17:53)
--- NOTE | 2021-05-10 08:47 | P.PN ---
Subjective Patient is seen in follow-up for end-stage renal disease. He is maintained on hemodialysis on Saturday schedule. Underwent left-sided thoracentesis yesterday with 1.7 L drained. Dyspnea improved. No chest pain or shortness of breath now. Vital signs are stable. General: The patient appeared well nourished and normally developed. HEENT: Head exam is unremarkable. Neck is without jugular venous distension. LUNGS: Breath sounds decreased. HEART: Rate and Rhythm are regular. ABDOMEN: Soft, no distention. EXTREMITITES: BKA noted. 1+ edema. Objective - Vital Signs Vital signs: Vital Signs Temp 97.9 F 05/10/21 08:00 Pulse 58 L 05/10/21 08:00 Resp 18 05/10/21 08:00 BP 163/82 05/10/21 08:00 Pulse Ox 98 05/10/21 08:00 Intake & Output 05/09/21 05/10/21 05/10/21 18:59 06:59 18:59 Intake Total 615 240 Output Total 0 Balance 615 0 240 Weight 76 kg Intake: Oral 615 240 Output: Urine 0 - Labs CBC & Chem 7: 05/10/21 07:26 05/10/21 07:26 Labs: Abnormal Lab Results - Last 24 Hours (Table) 05/09/21 05/09/21 05/10/21 Range/Units 16:42 20:04 06:04 RBC (4.30-5.90) m/uL Hgb (13.0-17.5) gm/dL Hct (39.0-53.0) % Lymphocytes # (1.0-4.8) k/uL Sodium (137-145) mmol/L Chloride (98-107) mmol/L BUN (9-20) mg/dL Creatinine (0.66-1.25) mg/dL Glucose (74-99) mg/dL POC Glucose (mg/dL) 162 H 177 H 185 H (75-99) mg/dL 05/10/21 05/10/21 Range/Units 07:26 07:26 RBC 3.36 L (4.30-5.90) m/uL Hgb 10.8 L (13.0-17.5) gm/dL Hct 31.6 L (39.0-53.0) % Lymphocytes # 0.6 L (1.0-4.8) k/uL Sodium 134 L (137-145) mmol/L Chloride 96 L (98-107) mmol/L BUN 41 H (9-20) mg/dL Creatinine 8.49 H* (0.66-1.25) mg/dL Glucose 179 H (74-99) mg/dL POC Glucose (mg/dL) (75-99) mg/dL Microbiology - Last 24 Hours (Table) 05/09/21 11:10 Gram Stain - Preliminary Pleural Fluid Body Fluid Culture - Preliminary 05/09/21 11:10 Fungal Culture - Preliminary Pleural Fluid 05/09/21 11:10 Acid Fast Bacilli Culture - Preliminary Pleural Fluid Assessment and Plan Plan: Assessment: 1. End-stage renal disease maintained on hemodialysis on Saturday schedule. 2. Volume overload. Status post left-sided thoracentesis with 1.7 L drained. 3. Diabetes mellitus. 4. Hypertension with chronic kidney disease. Stable. 5. Chronic kidney disease mineral bone disease maintained on Renvela. 6. Chronic diastolic CHF. Plan: Hemodialysis today. Added midodrine with dialysis to maximize ultrafiltration. Low-salt diet. Possible discharge after dialysis today.
[2021-05-10 11:51] LABS: Glucose,Whole Blood 150 mg/dL (75-99)
--- NOTE | 2021-05-10 12:47 | P.PN ---
Subjective Progress Note Date: 05/10/21 Principal diagnosis: Shortness of breath, bilateral pleural effusions This is a 61-year-old white male patient of Dr. Robert, past medical history of end-stage renal disease on hemodialysis on Saturday, bilateral pleural effusions, chronic CHF with mildly impaired EF of 45-50%, history of aortic valve replacement, diabetes mellitus, hypertension, hyperlipidemia. Patient presented to the emergency department on 05/08/2021 from the hemodialysis center for evaluation of worsening shortness of breath. Patient was dialyzed however his shortness of breath did not improve with hemodialysis. He was told by the dialysis nurse that he had fluid in his lungs and was directed to the emergency department for evaluation. Apparently he has had a cough for approximately one week. No chest pain, no fever or chills. Patient had a previous history of left-sided pleural effusion by Dr. Faulkner in February 2021 with removal of 1.6 cc of pleural fluid which was found to be exudative based on the protein criteria. Pleural fluid cultures were negative. Chest x-ray in the emergency department showed moderate left-sided pleural effusion and smaller right-sided pleural effusion. His labs showed a white blood cell count of 7.3, hemoglobin of 11.1, sodium is 135, potassium is 3.2, chloride is 96, BUN of 13, creatinine is 3.85, his troponins were elevated to 0.066, 0.054, LFTs were within normal limits, his COVID-19 test was negative, is on 4 L of oxygen his pulse ox is 96%, has had no fever or chills. His EKG showed sinus tachycardia with right bundle branch block, acute ST or T-wave abnormalities. On 05/09/2021 patient seen in follow-up on selective care unit, he is resting comfortably in bed, appears to be no acute distress, he is on 2 L of oxygen pulse ox is 90%, today's repeat chest x-ray showed stable bilateral infiltrates and pleural effusions. No complaint of chest discomfort. He is awake and alert, his had no fever or chills, today's labs have been reviewed, white blood cell, 6.1, hemoglobin is 10, sodium is 135, potassium is 4.1, chloride is 97, BUN is 24, creatinine is 6.03. Nephrology is following and is planning on dialyzing the patient today, we met with the patient yesterday, and discussed possibility of left-sided thoracentesis to which the patient is agreeable. On 05/10/2021 patient seen in follow-up on selective care unit. He states his breathing has significantly improved, he is status post left-sided thoracentesis on 05/09/2021 would removal of 1.7 L of pleural fluid. Chest x-ray today, patient is supposed to be dialyzed today, he is currently down to his of oxygen, his pulse ox is 95-97%. He is breathing comfortably, denies any chest pain, lung sounds reveal diminished breath sounds bilaterally, more so at the left base, pleural fluid cytology is still pending. Pleural fluid cultures are still pending, preliminary Gram stain has shown no growth. Objective - Vital Signs Vital signs: Vital Signs Temp 97.9 F 05/10/21 08:00 Pulse 58 L 05/10/21 08:00 Resp 18 05/10/21 11:14 BP 163/82 05/10/21 08:00 Pulse Ox 98 05/10/21 08:00 Intake & Output 05/09/21 05/10/21 05/10/21 18:59 06:59 18:59 Intake Total 615 240 Output Total 0 Balance 615 0 240 Weight 76 kg Intake: Oral 615 240 Output: Urine 0 - Exam GENERAL EXAM: Alert, 61-year-old white male, on 2 L of oxygen with a pulse ox of 93%, comfortable in no apparent distress. HEAD: Normocephalic/atraumatic. EYES: Normal reaction of pupils, equal size. Conjunctiva pink, sclera white. NOSE: Clear with pink turbinates. THROAT: No erythema or exudates. NECK: No masses, no JVD, no thyroid enlargement, no adenopathy. CHEST: No chest wall deformity. Symmetrical expansion. LUNGS: Equal air entry with no crackles, wheeze, rhonchi, there is diminished breath sounds at bilateral bases, and dullness to percussion at bilateral bases CVS: Regular rate and rhythm, normal S1 and S2, no gallops, no murmurs, no rubs ABDOMEN: Soft, nontender. No hepatosplenomegaly, normal bowel sounds, no guarding or rigidity. EXTREMITIES: No clubbing, no edema, no cyanosis, 2+ pulses and upper and lower extremities. MUSCULOSKELETAL: Muscle strength and tone normal. Left below the knee amputation SPINE: No scoliosis or deformity SKIN: No rashes, has open blister on his right foot, area is not inspected, patient has a dressing covering the blister. CENTRAL NERVOUS SYSTEM: Alert and oriented -3. No focal deficits, tone is normal in all 4 extremities. PSYCHIATRIC: Alert and oriented -3. Appropriate affect. Intact judgment and insight. - Labs CBC & Chem 7: 05/10/21 07:26 05/10/21 07:26 Labs: Abnormal Lab Results - Last 24 Hours (Table) 05/09/21 05/09/21 05/10/21 Range/Units 16:42 20:04 06:04 RBC (4.30-5.90) m/uL Hgb (13.0-17.5) gm/dL Hct (39.0-53.0) % Lymphocytes # (1.0-4.8) k/uL Sodium (137-145) mmol/L Chloride (98-107) mmol/L BUN (9-20) mg/dL Creatinine (0.66-1.25) mg/dL Glucose (74-99) mg/dL POC Glucose (mg/dL) 162 H 177 H 185 H (75-99) mg/dL 05/10/21 05/10/21 05/10/21 Range/Units 07:26 07: 11:45 RBC 3.36 L (4.30-5.90) m/uL Hgb 10.8 L (13.0-17.5) gm/dL Hct 31.6 L (39.0-53.0) % Lymphocytes # 0.6 L (1.0-4.8) k/uL Sodium 134 L (137-145) mmol/L Chloride 96 L (98-107) mmol/L BUN 41 H (9-20) mg/dL Creatinine 8.49 H* (0.66-1.25) mg/dL Glucose 179 H (74-99) mg/dL POC Glucose (mg/dL) 150 H (75-99) mg/dL Microbiology - Last 24 Hours (Table) 05/09/21 11:10 Gram Stain - Preliminary Pleural Fluid Body Fluid Culture - Preliminary 05/09/21 11:10 Fungal Culture - Preliminary Pleural Fluid 05/09/21 11:10 Acid Fast Bacilli Culture - Preliminary Pleural Fluid Assessment and Plan Plan: #1. Acute hypoxic respiratory failure related to bilateral pleural effusions, and chronic CHF with mildly impaired left ventricle systolic function and EF of 45-50%. Chest x-ray showed moderate left-sided pleural effusion and smaller right-sided pleural effusion. COVID-19 PCR was negative #2. Chronic pleural effusions, previous history of left sided thoracentesis on 02/16/2021 with removal of 1.6 L of pleural fluid which was exudative on the protein criteria. Negative cultures and cytology. Status post left-sided thoracentesis today on 05/09/2021 with removal of 1.8 L of dark blood tinged pleural fluid which was sent for cytology, urinalysis, and cultures #3. History of aortic valve replacement with a bioprosthetic valve, echocardiogram from 02/14/2021 showed low normal EF of 50-55% #4. End-stage renal disease, on hemodialysis on Saturday schedule, and patient has been compliant with hemodialysis treatments #4. Diabetes mellitus type 2, with diabetic neuropathy, diabetic retinopathy and gastroparesis #5. History of diabetic wounds involving left foot, status post left below the knee amputation #6. Coronary artery disease #7. Hypertension #8. Hyperlipidemia #9. Osteoarthritis #10. Cataracts with history of laser surgery and lens implant #11. Lifetime nonsmoker #12. Anxiety and depression Plan: Breathing has improved, patient has remained stable Continue weaning FiO2, Hemodialysis today, obtain follow-up chest x-ray after hemodialysis If remains stable, patient is cleared for discharge home from pulmonary perspective with outpatient follow-up with Dr. Sorenson in the office in 7-10 days. Time with Patient: Less than 30
[2021-05-10 12:55] VITALS: BP 161/71; PULSE 55; TEMP 98
[2021-05-10 16:52] LABS: Glucose,Whole Blood 69 mg/dL (75-99)
[2021-05-10 17:11] LABS: Glucose,Whole Blood 69 mg/dL (75-99)
[2021-05-10 17:27] LABS: Glucose,Whole Blood 66 mg/dL (75-99)
[2021-05-10 17:44] LABS: Glucose,Whole Blood 87 mg/dL (75-99)
== END 2021-05-10 17:48 | disposition home or self-care (01) | DRG 291 ==
LOC: EC 10:11 → 3SCARD 12:08
PROVIDERS: ADMIT Internal Medicine; ATTEND Internal Medicine
PROC: 0W9B3ZZ Drainage of Left Pleural Cavity, Percutaneous Approach (ICD-10-PCS; principal; 2021-05-09)
DX: I13.2 Hypertensive heart and chronic kidney disease with heart failure and with stage 5 chronic kidney disease, or end stage renal disease (principal); J96.01 Acute respiratory failure with hypoxia; N18.6 End stage renal disease; E87.1 Hypo-osmolality and hyponatremia; J90 Pleural effusion, not elsewhere classified; I50.42 Chronic combined systolic (congestive) and diastolic (congestive) heart failure; E11.22 Type 2 diabetes mellitus with diabetic chronic kidney disease; E11.319 Type 2 diabetes mellitus with unspecified diabetic retinopathy without macular edema; E11.42 Type 2 diabetes mellitus with diabetic polyneuropathy; E11.43 Type 2 diabetes mellitus with diabetic autonomic (poly)neuropathy; E11.51 Type 2 diabetes mellitus with diabetic peripheral angiopathy without gangrene; E78.5 Hyperlipidemia, unspecified; E87.6 Hypokalemia; F32.9 Major depressive disorder, single episode, unspecified; Z99.3 Dependence on wheelchair; Z99.2 Dependence on renal dialysis; Z96.1 Presence of intraocular lens; Z95.3 Presence of xenogenic heart valve; Z89.512 Acquired absence of left leg below knee; Z86.14 Personal history of Methicillin resistant Staphylococcus aureus infection; Z83.3 Family history of diabetes mellitus; Z82.49 Family history of ischemic heart disease and other diseases of the circulatory system; Z82.0 Family history of epilepsy and other diseases of the nervous system; Z79.899 Other long term (current) drug therapy; Z79.82 Long term (current) use of aspirin; Z79.4 Long term (current) use of insulin; Z20.822 Contact with and (suspected) exposure to COVID-19; K21.9 Gastro-esophageal reflux disease without esophagitis; I25.10 Atherosclerotic heart disease of native coronary artery without angina pectoris; M19.90 Unspecified osteoarthritis, unspecified site
CPT/HCPCS: 36415; 71045; 71046; 80048; 80053; 82945; 83615; 83735; 84100; 84157; 84484; 85025; 85610; 85730; 87070; 87102; 87116; 87205; 87206; 87252; 87496; 87498; 87502; 87529; 87634; 87635; 87798; 88108; 88305; 89050; 90935; 93005; 94760; 99285

== ENCOUNTER 2021-09-11 05:47 | Emergency (ER) | payer MEDICARE ==
[2021-09-11 06:05] VITALS: TEMP 99
[2021-09-11 06:37] VITALS: RESP 18
--- NOTE | 2021-09-11 06:56 | ED ---
General Adult HPI - General Chief complaint: Upper Respiratory Infection Stated complaint: Cough, Difficulty Breathing Time Seen by Provider: 09/11/21 06:06 Source: patient, family, RN notes reviewed Mode of arrival: ambulatory Limitations: no limitations - History of Present Illness Initial comments: This is a 61-year-old male presents emergency Department with chief complaint of fever cough congestion bodyaches. Patient was supposed to go to dialysis today but need covid19 Test. Patient's has similar symptoms. Patient's had no prior vaccine has no increase in shortness of breath no leg swelling. Patient has had prior amputation left lower leg. Patient denies any recent Tylenol for any fever. Patient states she is achy all over. Mild headache. - Related Data Home Medications Medication Instructions Recorded Confirmed Atorvastatin [Lipitor] 10 mg PO HS 11/25/17 05/08/21 hydrALAZINE HCL [Apresoline] 100 mg PO AC-BID 08/14/18 05/08/21 Jannie-Bruna 0.8mg 0.8 mg PO DAILY 07/13/19 05/08/21 Insulin Glargine,Hum.rec.anlog 28 units SQ DAILY 02/12/21 05/08/21 [Lantus Solostar Pen] LORazepam [Ativan] 0.5 mg PO DAILY PRN 02/12/21 05/08/21 Lidocaine-Prilocaine Cream [Emla 1 applic TOPICAL DAILY PRN 02/12/21 05/08/21 Cream 2.5%/2.5%] Metoprolol Tartrate [Lopressor] 50 mg PO AC-BID 02/12/21 05/08/21 Sevelamer [Renvela] 800 mg PO AC-TID 02/12/21 05/08/21 Previous Rx's Medication Instructions Recorded Aspirin 81 mg PO DAILY #1 chewable 02/21/17 amLODIPine [Norvasc] 5 mg PO DAILY #30 tab 07/17/19 Allergies Allergy/AdvReac Type Severity Reaction Status Date / Time Iodinated Contrast Media AdvReac shut down Verified 09/11/21 06:04 [Iodinated Contrast Media - kidneys IV Dye] Review of Systems ROS Statement: Those systems with pertinent positive or pertinent negative responses have been documented in the HPI. ROS Other: All systems not noted in ROS Statement are negative. Past Medical History Past Medical History: Coronary Artery Disease (CAD), Heart Failure, Diabetes Mellitus, Eye Disorder, GERD/Reflux, Hearing Disorder / Deafness, Hyperlipidemia, Hypertension, Hypertension, Osteoarthritis (OA), Renal Disease, Renal Disease, Vascular Disorder Additional Past Medical History / Comment(s): Aortic valve replacement - BOVINE, gout, IDDM type II, end-stage renal disease past peritoneal dialysis, now hemodialysis M-W-F, diabetic peripheral neuropathy, L foot ulcers, R foot infection, L BKA, bilateral diabetic retinopathy, bilateral cataracts, bleeds behind retina, history of osteomyelitis, history of MRSA infection, diabetic gastroparesis, PVD. History of Any Multi-Drug Resistant Organisms: MRSA Date of last positivie culture/infection: 2011 MDRO Source:: LEFT FOOT Past Surgical History: Cardiac Valve Replacement, Cholecystectomy, Hernia Re pair, Orthopedic Surgery Additional Past Surgical History / Comment(s): L arm fistula being used for hemodialysis, R upper chest moura cath- remove. RT foot I&D when a metal fragment was in his foot that was also infected, LT FOOT DEBRIDEMENT ,5TH TOE AMP, 10/2016 L BKA, insertion and REMOVAL PD CATH. LT ARM FISTUAL, CATARACATS REMOVED-LENS IMPLANTS, [place] EYE LASER EYE SX, LT INDEX FINGER PARTIAL AMP Past Anesthesia/Blood Transfusion Reactions: Motion Sickness Additional Past Anesthesia/Blood Transfusion Reaction / Comment(s): CLAUSTROPHOBIA Past Psychological History: Anxiety, Depression Smoking Status: Never smoker Past Alcohol Use History: None Reported Past Drug Use History: None Reported - Past Family History Mother Family Medical History: Diabetes Mellitus, Osteoarthritis (OA) Additional Family Medical History / Comment(s): HIP REPLACMENTS Father Family Medical History: CVA/TIA, Diabetes Mellitus, Myocardial Infarction (MA), Musculoskeletal Disorder, Neurologic Disorder Additional Family Medical History / Comment(s): PARKINSON'S General Exam Limitations: no limitations General appearance: alert, in no apparent distress Head exam: Present: atraumatic, normocephalic, normal inspection Eye exam: Present: normal appearance, PERRL, EOMI. Absent: scleral icterus, conjunctival injection, periorbital swelling ENT exam: Present: normal exam, normal oropharynx, mucous membranes moist Neck exam: Present: normal inspection, full ROM. Absent: tenderness, meningismus, lymphadenopathy Respiratory exam: Present: normal lung sounds bilaterally. Absent: respiratory distress, wheezes, rales, rhonchi, stridor Cardiovascular Exam: Present: regular rate, normal rhythm, normal heart sounds. Absent: systolic murmur, diastolic murmur, rubs, gallop, clicks GI/Abdominal exam: Present: soft, normal bowel sounds. Absent: distended, tenderness, guarding, rebound, rigid Neurological exam: Present: alert, oriented X3 Skin exam: Present: warm, dry, intact, normal color. Absent: rash Course Vital Signs 09/11/21 09/11/21 09/11/21 06:00 06:34 07:48 Temperature 99 F Pulse Rate 68 67 70 Respiratory 20 18 18 Rate Blood Pressure 155/78 152/64 136/53 O2 Sat by Pulse 96 99 95 Oximetry Medical Decision Making - Medical Decision Making 61-year-old presented for fever cough congestion. Patient is covid 19 positive. X-ray shows some COVID-19 changes. Otherwise stable from prior with his pleural effusions. Patient was offered monoclonal antibodies patient declines. Patient is to contact his dialysis center today for dialysis center that takes COVID-19 patient return parameters were discussed. - Lab Data Lab Results 09/11/21 Range/Units 06:18 Coronavirus (PCR) Detected A (Not Detectd) Disposition Clinical Impression: COVID-19 Disposition: HOME SELF-CARE Condition: Stable Instructions (If sedation given, give patient instructions): Coronavirus Disease 2019 (COVID-19) Additional Instructions: Please return to the Emergency Department if symptoms worsen or any other concerns. Is patient prescribed a controlled substance at d/c from ED?: No Referrals: Thor Robert MD [Primary Care Provider] - 1-2 days Time of Disposition: 07:51
--- NOTE | 2021-09-11 07:44 | XR ---
EXAMINATION TYPE: XR chest 2V DATE OF EXAM: 09/11/2021 COMPARISON: 05/09/2021 INDICATION: Cough TECHNIQUE: Frontal and lateral views of the chest are obtained. FINDINGS: The heart size is enlarged. The pulmonary vasculature is normal. Small bilateral pleural effusions are present. Bibasilar infiltrates are present. Findings are simila r to comparison.. IMPRESSION: 1. Scattered bibasilar infiltrates with small bilateral pleural effusions, stable from comparison.
[2021-09-11] MEDS ORDERED: ONDANSETRON 4 MG ODT STARTER PACK 2 TAB BTL PO STA (07:48)
[2021-09-11 07:49] VITALS: BP 136/53; PULSE 70
== END 2021-09-11 08:09 | disposition home or self-care (01) ==
LOC: EC 05:47
DX: U07.1 COVID-19 (principal); E11.22 Type 2 diabetes mellitus with diabetic chronic kidney disease; I13.2 Hypertensive heart and chronic kidney disease with heart failure and with stage 5 chronic kidney disease, or end stage renal disease; N18.6 End stage renal disease; I50.9 Heart failure, unspecified; E78.5 Hyperlipidemia, unspecified; E11.42 Type 2 diabetes mellitus with diabetic polyneuropathy; E11.319 Type 2 diabetes mellitus with unspecified diabetic retinopathy without macular edema; I25.10 Atherosclerotic heart disease of native coronary artery without angina pectoris; Z91.041 Radiographic dye allergy status; Z79.899 Other long term (current) drug therapy; Z79.4 Long term (current) use of insulin
CPT/HCPCS: 87635; 71046; 99285; S0119